=== PATIENT | female | born 1980 | race Two or more races ===

== ENCOUNTER 2022-07-14 08:30 | Emergency (ER) | payer OTHER, SELFPAY ==
--- NOTE | ~2022-07-14 | XR_ITS ---
EXAMINATION: XR CHEST CLINICAL INFORMATION: Cough. COMPARISON: None TECHNIQUE: 2 views of the chest were obtained. FINDINGS: No significant abnormality is noted involving the heart, lungs, mediastinum, bony thorax or soft tissues. XR/XR chest 2V IMPRESSION: No acute cardiopulmonary process.
[2022-07-14 08:33] VITALS: BP 149/96; PULSE 81; RESP 18; TEMP 36.6; O2SAT 98; BMI 33.6
--- NOTE | 2022-07-14 10:17 | ED_ITS ---
HPI - Headache General Chief Complaint: Headache Stated Complaint: migraine, nauseous, prev had pnemounio Time Seen by Provider: 07/14/22 09:52 Source: patient and family Mode of arrival: ambulatory Limitations: no limitations History of Present Illness HPI Narrative: 42-year-old female with a history of migraines and hypertension presents with symptoms of sore throat, body aches, dry cough, post-tussive vomiting, bilateral ear pain, bilateral eye redness, BOYCE since Thursday. Patient tells me on Thursday she went to [facility] and tested negative for COVID and strep. On she had continued symptoms of when to [place] where she had negative COVID and strep testing as well as a chest x-ray. She was told it was viral. On Thursday she had worsening pain in her right ear and noticed some bloody drainage and so she went back to [facility]. She was diagnosed with conjunctivitis and right otitis media and started on Augmentin and polymyxin drops. Patient reports continued symptoms yesterday. Patient unable to tolerate p.o. fluids or her medication which prompted her visit today. Patient denies fever, neck pain or neck stiffness, skin rash, shortness of breath, abdominal pain, diarrhea. Grisel ventura has received 3 COVID vaccinations. She has not had COVID before. One month ago had pneumonia and took two weeks of antibiotics (initially doxycycline but no improvement, felt better with azithromycin). Related Data Previous Rx's Medication Instructions Recorded codeine 10 mg-guaifenesin 100 mg/5 10 ml PO Q4-6H PRN cough #120 mL 07/14/22 mL oral liquid (Virtussin AC) prednisone 20 mg tablet 40 mg PO DAILY #10 tabs 07/14/22 Allergies Allergy/AdvReac Type Severity Reaction Status Date / Time No Known Allergies Allergy Verified 07/14/22 10:14 Review of Systems Review of Systems: Yes all other systems are reviewed and are negative Constitutional: Constitutional: Reports no additional constitutional complaints, Reports body ache(s), Denies chills, Denies fever(s), Reports headache(s) and Denies weakness Eyes: Eyes: Reports no additional eye complaints, Denies change in vision, Reports eye discharge and Reports other (eye redness) ENT: Reports system reviewed and no additional complaints, except as documented, Denies dizziness, Reports ear discharge, Reports otalgia, Reports headache(s), Denies nasal congestion, Denies nasal discharge, Denies neck pain and Reports sore throat Cardiovascular: Cardiovascular: Reports no additional cardiovascular complaints, Denies chest pain, Denies leg edema and Denies dyspnea Respiratory: Respiratory: Reports no additional respiratory complaints, Reports cough and Denies dyspnea Comments: +post tussive vomiting Gastrointestinal: Gastrointestinal: Reports no additional gastrointestinal complaints, Denies abdominal pain, Denies diarrhea, Reports nausea and Reports vomiting Genitourinary: Genitourinary: Reports no additional female genitourinary co mplaints and Denies urinary incontinence Musculoskeletal: Musculoskeletal: Reports no additional musculoskeletal complaints, Denies back pain, Denies arthralgias, Denies joint swelling, Denies neck pain, Denies numbness and Denies tingling Integumentary/Breasts: Skin/Breast: Reports system reviewed and no additional complaints, except as docu and Denies rash Neurologic: Reports system reviewed and no additional complaints, except as documented, Denies Abnormal speech present, Denies dizziness, Reports headache(s), Denies numbness, Denies tingling and Denies weakness [facility] Past Medical History Attestation statement: The following information was validated with the patient. Source: old records reviewed and nursing notes reviewed Social History Social History Alcohol intake: never Patient Tobacco Use Status: Never used Tobacco Use of substances other than those prescribed or required for medical reasons: No Advance Directives: No Advance Directives Information Provided: Yes Physical Exam Vital Signs: Vital Signs: Last Vital Signs Temp 98.6 F 07/14/22 11:09 Pulse 64 07/14/22 11:09 Resp 12 07/14/22 11:09 BP 143/84 H 07/14/22 11:09 Pulse Ox 97 07/14/22 11:09 O2 Del Method 07/14/22 11:09 BMI result Body Mass Index 33.6 Const: General: cooperative, healthy appearing, comfortable and no acute distress Orientation/consciousness: patient oriented x3 Limitations: no limitations HEENT: Head: Yes normal to inspection Ears: hearing grossly normal bilaterally, TM normal on the left, mastoids normal, no periauricular adenopathy and TM abnormal perforated without discharge General nose exam: Normal external nose present Face and sinus: Yes normal facial exam Mouth: Normal oral and palatal mucosa present Throat: Yes posterior oropharynx normal, Yes tonsils normal and Yes uvula midline Eyes: General: appearance normal, both eyes and all related structures Visual Souza: normal visual souza by confrontation Alignment and Position: alignment normal Periorbital: periorbital findings normal Eyelids: Yes eyelids normal Conjunctivae: conjunctival abnormal (R conjunctival ed zackery/injection/hemorrhage) diffuse Corneas: corneas normal Pupils: Equal, round and reactive pupils present EOM: EOMs intact bilaterally Direct Ophthalmoscopy: normal light reflex and no photophobia Neck: Neck: Yes normal visual inspection, Yes full ROM, Yes no lymphadenopathy and Yes no meningeal signs Chest: Chest palpation & inspection: normal inspection of the chest Resp: Other: +frequent cough-dry Effort & Inspection: normal respiratory effort Auscultation: clear to auscultation bilaterally Cardio: Rate: regular rate Rhythm: regular rhythm Peripheral pulses: Peripheral pulses 2+ throughout GI: Inspection: Yes normal to inspection Palpation (GI): Soft to palpation and nontender Auscultation: normal bowel sounds Back/Spine/Pelvis: Thoracic/Lumbar Spine: thoracic and lumbar spine normal to inspection Skin: General skin exam: no rashes or lesions noted Neuro: General: patient oriented x3, moves all extremities, no meningeal signs, no focal motor deficits and normal sensation to monofilament Cranial nerves: Yes Equal, round and reactive pupils present Cognition (Neuro): normal cognition Speech: No Abnormal speech present Gait exam (Neuro): Normal gait present Motor exam (neuro): 5/5 motor strength present throughout Sensory Exam: Normal double simultaneous stimulation for sensation Extrem: General: Yes normal to inspection Course Course Course Narrative: 1155-Patient complaining of some chest discomfort with coughing. Cough worsens the chest discomfort. No shortness of breath, leg swelling or leg pain. Vitals are stable. EKG will be obtained as well as troponin Reevaluation(s) Reevaluation #1: 1350- the patient had an EKG, labs, chest x-ray which showed no acute finding. Respiratory viral panel was done which was negative. Therefore due to complaints of persistent dry cough with post-tussive vomiting, subconjunctival hemorrhage consider pertussis. Patient was tested and the lab received a sample. Will discharge her home with recommendations to continue antibiotics. Will give robitussin w/codeine, prednisone course. Reviewed worrisome signs and symptoms of when to return to the emergency department. Comfortable discharge home. MDM - Headache MDM Narrative Medical decision making narrative: 42 yo female with history of HTN, migraines presents with 1 week of BOYCE, dry cough with associated post-tussive vomiting, bilateral ear pain, sore throat, body aches, right eye redness/discharge despite being on augmentin (for AOM/conjunctivitis syndrome), polymixin gtt, tessalon prn with reported pneumonia 1 month ago which improved with azithromycin. On arrival VSS. LS CTA. Frequent dry cough noted with vomiting, R subconjunctival hemorrhage, injection, edema with right TM perforation. No lymphadenopathy or meningeal signs. Normal neuro exam. Abdomen soft and nontender. Consider viral syndrome, pertussis, pneumonia. Exam not consistent with p haryngitis. Perc score 0 so less likely PE Medical Records Attestation: I reviewed the patient's medical records. Lab Data Attestation: I reviewed the patient's lab results. Result diagrams: 07/14/22 10:46 07/14/22 11:11 Labs: Lab Results 07/14/22 07/14/22 07/14/22 Range/Units 10:46 11:08 11:11 WBC 9.8 (4.8-10.8) X10*3/uL RBC 4.62 (4.20-5.50) X10*6/uL Hgb 13.0 (12.0-16.0) g/dl Hct 38.3 (37.0-47.0) % MCV 82.9 (80.0-98.0) fL MCH 28.1 (27.0-33.0) pg MCHC 33.9 (31.0-35.0) g/dl RDW 12.4 (11.0-16.0) % Plt Count 379 (160-400) X10*3/uL MPV 11.3 (9.4-12.3) fL Immature Gran % (Auto) 0.7 H (0.0-0.4) % Neut % (Auto) 66.4 (45-73) % Lymph % (Auto) 23.1 (20-40) % [place] % (Auto) 5.1 (2-11) % Eos % (Auto) 4.3 H (0-4) % Baso % (Auto) 0.4 (0-2) % Lymph # (Auto) 2.3 (1.2-4.9) X10*3/uL [place] # (Auto) 0.5 (0.1-1.2) X10*3/uL Eos # (Auto) 0.4 (0.0-0.4) X10*3/uL Baso # (Auto) 0.0 (0.0-0.2) X10*3/uL Abs Immat Gran (auto) 0.07 H (0.00-0.03) X10*3/uL Absolute Neuts (auto) 6.5 (2.0-8.3) x10*3/uL Absolute Nucleated RBC 0.000 (0.0-0.012) X10*3/uL Nucleated RBC % (auto) 0.0 (0.0-0.2) /100WBC Sodium 142 (135-145) mmol/L Potassium 3.8 (3.3-5.1) mmol/L Chloride 107 (96-108) mmol/L Carbon Dioxide 26 (22-29) mmol/L Anion Gap 13 (12-20) BUN 10 (9-16) mg/dL Creatinine 0.78 (0.5-1.4) mg/dL Estim Creat Clear Calc 95.7 Estimated GFR > 60 Random Glucose 85 (60-115) mg/dL Calcium 8.6 (8.4-10.2) mg/dL Total Bilirubin 0.2 (0.0-1.0) mg/dL Direct Bilirubin < 0.2 (0.0-0.5) mg/dL AST 15 (5-31) U/L ALT 13 (0-31) U/L Alkaline Phosphatase 81 (39-117) U/L Troponin I High Sens (<3.5-17.0) ng/L Total Protein 6.8 (6.5-8.0) g/dL Albumin 3.8 (3.5-5.0) g/dL Respiratory Panel [place] See Note Adenovirus (Rapid PCR) Not Detected (Not Detect.) B.pert (TEM-PCR) Not Detected (Not Detect.) B.parapertussis DNA PCR Not Detected (Not Detect.) C. pneumoniae DNA (PCR) Not Detected (Not Detect.) Coronavirus OC43 (PCR) Not Detected (Not Detect.) Coronavirus HKU1 (PCR) Not Detected (Not Detect.) Coronavirus 229E (PCR) Not Detected (Not Detect.) Coronavirus NL63 (PCR) Not Detected (Not Detect.) Human Metapneumovir PCR Not Detected (Not Detect.) Influenza A (RT-PCR) Not Detected (Not Detect.) Influenza B (RT-PCR) Not Detected (Not Detect.) M. pneumoniae (PCR) Not Detected (Not Detect.) Parainfluenza 1 (PCR) Not Detected (Not Detect.) Parainfluenza 2 (PCR) Not Detected (Not Detect.) Parainfluenza 3 (PCR) Not Detected (Not Detect.) Parainfluenza 4 (PCR) Not Detected (Not Detect.) RSV (PCR) Not Detected (Not Detect.) Entero/Rhino (PCR) Not Detected (Not Detect.) SARS-CoV-2 RNA (RT-PCR) Not Detected (Not Detect.) 07/14/22 Range/Units 12:25 WBC (4.8-10.8) X10*3/uL RBC (4.20-5.50) X10*6/uL Hgb (12.0-16.0) g/dl Hct (37.0-47.0) % MCV (80.0-98.0) fL MCH (27.0-33.0) pg MCHC (31.0-35.0) g/dl RDW (11.0-16.0) % Plt Count (160-400) X10*3/uL MPV (9.4-12.3) fL Immature Gran % (Auto) (0.0-0.4) % Neut % (Auto) (45-73) % Lymph % (Auto) (20-40) % [place] % (Auto) (2-11) % Eos % (Auto) (0-4) % Baso % (Auto) (0-2) % Lymph # (Auto) (1.2-4.9) X10*3/uL [place] # (Auto) (0.1-1.2) X10*3/uL Eos # (Auto) (0.0-0.4) X10*3/uL Baso # (Auto) (0.0-0.2) X10*3/uL Abs Immat Gran (auto) (0.00-0.03) X10*3/uL Absolute Neuts (auto) (2.0-8.3) x10*3/uL Absolute Nucleated RBC (0.0-0.012) X10*3/uL Nucleated RBC % (auto) (0.0-0.2) /100WBC Sodium (135-145) mmol/L Potassium (3.3-5.1) mmol/L Chloride (96-108) mmol/L Carbon Dioxide (22-29) mmol/L Anion Gap (12-20) BUN (9-16) mg/dL Creatinine (0.5-1.4) mg/dL Estim Creat Clear Calc Estimated GFR Random Glucose (60-115) mg/dL Calcium (8.4-10.2) mg/dL Total Bilirubin (0.0-1.0) mg/dL Direct Bilirubin (0.0-0.5) mg/dL AST (5-31) U/L ALT (0-31) U/L Alkaline Phosphatase (39-117) U/L Troponin I High Sens < 3.5 (<3.5-17.0) ng/L Total Protein (6.5-8.0) g/dL Albumin (3.5-5.0) g/dL Respiratory Panel [place] Adenovirus (Rapid PCR) (Not Detect.) B.pert (TEM-PCR) (Not Detect.) B.parapertussis DNA PCR (Not Detect.) C. pneumoniae DNA (PCR) (Not Detect.) Coronavirus OC43 (PCR) (Not Detect.) Coronavirus HKU1 (PCR) (Not Detect.) Coronavirus 229E (PCR) (Not Detect.) Coronavirus NL63 (PCR) (Not Detect.) Human Metapneumovir PCR (Not Detect.) Influenza A (RT-PCR) (Not Detect.) Influenza B (RT-PCR) (Not Detect.) M. pneumoniae (PCR) (Not Detect.) Parainfluenza 1 (PCR) (Not Detect.) Parainfluenza 2 (PCR) (Not Detect.) Parainfluenza 3 (PCR) (Not Detect.) Parainfluenza 4 (PCR) (Not Detect.) RSV (PCR) (Not Detect.) Entero/Rhino (PCR) (Not Detect.) SARS-CoV-2 RNA (RT-PCR) (Not Detect.) Imaging Data Chest x-ray: Attestation: I personally reviewed and interpreted this imaging study as follows: Radiologist's impression: cc: Rosario Camp SELF PAY REPRESENTATIVE~ EXAMINATION: XR CHEST CLINICAL INFORMATION: Cough. COMPARISON: None TECHNIQUE: 2 views of the chest were obtained. FINDINGS: No significant abnormality is noted involving the heart, lungs, mediastinum, bony thorax or soft tissues. XR/XR chest 2V IMPRESSION: No acute cardiopulmonary process. ECG Data Attestation: I personally reviewed and interpreted this ECG as follows: ECG interpretation date: 07/14/22 ECG interpretation time: 12:14 Interpretation: sinus bradycardia with a rate of 58, normal NE, normal QRS, normal QT Discharge Plan Discharge Clinical Impression: URI (upper respiratory infection), Perforation of tympanic membrane Patient Disposition: Home, Self-Care Instructions: Ruptured Eardrum (ED), Upper Respiratory Infection (ED) Additional Instructions: Continue antibiotic oral and antibiotic eye drops. We sent testing for pertussis. We will call you if it is positive. it takes a few days Prescriptions: New prednisone 20 mg tablet 40 mg PO DAILY Qty: 10 0RF codeine-guaifenesin [Virtussin AC] 10-100 mg/5 mL liquid 10 ml PO Q4-6H PRN (Reason: cough) Qty: 120 0RF Rx Instructions: partial fill per patient Referrals: Scott Lopez [Physician] - 10 days Physician,Unknown J [Primary Care Provider] - Stand Alone Forms: Work/School Release Interventions: ED Discharge Assessment Last Done: 07/14/22 14:45 Discharge Date/Time: 07/14/22 14:45
[2022-07-14 10:50] LABS: MANUAL DIFF FLAG NO
[2022-07-14 10:54] LABS: Basophils Percent Auto 0.4 % (0-2); Eosinophils Absolute Auto 0.4 X10*3/uL (0.0-0.4); Eosinophils Percent Auto 4.3 % (0-4); Hematocrit 38.3 % (37.0-47.0); Imm Gran Abs Auto 0.07 X10*3/uL (0.00-0.03); Imm Gran Pct Auto 0.7 % (0.0-0.4); Lymphocytes Absolute Auto 2.3 X10*3/uL (1.2-4.9); Lymphocytes Percent Auto 23.1 % (20-40); Mean Corpuscular HGB Conc 33.9 g/dl (31.0-35.0); Mean Corpuscular Hemoglobin 28.1 pg (27.0-33.0); Mean Corpuscular Volume 82.9 fL (80.0-98.0); Mean Platelet Volume 11.3 fL (9.4-12.3); Monocytes Absolute Auto 0.5 X10*3/uL (0.1-1.2); Monocytes Percent Auto 5.1 % (2-11); Neutrophils Absolute Auto 6.5 x10*3/uL (2.0-8.3); Neutrophils Percent Auto 66.4 % (45-73); Platelet Count 379 X10*3/uL (160-400); Red Blood Count 4.62 X10*6/uL (4.20-5.50); Red Cell Distribution Width 12.4 % (11.0-16.0); White Blood Count 9.8 X10*3/uL (4.8-10.8)
[2022-07-14] MEDS: 0.9 % Sodium Chloride 1,000 ML 999 ML IV (10:54)
[2022-07-14] MEDS: guaiFEN/Codeine SF 200/20/10ML 10 ML LIQUID PO (10:56)
[2022-07-14] MEDS: Ketorolac Tromethamine 30 MG/ML VIAL IVPUSH (10:56)
[2022-07-14] MEDS: ondansetron HCL 4 MG/2 ML VIAL IVPUSH (10:56)
[2022-07-14 11:09] VITALS: BP 143/84; PULSE 64; RESP 12; TEMP 37; O2SAT 97
[2022-07-14 11:38] LABS: Alanine Aminotransferase 13 U/L (0-31); Albumin Level 3.8 g/dL (3.5-5.0); Alkaline Phosphatase 81 U/L (39-117); Anion Gap 13 (12-20); Aspartate Amino Transferase 15 U/L (5-31); Bilirubin Direct < 0.2 mg/dL (0.0-0.5); Bilirubin Total 0.2 mg/dL (0.0-1.0); Blood Urea Nitrogen 10 mg/dL (9-16); Calcium 8.6 mg/dL (8.4-10.2); Carbon Dioxide 26 mmol/L (22-29); Chloride 107 mmol/L (96-108); Creatinine Clr Calc Pharmacy 95.7; Estimated Glomerular Filt Rate > 60; Glucose Random 85 mg/dL (60-115); Potassium 3.8 mmol/L (3.3-5.1); Sodium 142 mmol/L (135-145); Total Protein 6.8 g/dL (6.5-8.0)
--- NOTE | 2022-07-14 11:56 | ECG_ITS ---
Test Reason : sharp chest pain Blood Pressure : / mmHG Vent. Rate : 058 BPM Atrial Rate : 058 BPM P-R Int : 174 ms QRS Dur : 086 ms QT Int : 454 ms P-R-T Axes : 037 016 001 degrees QTc Int : 445 ms Sinus bradycardia Otherwise normal ECG No previous ECGs available Referred By: Rosario Camp Electronically Signed By:CY BALLARD
[2022-07-14 12:50] LABS: Troponin-I High Sensitivity < 3.5 ng/L (<3.5-17.0)
[2022-07-14 12:52] LABS: Adenovirus PCR Not Detected (Not Detect.); Bordetella parapertussis PCR Not Detected (Not Detect.); Bordetella pertussis PCR Not Detected (Not Detect.); Chlamydia pneumoniae PCR Not Detected (Not Detect.); Coronavirus 229E PCR Not Detected (Not Detect.); Coronavirus HKU1 PCR Not Detected (Not Detect.); Coronavirus NL63 PCR Not Detected (Not Detect.); Coronavirus OC43 PCR Not Detected (Not Detect.); Human metapneumovirus PCR Not Detected (Not Detect.); Influenza A PCR Not Detected (Not Detect.); Influenza B PCR Not Detected (Not Detect.); Mycoplasma pneumoniae PCR Not Detected (Not Detect.); Parainfluenza 1 PCR Not Detected (Not Detect.); Parainfluenza 2 PCR Not Detected (Not Detect.); Parainfluenza 3 PCR Not Detected (Not Detect.); Parainfluenza 4 PCR Not Detected (Not Detect.); RSV PCR Not Detected (Not Detect.); Rhino/Enterovirus PCR Not Detected (Not Detect.); SARS-CoV-2 PCR Not Detected (Not Detect.)
[2022-07-29 14:17] LABS: Pertussis Testing Negative
== END 2022-07-14 14:45 | disposition home or self-care (01) ==
PROVIDERS: Nurse Practitioner Family; Emergency Provider Emergency Medicine
DX: J06.9 Acute upper respiratory infection, unspecified (principal); H72.91 Unspecified perforation of tympanic membrane, right ear; H11.31 Conjunctival hemorrhage, right eye; Z20.822 Contact with and (suspected) exposure to COVID-19; J02.9 Acute pharyngitis, unspecified; I10 Essential (primary) hypertension
CPT/HCPCS: 36415; 71046; 80048; 80076; 84484; 85025; 87633; 93005; 96361; 96374; 96375; 99284; 99285; J1885; J2405

== ENCOUNTER 2022-07-18 13:48 | Emergency (ER) | payer OTHER, SELFPAY ==
--- NOTE | ~2022-07-18 | XR_ITS ---
EXAMINATION: XR CHEST CLINICAL INFORMATION: Shortness of breath COMPARISON: 07/14/2022 TECHNIQUE: Frontal view of the chest was obtained. FINDINGS: No acute finding. There is no failure or infiltrate. No effusion. Lung simon are grossly clear. Prominent cardiac silhouette but this is an AP film. The hilar structures do not appear pathologically enlarged. XR/XR chest 1V IMPRESSION: No acute finding.
[2022-07-18 14:37] VITALS: BP 142/96; PULSE 69; RESP 18; TEMP 36.7; O2SAT 97; BMI 33.6
[2022-07-18 15:13] LABS: Hematocrit 42.1 % (37.0-47.0); Hemoglobin 14.2 g/dl (12.0-16.0); Mean Corpuscular HGB Conc 33.7 g/dl (31.0-35.0); Mean Corpuscular Hemoglobin 27.9 pg (27.0-33.0); Mean Corpuscular Volume 82.7 fL (80.0-98.0); Mean Platelet Volume 11.1 fL (9.4-12.3); Platelet Count 438 X10*3/uL (160-400); Red Blood Count 5.09 X10*6/uL (4.20-5.50); Red Cell Distribution Width 12.5 % (11.0-16.0); White Blood Count 16.8 X10*3/uL (4.8-10.8)
[2022-07-18 15:28] LABS: Anion Gap 17 (12-20); Blood Urea Nitrogen 13 mg/dL (9-16); Calcium 9.1 mg/dL (8.4-10.2); Carbon Dioxide 25 mmol/L (22-29); Chloride 104 mmol/L (96-108); Creatinine Clr Calc Pharmacy 85.9; Estimated Glomerular Filt Rate > 60; Glucose Random 134 mg/dL (60-115); Sodium 142 mmol/L (135-145)
[2022-07-18 15:29] LABS: COVID-19 Test Negative (Negative)
[2022-07-18] MEDS: 0.9 % Sodium Chloride 1,000 ML 999 ML IVCONT ×2 (16:33→19:26)
[2022-07-18] MEDS: Ketorolac Tromethamine 30 MG/ML VIAL IVPUSH (16:33)
[2022-07-18] MEDS: ondansetron HCL 4 MG/2 ML VIAL IVPUSH (16:33)
[2022-07-18] MEDS: guaiFEN/Codeine SF 200/20/10ML 10 ML LIQUID PO (16:33)
--- NOTE | 2022-07-18 16:35 | ED_ITS ---
HPI - General Adult General Chief complaint: General Medical Stated complaint: multiple complaints/chest pains Time Seen by Provider: 07/18/22 15:28 Source: patient, family and old records reviewed Mode of arrival: ambulatory Limitations: no limitations History of Present Illness HPI narrative: 42-year-old female with a history of hypertension and migraines who presents to the ER as for evaluation of 12 days of feeling unwell. She reports she has had diffuse body aches, migraine headaches, sore throat, dry cough, nausea and vomiting. She was seen at [facility] last week where she had a negative COVID and strep test. She was diagnosed with conjunctivitis and ear infection started on Augmentin, prednisone and polymyxin drops. She was seen here on 07/14 for ongoing symptoms. She had a complete viral panel that was negative. She was found to have right eardrum perforation. Patient reports ongoing symptoms is week. Every time she takes her Augmentin she vomits. She is not eating or drinking much because of ongoing nausea. She denies any abdominal pain. She reports the worse part of her illness is her diffuse headache and sinus fullness. No known sick contacts, is feeling well. She had multiple COVID tests that have been negative. Patient works at [employer], she tried to go to work today but ended up leaving after few hours because she felt so 1 well in her headache was throbbing. She went to Dr. Lopez's office for ear nose and throat when she lost her voice. He did not see any vocal cord abnormalities on flex scope and thought it was more pneumonia per the patient report. MD complaint: Headache and post-tussive emesis Onset (ago): day(s) (12) Location: head, face and mouth Radiation: back and neck Severity: moderate Severity scale (1-10): 7 Quality: aching, dull and constant Pain Consistency: constant Relieving factors: medication Exacerbating factors: none Associated symptoms: cough, headaches, loss of appetite, malaise, nausea/vomiting and weakness Treatments prior to arrival: other (Previously prescribed antibiotic, cough syrup) Related Data Previous Rx's Medication Instructions Recorded codeine 10 mg-guaifenesin 100 mg/5 10 ml PO Q4-6H PRN cough #120 mL 07/14/22 mL oral liquid (Virtussin AC) prednisone 20 mg tablet 40 mg PO DAILY #10 tabs 07/14/22 cefuroxime axetil 500 mg tablet 500 mg PO BID 7 days #14 tabs 07/18/22 fluticasone propionate 50 1 spray intranasal BID #16 grams 07/18/22 mcg/actuation nasal spray,suspension (Aller-Abel) ibuprofen 600 mg tablet 600 mg PO Q8H PRN pain #10 tabs 07/18/22 ondansetron 4 mg disintegrating 4 mg PO Q8H PRN nausea and 07/18/22 tablet vomiting #10 tabs Allergies Allergy/AdvReac Type Severity Reaction Status Date / Time No Known Allergies Allergy Verified 07/14/22 10:14 Review of Systems Review of Systems: Constitutional: No Fever, No Chills ENT/Mouth: + sore throat, No Rhinorrhea, No Swallowing Difficulty, +Otalgia Eyes: No Eye Pain, No Swelling, + Redness Cardiovascular: No Chest Pain, No SOB, No Orthopnea, No Edema Respiratory: No Cough, No Sputum, No Wheezing, No dyspnea Gastrointestinal: + Nausea, + Vomiting, No Diarrhea, No abdominal Pain, No Hematochezia, No Melena Genitourinary: No Dysuria, No Urinary Frequency, No Hematuria Musculoskeletal: No joint pain, +Myalgias Skin: No Skin Lesions, No rash Neuro: +Weakness, No Numbness, No Dizziness, + Headache Psych: No Anxiety/Panic, No Depression Heme/Lymph: No Bruising, No Lymphadenopathy Endocrine: No Polyuria, No Polydipsia PMFSH Social History Social History Alcohol intake: never Patient Tobacco Use Status: Never used Tobacco Advance Directives: No Advance Directives Information Provided: Yes Physical Exam ED Vital Signs: Vital Signs - 24 hr 07/18/22 14:37 07/18/22 16:36 Temperature 98.1 F Pulse Rate 69 65 Respiratory Rate 18 19 Blood Pressure 142/96 H 158/79 H Pulse Oximetry 97 98 Oxygen Delivery Method Room Air Room Air BMI result Body Mass Index 33.6 Appearance: Alert. Oriented X3. No acute distress. Eyes: Subcontunctival hemorrhage present in the medial aspect of the right eye. No discharge. Pupils equal, round and reactive to light. ENT: Pharynx with moderate posterior erythema, no tonsillar swelling or exudate. uvula midline. hoarse voice. TMS are intact bilaterally with effusions present, no erythema. Neck: Normal inspection. Neck supple. No LAD CVS: Normal heart rate and rhythm. Pulses normal. Respiratory: No respiratory distress. Breath sounds coarse in the ANEL only, no wheezes or rhonchi. Abdomen: Soft and nontender. +BS x4 Skin: Skin warm and dry. Normal skin color. Normal skin turgor. No rashes. Extremities: No lower extremity edema. Neuro: Oriented X 3. No motor deficit. No sensory deficit. Course Course Course Narrative: 42-year-old female with history of hypertension presents to the ER for evaluation of 12 days of feeling unwell. She was recently diagnosed with pharyngitis, ear infection, TM perforation. She has been on Augmentin and prednisone however she is throwing up her Augmentin after she takes it, it is making her nauseous. She reports no improvement in her cough with cough syrup with codeine. She denies any abdominal pain, difficulty breathing, chest pain. On arrival to the ER her vital signs are stable, she is afebrile and not tachycardic. She appears nontoxic. Chest x-ray, lab workup is pending. Biggest complaint is her migraine headache, will treat with IV Toradol and IV fluids for now. Reevaluation(s) Reevaluation #1: Lab workup showing a WBC 16.8. Her chest x-ray is clear, no evidence of pne umonia. This is most likely reactive from her recurrent vomiting as well as being on prednisone. Her electrolytes are within normal limits. Will re-evaluate after IV fluids, Zofran, Toradol. Will also give her her 1st dose of her new antibiotic, Ceftin. Will see how her stomach tolerates. Anti cipate discharge home Medical Decision Making Lab Data Result diagrams: 07/18/22 14:56 07/18/22 14:56 Labs: Lab Results 07/18/22 07/18/22 07/18/22 Range/Units 14:56 14:56 14:56 WBC 16.8 H (4.8-10.8) X10*3/uL RBC 5.09 (4.20-5.50) X10*6/uL Hgb 14.2 (12.0-16.0) g/dl Hct 42.1 (37.0-47.0) % MCV 82.7 (80.0-98.0) fL MCH 27.9 (27.0-33.0) pg MCHC 33.7 (31.0-35.0) g/dl RDW 12.5 (11.0-16.0) % Plt Count 438 H (160-400) X10*3/uL MPV 11.1 (9.4-12.3) fL Absolute Nucleated RBC 0.000 (0.0-0.012) X10*3/uL Nucleated RBC % (auto) 0.0 (0.0-0.2) /100WBC Sodium 142 (135-145) mmol/L Potassium 4.0 (3.3-5.1) mmol/L Chloride 104 (96-108) mmol/L Carbon Dioxide 25 (22-29) mmol/L Anion Gap 17 (12-20) BUN 13 (9-16) mg/dL Creatinine 0.87 (0.5-1.4) mg/dL Estim Creat Clear Calc 85.9 Estimated GFR > 60 Random Glucose 134 H (60-115) mg/dL Calcium 9.1 (8.4-10.2) mg/dL COVID-19 (CELESTINA) Negative (Negative) COVID-19 Clin Com See Note Critical Care Time Critical Care Time Critical Care Time: No Discharge Plan Discharge Clinical Impression: Sinusitis, Laryngitis, Migraine Patient Disposition: Home, Self-Care Instructions: Sinusitis (ED), Migraine Headache (ED) Additional Instructions: Your lab workup today revealed a elevated white blood cell count, this is most likely due to vomiting and the fact that you are on prednisone. Your x-ray did not show any evidence of pneumonia. You are negative for COVID-19. Stop taking the previously prescribed Augmentin. Start taking the new antibiotic as directed, complete the entire course. Take the prescribed medication as needed for nausea and vomiting. Rest and drink plenty of fluids. Stick to a bland diet were not feeling well. If you develop new or worsening symptoms call 911 or come back to the ER for further evaluation. Prescriptions: New cefuroxime axetil 500 mg tablet 500 mg PO BID 7 Days Qty: 14 0RF ibuprofen 600 mg tablet 600 mg PO Q8H PRN (Reason: pain) Qty: 10 0RF ondansetron 4 mg tablet,disintegrating 4 mg PO Q8H PRN (Reason: nausea and vomiting) Qty: 10 0RF fluticasone propionate [Aller-Abel] 50 mcg/actuation spray,suspension 1 spray intranasal BID Qty: 16 0RF Rx Instructions: administer into each nostril No Action prednisone 20 mg tablet 40 mg PO DAILY Qty: 10 0RF codeine-guaifenesin [Virtussin AC] 10-100 mg/5 mL liquid 10 ml PO Q4-6H PRN (Reason: cough) Qty: 120 0RF Rx Instructions: partial fill per patient Stand Alone Forms: Work/School Release
[2022-07-18 16:36] VITALS: BP 158/79; PULSE 65; RESP 19; O2SAT 98
--- NOTE | 2022-07-18 19:00 | PC.NURSE ---
RN assumed care of patient at this time.
[2022-07-18 19:27] VITALS: BP 159/95; PULSE 61; RESP 18; O2SAT 99
[2022-07-18 20:54] VITALS: BP 168/81; PULSE 58; TEMP 36.6; O2SAT 97
== END 2022-07-18 21:01 | disposition home or self-care (01) ==
PROVIDERS: Emergency Provider Emergency Medicine
DX: G43.909 Migraine, unspecified, not intractable, without status migrainosus (principal); R07.89 Other chest pain; J32.9 Chronic sinusitis, unspecified; J04.0 Acute laryngitis; Z79.899 Other long term (current) drug therapy; Z20.822 Contact with and (suspected) exposure to COVID-19
CPT/HCPCS: 71045; 80048; 85027; 87635; 96361; 96374; 96375; 99285; J1885; J2405

== ENCOUNTER 2022-07-23 10:04 | Emergency (ER) | payer OTHER, SELFPAY ==
--- NOTE | ~2022-07-23 | XR_ITS ---
EXAMINATION: XR CHEST CLINICAL INFORMATION: Chest pain and cough COMPARISON: 07/18/2022 TECHNIQUE: 2 views of the chest were obtained. FINDINGS: Lungs are well-inflated and clear. Trachea is midline in position. No interstitial disease, consolidation or mass. No pleural effusion or pneumothorax. Cardiac silhouette and pulmonary vessels are normal in size. The mediastinum and michael have normal contour. The visualized bones, and upper abdomen, are unremarkable. XR/XR chest 2V IMPRESSION: Normal chest radiographs.
--- NOTE | ~2022-07-23 | CT_ITS ---
EXAMINATION: CT CHEST WITHOUT CONTRAST CLINICAL INFORMATION: Coughing and chest pain COMPARISON: None TECHNIQUE: Multidetector volumetric CT imaging of the chest was done. Axial MIP volume rendering provided. Sagittal and coronal reformatted images were obtained. This CT examination was performed using dose optimization techniques as appropriate, variously including the following: *Automated exposure control *Adjustment of mA and/or kV according to patient size (this includes techniques or standardized protocols for targeted exams where dose is matched to indication/reason for exam; i.e. extremities or head) *Use of iterative reconstruction technique DLP: 264 mGy-cm FINDINGS: LUNGS: Minimal dependent left basilar atelectasis. No airspace consolidation. No pulmonary nodule or mass. Central through segmental airways are clear. MEDIASTINUM: No cardiomegaly or pericardial effusion. Normal caliber thoracic aorta. No aneurysm. Nondilated central pulmonary trunk. No mediastinal or hilar lymphadenopathy. PLEURA: There is no pleural effusion. No pleural mass or thickening. AXILLA: No lymphadenopathy. UPPER ABDOMEN: Imaged upper abdominal viscera are grossly unremarkable. Possible small hiatal hernia. OSSEOUS STRUCTURES: No acute fracture or suspicious osseous lesion. CT/CT chest wo con IMPRESSION: No acute pulmonary process.
[2022-07-23 10:09] VITALS: BP 156/102; PULSE 71; RESP 19; TEMP 36.6; O2SAT 98; BMI 33.6
--- NOTE | 2022-07-23 10:13 | ECG_ITS ---
Test Reason : chest pain Blood Pressure : / mmHG Vent. Rate : 070 BPM Atrial Rate : 070 BPM P-R Int : 162 ms QRS Dur : 080 ms QT Int : 384 ms P-R-T Axes : 027 024 -01 degrees QTc Int : 414 ms Normal sinus rhythm Normal ECG When compared with ECG of 14-JUL-2022 12:14, No significant change was found Referred By: Generic ED Physician Electronically Signed By:CY BALLARD
[2022-07-23 10:42] LABS: MANUAL DIFF FLAG NO
[2022-07-23 10:50] LABS: Appearance Urine Clear; Color Urine Yellow; Glucose Urine UA Negative (Negative); Leukocyte Esterase Urine Negative (Negative); Nitrite Urine Negative (Negative); Specific Gravity - Urine 1.015 (1.005-1.025); Urine Blood Negative (Negative); Urine Ketones Negative (Negative); Urine Protein Trace mg/dL (Neg-Trace)
[2022-07-23 10:56] LABS: Basophils Absolute Auto 0.1 X10*3/uL (0.0-0.2); Basophils Percent Auto 0.5 % (0-2); Eosinophils Absolute Auto 0.3 X10*3/uL (0.0-0.4); Eosinophils Percent Auto 2.1 % (0-4); Hemoglobin 13.6 g/dl (12.0-16.0); Imm Gran Abs Auto 0.08 X10*3/uL (0.00-0.03); Imm Gran Pct Auto 0.7 % (0.0-0.4); Lymphocytes Absolute Auto 2.1 X10*3/uL (1.2-4.9); Mean Corpuscular HGB Conc 33.2 g/dl (31.0-35.0); Mean Corpuscular Hemoglobin 27.8 pg (27.0-33.0); Mean Corpuscular Volume 83.8 fL (80.0-98.0); Mean Platelet Volume 11.7 fL (9.4-12.3); Monocytes Absolute Auto 0.6 X10*3/uL (0.1-1.2); Monocytes Percent Auto 4.5 % (2-11); Neutrophils Absolute Auto 9.2 x10*3/uL (2.0-8.3); Neutrophils Percent Auto 75.2 % (45-73); Platelet Count 353 X10*3/uL (160-400); Red Blood Count 4.89 X10*6/uL (4.20-5.50); Red Cell Distribution Width 12.7 % (11.0-16.0); White Blood Count 12.2 X10*3/uL (4.8-10.8)
[2022-07-23 11:14] LABS: Troponin-I High Sensitivity < 3.5 ng/L (<3.5-17.0)
[2022-07-23 11:17] LABS: Anion Gap 13 (12-20); Blood Urea Nitrogen 7 mg/dL (9-16); Calcium 10.8 mg/dL (8.4-10.2); Carbon Dioxide 27 mmol/L (22-29); Chloride 104 mmol/L (96-108); Creatinine Clr Calc Pharmacy 100.9; Estimated Glomerular Filt Rate > 60; Glucose Random 91 mg/dL (60-115); Potassium 4.3 mmol/L (3.3-5.1); Sodium 140 mmol/L (135-145)
--- NOTE | 2022-07-23 14:52 | ED_ITS ---
HPI - Chest Pain General Chief Complaint: Chest Pain Stated Complaint: aches pains sob vomiting Time Seen by Provider: 07/23/22 14:25 Source: patient Mode of arrival: ambulatory Limitations: no limitations History of Present Illness HPI narrative: 42-year-old female in for evaluation of coughing chest pain. Patient had multiple ED visits for evaluation of upper respiratory symptoms, complaining of persistent coughing with clear sputum for the past 2-3 weeks, patient perforated right TM from coughing, declined any recent travel, patient was seen by ENT doctor and was started on prednisone, cefuroxime, bronchodilator with no improvement. Patient declined any recent travel, no lower extremity swelling or edema. Related Data Previous Rx's Medication Instructions Recorded codeine 10 mg-guaifenesin 100 mg/5 10 ml PO Q4-6H PRN cough #120 mL 07/14/22 mL oral liquid (Virtussin AC) prednisone 20 mg tablet 40 mg PO DAILY #10 tabs 07/14/22 cefuroxime axetil 500 mg tablet 500 mg PO BID 7 days #14 tabs 07/18/22 fluticasone propionate 50 1 spray intranasal BID #16 grams 07/18/22 mcg/actuation nasal spray,suspension (Aller-Abel) ibuprofen 600 mg tablet 600 mg PO Q8H PRN pain #10 tabs 07/18/22 ondansetron 4 mg disintegrating 4 mg PO Q8H PRN nausea and 07/18/22 tablet vomiting #10 tabs prednisone 20 mg tablet 20 mg PO BID #10 tabs 07/23/22 Allergies Allergy/AdvReac Type Severity Reaction Status Date / Time No Known Allergies Allergy Verified 07/14/22 10:14 Review of Systems Review of Systems: All other systems are reviewed and are negative Constitutional: Reports as per HPI and Reports no additional constitutional complaints Eyes: Reports as per HPI and Reports no additional eye complaints Reports system reviewed and no additional complaints, except as documented Cardiovascular: Reports as per HPI and Reports no additional cardiovascular complaints Respiratory: Reports as per HPI and Reports no additional respiratory complaints Gastrointestinal: Reports as per HPI and Reports no additional gastrointestinal complaints Genitourinary: Reports no additional female genitourinary complaints Musculoskeletal: Reports no additional musculoskeletal complaints Skin/Breast: Reports system reviewed and no additional complaints, except as docu Psychiatric: Reports no additional psychiatric complaints Endocrine: Reports no additional endocrine complaints Hematologic/Lymphatic: Reports no additional hematologic/lymphatic complaints Allergic/Immunologic: Reports no additional allergic/immunologic complaints Reports system reviewed and no additional complaints, except as documented and Reports Abnormal speech present [facility] Social History Social History Alcohol intake: never Patient Tobacco Use Status: Never used Tobacco Advance Directives: No Advance Directives Information Provided: No Physical Exam Vital Signs: Vital Signs: Last Vital Signs Temp 98 F 07/23/22 10:09 Pulse 71 07/23/22 10:09 Resp 19 07/23/22 10:09 BP 156/102 H 07/23/22 10:09 Pulse Ox 98 07/23/22 10:09 O2 Del Method 07/23/22 10:09 BMI result Body Mass Index 33.6 Vital signs have been reviewed as appeared to be correct. Blood pressure normal. Heart rate normal. Respiration rate normal. Temperature normal. Oxygen saturation normal. Appearance: Alert. Oriented X3. No acute distress. Head: Normal external exam. Normocephalic. Atraumatic. No Mora signs noted. No raccoon eyes noted Eyes: PERRLA. EOMI. Conjunctiva and sclera normal. Eyelids normal. ENT: TM's Normal. Pharynx normal. Uvula midline. Moist mucous membranes. No trismus noted. No drooling noted. No muffled voice noted. Neck: Normal inspection. Neck supple. FROM. No adenopathy. Thyroid Normal. No meningeal signs. No neck mass noted. CVS: Normal heart rate and rhythm. Heart sound normal. No murmurs noted. Pulses normal throughout. Respiratory: No respiratory distress. Painless inspiration. Breath sounds normal. No wheezes/rales/rhonchi noted. Chest nontender. No accessory muscle usage noted or decreased air movement noted. Abdomen: Soft and nontender. Bowel sounds normal in all 4 quadrants. No distention noted. No organomegaly noted. No visible injury noted. Back: No CVA tenderness. Full range of motion noted. Skin: Skin warm and dry. Normal skin color. Normal skin turgor. No rashes/lesions/lacerations noted. Extremities: No lower extremity edema. Extremities exhibit normal range of motion. Extremities nontender. Neuro: Oriented X 3. Cranial nerve exam: II-XII are grossly intact No motor deficit. No sensory deficit. Reflexes normal. Course Course Course Narrative: 42-year-old female came in for evaluation of 3 weeks of upper respiratory symptoms, patient had been evaluated by ENT possible laryngitis, patient tried a course of prednisone and antibiotic, chest x-ray/CT of the chest showing no acute infection, would continue with steroid for another 5 days course, patient was instructed to drink warm fluids will give information of Dr. Rizo to check with him if not improving for possible bronchoscopy. Leukocytosis likely recent use of steroid. MDM - Chest Pain Medical Records Data Attestation: I reviewed the patient's medical records. Lab Data Attestation: I reviewed the patient's lab results. Result diagrams: 07/23/22 10:28 07/23/22 10: Labs: Lab Results 07/23/22 07/23/22 07/23/22 Range/Units 10:28 10:28 10:28 WBC 12.2 H (4.8-10.8) X10*3/uL RBC 4.89 (4.20-5.50) X10*6/uL Hgb 13.6 (12.0-16.0) g/dl Hct 41.0 (37.0-47.0) % MCV 83.8 (80.0-98.0) fL MCH 27.8 (27.0-33.0) pg MCHC 33.2 (31.0-35.0) g/dl RDW 12.7 (11.0-16.0) % Plt Count 353 (160-400) X10*3/uL MPV 11.7 (9.4-12.3) fL Immature Gran % (Auto) 0.7 H (0.0-0.4) % Neut % (Auto) 75.2 H (45-73) % Lymph % (Auto) 17.0 L (20-40) % [place] % (Auto) 4.5 (2-11) % Eos % (Auto) 2.1 (0-4) % Baso % (Auto) 0.5 (0-2) % Lymph # (Auto) 2.1 (1.2-4.9) X10*3/uL [place] # (Auto) 0.6 (0.1-1.2) X10*3/uL Eos # (Auto) 0.3 (0.0-0.4) X10*3/uL Baso # (Auto) 0.1 (0.0-0.2) X10*3/uL Abs Immat Gran (auto) 0.08 H (0.00-0.03) X10*3/uL Absolute Neuts (auto) 9.2 H (2.0-8.3) x10*3/uL Absolute Nucleated RBC 0.000 (0.0-0.012) X10*3/uL Nucleated RBC % (auto) 0.0 (0.0-0.2) /100WBC D-Dimer High Sensitivty NG/ML Sodium 140 (135-145) mmol/L Potassium 4.3 (3.3-5.1) mmol/L Chloride 104 (96-108) mmol/L Carbon Dioxide 27 (22-29) mmol/L Anion Gap 13 (12-20) BUN 7 L (9-16) mg/dL Creatinine 0.74 (0.5-1.4) mg/dL Estim Creat Clear Calc 100.9 Estimated GFR > 60 Random Glucose 91 (60-115) mg/dL Calcium 10.8 H D (8.4-10.2) mg/dL Troponin I High Sens < 3.5 (<3.5-17.0) ng/L Urine Color Urine Appearance Urine pH (5.0-8.0) Ur Specific [place] (1.005-1.025) Urine Protein (Neg-Trace) mg/dL Urine Glucose (UA) (Negative) mg/dL Urine Ketones (Negative) mg/dL Urine Blood (Negative) Urine Nitrite (Negative) Ur Leukocyte Esterase (Negative) Urine Test (NEGATIVE) Influenza Type A (PCR) (Negative) Influenza Type B (PCR) (Negative) RSV RNA Qual (PCR) (Negative) SARS-CoV-2 RNA (RT-PCR) (Negative) 07/23/22 07/23/22 07/23/22 Range/Units 10:28 10:28 15:23 WBC (4.8-10.8) X10*3/uL RBC (4.20-5.50) X10*6/uL Hgb (12.0-16.0) g/dl Hct (37.0-47.0) % MCV (80.0-98.0) fL MCH (27.0-33.0) pg MCHC (31.0-35.0) g/dl RDW (11.0-16.0) % Plt Count (160-400) X10*3/uL MPV (9.4-12.3) fL Immature Gran % (Auto) (0.0-0.4) % Neut % (Auto) (45-73) % Lymph % (Auto) (20-40) % [place] % (Auto) (2-11) % Eos % (Auto) (0-4) % Baso % (Auto) (0-2) % Lymph # (Auto) (1.2-4.9) X10*3/uL [place] # (Auto) (0.1-1.2) X10*3/uL Eos # (Auto) (0.0-0.4) X10*3/uL Baso # (Auto) (0.0-0.2) X10*3/uL Abs Immat Gran (auto) (0.00-0.03) X10*3/uL Absolute Neuts (auto) (2.0-8.3) x10*3/uL Absolute Nucleated RBC (0.0-0.012) X10*3/uL Nucleated RBC % (auto) (0.0-0.2) /100WBC D-Dimer High Sensitivty NG/ML Sodium (135-145) mmol/L Potassium (3.3-5.1) mmol/L Chloride (96-108) mmol/L Carbon Dioxide (22-29) mmol/L Anion Gap (12-20) BUN (9-16) mg/dL Creatinine (0.5-1.4) mg/dL Estim Creat Clear Calc Estimated GFR Random Glucose (60-115) mg/dL Calcium (8.4-10.2) mg/dL Troponin I High Sens (<3.5-17.0) ng/L Urine Color Yellow Urine Appearance Clear Urine pH 7.0 (5.0-8.0) Ur Specific [place] 1.015 (1.005-1.025) Urine Protein Trace (Neg-Trace) mg/dL Urine Glucose (UA) Negative (Negative) mg/dL Urine Ketones Negative (Negative) mg/dL Urine Blood Negative (Negative) Urine Nitrite Negative (Negative) Ur Leukocyte Esterase Negative (Negative) Urine Test NEGATIVE (NEGATIVE) Influenza Type A (PCR) NEGATIVE (Negative) Influenza Type B (PCR) NEGATIVE (Negative) RSV RNA Qual (PCR) NEGATIVE (Negative) SARS-CoV-2 RNA (RT-PCR) NEGATIVE (Negative) 07/23/22 Range/Units 16:30 WBC (4.8-10.8) X10*3/uL RBC (4.20-5.50) X10*6/uL Hgb (12.0-16.0) g/dl Hct (37.0-47.0) % MCV (80.0-98.0) fL MCH (27.0-33.0) pg MCHC (31.0-35.0) g/dl RDW (11.0-16.0) % Plt Count (160-400) X10*3/uL MPV (9.4-12.3) fL Immature Gran % (Auto) (0.0-0.4) % Neut % (Auto) (45-73) % Lymph % (Auto) (20-40) % [place] % (Auto) (2-11) % Eos % (Auto) (0-4) % Baso % (Auto) (0-2) % Lymph # (Auto) (1.2-4.9) X10*3/uL [place] # (Auto) (0.1-1.2) X10*3/uL Eos # (Auto) (0.0-0.4) X10*3/uL Baso # (Auto) (0.0-0.2) X10*3/uL Abs Immat Gran (auto) (0.00-0.03) X10*3/uL Absolute Neuts (auto) (2.0-8.3) x10*3/uL Absolute Nucleated RBC (0.0-0.012) X10*3/uL Nucleated RBC % (auto) (0.0-0.2) /100WBC D-Dimer High Sensitivty < 150 NG/ML Sodium (135-145) mmol/L Potassium (3.3-5.1) mmol/L Chloride (96-108) mmol/L Carbon Dioxide (22-29) mmol/L Anion Gap (12-20) BUN (9-16) mg/dL Creatinine (0.5-1.4) mg/dL Estim Creat Clear Calc Estimated GFR Random Glucose (60-115) mg/dL Calcium (8.4-10.2) mg/dL Troponin I High Sens (<3.5-17.0) ng/L Urine Color Urine Appearance Urine pH (5.0-8.0) Ur Specific [place] (1.005-1.025) Urine Protein (Neg-Trace) mg/dL Urine Glucose (UA) (Negative) mg/dL Urine Ketones (Negative) mg/dL Urine Blood (Negative) Urine Nitrite (Negative) Ur Leukocyte Esterase (Negative) Urine Test (NEGATIVE) Influenza Type A (PCR) (Negative) Influenza Type B (PCR) (Negative) RSV RNA Qual (PCR) (Negative) SARS-CoV-2 RNA (RT-PCR) (Negative) Imaging Data Chest x-ray: Attestation: I personally reviewed and interpreted this imaging study as follows: Radiologist's impression: Normal chest radiograph. CT chest: Attestation: I personally reviewed and interpreted this imaging study as follows: Radiologist's impression: No acute pulmonary process. Discharge Plan Discharge Clinical Impression: Acute upper respiratory infection Patient Disposition: Home, Self-Care Instructions: Upper Respiratory Infection (ED) Prescriptions: New prednisone 20 mg tablet 20 mg PO BID Qty: 10 0RF No Action prednisone 20 mg tablet 40 mg PO DAILY Qty: 10 0RF codeine-guaifenesin [Virtussin AC] 10-100 mg/5 mL liquid 10 ml PO Q4-6H PRN (Reason: cough) Qty: 120 0RF Rx Instructions: partial fill per patient cefuroxime axetil 500 mg tablet 500 mg PO BID 7 Days Qty: 14 0RF ibuprofen 600 mg tablet 600 mg PO Q8H PRN (Reason: pain) Qty: 10 0RF ondansetron 4 mg tablet,disintegrating 4 mg PO Q8H PRN (Reason: nausea and vomiting) Qty: 10 0RF fluticasone propionate [Aller-Abel] 50 mcg/actuation spray,suspension 1 spray intranasal BID Qty: 16 0RF Rx Instructions: administer into each nostril Referrals: Jon Rizo MD [Physician] - Stand Alone Forms: Work/School Release
[2022-07-23 14:57] LABS: Urine Pregnancy NEGATIVE (NEGATIVE)
[2022-07-23 14:58] LABS: UPreg QC Valid YES
[2022-07-23 16:29] LABS: Influenza A PCR NEGATIVE (Negative); Influenza B PCR NEGATIVE (Negative); Resp Syncy Virus RNA Qual PCR NEGATIVE (Negative); SARS COV2 PCR INHOUSE NEGATIVE (Negative)
[2022-07-23 16:58] LABS: D Dimer High Sensitivity < 150 NG/ML
[2022-07-23 19:09] VITALS: BP 143/79; PULSE 72; RESP 16; TEMP 36.6; O2SAT 96
[2022-07-23] MEDS: predniSONE 20 MG TABLET 40 MG PO (19:11)
== END 2022-07-23 19:15 | disposition home or self-care (01) ==
PROVIDERS: Emergency Provider Emergency Medicine
DX: J06.9 Acute upper respiratory infection, unspecified (principal); R07.89 Other chest pain; R05.9 Cough, unspecified; M79.10 Myalgia, unspecified site; Z20.822 Contact with and (suspected) exposure to COVID-19; Z79.899 Other long term (current) drug therapy
CPT/HCPCS: 0241U; 36415; 71046; 71250; 80048; 81003; 81025; 84484; 85025; 85379; 93005; 99283; 99284

== ENCOUNTER 2022-08-01 11:01 | Outpatient (REF) | payer OTHER, SELFPAY ==
--- NOTE | ~2022-08-01 | CT_ITS ---
EXAMINATION: CT SINUS WITHOUT CONTRAST CLINICAL INFORMATION: Unspecified asthma. Sinus headache. COMPARISON: None TECHNIQUE: Axial 2 mm thin and reformatted sagittal and coronal 2 mm thin images of sinuses were obtained. This CT examination was performed using dose optimization techniques as appropriate, variously including the following: *Automated exposure control *Adjustment of mA and/or kV according to patient size (this includes techniques or standardized protocols for targeted exams where dose is matched to indication/reason for exam; i.e. extremities or head) *Use of iterative reconstruction technique DLP: 77 mGy-cm FINDINGS: There is normal aeration of paranasal sinuses and mastoid air cells with minimal mucoperiosteal thickening bilateral sphenoid sinuses. The rest of the paranasal sinuses are clear. The bony sinus julian, lamina papyracea and cribriform plate are intact. Bilateral ostiomeatal complex and frontoethmoidal recess drainage pathways are widely patent. The nasal septum is mildly patent with a small right nasal bony spur. The turbinates are symmetrical. The nasal cavity and nasopharyngeal airway is patent. Bilateral TM joints, visualized mandible, maxilla, facial bones and the nasal bones are intact. Bilateral optic globes, optic nerve and orbital soft tissues and preseptal soft tissues are normal. CT/CT sinus wo IV con IMPRESSION: Minimal mucoperiosteal thickening bilateral sphenoid sinuses. The rest of the sinuses and mastoid air cells are well-aerated.
== END 2022-08-01 11:02 | disposition home or self-care (01) ==
LOC: HO.CT 11:01
PROVIDERS: Visit Provider Internal Medicine
DX: J45.909 Unspecified asthma, uncomplicated (principal); J04.0 Acute laryngitis
CPT/HCPCS: 70486

== ENCOUNTER 2022-08-15 10:46 | Outpatient (REF) | payer OTHER, SELFPAY ==
--- NOTE | 2022-08-15 15:52 | PFT_ITS ---
Forced vital capacity 95%, FEV1 99%, FEV1/FVC ratio is 85. [id number] 113% and MVV 92%. Post bronchodilator therapy, there is no significant change. Total lung capacity 92%. Residual volume 74%. Diffusion capacity 78%. CONCLUSION: Normal pulmonary function test. No evidence of obstructive or restrictive pulmonary disorder. MD THIAGO Mohamud/SKYL / [id number]
== END 2022-08-15 10:47 | disposition home or self-care (01) ==
LOC: HO.RESP 10:46
PROVIDERS: Visit Provider Internal Medicine
DX: J45.909 Unspecified asthma, uncomplicated (principal)
CPT/HCPCS: 94060; 94727; 94729

== ENCOUNTER 2022-11-25 07:20 | Outpatient (REF) | payer OTHER, SELFPAY ==
[2022-11-25 07:24] LABS: MANUAL DIFF FLAG NO
[2022-11-25 07:54] LABS: Basophils Percent Auto 0.4 % (0-2); Eosinophils Absolute Auto 0.1 X10*3/uL (0.0-0.4); Eosinophils Percent Auto 1.2 % (0-4); Hematocrit 41.6 % (37.0-47.0); Hemoglobin 13.7 g/dl (12.0-16.0); Imm Gran Abs Auto 0.05 X10*3/uL (0.00-0.03); Imm Gran Pct Auto 0.5 % (0.0-0.4); Lymphocytes Absolute Auto 2.2 X10*3/uL (1.2-4.9); Lymphocytes Percent Auto 21.1 % (20-40); Mean Corpuscular HGB Conc 32.9 g/dl (31.0-35.0); Mean Corpuscular Hemoglobin 27.8 pg (27.0-33.0); Mean Corpuscular Volume 84.4 fL (80.0-98.0); Mean Platelet Volume 11.8 fL (9.4-12.3); Monocytes Absolute Auto 0.5 X10*3/uL (0.1-1.2); Monocytes Percent Auto 4.8 % (2-11); Neutrophils Absolute Auto 7.5 x10*3/uL (2.0-8.3); Platelet Count 356 X10*3/uL (160-400); Red Blood Count 4.93 X10*6/uL (4.20-5.50); Red Cell Distribution Width 12.7 % (11.0-16.0); White Blood Count 10.5 X10*3/uL (4.8-10.8)
[2022-11-25 08:06] LABS: Estimated Average Glucose 105 mg/dL; Hemoglobin A1c % 5.3 %
[2022-11-25 08:40] LABS: Alanine Aminotransferase 24 U/L (0-31); Alkaline Phosphatase 83 U/L (39-117); Anion Gap 11 (12-20); Aspartate Amino Transferase 17 U/L (5-31); Bilirubin Total 0.3 mg/dL (0.0-1.0); Blood Urea Nitrogen 10 mg/dL (9-16); Carbon Dioxide 25 mmol/L (22-29); Chloride 107 mmol/L (96-108); Cholesterol 198 mg/dL; Estimated Glomerular Filt Rate > 60; Glucose Fasting 111 mg/dL (60-99); HDL Cholesterol 41 mg/dL; LDL Cholesterol Calculated 135 mg/dl; Potassium 4.2 mmol/L (3.3-5.1); Sodium 139 mmol/L (135-145); TSH reflex Free T4 2.61 uIU/mL (0.32-4.0); Total Protein 6.6 g/dL (6.5-8.0); Triglycerides 110 mg/dL; Vitamin D 25-OH Total 49.3 ng/mL (>30)
[2022-11-25 13:41] LABS: Appearance Urine Clear; Color Urine Yellow; Glucose Urine UA Negative (Negative); Leukocyte Esterase Urine Negative (Negative); Nitrite Urine Negative (Negative); PH 5.5 (5.0-9.0); Specific Gravity - Urine 1.025 (1.005-1.025); Urine Blood Negative (Negative); Urine Ketones Trace mg/dL (Negative); Urine Protein Trace mg/dL (Neg-Trace)
== END 2022-11-25 07:21 | disposition home or self-care (01) ==
LOC: HO.LAB 07:20
PROVIDERS: PCP Internal Medicine; Visit Provider Internal Medicine
DX: Z00.00 Encounter for general adult medical examination without abnormal findings (principal); E55.9 Vitamin D deficiency, unspecified; E78.00 Pure hypercholesterolemia, unspecified; R35.0 Frequency of micturition; R73.01 Impaired fasting glucose; R30.0 Dysuria
CPT/HCPCS: 36415; 80053; 80061; 81003; 82306; 83036; 84443; 85025

== ENCOUNTER 2022-11-27 12:34 | Outpatient (REF) | payer OTHER, SELFPAY ==
[2022-11-27 12:59] LABS: Binax Internal Control QC Valid; Binax Now Covid-19 Ag Negative (Negative)
== END 2022-11-27 12:35 | disposition home or self-care (01) ==
LOC: HO.HMGCLDS 12:34
PROVIDERS: PCP Internal Medicine
DX: J06.9 Acute upper respiratory infection, unspecified (principal); Z20.822 Contact with and (suspected) exposure to COVID-19
CPT/HCPCS: 87811; C9803

== ENCOUNTER 2023-03-04 11:06 | Outpatient (REF) | payer OTHER, SELFPAY ==
[2023-03-04 12:01] LABS: Influenza A PCR NEGATIVE (Negative); Influenza B PCR NEGATIVE (Negative); Resp Syncy Virus RNA Qual PCR NEGATIVE (Negative); SARS COV2 PCR INHOUSE NEGATIVE (Negative)
== END 2023-03-04 11:07 | disposition home or self-care (01) ==
LOC: HO.LNP 11:06
PROVIDERS: Visit Provider Nurse Practitioner Family
DX: Z20.822 Contact with and (suspected) exposure to COVID-19 (principal); R09.89 Other specified symptoms and signs involving the circulatory and respiratory systems
CPT/HCPCS: 0241U

== ENCOUNTER 2023-03-06 03:41 | Emergency (ER) | payer OTHER, SELFPAY ==
[2023-03-06 03:47] VITALS: BP 174/97; PULSE 70; RESP 18; TEMP 36.7; O2SAT 97; BMI 33.6
[2023-03-06 04:03] LABS: MANUAL DIFF FLAG NO
[2023-03-06 04:04] LABS: Basophils Absolute Auto 0.1 X10*3/uL (0.0-0.2); Basophils Percent Auto 0.5 % (0-2); Eosinophils Absolute Auto 0.1 X10*3/uL (0.0-0.4); Eosinophils Percent Auto 1.2 % (0-4); Hematocrit 41.5 % (37.0-47.0); Hemoglobin 14.1 g/dl (12.0-16.0); Imm Gran Abs Auto 0.02 X10*3/uL (0.00-0.03); Imm Gran Pct Auto 0.2 % (0.0-0.4); Lymphocytes Absolute Auto 2.9 X10*3/uL (1.2-4.9); Lymphocytes Percent Auto 28.8 % (20-40); Mean Corpuscular Hemoglobin 28.1 pg (27.0-33.0); Mean Corpuscular Volume 82.7 fL (80.0-98.0); Mean Platelet Volume 11.5 fL (9.4-12.3); Monocytes Absolute Auto 0.6 X10*3/uL (0.1-1.2); Monocytes Percent Auto 5.7 % (2-11); Neutrophils Absolute Auto 6.4 x10*3/uL (2.0-8.3); Neutrophils Percent Auto 63.6 % (45-73); Platelet Count 338 X10*3/uL (160-400); Red Blood Count 5.02 X10*6/uL (4.20-5.50); Red Cell Distribution Width 12.6 % (11.0-16.0); White Blood Count 10.1 X10*3/uL (4.8-10.8)
[2023-03-06 04:20] LABS: COVID-19 Test Negative (Negative); IDNOW Serial# 08D9AD1C; IDNOW Serial# BCCEAD1C; Influenza A Negative (Negative); Influenza B2 Negative (Negative)
[2023-03-06 04:24] LABS: Alanine Aminotransferase 15 U/L (0-31); Albumin Level 4.1 g/dL (3.5-5.0); Alkaline Phosphatase 80 U/L (39-117); Anion Gap 16 (12-20); Aspartate Amino Transferase 15 U/L (5-31); Bilirubin Direct < 0.2 mg/dL (0.0-0.5); Bilirubin Total 0.5 mg/dL (0.0-1.0); Blood Urea Nitrogen 11 mg/dL (9-16); Carbon Dioxide 21 mmol/L (22-29); Chloride 108 mmol/L (96-108); Creatinine Clr Calc Pharmacy 92.1; Estimated Glomerular Filt Rate > 60; Glucose Random 103 mg/dL (60-115); Lipase 23 U/L (8-78); Potassium 3.5 mmol/L (3.3-5.1); Sodium 141 mmol/L (135-145); Total Protein 6.8 g/dL (6.5-8.0)
[2023-03-06 05:53] LABS: Appearance Urine Cloudy; Color Urine Yellow; Glucose Urine UA Negative (Negative); Leukocyte Esterase Urine Small (1+) (Negative); Nitrite Urine Negative (Negative); PH 6.5 (5.0-9.0); Specific Gravity - Urine <= 1.005 (1.005-1.025); UMIC TRIGGER UACC YES; Urine Blood Moderate (2+) (Negative); Urine Ketones Negative (Negative); Urine Protein Negative (Neg-Trace)
[2023-03-06 05:55] LABS: UPreg QC Valid YES; Urine Pregnancy NEGATIVE (NEGATIVE)
[2023-03-06 06:04] LABS: Bacteria Urine Trace (None Seen); Hyaline Casts Urine 0-2 /LPF (0-2); RBC Urine 0-2 /HPF (0-2); UACC Culture Trigger YES
[2023-03-06 06:18] VITALS: BP 133/90; PULSE 65; RESP 17; TEMP 36.7; O2SAT 96
--- NOTE | 2023-03-06 06:46 | ED_ITS ---
HPI - Nausea/Vomiting/Diarrhea General Chief complaint: Nausea/Vomiting/Diarrhea Stated complaint: Headache Time Seen by Provider: 03/06/23 06:33 Source: patient and family (, Eladio) Mode of arrival: ambulatory Limitations: no limitations History of Present Illness HPI Narrative: 42-year-old female who presents emergency department for evaluation of viral- like illness x5 days. Patient states that she has been having a pressure-like headache diffusely in her head, with increased pain behind her left eye. She states she is having photophobia and phonophobia. She had weakness, fatigue and body aches. She has had nausea and has been vomiting 2 to 3 times a day. She had 1 day of diarrhea. She had fever and chills. She denied rhinorrhea, sore throat. She has had a cough which is productive of clear sputum. She states she has been taking Tylenol and ibuprofen with some improvement of her symptoms. She was feeling worse this morning so she came to the emergency department for evaluation. Patient states that last week she was at a conference in [place]. She states that her boss is sick with similar symptoms. Related Data Home Medications Medication Instructions Recorded Confirmed albuterol sulfate 90 mcg/actuation 2 puff inhalation Q6H PRN 07/28/22 11/27/22 aerosol inhaler propranolol 80 mg tablet 80 mg PO BID 07/28/22 11/27/22 Previous Rx's Medication Instructions Recorded fluticasone propionate 50 1 spray intranasal BID #16 grams 07/18/22 mcg/actuation nasal spray,suspension (Aller-Abel) montelukast 10 mg tablet 10 mg PO DAILY #90 tabs 01/21/23 benzonatate 200 mg capsule 200 mg PO BID PRN cough #20 caps 03/04/23 metoclopramide HCl 10 mg tablet 10 mg PO Q6H PRN nausea and 03/06/23 (Reglan) vomiting #14 tabs Allergies Allergy/AdvReac Type Severity Reaction Status Date / Time flu vaccine AdvReac Severe Hives Uncoded 03/04/23 08:40 Review of Systems Review of Systems: Yes all other systems are reviewed and are negative [facility] Past Medical History [facility] Narrative: Social history: She denies tobacco, alcohol and drug use. She is here with her , Eladio Medical History Allergic rhinosinusitis Asthma Asthma Cough Cyst of breast, left, solitary Laryngitis Migraine Obesity (BMI 30-39.9) Viral upper respiratory tract infection with cough Surgical History H/O section History of breast lump/mass excision Hx of colonoscopy Family History Family History Mother Colon cancer, Onset Age: 42 Diabetes mellitus Father Parkinson disease Heart disease Social History Social History Housing: House Alcohol intake: never Patient Tobacco Use Status: Never used Tobacco e-Cigarette/Vaping Use: Never Used Advance Directives: No Advance Directives Information Provided: Yes service: No Current occupational status: employed 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 [employer] Cognitive needs: No Hearing needs: No Vision needs: Yes Physical Exam Vital Signs: Vital Signs: Last Vital Signs Temp 98.0 F 03/06/23 06:18 Pulse 65 03/06/23 06:18 Resp 17 03/06/23 06:18 BP 133/90 H 03/06/23 06:18 Pulse Ox 96 03/06/23 06:18 O2 Del Method Room Air 03/06/23 06:18 BMI result Body Mass Index 33.6 Const: General: cooperative and no acute distress Orientation/co nsciousness: oriented to person and oriented to place Limitations: no limitations HEENT: Head: Yes normal to inspection, Yes normocephalic and Yes atraumatic Ears: external ears normal General nose exam: Normal external nose present Face and sinus: Yes normal facial exam Mouth: Normal oral and palatal mucosa present Throat: Yes posterior oropharynx normal Eyes: General: appearance normal, both eyes and all related structures Pupils: Equal, round and reactive pupils present Neck: Neck: Yes normal visual inspection, Yes no lymphadenopathy, Yes trachea midline and Yes supple Chest: Chest palpation & inspection: normal inspection of the chest and normal palpation of entire chest wall Resp: Effort & Inspection: normal respiratory effort and able to speak in complete sentences Auscultation: clear to auscultation bilaterally Cardio: Rate: regular rate Rhythm: regular rhythm Heart sounds: S1 normal heart sound present, S2 normal heart sound present and no murmurs GI: Inspection: Yes normal to inspection Palpation (GI): Soft to palpation, nontender and no guarding Auscultation: normal bowel sounds : General: Yes no CVA tenderness Back/Spine/Pelvis: Back: no CVA tenderness Skin: General skin exam: no rashes or lesions noted Neuro: General: oriented to person and oriented to place Cranial nerves: Yes CN's II-XII intact bilaterally and Yes Equal, round and reactive pupils present Cognition (Neuro): normal cognition Motor exam (neuro): 5/5 motor strength present throughout Extrem: General: Yes normal to inspection Psych: Appearance: grossly normal Speech and movement: Normal speech and movement present Affect: normal affect Attitude: cooperative Thought process: Normal thought process present Thought content: Normal thought con tent present Medications Administered Discontinued Medications Generic Name Dose Route Start Last Admin Trade Name Freq PRN Reason Stop Dose Admin Diphenhydramine HCl 50 mg 03/06/23 06:46 03/06/23 07:01 Diphenhydramine Hcl 50 Mg/Ml Vial IVPUSH 03/06/23 06:47 50 mg ONCE STA Administration Sodium Chloride 1,000 mls @ 999 mls/hr 03/06/23 06:46 03/06/23 07:02 Ns IV 03/06/23 07:46 999 mls/hr .Q1H1M STA Administration Ketorolac Tromethamine 15 mg 03/06/23 06:46 03/06/23 07:01 Ketorolac Tromethamine 15 Mg/Ml Vial IVPUSH 03/06/23 06:47 15 mg ONCE STA Administration Metoclopramide HCl 10 mg 03/06/23 06:46 03/06/23 07:01 Metoclopramide Hcl 10 Mg/2 Ml Vial IVPUSH 03/06/23 06:47 10 mg ONCE STA Administration Medical Decision Making Medical Decision Making MDM Narrative: 42-year-old female who presents viral-like illness times 5 days with his symptoms including headache, body aches, cough productive of some clear phlegm, chills, decreased appetite, nausea, vomiting and diarrhea. Vital signs did reveal an elevated blood pressure of 174/97 otherwise were unremarkable. Patie nt's examination was unremarkable. I did order a laboratory evaluation includes CBC, CMP, lipase, COVID-19, flu, urinalysis. Patient was ordered to get normal saline IV x1 L, Toradol 15 mg IV for her pain, Benadryl 50 mg IV and Reglan 10 mg IV for her headache. 0651: My independent interpretation patient's laboratory evaluation is as follows: CBC was normal. CMP was normal. COVID-19 and influenza were negative. Lipase was normal. Urine test was negative. Urinalysis was positive for blood and leukocyte esterase. Microscopic revealed 10 WBCs, trace bacteria, 10 squamous cells-the patient has no urinary symptoms. Patient's presentation is consistent with acute viral illness. 0843: Patient's headache improved from 08/09 to 04/08 patient was given morphine 4 mg IV. Patient will be discharged home with the migraine regimen of Reglan 10 mg, Benadryl 50 mg and Excedrin migraine 2 tablets every 6 hours. She was given printed and verbal instructions and discharged home. Differential Diagnosis Differential diagnosis includes was not limited to viral syndrome, electrolyte abnormalities, dehydration, COVID-19, influenza Lab Data [facility] Lab Attestation statement: I reviewed the patient's lab results. Please see [facility] 03/06/23 03:59 03/06/23 03:59 Labs: Lab Results 03/06/23 03/06/23 03/06/23 Range/Units 03:59 03:59 03:59 WBC 10.1 (4.8-10.8) X10*3/uL RBC 5.02 (4.20-5.50) X10*6/uL Hgb 14.1 (12.0-16.0) g/dl Hct 41.5 (37.0-47.0) % MCV 82.7 (80.0-98.0) fL MCH 28.1 (27.0-33.0) pg MCHC 34.0 (31.0-35.0) g/dl RDW 12.6 (11.0-16.0) % Plt Count 338 (160-400) X10*3/uL MPV 11.5 (9.4-12.3) fL Immature Gran % (Auto) 0.2 (0.0-0.4) % Neut % (Auto) 63.6 (45-73) % Lymph % (Auto) 28.8 (20-40) % Wilkin % (Auto) 5.7 (2-11) % Eos % (Auto) 1.2 (0-4) % Baso % (Auto) 0.5 (0-2) % Lymph # (Auto) 2.9 (1.2-4.9) X10*3/uL Wilkin # (Auto) 0.6 (0.1-1.2) X10*3/uL Eos # (Auto) 0.1 (0.0-0.4) X10*3/uL Baso # (Auto) 0.1 (0.0-0.2) X10*3/uL Abs Immat Gran (auto) 0.02 (0.00-0.03) X10*3/uL Absolute Neuts (auto) 6.4 (2.0-8.3) x10*3/uL Absolute Nucleated RBC 0.000 (0.0-0.012) X10*3/uL Nucleated RBC % (auto) 0.0 (0.0-0.2) /100WBC Sodium 141 (135-145) mmol/L Potassium 3.5 (3.3-5.1) mmol/L Chloride 108 (96-108) mmol/L Carbon Dioxide 21 L (22-29) mmol/L Anion Gap 16 (12-20) BUN 11 (9-16) mg/dL Creatinine 0.81 (0.5-1.4) mg/dL Estim Creat Clear Calc 92.1 Estimated GFR > 60 Random Glucose 103 (60-115) mg/dL Calcium 9.0 (8.4-10.2) mg/dL Total Bilirubin 0.5 (0.0-1.0) mg/dL Direct Bilirubin < 0.2 (0.0-0.5) mg/dL AST 15 (5-31) U/L ALT 15 (0-31) U/L Alkaline Phosphatase 80 (39-117) U/L Total Protein 6.8 (6.5-8.0) g/dL Albumin 4.1 (3.5-5.0) g/dL Lipase 23 (8-78) U/L Urine Color Urine Appearance Urine pH (5.0-9.0) Ur Specific Melissa (1.005-1.025) Urine Protein (Neg-Trace) mg/dL Urine Glucose (UA) (Negative) mg/dL Urine Ketones (Negative) mg/dL Urine Blood (Negative) Urine Nitrite (Negative) Ur Leukocyte Esterase (Negative) Urine RBC (0-2) /HPF Urine WBC (0-5) /HPF Ur Squamous Epith Cells (0-2) /HPF Urine Bacteria (None Seen) Hyaline Casts (0-2) /LPF Urine Test (NEGATIVE) COVID-19 ([facility]) (Negative) COVID-19 Clin Com Influenza Type A ([facility]) Negative (Negative) Influenza Type B ([facility]) Negative (Negative) Influenza A & B Note See Note 03/06/23 03/06/23 03/06/23 Range/Units 03:59 05:47 05:47 WBC (4.8-10.8) X10*3/uL RBC (4.20-5.50) X10*6/uL Hgb (12.0-16.0) g/dl Hct (37.0-47.0) % MCV (80.0-98.0) fL MCH (27.0-33.0) pg MCHC (31.0-35.0) g/dl RDW (11.0-16.0) % Plt Count (160-400) X10*3/uL MPV (9.4-12.3) fL Immature Gran % (Auto) (0.0-0.4) % Neut % (Auto) (45-73) % Lymph % (Auto) (20-40) % Wilkin % (Auto) (2-11) % Eos % (Auto) (0-4) % Baso % (Auto) (0-2) % Lymph # (Auto) (1.2-4.9) X10*3/uL Wilkin # (Auto) (0.1-1.2) X10*3/uL Eos # (Auto) (0.0-0.4) X10*3/uL Baso # (Auto) (0.0-0.2) X10*3/uL Abs Immat Gran (auto) (0.00-0.03) X10*3/uL Absolute Neuts (auto) (2.0-8.3) x10*3/uL Absolute Nucleated RBC (0.0-0.012) X10*3/uL Nucleated RBC % (auto) (0.0-0.2) /100WBC Sodium (135-145) mmol/L Potassium (3.3-5.1) mmol/L Chloride (96-108) mmol/L Carbon Dioxide (22-29) mmol/L Anion Gap (12-20) BUN (9-16) mg/dL Creatinine (0.5-1.4) mg/dL Estim Creat Clear Calc Estimated GFR Random Glucose (60-115) mg/dL Calcium (8.4-10.2) mg/dL Total Bilirubin (0.0-1.0) mg/dL Direct Bilirubin (0.0-0.5) mg/dL AST (5-31) U/L ALT (0-31) U/L Alkaline Phosphatase (39-117) U/L Total Protein (6.5-8.0) g/dL Albumin (3.5-5.0) g/dL Lipase (8-78) U/L Urine Color Yellow Urine Appearance Cloudy Urine pH 6.5 (5.0-9.0) Ur Specific Melissa <= 1.005 (1.005-1.025) Urine Protein Negative (Neg-Trace) mg/dL Urine Glucose (UA) Negative (Negative) mg/dL Urine Ketones Negative (Negative) mg/dL Urine Blood Moderate (2+) H (Negative) Urine Nitrite Negative (Negative) Ur Leukocyte Esterase Small (1+) H (Negative) Urine RBC 0-2 (0-2) /HPF Urine WBC 6-10 H (0-5) /HPF Ur Squamous Epith Cells 6-10 (0-2) /HPF Urine Bacteria Trace (None Seen) Hyaline Casts 0-2 (0-2) /LPF Urine Test NEGATIVE (NEGATIVE) COVID-19 ([facility]) Negative (Negative) COVID-19 Clin Com See Note Influenza Type A ([facility]) (Negative) Influenza Type B ([facility]) (Negative) Influenza A & B Note Discharge Plan Discharge Clinical Impression: Acute viral syndrome, Headache, Acute dehydration Patient Disposition: Home, Self-Care Instructions: Viral Syndrome (ED) Additional Instructions: Your COVID-19 and influenza tests were negative. Your blood work was normal. Your symptoms are consistent with a viral infection/syndrome which is causing a bad migraine-like headache. I want you to take the following 3 medications together every 6 hours as needed for headache, nausea or vomiting. Reglan (metoclopramide) in 10 mg, 1 pill Benadryl 25 mg, 2 pills Excedrin migraine, 2 pills. After you take these medications, lie down in a dark quiet room and try to fall asleep. These medications will make you sleepy, do not drive or work after taking these medications. Follow-up with your doctor in 2 days. Please return to the emergency department if your symptoms get worse or if you develop any symptoms that are concerning to you. Prescriptions: New metoclopramide HCl [Reglan] 10 mg tablet 10 mg PO Q6H PRN (Reason: nausea and vomiting) Qty: 14 0RF No Action montelukast 10 mg tablet 10 mg PO DAILY Qty: 90 0RF fluticasone propionate [Aller-Abel] 50 mcg/actuation spray,suspension 1 spray intranasal BID Qty: 16 0RF Rx Instructions: administer into each nostril benzonatate 200 mg capsule 200 mg PO BID PRN (Reason: cough) Qty: 20 0RF propranolol 80 mg tablet 80 mg PO BID albuterol sulfate 90 mcg/actuation HFA aerosol inhaler 2 puff inhalation Q6H PRN
[2023-03-06] MEDS: Ketorolac Tromethamine 15 MG/ML VIAL IVPUSH (07:01)
[2023-03-06] MEDS: Metoclopramide HCl 10 MG/2 ML VIAL IVPUSH (07:01)
[2023-03-06] MEDS: diphenhydrAMINE HCL 50 MG/ML VIAL IVPUSH (07:01)
[2023-03-06] MEDS: 0.9 % Sodium Chloride 1,000 ML 999 ML IV (07:02)
[2023-03-06 08:45] VITALS: BP 118/76; PULSE 60; RESP 14; TEMP 37.1; O2SAT 97
[2023-03-06] MEDS: Morphine Sulfate 4 MG/ML CARTRIDGE IVPUSH (08:59)
== END 2023-03-06 09:11 | disposition home or self-care (01) ==
PROVIDERS: Emergency Provider Emergency Medicine Emergency Medical Services
DX: R51.9 Headache, unspecified (principal); B34.9 Viral infection, unspecified; E86.0 Dehydration; Z20.828 Contact with and (suspected) exposure to other viral communicable diseases; Z20.822 Contact with and (suspected) exposure to COVID-19; Z79.899 Other long term (current) drug therapy
CPT/HCPCS: 36415; 80048; 80076; 81001; 81025; 83690; 85025; 87086; 87502; 87635; 96374; 96375; 99284; J1200; J1885; J2270; J2765

== ENCOUNTER 2023-03-09 07:45 | Emergency (ER) | payer OTHER, SELFPAY ==
--- NOTE | 2023-03-09 | ECG_ITS ---
Test Reason : chest tightness Blood Pressure : / mmHG Vent. Rate : 065 BPM Atrial Rate : 065 BPM P-R Int : 170 ms QRS Dur : 090 ms QT Int : 422 ms P-R-T Axes : 018 008 -02 degrees QTc Int : 438 ms Normal sinus rhythm Minimal voltage criteria for LVH, may be normal variant ( R in aVL ) Nonspecific T wave abnormality Abnormal ECG When compared with ECG of 23-JUL-2022 10:31, Nonspecific T wave abnormality now evident in Anterior leads Referred By: Generic ED Physician Electronically Signed By:KYLE GARCIA MD
--- NOTE | ~2023-03-09 | XR_ITS ---
EXAMINATION: XR CHEST CLINICAL INFORMATION: Cough COMPARISON: Previous chest x-ray June 2022 TECHNIQUE: 2 views of the chest were obtained. FINDINGS: No significant abnormality is noted involving the heart, lungs, mediastinum, bony thorax or soft tissues. XR/XR chest 2V IMPRESSION: Unremarkable examination.
[2023-03-09 07:55] VITALS: BP 161/98; PULSE 70; RESP 16; TEMP 36.9; O2SAT 98; BMI 33.6
[2023-03-09 08:11] VITALS: BP 161/98; PULSE 67; RESP 16; O2SAT 98
--- NOTE | 2023-03-09 08:27 | ED.GENADULT ---
HPI - General Adult General Chief complaint: Abdominal Pain Stated complaint: l side pain Time Seen by Provider: 03/09/23 08:11 Source: patient and RN notes reviewed Mode of arrival: ambulatory Limitations: no limitations History of Present Illness HPI narrative: This is a [id number], with a past medical history of asthma and hypertension, who presents to the emergency department, accompanied by her , with multiple complaints. She reports that she would like to be evaluated today for headache x 1.5 weeks, chest pain, and left sided back pain. Patient reports that she has had an ongoing headache which she describes as pressure behind her eyes for the last week. She denies pain in her head worsening with positional changes. She admits to having intermittent nasal congestion and runny nose. She also reports that since last night she developed some pain in her left side. She denies any recent trauma or injury to her left back. She describes this pain as a ?bubble in her back. She also reports that she has had some urinary frequency for the last couple of days. She has had no fevers, chills, vomiting, diarrhea, abdominal pain, shortness of breath, cough, nasal congestion, ear pain. She has a history of seasonal allergies, which requires her to get allergy shots on a weekly to monthly basis, reports that she has not had her allergy shot in 2 weeks. Patient was seen at a walk-in clinic on March 04 and was diagnosed with a viral URI with cough, and she was also seen here on March 06 for the same symptoms, was diagnosed with viral syndrome with negative viral swabs, normal blood work, it was discharged with Reglan, Benadryl, and Excedrin. Patient reports that she has been taking his medications with some relief. She reports that she no longer has nausea and her headache has been improving, but reports that as soon as the medication wears off she developed a headache again. Patient reports 1 week ago but now she had a viral-like illness that included headaches, body aches, cough, chills, decreased appetite, nausea, vomiting diarrhea. complaint: Multiple complaints Onset (ago): week(s) Radiation: non-radiation Severity: moderate Quality: aching Pain Consistency: constant Relieving factors: none Exacerbating factors: none Associated symptoms: denies other symptoms Treatments prior to arrival: none Related Data Home Medications Medication Instructions Recorded Confirmed albuterol sulfate 90 mcg/actuation 2 puff inhalation Q6H PRN 07/28/22 11/27/22 aerosol inhaler propranolol 80 mg tablet 80 mg PO BID 07/28/22 11/27/22 Previous Rx's Medication Instructions Recorded fluticasone propionate 50 1 spray intranasal BID #16 grams 07/18/22 mcg/actuation nasal spray,suspension (Aller-Abel) montelukast 10 mg tablet 10 mg PO DAILY #90 tabs 01/21/23 benzonatate 200 mg capsule 200 mg PO BID PRN cough #20 caps 03/04/23 metoclopramide HCl 10 mg tablet 10 mg PO Q6H PRN nausea and 03/06/23 (Reglan) vomiting #14 tabs amoxicillin 875 mg-potassium 1 tab PO BID #14 tabs 03/09/23 clavulanate 125 mg tablet Allergies Allergy/AdvReac Type Severity Reaction Status Date / Time flu vaccine AdvReac Severe Hives Uncoded 03/04/23 08:40 Review of Systems Review of Systems: Yes all other systems are reviewed and are negative [facility] Past Medical History Medical History Allergic rhinosinusitis Asthma Asthma Cough Cyst of breast, left, solitary Laryngitis Migraine Obesity (BMI 30-39.9) Viral upper respiratory tract infection with cough Surgical History H/O section History of breast lump/mass excision Hx of colonoscopy Family History Family History Mother Colon cancer, Onset Age: 42 Diabetes mellitus Father Parkinson disease Heart disease Social History Social History Housing: House Alcohol intake: never Patient Tobacco Use Status: Never used Tobacco Smoked in Last 30 Days: No e-Cigarette/Vaping Use: Never Used Use of substances other than those prescribed or required for medical reasons: No Advance Directives: No Advance Directives Information Provided: Yes Patient : No service: No Current occupational status: employed 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 Cognitive needs: No Hearing needs: No Vision needs: Yes Physical Exam ED Vital Signs: Vital Signs - 24 hr 03/09/23 07:55 03/09/23 08:11 03/09/23 10:04 Temperature 98.4 F Pulse Rate 70 67 59 Respiratory Rate 16 16 12 Blood Pressure 161/98 H 161/98 H 119/80 Pulse Oximetry 98 98 100 Oxygen Delivery Method Room Air Room Air Room Air 03/09/23 11:52 Temperature 97.8 F Pulse Rate 63 Respiratory Rate 19 Blood Pressure 135/84 Pulse Oximetry 100 Oxygen Delivery Method Room Air BMI result Body Mass Index 33.6 Appearance: Alert. Oriented X3. No acute distress. Eyes: Pupils equal, round and reactive to light. EOMI ENT: Pharynx normal. Moist mucous membranes, oropharynx eyes nonerythematous, nonedematous, no tonsillar hypertrophy or exudates. No frontal, maxillary, or ethmoid sinus tenderness. Left auditory canal with cerumen, bilateral TMs with effusion, but is non edematous, with good light reflex. Neck: Normal inspection. Neck supple. No cervical spine tenderness. No cervical paraspinal tenderness. CVS: Normal heart rate and rhythm. Pulses normal. S1-S2 regular Respiratory: No respiratory distress. Breath sounds normal. Lungs clear to auscultation bilaterally, no wheezes, rales or rhonchi. Abdomen: Abdomen is soft, completely nontender, no rebound or guarding, normoactive bowel sounds MSK: No midline spine tenderness, There is an approximately 3cm circular ecchymotic area over the upper posterior left paraspinous muscles. Skin: Skin warm and dry. Normal skin color. Normal skin turgor. No rashes. Extremities: No lower extremity edema. No calf tenderness. Neuro: Oriented X 3. No motor deficit. No sensory deficit. CN II-XII intact. Course Reevaluation(s) Reevaluation #1: Patient re-evaluated, negative troponin home patient reports that her bubble in her chest since resolved after Maalox and lidocaine. Patient is still complaining of frontal headache, patient medicated with Toradol 15 mg IV. Time: 11:06 Reevaluation #2: Patient re-evaluated, reporting her headache has improved to a 5/10. Patient's urinalysis without blood or signs of infection, no leukocytosis, patient is completely neurologically intact with no focal deficits. Because of ongoing symptoms for > 1 week, will treat as a acute sinusitis. Discussed at length that patient's symptoms are likely viral however patient may find benefit with antibiotic, Flonase, and follow-up with her extension course counselor. D-dimer negative, patient vital signs within normal limits, no tachycardia or hypoxia, negative troponin x2. Patient has had ongoing headache that has been unchanged for > 1 week. Discussed that she would benefit from starting oral allergy medications as well as she awaits appointment with her extension course counselor. Discussed at length precautions of when to return should her symptoms worsen. Time: 12:29 Medications Administered Discontinued Medications Generic Name Dose Route Start Last Admin Trade Name Larry PRN Reason Stop Dose Admin Al Hydroxide/Mg Hydroxide 30 ml 03/09/23 08:48 03/09/23 09:01 Magnesium Hydrox/Alum Hydrox 30 Ml Oral.Susp PO 03/09/23 08:49 30 ml ONCE ONE Administration Sodium Chloride 1,000 mls @ 999 mls/hr 03/09/23 08:34 03/09/23 10:14 Ns IVCONT 03/09/23 09:34 Infused .Q1H1M ONE Infusion Ketorolac Tromethamine 15 mg 03/09/23 10:16 03/09/23 11:02 Ketorolac Tromethamine 15 Mg/Ml Vial IVPUSH 03/09/23 10:17 15 mg ONCE ONE Administration Lidocaine HCl 15 ml 03/09/23 08:48 03/09/23 09:01 Lidocaine Hcl Viscous 2 % 15 Ml Solution MUCOUS MEM 03/09/23 08:49 15 ml ONCE ONE Administration Medical Decision Making Medical Decision Making MDM Narrative: This is a 42-year-old female, with a past medical history of asthma, presents to the emergency department with multiple complaints. Patient has been seen at an urgent care and was seen here at the emergency department 3 days ago for these symptoms. She reports that the symptoms have been constant, improved with medication but her symptoms have not resolved. She also reports that she now has urinary frequency, left upper back pain, and chest pain. On examination, patient is hypertensive at 161/98, otherwise patient is afebrile and all other VS are WNL. Patient is completely neurologically intact, lung sounds clear to auscultation, abdomen is soft, nontender. Patient has small ecchymosis in the left upper back where patient states where her pain is. No trauma or injury. Recent travel to [place] for a work conference, and bosallison is sick with COVID. Low clinical suspicion for PE, pt is PERC negative; d-dimer ordered. Plan: Labs, UA, chest x-ray, viral swabs ordered. Differential Diagnosis Differential Diagnoses: The differential diagnosis associated with the presentation includes Upper respiratory infection, sinusitis, allergic rhinitis, UTI, pyelonephritis-less likely, ACS - less likely, PE - less likely. Lab Data MDM Lab Attestation statement: I reviewed the patient's lab results. No leukocytosis, electrolytes within normal limits, liver enzymes within normal limits, negative viral swabs, UA with no signs of infection, negative , Troponin < 2.7/ 03/09/23 08:45 03/09/23 08:45 Labs: Lab Results 03/09/23 03/09/23 03/09/23 Range/Units 08:45 08:45 08:45 WBC 8.2 (4.8-10.8) X10*3/uL RBC 4.82 (4.20-5.50) X10*6/uL Hgb 13.5 (12.0-16.0) g/dl Hct 39.7 (37.0-47.0) % MCV 82.4 (80.0-98.0) fL MCH 28.0 (27.0-33.0) pg MCHC 34.0 (31.0-35.0) g/dl RDW 12.5 (11.0-16.0) % Plt Count 311 (160-400) X10*3/uL MPV 11.4 (9.4-12.3) fL Immature Gran % (Auto) 0.2 (0.0-0.4) % Neut % (Auto) 62.9 (45-73) % Lymph % (Auto) 28.8 (20-40) % [place] % (Auto) 5.5 (2-11) % Eos % (Auto) 2.0 (0-4) % Baso % (Auto) 0.6 (0-2) % Lymph # (Auto) 2.4 (1.2-4.9) X10*3/uL [place] # (Auto) 0.5 (0.1-1.2) X10*3/uL Eos # (Auto) 0.2 (0.0-0.4) X10*3/uL Baso # (Auto) 0.1 (0.0-0.2) X10*3/uL Abs Immat Gran (auto) 0.02 (0.00-0.03) X10*3/uL Absolute Neuts (auto) 5.1 (2.0-8.3) x10*3/uL Absolute Nucleated RBC 0.000 (0.0-0.012) X10*3/uL Nucleated RBC % (auto) 0.0 (0.0-0.2) /100WBC D-Dimer High Sensitivty NG/ML Sodium 141 (135-145) mmol/L Potassium 3.5 (3.3-5.1) mmol/L Chloride 109 H (96-108) mmol/L Carbon Dioxide 24 (22-29) mmol/L Anion Gap 12 (12-20) BUN 10 (9-16) mg/dL Creatinine 0.83 (0.5-1.4) mg/dL Estim Creat Clear Calc 89.9 Estimated GFR > 60 Random Glucose 84 (60-115) mg/dL Calcium 8.6 (8.4-10.2) mg/dL Magnesium 2.1 (1.6-2.6) mg/dL Total Bilirubin 0.4 (0.0-1.0) mg/dL Direct Bilirubin < 0.2 (0.0-0.5) mg/dL AST 15 (5-31) U/L ALT 15 (0-31) U/L Alkaline Phosphatase 73 (39-117) U/L Troponin I High Sens (<3.5-17.0) ng/L Total Protein 6.3 L (6.5-8.0) g/dL Albumin 3.8 (3.5-5.0) g/dL Lipase 25 (8-78) U/L Urine Color Urine Appearance Urine pH (5.0-9.0) Ur Specific [place] (1.005-1.025) Urine Protein (Neg-Trace) mg/dL Urine Glucose (UA) (Negative) mg/dL Urine Ketones (Negative) mg/dL Urine Blood (Negative) Urine Nitrite (Negative) Ur Leukocyte Esterase (Negative) Urine Test (NEGATIVE) Influenza Type A (PCR) NEGATIVE (Negative) Influenza Type B (PCR) NEGATIVE (Negative) RSV RNA Qual (PCR) NEGATIVE (Negative) SARS-CoV-2 RNA (RT-PCR) NEGATIVE (Negative) 03/09/23 03/09/23 03/09/23 Range/Units 08:46 09:10 11:02 WBC (4.8-10.8) X10*3/uL RBC (4.20-5.50) X10*6/uL Hgb (12.0-16.0) g/dl Hct (37.0-47.0) % MCV (80.0-98.0) fL MCH (27.0-33.0) pg MCHC (31.0-35.0) g/dl RDW (11.0-16.0) % Plt Count (160-400) X10*3/uL MPV (9.4-12.3) fL Immature Gran % (Auto) (0.0-0.4) % Neut % (Auto) (45-73) % Lymph % (Auto) (20-40) % [place] % (Auto) (2-11) % Eos % (Auto) (0-4) % Baso % (Auto) (0-2) % Lymph # (Auto) (1.2-4.9) X10*3/uL [place] # (Auto) (0.1-1.2) X10*3/uL Eos # (Auto) (0.0-0.4) X10*3/uL Baso # (Auto) (0.0-0.2) X10*3/uL Abs Immat Gran (auto) (0.00-0.03) X10*3/uL Absolute Neuts (auto) (2.0-8.3) x10*3/uL Absolute Nucleated RBC (0.0-0.012) X10*3/uL Nucleated RBC % (auto) (0.0-0.2) /100WBC D-Dimer High Sensitivty < 150 NG/ML Sodium (135-145) mmol/L Potassium (3.3-5.1) mmol/L Chloride (96-108) mmol/L Carbon Dioxide (22-29) mmol/L Anion Gap (12-20) BUN (9-16) mg/dL Creatinine (0.5-1.4) mg/dL Estim Creat Clear Calc Estimated GFR Random Glucose (60-115) mg/dL Calcium (8.4-10.2) mg/dL Magnesium (1.6-2.6) mg/dL Total Bilirubin (0.0-1.0) mg/dL Direct Bilirubin (0.0-0.5) mg/dL AST (5-31) U/L ALT (0-31) U/L Alkaline Phosphatase (39-117) U/L Troponin I High Sens < 2.7 (<3.5-17.0) ng/L Total Protein (6.5-8.0) g/dL Albumin (3.5-5.0) g/dL Lipase (8-78) U/L Urine Color Yellow Urine Appearance Clear Urine pH 7.0 (5.0-9.0) Ur Specific [place] 1.010 (1.005-1.025) Urine Protein Negative (Neg-Trace) mg/dL Urine Glucose (UA) Negative (Negative) mg/dL Urine Ketones 15 (Negative) mg/dL Urine Blood Negative (Negative) Urine Nitrite Negative (Negative) Ur Leukocyte Esterase Negative (Negative) Urine Test (NEGATIVE) Influenza Type A (PCR) (Negative) Influenza Type B (PCR) (Negative) RSV RNA Qual (PCR) (Negative) SARS-CoV-2 RNA (RT-PCR) (Negative) 03/09/23 03/09/23 Range/Units 11:02 11:48 WBC (4.8-10.8) X10*3/uL RBC (4.20-5.50) X10*6/uL Hgb (12.0-16.0) g/dl Hct (37.0-47.0) % MCV (80.0-98.0) fL MCH (27.0-33.0) pg MCHC (31.0-35.0) g/dl RDW (11.0-16.0) % Plt Count (160-400) X10*3/uL MPV (9.4-12.3) fL Immature Gran % (Auto) (0.0-0.4) % Neut % (Auto) (45-73) % Lymph % (Auto) (20-40) % [place] % (Auto) (2-11) % Eos % (Auto) (0-4) % Baso % (Auto) (0-2) % Lymph # (Auto) (1.2-4.9) X10*3/uL [place] # (Auto) (0.1-1.2) X10*3/uL Eos # (Auto) (0.0-0.4) X10*3/uL Baso # (Auto) (0.0-0.2) X10*3/uL Abs Immat Gran (auto) (0.00-0.03) X10*3/uL Absolute Neuts (auto) (2.0-8.3) x10*3/uL Absolute Nucleated RBC (0.0-0.012) X10*3/uL Nucleated RBC % (auto) (0.0-0.2) /100WBC D-Dimer High Sensitivty NG/ML Sodium (135-145) mmol/L Potassium (3.3-5.1) mmol/L Chloride (96-108) mmol/L Carbon Dioxide (22-29) mmol/L Anion Gap (12-20) BUN (9-16) mg/dL Creatinine (0.5-1.4) mg/dL Estim Creat Clear Calc Estimated GFR Random Glucose (60-115) mg/dL Calcium (8.4-10.2) mg/dL Magnesium (1.6-2.6) mg/dL Total Bilirubin (0.0-1.0) mg/dL Direct Bilirubin (0.0-0.5) mg/dL AST (5-31) U/L ALT (0-31) U/L Alkaline Phosphatase (39-117) U/L Troponin I High Sens < 2.7 (<3.5-17.0) ng/L Total Protein (6.5-8.0) g/dL Albumin (3.5-5.0) g/dL Lipase (8-78) U/L Urine Color Urine Appearance Urine pH (5.0-9.0) Ur Specific [place] (1.005-1.025) Urine Protein (Neg-Trace) mg/dL Urine Glucose (UA) (Negative) mg/dL Urine Ketones (Negative) mg/dL Urine Blood (Negative) Urine Nitrite (Negative) Ur Leukocyte Esterase (Negative) Urine Test NEGATIVE (NEGATIVE) Influenza Type A (PCR) (Negative) Influenza Type B (PCR) (Negative) RSV RNA Qual (PCR) (Negative) SARS-CoV-2 RNA (RT-PCR) (Negative) Independent Interpretation I performed an independent interpretation of an: EKG and Plain X-Ray Interpretation: EKG normal sinus rhythm at a ventricular rate of 65 beats per minute, NC interval 170, QTC 438. No ST depression or elevation. I have reviewed patient's chest x-ray, no obvious consolidations noted, and I agree with the radiologist's report. Radiology Impression Discussion of test interpretation with radiology: I have reviewed the radiologist's reading. Radiologist Impression: EXAMINATION: XR CHEST CLINICAL INFORMATION: Cough COMPARISON: Previous chest x-ray June 2022 TECHNIQUE: 2 views of the chest were obtained. FINDINGS: No significant abnormality is noted involving the heart, lungs, mediastinum, bony thorax or soft tissues. XR/XR chest 2V IMPRESSION: Unremarkable examination. Dictated By: Shannon Denney MD Signed By: <Electronically signed by Shannon Denney MD in OV> Independent Historian Clinical information obtained from an independent historian. History obtained from or confirmed by: Spouse Discharge Plan Discharge Clinical Impression: Headache, Sinusitis, Allergic rhinitis Patient Disposition: Home, Self-Care Instructions: Acute Headache (ED), Allergic Rhinitis (ED), Sinusitis (ED) Additional Instructions: Your chest x-ray was normal today. Your blood work was reassuring today.Your urine did not show an infection or blood. You tested negative for COVID, Flu and RSV. Due to the length of your symptoms, we will treat you with antibiotics today. Please finish the entire course. Please use Flonase at home (you declined a prescription for this today). You may benefit from taking over the counter allergy medications at home (such as yeny, zyrtec), until you follow up with your extension course counselor as you likely need to get your allergy shot. Take ibuprofen or tylenol as needed for your symptoms. Follow up with your primary care physician regarding this visit. If any new or worse symptoms occur, please return for re-evaluation. Prescriptions: New amoxicillin-pot clavulanate 875-125 mg tablet 1 tab PO BID Qty: 14 0RF No Action montelukast 10 mg tablet 10 mg PO DAILY Qty: 90 0RF fluticasone propionate [Aller-Abel] 50 mcg/actuation spray,suspension 1 spray intranasal BID Qty: 16 0RF Rx Instructions: administer into each nostril metoclopramide HCl [Reglan] 10 mg tablet 10 mg PO Q6H PRN (Reason: nausea and vomiting) Qty: 14 0RF benzonatate 200 mg capsule 200 mg PO BID PRN (Reason: cough) Qty: 20 0RF propranolol 80 mg tablet 80 mg PO BID albuterol sulfate 90 mcg/actuation HFA aerosol inhaler 2 puff inhalation Q6H PRN Referrals: Lev Patrick MD [Primary Care Provider] - Stand Alone Forms: Work/School Release
[2023-03-09] MEDS: 0.9 % Sodium Chloride 1,000 ML 999 ML IVCONT (08:49)
[2023-03-09 08:50] LABS: MANUAL DIFF FLAG NO
[2023-03-09 08:51] LABS: Basophils Absolute Auto 0.1 X10*3/uL (0.0-0.2); Basophils Percent Auto 0.6 % (0-2); Eosinophils Absolute Auto 0.2 X10*3/uL (0.0-0.4); Hematocrit 39.7 % (37.0-47.0); Hemoglobin 13.5 g/dl (12.0-16.0); Imm Gran Abs Auto 0.02 X10*3/uL (0.00-0.03); Imm Gran Pct Auto 0.2 % (0.0-0.4); Lymphocytes Absolute Auto 2.4 X10*3/uL (1.2-4.9); Lymphocytes Percent Auto 28.8 % (20-40); Mean Corpuscular Volume 82.4 fL (80.0-98.0); Mean Platelet Volume 11.4 fL (9.4-12.3); Monocytes Absolute Auto 0.5 X10*3/uL (0.1-1.2); Monocytes Percent Auto 5.5 % (2-11); Neutrophils Absolute Auto 5.1 x10*3/uL (2.0-8.3); Neutrophils Percent Auto 62.9 % (45-73); Platelet Count 311 X10*3/uL (160-400); Red Blood Count 4.82 X10*6/uL (4.20-5.50); Red Cell Distribution Width 12.5 % (11.0-16.0); White Blood Count 8.2 X10*3/uL (4.8-10.8)
[2023-03-09] MEDS: Lidocaine HCl Viscous 2 % 15 ML SOLUTION MUCOUS MEM (09:01)
[2023-03-09] MEDS: Magnesium Hydrox/Alum Hydrox 30 ML ORAL.SUSP PO (09:01)
[2023-03-09 09:12] LABS: Alanine Aminotransferase 15 U/L (0-31); Albumin Level 3.8 g/dL (3.5-5.0); Alkaline Phosphatase 73 U/L (39-117); Anion Gap 12 (12-20); Aspartate Amino Transferase 15 U/L (5-31); Bilirubin Direct < 0.2 mg/dL (0.0-0.5); Bilirubin Total 0.4 mg/dL (0.0-1.0); Blood Urea Nitrogen 10 mg/dL (9-16); Calcium 8.6 mg/dL (8.4-10.2); Carbon Dioxide 24 mmol/L (22-29); Chloride 109 mmol/L (96-108); Creatinine Clr Calc Pharmacy 89.9; Estimated Glomerular Filt Rate > 60; Glucose Random 84 mg/dL (60-115); Lipase 25 U/L (8-78); Magnesium 2.1 mg/dL (1.6-2.6); Potassium 3.5 mmol/L (3.3-5.1); Sodium 141 mmol/L (135-145); Total Protein 6.3 g/dL (6.5-8.0)
[2023-03-09 09:13] LABS: Troponin-I High Sensitivity < 2.7 ng/L (<3.5-17.0)
[2023-03-09 09:31] LABS: D Dimer High Sensitivity < 150 NG/ML
[2023-03-09 09:34] LABS: Influenza A PCR NEGATIVE (Negative); Influenza B PCR NEGATIVE (Negative); Resp Syncy Virus RNA Qual PCR NEGATIVE (Negative); SARS COV2 PCR INHOUSE NEGATIVE (Negative)
[2023-03-09 10:04] VITALS: BP 119/80; PULSE 59; RESP 12; O2SAT 100
[2023-03-09] MEDS: Ketorolac Tromethamine 15 MG/ML VIAL IVPUSH (11:02)
[2023-03-09 11:13] LABS: Appearance Urine Clear; Color Urine Yellow; Glucose Urine UA Negative (Negative); Leukocyte Esterase Urine Negative (Negative); Nitrite Urine Negative (Negative); Urine Blood Negative (Negative); Urine Ketones 15 mg/dL (Negative); Urine Protein Negative (Neg-Trace)
[2023-03-09 11:15] LABS: UPreg QC Valid YES; Urine Pregnancy NEGATIVE (NEGATIVE)
[2023-03-09 11:52] VITALS: BP 135/84; PULSE 63; RESP 19; TEMP 36.6; O2SAT 100
[2023-03-09 12:17] LABS: Troponin-I High Sensitivity < 2.7 ng/L (<3.5-17.0)
== END 2023-03-09 13:09 | disposition home or self-care (01) ==
PROVIDERS: Physician Assistant Medical; Emergency Provider Emergency Medicine; PCP Internal Medicine
DX: R51.9 Headache, unspecified (principal); J30.9 Allergic rhinitis, unspecified; J32.9 Chronic sinusitis, unspecified; Z20.822 Contact with and (suspected) exposure to COVID-19; Z20.828 Contact with and (suspected) exposure to other viral communicable diseases; Z79.899 Other long term (current) drug therapy
CPT/HCPCS: 0241U; 36415; 71046; 80048; 80076; 81003; 81025; 83690; 83735; 84484; 85025; 85379; 93005; 96361; 96374; 99284; 99285; J1885

== ENCOUNTER 2023-04-03 07:47 | Outpatient (REF) | payer OTHER, SELFPAY ==
--- NOTE | ~2023-04-03 | XR_ITS ---
EXAMINATION: XR SACRUM AND COCCYX CLINICAL INFORMATION: Fracture of coccyx COMPARISON: None available. TECHNIQUE: 2 views of the sacrum and 2 views of the coccyx were obtained. FINDINGS: Age-indeterminate coccygeal fracture with mild posterior displacement of the distal fracture fragment. Intrauterine device projects over the pelvis. XR/XR sacrum coccyx min 2V IMPRESSION: Age-indeterminate coccygeal fracture with mild posterior displacement of the distal fracture fragment.
== END 2023-04-03 07:48 | disposition home or self-care (01) ==
LOC: HO.XRAY 07:47
PROVIDERS: PCP Internal Medicine; Visit Provider Internal Medicine
DX: S32.2XXA Fracture of coccyx, initial encounter for closed fracture (principal)
CPT/HCPCS: 72220

== ENCOUNTER 2023-05-18 08:11 | Outpatient (REF) | payer OTHER, SELFPAY ==
--- NOTE | ~2023-05-18 | FL_ITS ---
EXAMINATION: XR GI SERIES CLINICAL INFORMATION: Gastroesophageal reflux disease without esophagitis COMPARISON: None available. TECHNIQUE: Upper GI was performed using thin and thick barium and effervescent granules FINDINGS: Esophageal motility is normal. There is gastroesophageal reflux. No hernia. The stomach and duodenum are normal. No fold thickening, mass, ulcer or stricture. FLUOROSCOPY TIME: 1.5 minutes DOSE AREA PRODUCT: 5.5 mims per centimeter squared. Total dose 23 mgy. 24 saved fluoroscopic images. FL/FL upper GI series IMPRESSION: Gastroesophageal reflux otherwise unremarkable exam.
== END 2023-05-18 08:12 | disposition home or self-care (01) ==
LOC: HO.XRAY 08:11
PROVIDERS: PCP Internal Medicine; Visit Provider Internal Medicine
DX: K21.9 Gastro-esophageal reflux disease without esophagitis (principal)
CPT/HCPCS: 74240

== ENCOUNTER 2023-05-22 11:20 | Outpatient (REF) | payer OTHER, SELFPAY ==
[2023-05-22 17:45] LABS: CT PCR NOT DETECTED (Not Detect.); NG PCR NOT DETECTED (Not Detect.)
[2023-05-23 13:48] LABS: BV Int Neg Control Negative (Negative); BV Int Pos Control Positive (Positive)
[2023-05-28 02:33] LABS: HPV mRNA E6/E7 rflx Not Detected (Not Detected)
== END 2023-05-22 11:21 | disposition home or self-care (01) ==
LOC: HO.LNP 11:20
PROVIDERS: PCP Internal Medicine; Visit Provider Advanced Practice Midwife
DX: Z01.419 Encounter for gynecological examination (general) (routine) without abnormal findings (principal); Z11.51 Encounter for screening for human papillomavirus (HPV); Z20.2 Contact with and (suspected) exposure to infections with a predominantly sexual mode of transmission
CPT/HCPCS: 0353U; 87480; 87510; 87624; 87660; 88142

== ENCOUNTER 2023-06-29 08:28 | Emergency (ER) | payer OTHER, SELFPAY ==
--- NOTE | ~2023-06-29 | XR_ITS ---
EXAMINATION: XR CHEST CLINICAL INFORMATION: Left sided chest pain COMPARISON: 03/09/2023. TECHNIQUE: 2 views of the chest were obtained. FINDINGS: No significant abnormality is noted involving the heart, lungs, mediastinum, bony thorax or soft tissues. XR/XR chest 2V IMPRESSION: Unremarkable examination. No changes since previous evaluation
--- NOTE | 2023-06-29 08:32 | ECG_ITS ---
Test Reason : cp Blood Pressure : / mmHG Vent. Rate : 077 BPM Atrial Rate : 077 BPM P-R Int : 164 ms QRS Dur : 088 ms QT Int : 380 ms P-R-T Axes : 027 013 -02 degrees QTc Int : 430 ms Normal sinus rhythm Normal ECG When compared with ECG of 09-MAR-2023 08:04, No significant changes seen Referred By: Generic ED Physician Electronically Signed By:AILYN CARLOS
[2023-06-29 08:41] VITALS: BP 148/93; PULSE 76; RESP 14; TEMP 37.1; O2SAT 97; BMI 35.6
[2023-06-29 09:05] LABS: MANUAL DIFF FLAG NO
[2023-06-29 09:08] LABS: Basophils Percent Auto 0.4 % (0-2); Eosinophils Absolute Auto 0.2 X10*3/uL (0.0-0.4); Hematocrit 39.9 % (37.0-47.0); Hemoglobin 13.4 g/dl (12.0-16.0); Imm Gran Abs Auto 0.07 X10*3/uL (0.00-0.03); Imm Gran Pct Auto 0.7 % (0.0-0.4); Lymphocytes Absolute Auto 1.8 X10*3/uL (1.2-4.9); Lymphocytes Percent Auto 18.1 % (20-40); Mean Corpuscular HGB Conc 33.6 g/dl (31.0-35.0); Mean Corpuscular Volume 83.5 fL (80.0-98.0); Mean Platelet Volume 11.7 fL (9.4-12.3); Monocytes Absolute Auto 0.4 X10*3/uL (0.1-1.2); Monocytes Percent Auto 4.2 % (2-11); Neutrophils Absolute Auto 7.3 x10*3/uL (2.0-8.3); Neutrophils Percent Auto 74.6 % (45-73); Platelet Count 301 X10*3/uL (160-400); Red Blood Count 4.78 X10*6/uL (4.20-5.50); Red Cell Distribution Width 12.9 % (11.0-16.0); White Blood Count 9.8 X10*3/uL (4.8-10.8)
[2023-06-29 09:22] LABS: Anion Gap 14 (12-20); Blood Urea Nitrogen 12 mg/dL (9-16); Calcium 9.3 mg/dL (8.4-10.2); Carbon Dioxide 19 mmol/L (22-29); Chloride 109 mmol/L (96-108); Creatinine Clr Calc Pharmacy 101.5; Estimated Glomerular Filt Rate > 60; Glucose Random 116 mg/dL (60-115); Potassium 3.8 mmol/L (3.3-5.1); Sodium 138 mmol/L (135-145)
[2023-06-29 09:31] LABS: Troponin-I High Sensitivity < 2.7 ng/L (<3.5-17.0)
--- NOTE | 2023-06-29 09:33 | ED.CHESTPAIN ---
HPI - Chest Pain General Chief Complaint: Chest Pain Stated Complaint: chest pain Time Seen by Provider: 06/29/23 08:33 Source: patient Mode of arrival: ambulatory Limitations: no limitations History of Present Illness HPI narrative: 43-year-old female with history of hypertension presents with left-sided chest pain. Chest pain started 1 month ago. The pain is intermittent. Moderate nature. Pain happens on a daily basis. It is not associated with exertion. There is sometimes association with breathing. She denies any history of PE or DVT. She denies any family history of sudden cardiac . Pain is described as aching and sharp in nature. There is no lower extremity edema. No recent long distance travel or surgeries or period of immobilization. No respiratory symptoms such as cough, runny nose, sore throat, dyspnea. Related Data Home Medications Medication Instructions Recorded Confirmed albuterol sulfate 90 mcg/actuation 2 puff inhalation Q6H PRN 07/28/22 05/22/23 aerosol inhaler propranolol 80 mg tablet 80 mg PO BID 07/28/22 05/22/23 Previous Rx's Medication Instructions Recorded fluticasone propionate 50 1 spray intranasal BID #16 grams 07/18/22 mcg/actuation nasal spray,suspension (Aller-Abel) benzonatate 200 mg capsule 200 mg PO BID PRN cough #20 caps 03/04/23 metoclopramide HCl 10 mg tablet 10 mg PO Q6H PRN nausea and 03/06/23 (Reglan) vomiting #14 tabs omeprazole 20 mg capsule,delayed 20 mg PO DAILY 90 days #90 caps 03/17/23 release fluconazole 150 mg tablet 150 mg PO ONCE 1 dose #1 tab 06/09/23 (Diflucan) montelukast 10 mg tablet 10 mg PO DAILY #90 tabs 06/15/23 gabapentin 300 mg capsule 300 mg PO BID #30 caps 06/29/23 meloxicam 15 mg tablet 15 mg PO DAILY #14 tabs 06/29/23 Allergies Allergy/AdvReac Type Severity Reaction Status Date / Time flu vaccine AdvReac Severe Hives Uncoded 05/22/23 11:41 Review of Systems Review of Systems: CONSTITUTIONAL: Denies weight loss, fever and chills. HEENT: Denies changes in vision and hearing. RESPIRATORY: Denies SOB and cough. CV: Denies palpitations + CP. GI: Denies abdominal pain, nausea, vomiting and diarrhea. : Denies dysuria and urinary frequency. MSK: Denies myalgia and joint pain. SKIN: Denies rash and pruritus. NEUROLOGICAL: Denies headache and syncope. PSYCHIATRIC: Denies recent changes in mood. Denies anxiety and depression. All other ROS are negative unless in HPI [facility] Past Medical History Medical History Allergic rhinosinusitis Asthma Asthma Cough Cyst of breast, left, solitary GERD (gastroesophageal reflux disease) Laryngitis Migraine Obesity (BMI 30-39.9) Pure hypercholesterolemia Viral upper respiratory tract infection with cough Surgical History H/O section History of breast lump/mass excision Hx of colonoscopy Family History Family History Mother Colon cancer, Onset Age: 42 Diabetes mellitus Father Parkinson disease Heart disease Other FH: mental illness Substance abuse Social History Social History Housing: House Alcohol intake: never Patient Tobacco Use Status: Never used Tobacco Smoked in Last 30 Days: No e-Cigarette/Vaping Use: Never Used Use of substances other than those prescribed or required for medical reasons: No Advance Directives: No Advance Directives Information Provided: No service: No Current occupational status: employed 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 Cognitive needs: No Hearing needs: No Vision needs: Yes Physical Exam Vital Signs: Vital Signs: Last Vital Signs Temp 98.8 F 06/29/23 08:41 Pulse 76 06/29/23 08:41 Resp 14 06/29/23 08:41 BP 148/93 H 06/29/23 08:41 Pulse Ox 97 06/29/23 08:41 O2 Del Method Room Air 06/29/23 08:41 BMI result Body Mass Index 35.6 GEN: Well developed, no acute distress, alert, oriented HEENT: Normocephalic, atraumatic, normal external ears, nose appears normal, no oropharyngeal edema or exudates Eyes: Normal to appearance Neck: Supple, no lymphadenopathy Respiratory: Talks in complete sentences, no respiratory distress, clear to auscultation bilaterally Cardiovascular: Regular rate and rhythm, no murmurs rubs or gallops Abdomen: Soft, nontender, nondistended, no guarding, no rebound Back: No CVA tenderness Extremities: No clubbing cyanosis or edema Neurologic: No focal neurologic deficits, cranial nerves 2-12 intact, strength is 5/5 bilaterally Skin: No rash Chest wall: Reproducible anterior axillary line tenderness to palpation Course Course Course Narrative: It is 10:00 a.m.. The workup is complete. EKG and chest x-ray shows no acute cardiopulmonary disease, ischemia, cardiac dysrhythmia. Troponin is negative and after 1 month chest pain indicates that this is unlikely to be cardiac pain. Certainly this is not acute coronary syndrome. She has reproducible chest wall tenderness. Suspect that this is muscular versus neuropathic. Will treat with anti-inflammatory pain medications with gabapentin for 2 weeks and have her follow-up with her primary care provider. For any concerning symptoms, patient will return to the emergency department for re-evaluation Medical Decision Making Medical Decision Making MDM Narrative: Patient presents with an atypical chest pain. Left-sided. It is not associated with exertion. Examination had reproducibility to the chest wall pain. Evidence of rash to suggest shingles. Patient has no risk factors for PE or DVT in her PERC score is 0. Doubt pulmonary embolus. There is no lower extremity edema to suggest DVT. Pain is nonexertional and doubt angina examination does have reproducibility to it is most likely musculoskeletal or neuropathic pain. In any event to rule out more significant etiologies, will obtain routine laboratory analysis, chest x-ray and an EKG. Differential Diagnosis Differential Diagnoses: The differential diagnosis associated with the presentation includes (See above) Admission/Observation Consideration of admission/observation: Escalation of care including admission/observation considered Lab Data [facility] Lab Attestation statement: I reviewed the patient's lab results. 06/29/23 09:00 06/29/23 09:00 Labs: Lab Results 06/29/23 06/29/23 06/29/23 Range/Units 09:00 09:00 09:00 WBC 9.8 (4.8-10.8) X10*3/uL RBC 4.78 (4.20-5.50) X10*6/uL Hgb 13.4 (12.0-16.0) g/dl Hct 39.9 (37.0-47.0) % MCV 83.5 (80.0-98.0) fL MCH 28.0 (27.0-33.0) pg MCHC 33.6 (31.0-35.0) g/dl RDW 12.9 (11.0-16.0) % Plt Count 301 (160-400) X10*3/uL MPV 11.7 (9.4-12.3) fL Immature Gran % (Auto) 0.7 H (0.0-0.4) % Neut % (Auto) 74.6 H (45-73) % Lymph % (Auto) 18.1 L (20-40) % [place] % (Auto) 4.2 (2-11) % Eos % (Auto) 2.0 (0-4) % Baso % (Auto) 0.4 (0-2) % Lymph # (Auto) 1.8 (1.2-4.9) X10*3/uL [place] # (Auto) 0.4 (0.1-1.2) X10*3/uL Eos # (Auto) 0.2 (0.0-0.4) X10*3/uL Baso # (Auto) 0.0 (0.0-0.2) X10*3/uL Abs Immat Gran (auto) 0.07 H (0.00-0.03) X10*3/uL Absolute Neuts (auto) 7.3 (2.0-8.3) x10*3/uL Absolute Nucleated RBC 0.000 (0.0-0.012) X10*3/uL Nucleated RBC % (auto) 0.0 (0.0-0.2) /100WBC Sodium 138 (135-145) mmol/L Potassium 3.8 (3.3-5.1) mmol/L Chloride 109 H (96-108) mmol/L Carbon Dioxide 19 L (22-29) mmol/L Anion Gap 14 (12-20) BUN 12 (9-16) mg/dL Creatinine 0.75 (0.5-1.4) mg/dL Estim Creat Clear Calc 101.5 Estimated GFR > 60 Random Glucose 116 H (60-115) mg/dL Calcium 9.3 D (8.4-10.2) mg/dL Troponin I High Sens < 2.7 (<3.5-17.0) ng/L Cardiac enzymes are negative which is diagnostic after 1 month of chest pain. Independent Interpretation I performed an independent interpretation of an: EKG (Normal sinus rhythm heart rate 77, normal intervals, no acute ST elevations depressions, normal EKG.) and Plain X-Ray (Chest: No acute cardiopulmonary disease) Prescription Management I considered prescription management with: Pain Medication Chronic Conditions Patient?s care impacted by: Hypertension Discharge Plan Discharge Clinical Impression: Atypical chest pain Patient Disposition: Home, Self-Care Instructions: Chest Pain (ED), Chest Wall Pain (ED) Prescriptions: New meloxicam 15 mg tablet 15 mg PO DAILY Qty: 14 0RF gabapentin 300 mg capsule 300 mg PO BID Qty: 30 0RF No Action fluconazole [Diflucan] 150 mg tablet 150 mg PO ONCE Qty: 1 0RF Rx Instructions: administer on day 1 of therapy montelukast 10 mg tablet 10 mg PO DAILY Qty: 90 0RF fluticasone propionate [Aller-Abel] 50 mcg/actuation spray,suspension 1 spray intranasal BID Qty: 16 0RF Rx Instructions: administer into each nostril metoclopramide HCl [Reglan] 10 mg tablet 10 mg PO Q6H PRN (Reason: nausea and vomiting) Qty: 14 0RF omeprazole 20 mg capsule,delayed release(DR/EC) 20 mg PO DAILY 90 Days Qty: 90 1RF benzonatate 200 mg capsule 200 mg PO BID PRN (Reason: cough) Qty: 20 0RF propranolol 80 mg tablet 80 mg PO BID albuterol sulfate 90 mcg/actuation HFA aerosol inhaler 2 puff inhalation Q6H PRN Referrals: Lev Patrick MD [Primary Care Provider] - 1 week Stand Alone Forms: Work/School Release Interventions: ED Discharge Assessment Last Done: 06/29/23 11:04
== END 2023-06-29 11:27 | disposition home or self-care (01) ==
PROVIDERS: Emergency Provider Emergency Medicine; PCP Internal Medicine
DX: R07.89 Other chest pain (principal); E78.00 Pure hypercholesterolemia, unspecified
CPT/HCPCS: 36415; 71046; 80048; 84484; 85025; 93005; 99283; 99284

== ENCOUNTER → 2023-06-29 08:32 | Outpatient (BNV) | payer OTHER, SELFPAY | PROVIDERS: Emergency Provider Emergency Medicine; PCP Internal Medicine; Visit Provider Internal Medicine | DX: R07.9 Chest pain, unspecified (principal) | CPT/HCPCS: 93010 ==

== ENCOUNTER 2023-07-06 07:43 | Outpatient (REF) | payer OTHER, SELFPAY ==
[2023-07-06 08:12] LABS: MANUAL DIFF FLAG NO
[2023-07-06 08:53] LABS: Basophils Percent Auto 0.4 % (0-2); Eosinophils Absolute Auto 0.4 X10*3/uL (0.0-0.4); Eosinophils Percent Auto 4.6 % (0-4); Hematocrit 39.6 % (37.0-47.0); Imm Gran Abs Auto 0.04 X10*3/uL (0.00-0.03); Imm Gran Pct Auto 0.5 % (0.0-0.4); Lymphocytes Absolute Auto 1.9 X10*3/uL (1.2-4.9); Lymphocytes Percent Auto 22.8 % (20-40); Mean Corpuscular HGB Conc 32.8 g/dl (31.0-35.0); Mean Corpuscular Hemoglobin 27.8 pg (27.0-33.0); Mean Corpuscular Volume 84.6 fL (80.0-98.0); Mean Platelet Volume 11.9 fL (9.4-12.3); Monocytes Absolute Auto 0.4 X10*3/uL (0.1-1.2); Monocytes Percent Auto 5.3 % (2-11); Neutrophils Absolute Auto 5.5 x10*3/uL (2.0-8.3); Neutrophils Percent Auto 66.4 % (45-73); Platelet Count 310 X10*3/uL (160-400); Red Blood Count 4.68 X10*6/uL (4.20-5.50); Red Cell Distribution Width 13.2 % (11.0-16.0); White Blood Count 8.2 X10*3/uL (4.8-10.8)
[2023-07-06 09:02] LABS: Appearance Urine Clear; Color Urine Yellow; Glucose Urine UA Negative (Negative); Leukocyte Esterase Urine Trace (Negative); Nitrite Urine Negative (Negative); PH 6.5 (5.0-9.0); UMIC TRIGGER UACC YES; Urine Blood Moderate (2+) (Negative); Urine Ketones Negative (Negative); Urine Protein Trace mg/dL (Neg-Trace)
[2023-07-06 09:06] LABS: Bacteria Urine Trace (None Seen); Hyaline Casts Urine 0-2 /LPF (0-2); WBC Urine 0-5 /HPF (0-5)
[2023-07-06 09:46] LABS: Alanine Aminotransferase 23 U/L (0-31); Albumin Level 3.8 g/dL (3.5-5.0); Alkaline Phosphatase 78 U/L (39-117); Anion Gap 15 (12-20); Aspartate Amino Transferase 20 U/L (5-31); Bilirubin Total 0.4 mg/dL (0.0-1.0); Blood Urea Nitrogen 11 mg/dL (9-16); Calcium 8.9 mg/dL (8.4-10.2); Carbon Dioxide 22 mmol/L (22-29); Chloride 108 mmol/L (96-108); Cholesterol 197 mg/dL; Estimated Glomerular Filt Rate > 60; Glucose Fasting 95 mg/dL (60-99); HDL Cholesterol 39 mg/dL; LDL Cholesterol Calculated 137 mg/dl; Potassium 3.7 mmol/L (3.3-5.1); Sodium 141 mmol/L (135-145); Triglycerides 109 mg/dL
[2023-07-06 09:50] LABS: TSH reflex Free T4 1.67 uIU/mL (0.32-4.0)
== END 2023-07-06 07:44 | disposition home or self-care (01) ==
LOC: HO.LAB 07:43
PROVIDERS: PCP Internal Medicine; Visit Provider Internal Medicine
DX: K21.9 Gastro-esophageal reflux disease without esophagitis (principal); E78.00 Pure hypercholesterolemia, unspecified
CPT/HCPCS: 36415; 80053; 80061; 81001; 81003; 84443; 85025

== ENCOUNTER 2023-07-14 09:27 | Outpatient (AMB) | payer OTHER, SELFPAY ==
--- NOTE | 2023-07-14 09:30 | MHC.OFFVIS ---
Intake Vital Signs 07/14/23 09:43 Height 5 ft 3 in Weight 200 lb BMI 35.4 BP 122/70 Blood Pressure Location Lt brachial Position Sitting Intake Visit Reasons: Mirena Replacement [employer] Executive Required: No Accompanied by: Self / Same As Patient Allergies flu vaccine Adverse Reaction (Severe, Uncoded 07/14/23 09:47) Hives Medication List - Last Reconciled 07/14/23 by Sasha Purcell CNM albuterol sulfate 90 mcg/actuation 2 puffs inhalation Q6H PRN benzonatate 200 mg PO BID PRN fluticasone propionate 50 mcg/actuation (Aller-Abel) 1 spray intranasal BID gabapentin 300 mg PO BID levonorgestrel (Mirena) intrauterine meloxicam 15 mg PO DAILY metoclopramide HCl (Reglan) 10 mg PO Q6H PRN montelukast 10 mg PO DAILY omeprazole 20 mg PO DAILY 90 days propranolol 80 mg PO BID Is last menstrual period known: No (mirena) HPI Mirena Replacement HPI Details Patient is here to have her Mirena replaced. Has not yet been able to void so is going to walk around drinking water so that we can have a test done 1st. She says it has been a long time since she has had sex and certainly before the last visit. She was finally able to void after drinking water and walking around the office urine hCG is negative she does not have any other questions other than how long can she use this 1 for. [facility] Medical History Allergic rhinosinusitis Asthma Asthma Cough Cyst of breast, left, solitary GERD (gastroesophageal reflux disease) Laryngitis Migraine Obesity (BMI 30-39.9) Pure hypercholesterolemia Viral upper respiratory tract infection with cough Surgical History H/O section History of breast lump/mass excision Hx of colonoscopy Family History Mother Colon cancer, Onset Age: 42 Diabetes mellitus Father Parkinson disease Heart disease Other FH: mental illness Substance abuse Social History Housing: House Alcohol intake: never Patient Tobacco Use Status: Never used Tobacco e-Cigarette/Vaping Use: Never Used service: No Current occupational status: employed 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[employer] Cognitive needs: No Hearing needs: No Vision needs: Yes Female Reproductive History Menstrual Age of Menarche: 7 control method: progestin IUCD (mirena) Total pregnancies: 2 Number of Living Children: 1 Ab spontaneous: 1 Physical Exam Vital Signs: Last Vital Signs BP 122/70 07/14/23 09:43 BMI result Body Mass Index 35.4 External Female Exam: normal external appearance Speculum Exam - Vagina: normal appearance of the vagina and normal vaginal discharge Speculum Exam - Cervix: normal appearance of the cervix Bimanual exam- vagina & uterus: normal bimanual exam, uterine size normal, consistency normal, uterine mobility normal, uterine shape normal and non-tender Bimanual Exam- Adnexa, other: normal adnexae, no masses and No adnexal tenderness Office Procedures IUD Insert/Removal Details Details: ---Patient is here for her IUD removal and insertion. Bimanual exam was done. Her uterus is firm, nontender, and appropriate sized, and is midposition to anteverted . The cervix was swabbed with Betadine. The IUD strings were grasped with long [place] forceps as they had re-treated into the os , and as patient coughed the IUD was removed easily with 1 tug. ---The cervix was recleaned with Betadine. Tenaculum was placed on the cervix slowly to minimize cramping. The uterus was sounded slowly and gently she show a measurement of 9 cm. The IUD was removed from its package, after checking identifying information and lot dates and expiration dates and and gently inserted into the os, as per the IUD insertion procedure. The strings were then trimmed to 3-4 centimetres. The tenaculum was removed and gentle pressure applied with a swab, until any bleeding subsided from the tenaculum sites. The speculum was gently removed. The patient sat up. I Reviewed what to expect, and what indications would necessitate a call. Pt to call for fever, untoward pain or cramping. I reviewed any appropriate backup method. Pt to return for recheck as scheduled. 69284-XSC Insertion [id number]-DXS Removal Procedure code (CPT) selection complete Office Kelton Mensah Performing Provider: Sasha Purcell CNM Administered by: Regina Link CMA on 07/14/23 11:13 Dose Route Admin Location Lot Number Expiration Date NDC Third Mate 1 device intrauterine [id number] 09/29/25 93566-124-69 [employer] Results AMB Test Urine AMB Test Urine Negative Last Edit by Regina Link CMA on 07/14/23 10:20 Results Reviewed Results Reviewed: Laboratory Last Values Tst Clinic Negative 07/14/23 10:19 Name:Sheree Gan Age/Sex: 43/F Attending: Sasha Purcell CNM : 1980 Submitted by: Sasha Purcell CNM Copies to: Lev Patrick MD MR #: [id number] ? Status: DEP REF Collected: 05/22/23 Location: [facility] Received: 05/25/23 Interpretation Satisfactory for evaluation. Negative for intraepithelial lesion or malignancy. HPV mRNA E6/E7:? NOT DETECTED This assay detects E6/E7 viral messenger RNA (mRNA) from 14 high-risk HPV types (16, 18, 31, 33, 35, 39, 45, 51, 52, 56, 58, 59, 66, 68) HPV testing performed by Lorena Gaxiola, [place], [place].? See reference laboratory portion of the EMR for entire report. Clinical Information LMP: No menses, mirena Previous PAP test: Unknown date/findings Material Received ThinPrep-Cervical Copies To ?? Lev Patrick MD ?? [address] ?? [place] [address] ?? [phone] ?? Sasha Purcell CNM ?? [address] ?? [place] [address] ?? [phone] Electronically Signed By: Mallory Roc Delvalle ? 06/13/23 1522 The Pap Test is a screening procedure with the inherent possibility of both false negative and false positive results.? Results should be interpreted in the context of historic and current clinical findings.? Reliability of the Pap? urine hcg=neg Assessment & Plan Assessment & Plan (1) Presence of 52 mg levonorgestrel-releasing intrauterine device (IUD): Comment: Thinks it was inserted well before 2018, strings are visible, will plan replacement in near future. IUD removed and new 1 inserted 07/14/2023, to 9 cm sounded uterus. Code(s): Z97.5 - Presence of (intrauterine) contraceptive device (2) Encounter for IUD insertion: Code(s): Z30.430 - Encounter for insertion of intrauterine contraceptive device Plan Smooth removal and insertion of new Mirena IUD into 9 cm anteverted uterus with parous cervix. Moderate amount of bleeding after insertion and removal. Reviewed to call if his signs of expulsion fever severe pain or any other difficulty otherwise we will see her in 6 weeks reviewed that the Mirena recommendations are now for longer use however if she ever had signs and symptoms of returning fertility which she does not quite remember she should not depend on it for contraception. She is 43 years old so 5 years will be around the typical menopause time. We will see her in 6 weeks if not sooner. Orders: Orders AMB IUD Insertion/Removal - Practice Supplied Today Z30.430 - Encounter for insertion of intrauterine contraceptive device AMB HCG Urine Test Today Z32.02 - Encounter for test, result negative Coding Level of Care Code Est Pt Level 3 (73994) Diagnoses Presence of 52 mg levonorgestrel-releasing intrauterine device (IUD) Z97.5 Encounter for IUD insertion Z30.430 CPT Codes Details - CPT: 85656-GPU Insertion ([id number]) Details - CPT: 72702-ZXV Removal ([id number])
[2023-07-14 09:43] VITALS: BP 122/70; BMI 35.4
== END 2023-07-14 11:11 | disposition home or self-care (01) ==
LOC: HO.HWS 09:27
PROVIDERS: PCP Internal Medicine; Visit Provider Advanced Practice Midwife
DX: Z30.430 Encounter for insertion of intrauterine contraceptive device (principal); Z32.02 Encounter for pregnancy test, result negative
CPT/HCPCS: 58300; 58301

== ENCOUNTER → 2023-07-14 09:27 | Outpatient (BNVA) | payer OTHER, SELFPAY | PROVIDERS: PCP Internal Medicine; Visit Provider Advanced Practice Midwife | DX: Z30.430 Encounter for insertion of intrauterine contraceptive device (principal); Z32.02 Encounter for pregnancy test, result negative | CPT/HCPCS: 58300; 58301; 81025; J7298 ==

== ENCOUNTER 2023-07-17 09:30 | Outpatient (AMB) | payer OTHER, SELFPAY ==
[2023-07-17 09:31] VITALS: BP 112/80; PULSE 82; O2SAT 96; BMI 35.2
--- NOTE | 2023-07-17 09:31 | A.OFFPC_ITS ---
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 Accompanied by: Self / Same As Patient Allergies flu vaccine Adverse Reaction (Severe, Uncoded 07/17/23 09:48) Hives Medication List - Last Reconciled 07/17/23 by Lev Patrick MD albuterol sulfate 90 mcg/actuation 2 puffs inhalation Q6H PRN ypoczyynjq-dkykyyeyyiwrv-mxfo 50-325-40 mg 1 tab PO Q6H PRN fluticasone propionate 50 mcg/actuation (Aller-Abel) 1 spray intranasal BID gabapentin 300 mg PO BID levonorgestrel (Mirena) intrauterine meloxicam 15 mg PO DAILY metoclopramide HCl (Reglan) 10 mg PO Q6H PRN montelukast 10 mg PO DAILY omeprazole 20 mg PO DAILY 90 days propranolol 80 mg PO .QD sumatriptan succinate take 1 tab at onset of headache; if no relief may repeat 1 tab after at least 2 hrs; max = 4 tabs/24 hr PO Tobacco use date assessed: 07/17/23 Dental Screening Dental Screen Date: 07/17/23 Did you have a dental visit in the last 12 months?: Yes Did you have a dental problem in the last 6 months where you did not have access to dental care?: No Was dental information given to patient?: Patient has dentist HPI 4mt f/u HPI Details Patient comes in today for her follow up visit States that she feels okay Still has occasional headaches but states that they are currently better controlled again and she gets them only once or twice a month now [place] [facility] [place] few months ago but states that they did not change any of her meds and just prescribed her some Fioricet and Sumatriptan to take as needed She denies any dizziness Denies any SOB but she continues to experience recurrent sharp pains over her lower chest wall area, especially on the left side States that she went to the ER for this same pain a couple of weeks ago and had some labs and EKG done and was advised that her tests all came out normal and that her pain is most likely musculoskeletal Was prescribed some Meloxicam and Gabapentin to help with her pain - states that the meds do not really help much No nausea/vomiting, no abdominal pains States that her heartburns have been much better controlled with Omeprazole and she is still taking it daily at this time No change in bowel habits noted Had her follow up labs done last week - to discuss her results [facility] Medical History (Updated 07/17/23 @ 12:04 by Lev Patrick MD) Allergic rhinosinusitis Asthma Asthma Benign essential hypertension Cough Cyst of breast, left, solitary GERD (gastroesophageal reflux disease) Laryngitis Migraine Obesity (BMI 30-39.9) Pure hypercholesterolemia Viral upper respiratory tract infection with cough Surgical History H/O section History of breast lump/mass excision Hx of colonoscopy Family History Mother Colon cancer, Onset Age: 42 Diabetes mellitus Father Parkinson disease Heart disease Other FH: mental illness Substance abuse Social History Housing: House Alcohol intake: never Patient Tobacco Use Status: Never used Tobacco e-Cigarette/Vaping Use: Never Used service: No Current occupational status: employed 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 Cognitive needs: No Hearing needs: No Vision needs: Yes Female Reproductive History Menstrual Age of Menarche: 7 Questionnaire PHQ-9 Over the last 2 weeks, how often have you been bothered by any of the following problems? 1. Little interest or pleasure in doing things: not at all 2. Feeling down, depressed, or hopeless: not at all 3. Trouble falling or staying asleep, or sleeping too much: not at all 4. Feeling tired or having little energy: not at all 5. Poor appetite or overeating: not at all 6. Feeling bad about yourself - or that you are a failure or have let yourself or your family down: not at all 7. Trouble concentrating on things, such as reading the newspaper or watching television: not at all 8. Moving or speaking so slowly that other people could have noticed. Or the opposite - being so fidgety or restless that you have been moving around a lot more than usual: not at all 9. Thoughts that you would be better off or of hurting yourself in some way: not at all Total score: 0 Depression Screening Interpretation: Negative 09610 - PHQ-9 Billing: Yes Source: Developed by Drs. Elfego Morelos, Emani Kelley, Apollo Buchanan and colleagues, with an educational gilson from [employer]. Thrive Questionnaire Date Thrive assessed: 07/17/23 I am a: Patient What is your living situation today?: I have a steady place to live Within the past 12 months, did the food you bought not last and you didn't have the money to get more?: Never true Within the past 12 months, did you worry whether your food would run out before you got money to buy more?: Never true Do you have trouble paying for medicines?: No Do you have trouble getting transportation to medical appointments?: No Do you have trouble paying your heating and electricity bill?: No Do you have trouble taking care of your child, family member or friend?: No Do you have trouble with day-to-day activities such as bathing, preparing meals, shopping, managing finances, etc.?: No Are you currently unemployed and looking for a job?: No Are you interested in more education?: No Please select the resources that you would like help with: None Currently or been in a relationship where the following occur: no concerns reported AUDIT C Alcohol Use Questionnaire (AUDIT-C) 1. How often do you have a drink containing alcohol?: Never 3. How often do you have six or more drinks on one occasion?: Never Total Score: 0 Score Reviewed/Action Taken: Yes AYESHA-7 AMB Questionnaire AYESHA-7 Date AYESHA - 7 assessed: 07/17/23 Feeling nervous, anxious, or on edge: 3 = Nearly every day Not being able to stop or control worryin = Nearly every day Worrying too much about different things: 3 = Nearly every day Trouble relaxin = Nearly every day Being so restless that it is hard to sit still: 3 = Nearly every day Becoming easily annoyed or irritable: 1 = Several days Feeling afraid as if something awful might happen: 0 = Not at all Total AYESHA-7 score (0-4 normal; 5-9 mild; 10-14 moderate; 15-21 severe): 16 Source: Developed by Drs. Elfego Morelos, Emani Kelley, Apollo Buchanan and colleagues, with an educational gilson from [employer]. AYESHA-7 Assessment Billing AYESHA-7 Assessment Tool: AYESHA-7 Assessment 18057 Review of Systems Const Denies chills, Denies fatigue, Denies fever(s) and Reports headache(s) (occasional) ENT Denies dysphagia, Denies dizziness, Denies otalgia, Reports headache(s) (occasional), Denies neck pain, Denies odynophagia and Denies sore throat Card Reports chest pain (recurrent, sharp pains over the chest wall, especially over the left lower ), Denies rapid heart rate, Denies irregular heart rhythm, Denies palpitations and Denies dyspnea Resp Denies chest congestion, Denies cough, Denies dyspnea and Denies wheezing GI Denies abdominal pain, Denies constipation, Denies dysphagia, Denies heartburn (much better controlled with Rx), Denies nausea, Denies odynophagia and Denies vomiting Denies urinary frequency, Denies dysuria and Denies urinary urgency Musc Reports back pain (primarily over the tailbone - chronic ), Denies arthralgias and Denies neck pain Neuro Denies dizziness, Reports headache(s) (occasional) and Denies paresthesias Psych Denies anxiety and Denies depression Endo Denies fatigue and Denies palpitations Valentino/Lymph Denies easy bruising Aller/Immun Denies wheezing Physical exam (Primary Care) Vital Signs: Last Vital Signs Pulse 82 07/17/23 09:31 BP 112/80 07/17/23 09:31 Pulse Ox 96 07/17/23 09:31 Oxygen Delivery Method Room Air 07/17/23 09:31 BMI result Body Mass Index 35.2 Tobacco/Smoking Status: Tobacco use Status Tobacco use date assessed 07/17/23 07/17/23 09:37 Patient Tobacco Use Status Never used Tobacco 07/17/23 09:37 e-Cigarette/Vaping Use Never Used 07/17/23 09:37 PHQ-9: PHQ-9 Score PHQ-9: Total score 0 07/17/23 09:54 Depression Screening Interpretation: Negative Thrive Assessment: Date of Thrive Assessment Date Thrive assessed 07/17/23 07/17/23 09:37 Currently or been in a relationship where the following occur: no concerns reported Const General: no acute distress and alert HENMT Ears: TM normal on the left, EAC's normal and TM abnormal perforated (small) without discharge on the right Throat: Yes posterior oropharynx normal and Yes tonsils normal (no TP congestion) Neck Neck: Yes no lymphadenopathy and Yes supple Thyroid: Thyroid normal Chest Chest palpation & inspection: localized rib tenderness with anteroposterior co mpression (mostly over the left lower ribs anteriorly) Resp Auscultation: clear to auscultation bilaterally, no rales and no wheezes Cardio Rate: regular rate Rhythm: regular rhythm Heart sounds: no murmurs GI Palpation (GI): Soft to palpation and nontender Auscultation: normal bowel sounds General: Yes no CVA tenderness Back/Spine/Pelvis Back: no CVA tenderness Thoracic/Lumbar Spine: thoracic and lumbar spine normal to inspection Coccyx: Coccyx tenderness present (mild) on direct palpation Skin Rashes: no rashes Extrem General: Yes no clubbing, cyanosis or edema Results Reviewed Results Reviewed: Laboratory Tests 07/06/23 07/06/23 07/06/23 07:45 08:08 08:08 WBC 8.2 Hgb 13.0 Hct 39.6 Plt Count 310 Sodium 141 Potassium 3.7 Creatinine 0.78 Estimated GFR > 60 Fasting Glucose 95 Calcium 8.9 AST 20 ALT 23 Triglycerides 109 Cholesterol 197 LDL Cholesterol, Calc 137 HDL Cholesterol 39 TSH 1.67 Ur Specific [place] 1.020 Urine Protein Trace Urine Glucose (UA) Negative Urine Blood Moderate (2+) H Assessment and Plan Assessment & Plan (1) Pure hypercholesterolemia: Code(s): E78.00 - Pure hypercholesterolemia, unspecified Plan: Results of her labs done last week reviewed and discussed with patient - advised that her LDL cholesterol is still slightly higher than recommended and have not changed at all from before Reinforced low cholesterol diet Have advised patient to try some OTC CholestOFF as she would like to continue to avoid taking any Rx for her cholesterol at this time Will recheck her fasting lipids and labs in 6 months for follow up (2) Benign essential hypertension: Code(s): I10 - Essential (primary) hypertension Plan: Reinforced low sodium diet - goal is systolic BP of 130 mm or less Continue Propranolol 80 mg QD Patient is advised to continue monitoring her BP regularly (3) Coccygeal fracture: Code(s): S32.2XXA - Fracture of coccyx, initial encounter for closed fracture Qualifiers: Encounter type: sequela Fracture type: closed Qualified Code(s): S32.2XXS - Fracture of coccyx, sequela Plan: Chronic - injury occurred back in 2105 Repeat coccygeal x-rays done a few months ago confirmed the slightly posteriorly displaced distal fracture fragment Reminded to make sure she has a good donut pillow to use all the time when sitting down to keep pressure off her tailbone and minimize her pain; no other intervention is indicated at this time (4) GERD (gastroesophageal reflux disease): Code(s): K21.9 - Gastro-esophageal reflux disease without esophagitis Qualifiers: Esophagitis presence: esophagitis presence not specified Qualified Code(s): K21.9 - Gastro-esophageal reflux disease without esophagitis Plan: Reinforced dietary restrictions Upper GI series done a couple of months ago confirmed (+) GERD with no other abnormalities Continue Omeprazole 20 mg QD (5) Asthma: Code(s): J45.909 - Unspecified asthma, uncomplicated Qualifiers: Asthma complication type: uncomplicated Asthma persistence: intermittent Asthma severity: mild Qualified Code(s): J45.20 - Mild intermittent asthma, uncomplicated Plan: Stable Continue Albuterol HFA 1 to 2 inhalations every 6 hours PRN and Montelukast 10 mg QD Follow up with pulmonary (Dr. Gonzalez) as scheduled (6) Anterior chest wall pain: Code(s): R07.89 - Other chest pain Plan: Suspect costochondritis vs. musculoskeletal strain Cardiac work ups done in the ER a couple of weeks ago, including troponin level and EKG, came out normal Advised patient to try applying some warm compress/mild heat over her anterior left lower chest wall area PRN and to continue on her Meloxicam 15 mg QD with food PRN May stop Gabapentin as it does not help short-term and is really not indicated for her current condition (7) Allergic rhinosinusitis: Comment: This patient has history of chronic allergic rhinitis/sinusitus. Has been on immunotherapy for 3-4 years, which is now on hold. CT scan of the sinuses , did not show any acute sinus infection, mucus and periosteal thickening in the sphenoid sinuses probably secondary to chronic inflammation. Tx: Use Flonase 1 spray each nostril b.i.d. regularly. Use steam inhalations 2 to 3 times a day. Continue to take Montelukast 10 mg daily. Advised to continue follow-up with Dr. Lopez, and restart immunotherapy as per his description. Code(s): J30.9 - Allergic rhinitis, unspecified Qualifiers: Allergic rhinitis seasonality: non-seasonal Allergic rhinitis trigger: unspecified Qualified Code(s): J30.89 - Other allergic rhinitis Plan: Continue regular allergy injections with Dr. Lopez as scheduled Continue Fluticasone nasal spray 50 mcg QD PRN and Montelukast 10 mg QD (8) Impaired fasting glucose: Code(s): R73.01 - Impaired fasting glucose Plan: Her FBS was previously elevated at 111 mg/dl but HgbA1c came back normal at 5.3% then FBS done last week again came out normal at 95 mg/dl Reinforced low calorie diet/exercise as tolerated (9) Migraine: Code(s): G43.909 - Migraine, unspecified, not intractable, without status migrainosus Qualifiers: Intractability: not intractable Migraine type: unspecified Status migrainosus presence: without status migrainosus Qualified Code(s): G43.909 - Migraine, unspecified, not intractable, without status migrainosus Plan: Reinforced avoidance of any potential migraine triggers States that her headaches have been much better controlled lately Was reportedly seen by neurology a few months ago and advised to continue on current Rx; was started additionally on Fioricet PRN and Sumatriptan 50 mg PRN Is also on Propranolol 80 mg QD for her blood pressure, which can help as prophylactic Tx Follow up with neurology as scheduled (10) Obesity (BMI 30-39.9): Code(s): E66.9 - Obesity, unspecified Plan: Reinforced diet/exercise as tolerated/lose weight Plan Follow up in 4 months Orders: Orders Lipid Panel 6 Months E78.00 - Pure hypercholesterolemia, unspecified Comprehensive [place]. Panel Fast 6 Months E78.00 - Pure hypercholesterolemia, unspecified Medications: Changed From meloxicam 15 mg PO DAILY 14 tabs 0RF To meloxicam Take with food 15 mg PO DAILY 30 days PRN 30 tabs 3RF pain Coding Level of Care Code Est Pt Level 4 (35160) Diagnoses Pure hypercholesterolemia E78.00 Benign essential hypertension I10 Coccygeal fracture S32.2XXS Encounter type: sequela Fracture type: closed GERD (gastroesophageal reflux disease) K21.9 Esophagitis presence: esophagitis presence not specified Asthma J45.20 Asthma complication type: uncomplicated Asthma persistence: intermittent Asthma severity: mild Anterior chest wall pain R07.89 Allergic rhinosinusitis J30.89 Allergic rhinitis seasonality: non-seasonal Allergic rhinitis trigger: unspecified Impaired fasting glucose R73.01 Migraine G43.909 Intractability: not intractable Migraine type: unspecified Status migrainosus presence: without status migrainosus Obesity (BMI 30-39.9) E66.9 Additional Codes AYESHA-7 Assessment Billing - AYESHA-7 Assessment Tool: AYESHA-7 Assessment 91095 ([id number])
== END 2023-07-17 10:17 | disposition home or self-care (01) ==
PROVIDERS: Visit Provider Internal Medicine
DX: I10 Essential (primary) hypertension (principal); K21.9 Gastro-esophageal reflux disease without esophagitis; J45.20 Mild intermittent asthma, uncomplicated; G43.909 Migraine, unspecified, not intractable, without status migrainosus; E78.00 Pure hypercholesterolemia, unspecified; S32.2XXS Fracture of coccyx, sequela; R07.89 Other chest pain; J30.89 Other allergic rhinitis; R73.01 Impaired fasting glucose; E66.9 Obesity, unspecified
CPT/HCPCS: 99214

== ENCOUNTER 2023-09-05 19:29 | Emergency (ER) | payer OTHER, SELFPAY ==
--- NOTE | ~2023-09-05 | CT_ITS ---
EXAMINATION: CT head/brain wo IV con CLINICAL INFORMATION: Reason for Exam left sided headache COMPARISON: None. TECHNIQUE: Contiguous axial imaging was performed from the skull base to vertex without intravenous contrast. Sagittal and coronal reformatted images were obtained. This CT examination was performed using dose optimization techniques as appropriate, variously including the following: * Automated exposure control * Adjustment of mA and/or kV according to patient size (this includes techniques or standardized protocols for targeted exams where dose is matched to indication/reason for exam; i.e. extremities or head) Use of iterative reconstruction technique DLP: 601.4 mGy-cm FINDINGS: No acute osseous or soft tissue abnormality. The mastoid air cells and visualized portions of the paranasal sinuses are well aerated. There is no evidence of acute intracranial hemorrhage or territorial infarction. No abnormal mass effect or midline shift is seen. Macdonald to white matter differentiation is well preserved. No extra-axial fluid collections are identified. No hydrocephalus. No significant volume loss. There is no abnormal attenuation within the brain parenchyma. CT/CT head/brain wo IV con IMPRESSION: No acute intracranial abnormality including hemorrhage, mass effect, hydrocephalus, or acute territorial edematous infarction.
[2023-09-05 19:35] VITALS: BP 144/89; PULSE 64; RESP 18; TEMP 36.1; O2SAT 100; BMI 35.1
--- NOTE | 2023-09-05 19:35 | ED.GENADULT ---
HPI - General Adult General Chief complaint: Headache Stated complaint: Headache, allergic reaction (?) Time Seen by Provider: 09/05/23 20:30 Source: patient, RN notes reviewed and old records reviewed Mode of arrival: ambulatory Limitations: no limitations History of Present Illness HPI narrative: 43-year-old female presents for evaluation of left-sided headache. Patient reports that her symptoms started early this morning She was given the dog a bath when the symptoms started. Denies any trauma to the head or neck. The pain is left-sided She has some sensitivity to light Patient reports that she has a history of headaches/migraines. She took her Excedrin without any improvement in her symptoms Patient reports that she has some numbness and tingling around her mouth and face which is what brought her to the hospital today Denies any fevers, chills or respiratory symptoms. Related Data Home Medications Medication Instructions Recorded Confirmed albuterol sulfate 90 mcg/actuation 2 puff inhalation Q6H PRN 07/28/22 07/17/23 aerosol inhaler levonorgestrel 21 mcg/24 hours (8 intrauterine 07/14/23 07/17/23 yrs) 52 mg intrauterine device (Mirena) krbjzwvjwh-ybmbhzckshyzk-yotgfern 1 tab PO Q6H PRN 07/17/23 07/17/23 50 mg-325 mg-40 mg tablet propranolol 80 mg tablet 80 mg PO .QD 07/17/23 07/17/23 sumatriptan succinate 50 mg tablet See Rx Instructions PO .COMPLEX 07/17/23 07/17/23 Previous Rx's Medication Instructions Recorded fluticasone propionate 50 1 spray intranasal BID #16 grams 07/18/22 mcg/actuation nasal spray,suspension (Aller-Abel) gabapentin 300 mg capsule 300 mg PO BID #30 caps 06/29/23 meloxicam 15 mg tablet 15 mg PO DAILY PRN pain 30 days 07/17/23 #30 tabs metoclopramide HCl 10 mg tablet 10 mg PO Q6H PRN nausea and 08/09/23 (Reglan) vomiting #14 tabs nirmatrelvir 300 mg (150 mg 3 ea PO PER PKG DIR 5 days #30 ea 08/09/23 x2)-ritonavir 100 mg tablet,dose pack (Paxlovid) montelukast 10 mg tablet 10 mg PO DAILY #90 tabs 08/17/23 omeprazole 20 mg capsule,delayed 20 mg PO DAILY 90 days #90 caps 09/03/23 release Allergies Allergy/AdvReac Type Severity Reaction Status Date / Time flu vaccine AdvReac Severe Hives Uncoded 09/05/23 19:34 Review of Systems Constitutional: Constitutional: Denies chills, Denies fever(s) and Reports headache(s) Eyes: Eyes: Denies blurry vision and Reports photophobia ENT: Denies vertigo, Denies dizziness and Reports headache(s) Cardiovascular: Cardiovascular: Denies chest pain and Denies dyspnea Respiratory: Respiratory: Denies cough and Denies dyspnea Gastrointestinal: Gastrointestinal: Denies abdominal pain, Denies nausea and Denies vomiting Musculoskeletal: Musculoskeletal: Denies back pain and Reports tingling Neurologic: Denies vertigo, Denies dizziness, Reports headache(s), Denies focal weakness, Reports tingling and Reports paresthesias [facility] Past Medical History Medical History (Updated 09/05/23 @ 22:38 by Memo Sheldon) Benign essential hypertension Pure hypercholesterolemia GERD (gastroesophageal reflux disease) Viral upper respiratory tract infection with cough Obesity (BMI 30-39.9) Migraine Asthma Cyst of breast, left, solitary Cough Asthma Laryngitis Allergic rhinosinusitis Surgical History Hx of colonoscopy History of breast lump/mass excision H/O section Family History Family History Mother Colon cancer, Onset Age: 42 Diabetes mellitus Father Parkinson disease Heart disease Other FH: mental illness Substance abuse Social History Social History Housing: House Alcohol intake: never Patient Tobacco Use Status: Never used Tobacco e-Cigarette/Vaping Use: Never Used Advance Directives: No Advance Directives Information Provided: No service: No Current occupational status: employed 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 [employer] Cognitive needs: No Hearing needs: No Vision needs: Yes Physical Exam ED Vital Signs: Vital Signs - 24 hr 09/05/23 19:35 Temperature 96.9 F Pulse Rate 64 Respiratory Rate 18 Blood Pressure 144/89 H Pulse Oximetry 100 Oxygen Delivery Method Room Air BMI result Body Mass Index 35.1 Const General: healthy appearing, comfortable, no acute distress, alert and awake Nutritional Appearance: well nourished Orientation/consciousness: patient oriented x3 HENMT Other: No oral, perioral or retropharyngeal edema Head: Yes normocephalic and Yes atraumatic Throat: Yes posterior oropharynx normal Eyes Eyelids: Yes eyelids normal Conjunctivae: conjunctivae normal Sclerae: sclerae normal Corneas: corneas normal Pupils: Equal, round and reactive pupils present EOM: EOMs intact bilaterally Direct Ophthalmoscopy: photophobia Neck Neck: Yes full ROM Resp Effort & Inspection: normal respiratory effort, able to speak in complete sentences and not labored Cardio Rate: regular rate Rhythm: regular rhythm Skin General skin exam: elasticity normal Neuro General: patient oriented x3 Cranial nerves: Yes CN's II-XII intact bilaterally, Yes Equal, round and reactive pupils present and Yes Bilaterally intact EOM present Cognition (Neuro): normal cognition Extrem Other: Moving all extremities well without any obvious deformities Course Course Course Narrative: This is an RME: Additional HPI, ROS, PE not included below will be deferred to primary provider. This is a [id number]-female, with a past medical history of asthma and hypertension, presenting to the ER with complaints of headaches, lightheadedness, lip numbness/tingling since today. Patient states that she did not have her morning coffee in believes that this is the cause of her headache. She states that she was bathing her dog when suddenly she became dizzy. She reports that she has had an ongoing cough since her COVID diagnosis that was approximately 2 weeks ago. She was treated with Paxlovid. No chest pain or shortness breath, no abdominal pain, nausea, vomiting or diarrhea. Plan: Labs Medications Administered Discontinued Medications Generic Name Dose Route Start Last Admin Trade Name Freq PRN Reason Stop Dose Admin Diphenhydramine HCl 25 mg 09/05/23 21:02 09/05/23 21:14 Diphenhydramine Hcl 50 Mg/Ml Vial IVPUSH 09/05/23 21:03 25 mg ONCE ONE Administration Sodium Chloride 1,000 mls @ 999 mls/hr 09/05/23 21:15 09/05/23 21:14 Ns IV 09/05/23 22:15 999 mls/hr .Q1H1M ARMANDO Administration Ketorolac Tromethamine 30 mg 09/05/23 21:02 09/05/23 21:14 Ketorolac Tromethamine 30 Mg/Ml Vial IVPUSH 09/05/23 21:03 30 mg ONCE ONE Administration Metoclopramide HCl 10 mg 09/05/23 21:02 09/05/23 21:14 Metoclopramide Hcl 10 Mg/2 Ml Vial IVPUSH 09/05/23 21:03 10 mg ONCE ONE Administration Medical Decision Making Medical Decision Making [facility] Narrative: 43-year-old female presents for evaluation of a headache with light sensitivity and tingling. Symptoms are most consistent with ocular migraine. She has no imaging at this facility. CT scan the brain. She has an NIH stroke score of 0, I do not suspect a CVA at this time. Will treat her headache with fluids, Toradol, Reglan, Benadryl and re-evaluate. Her labs are significant for leukocytosis to 14 K. She had some no significant left shift. This is likely reactive to her discomfort. The patient has no significant electrolyte abnormalities. She has no evidence of allergic reaction or anaphylaxis Differential Diagnosis Differential Diagnoses: The differential diagnosis associated with the presentation includes Acute headache Migraine headache Ocular migraine Tension headache Lab Data [facility] Lab Attestation statement: I reviewed the patient's lab results. 09/05/23 19:49 09/05/23 19:49 Labs: Lab Results 09/05/23 Range/Units 19:49 WBC 14.0 H (4.8-10.8) X10*3/uL RBC 4.83 (4.20-5.50) X10*6/uL Hgb 13.5 (12.0-16.0) g/dl Hct 40.2 (37.0-47.0) % MCV 83.2 (80.0-98.0) fL MCH 28.0 (27.0-33.0) pg MCHC 33.6 (31.0-35.0) g/dl RDW 13.2 (11.0-16.0) % Plt Count 343 (160-400) X10*3/uL MPV 11.3 (9.4-12.3) fL Immature Gran % (Auto) 0.7 H (0.0-0.4) % Neut % (Auto) 65.3 (45-73) % Lymph % (Auto) 25.6 (20-40) % [place] % (Auto) 6.6 (2-11) % Eos % (Auto) 1.4 (0-4) % Baso % (Auto) 0.4 (0-2) % Lymph # (Auto) 3.6 (1.2-4.9) X10*3/uL [place] # (Auto) 0.9 (0.1-1.2) X10*3/uL Eos # (Auto) 0.2 (0.0-0.4) X10*3/uL Baso # (Auto) 0.1 (0.0-0.2) X10*3/uL Abs Immat Gran (auto) 0.10 H (0.00-0.03) X10*3/uL Absolute Neuts (auto) 9.1 H (2.0-8.3) x10*3/uL Absolute Nucleated RBC 0.000 (0.0-0.012) X10*3/uL Nucleated RBC % (auto) 0.0 (0.0-0.2) /100WBC Sodium 139 (135-145) mmol/L Potassium 4.0 (3.3-5.1) mmol/L Chloride 107 (96-108) mmol/L Carbon Dioxide 21 L (22-29) mmol/L Anion Gap 15 (12-20) BUN 13 (9-16) mg/dL Creatinine 0.87 (0.5-1.4) mg/dL Estim Creat Clear Calc 86.9 Estimated GFR > 60 Random Glucose 83 (60-115) mg/dL Calcium 9.4 (8.4-10.2) mg/dL Magnesium 2.1 (1.6-2.6) mg/dL Total Bilirubin 0.2 (0.0-1.0) mg/dL Direct Bilirubin < 0.2 (0.0-0.5) mg/dL AST 15 (5-31) U/L ALT 15 (0-31) U/L Alkaline Phosphatase 87 (39-117) U/L Total Protein 7.2 (6.5-8.0) g/dL Albumin 4.1 (3.5-5.0) g/dL Independent Interpretation I performed an independent interpretation of an: CT Scan (No acute intracranial abnormality) Discharge Plan Discharge Clinical Impression: Acute headache Patient Disposition: Home, Self-Care Instructions: Acute Headache (ED) Additional Instructions: Your workup in the emergency department today was reassuring. This includes your labs and CT scan Use ibuprofen/Tylenol as needed for any further headaches Follow-up with your primary doctor Return for new or worsening symptoms Prescriptions: No Action Paxlovid 300 mg (150 mg x 2)-100 mg tablets,dose pack 3 ea PO PER PKG DIR 5 Days Qty: 30 0RF metoclopramide HCl [Reglan] 10 mg tablet 10 mg PO Q6H PRN (Reason: nausea and vomiting) Qty: 14 0RF montelukast 10 mg tablet 10 mg PO DAILY Qty: 90 0RF omeprazole 20 mg capsule,delayed release(DR/EC) 20 mg PO DAILY 90 Days Qty: 90 3RF fluticasone propionate [Aller-Abel] 50 mcg/actuation spray,suspension 1 spray intranasal BID Qty: 16 0RF Rx Instructions: administer into each nostril gabapentin 300 mg capsule 300 mg PO BID Qty: 30 0RF sumatriptan succinate 50 mg tablet See Rx Instructions PO .COMPLEX Rx Instructions: take 1 tab at onset of headache; if no relief may repeat 1 tab after at least 2 hrs; max = 4 tabs/24 hr PO pisheiqvjj-yjwwfymvzmfxh-lrth 50-325-40 mg tablet 1 tab PO Q6H PRN meloxicam 15 mg tablet 15 mg PO DAILY PRN (Reason: pain) 30 Days Qty: 30 3RF Rx Instructions: Take with food albuterol sulfate 90 mcg/actuation HFA aerosol inhaler 2 puff inhalation Q6H PRN propranolol 80 mg tablet 80 mg PO .QD Mirena 21 mcg/24 hours (8 yrs) 52 mg intrauterine device intrauterine
--- NOTE | 2023-09-05 21:21 | PC.NURSE ---
pt medicated per MAR, 1L NS infusing per order
== END 2023-09-05 22:51 | disposition home or self-care (01) ==
PROVIDERS: Emergency Provider Emergency Medicine; PCP Internal Medicine
DX: R51.9 Headache, unspecified (principal); I10 Essential (primary) hypertension; E78.00 Pure hypercholesterolemia, unspecified; K21.9 Gastro-esophageal reflux disease without esophagitis; E66.9 Obesity, unspecified; Z68.35 Body mass index [BMI] 35.0-35.9, adult; Z79.899 Other long term (current) drug therapy
CPT/HCPCS: 36415; 70450; 80048; 80076; 83735; 85025; 96361; 96374; 96375; 99283; 99284; J1200; J1885; J2765

== ENCOUNTER 2023-11-25 08:46 | Emergency (ER) | payer OTHER, SELFPAY ==
[2023-11-25 08:50] VITALS: BP 143/89; PULSE 72; RESP 18; TEMP 36.9; O2SAT 96; BMI 35.8
[2023-11-25 09:34] LABS: IDNOW Serial# 08D9AD1C; Strep A Nucleic Acid Negative (Negative)
--- NOTE | 2023-11-25 10:08 | ED_ITS ---
HPI - URI/Sore Throat General Chief Complaint: Upper Respiratory Symptoms Stated Complaint: Body aches, cough, difficulty breathing Time Seen by Provider: 11/25/23 09:28 Source: patient Mode of arrival: ambulatory Limitations: no limitations History of Present Illness HPI Narrative: ?This is a 43-year-old female presenting with fatigue, malaise, myalgias, congestion, sore throat, headache, dry cough times a few days worsening.? Also reports nausea and vomiting this morning without abdominal pain. No known sick contacts.? Negative COVID test at home yesterday.? Reports still eating and drinking.? No chest pain, shortness of breath, abdominal pain, vision changes, dizziness or weakness. Related Data Home Medications Medication Instructions Recorded Confirmed albuterol sulfate 90 mcg/actuation 2 puff inhalation Q6H PRN 07/28/22 07/17/23 aerosol inhaler levonorgestrel 21 mcg/24 hours (8 intrauterine 07/14/23 07/17/23 yrs) 52 mg intrauterine device (Mirena) ytkvczlghs-xqspikpcvdtpi-fuigofij 1 tab PO Q6H PRN 07/17/23 07/17/23 50 mg-325 mg-40 mg tablet sumatriptan succinate 50 mg tablet See Rx Instructions PO .COMPLEX 07/17/23 07/17/23 Previous Rx's Medication Instructions Recorded fluticasone propionate 50 1 spray intranasal BID #16 grams 07/18/22 mcg/actuation nasal spray,suspension (Aller-Abel) gabapentin 300 mg capsule 300 mg PO BID #30 caps 06/29/23 meloxicam 15 mg tablet 15 mg PO DAILY PRN pain 30 days 07/17/23 #30 tabs metoclopramide HCl 10 mg tablet 10 mg PO Q6H PRN nausea and 08/09/23 (Reglan) vomiting #14 tabs nirmatrelvir 300 mg (150 mg 3 ea PO PER PKG DIR 5 days #30 ea 08/09/23 x2)-ritonavir 100 mg tablet,dose pack (Paxlovid) montelukast 10 mg tablet 10 mg PO DAILY #90 tabs 08/17/23 omeprazole 20 mg capsule,delayed 20 mg PO DAILY 90 days #90 caps 09/03/23 release propranolol 80 mg tablet 80 mg PO DAILY 90 days #90 tabs 09/07/23 albuterol sulfate 90 mcg/actuation 2 inh inhalation Q4-6H PRN 11/25/23 breath activated powder inhaler shortness of breath or wheezing #1 ea Allergies Allergy/AdvReac Type Severity Reaction Status Date / Time flu vaccine AdvReac Severe Hives Uncoded 09/05/23 19:34 Review of Systems Review of Systems: Constitutional : No Weight loss, No Fever, No Chills, + Fatigue, + Malaise ENT/Mouth : + sore throat, No Rhinorrhea, + congestion Eyes: No Eye Pain, No Swelling, No Redness Cardiovascular : No Chest Pain, No SOB, No Dyspnea on Exertion, No Orthopnea, No Edema, No Palpitations Respiratory : No Cough, No Sputum, No Wheezing Gastrointestinal : + Nausea, + Vomiting, No Diarrhea, No Constipation, No abdominal Pain, No Hematochezia, No Melena Genitourinary : No Dysuria, No Urinary Frequency, No Hematuria, Musculoskeletal : No joint pain, + Myalgias, No Joint Swelling Skin : No Skin Lesions, No rash Neuro : No Weakness, No Numbness, No Dizziness, + Headache Psych : No Anxiety/Panic, No Depression All other systems reviewed and are negative Yes all other systems are reviewed and are negative [facility] Past Medical History Medical History (Updated 11/25/23 @ 10:28 by BELA Pineda) Benign essential hypertension Pure hypercholesterolemia GERD (gastroesophageal reflux disease) Viral upper respiratory tract infection with cough Obesity (BMI 30-39.9) Migraine Asthma Cyst of breast, left, solitary Cough Asthma Laryngitis Allergic rhinosinusitis Surgical History Hx of colonoscopy History of breast lump/mass excision H/O section Family History Family History Mother Colon cancer, Onset Age: 42 Diabetes mellitus Father Parkinson disease Heart disease Other FH: mental illness Substance abuse Social History Social History Housing: House Alcohol intake: never Patient Tobacco Use Status: Never used Tobacco e-Cigarette/Vaping Use: Never Used Advance Directives: No Advance Directives Information Provided: Yes service: No Current occupational status: employed 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 Time: 10:11 Reevaluation #2: Flu, COVID, RSV negative. This is likely viral illness. Educated patient on diagnosis and treatment plan, answered all question, patient verbalizes understanding. At this time patient will be discharged home, advised to return with new or worsening symptoms. Educated on worrisome signs and symptoms and when to return. At this time I feel comfortable discharge home. Time: 10:30 Medical Decision Making Medical Decision Making MDM Narrative: 43-year-old female presenting with viral symptoms ongoing for the past few days. ??Physical examination benign ?This is likely flu versus COVID versus RSV versus other viral illness? Versus bronchitis.? Unlikely pneumonia, PE, ACS, retropharyngeal abscess, peritonsillar abscess, epiglottitis, threat to airway, intracranial hemorrhage, stroke, posterior stroke. Nausea and vomiting likely viral, no abdominal tenderness unlikely acute abdomen, appendicitis, diverticulitis, cholecystitis or pancreatitis Plan- viral test? Differential Diagnosis Differential Diagnoses: The differential diagnosis associated with the presentation includes ?This is likely flu versus COVID versus RSV versus other viral illness? Versus bronchitis.? Unlikely pneumonia, PE, ACS, retropharyngeal abscess, peritonsillar abscess, epiglottitis, threat to airway, intracranial hemorrhage, stroke, posterior stroke. Nausea and vomiting likely viral, no abdominal tenderness unlikely acute abdomen, appendicitis, diverticulitis, cholecystitis or pancreatitis Admission/Observation Consideration of admission/observation: Escalation of care including admission/observation considered unlikely Lab Data [facility] Lab Attestation statement: I reviewed the patient's lab results. Labs: Lab Results 11/25/23 Range/Units 09:20 Influenza Type A (PCR) NEGATIVE (Negative) Influenza Type B (PCR) NEGATIVE (Negative) RSV RNA Qual (PCR) NEGATIVE (Negative) SARS-CoV-2 RNA (RT-PCR) NEGATIVE (Negative) S. pyogenes GrpA SADIQ Negative (Negative) Tests considered The following testing was considered but not selected: Lung sounds clear auscultation, no chest pain, shortness of breath no indication for imaging, EKG or labs. Discharge Plan Discharge Clinical Impression: Viral infection Patient Disposition: Home, Self-Care Instructions: Viral Syndrome (ED) Additional Instructions: Take your medications as prescribed. If you were prescribed antibiotics today, it is important that you take your medication to their entirety, do not skip any doses, do not finish them early. Follow-up with your primary care provider this week. Return to the emergency department with new or worsening symptoms. Such as fevers, chills, chest pain, shortness of breath, nausea, vomiting, dizziness, headache, vision changes, lethargy In case of emergency call 911 Prescriptions: New albuterol sulfate 90 mcg/actuation aerosol powdr breath activated 2 inh inhalation Q4-6H PRN (Reason: shortness of breath or wheezing) Qty: 1 0RF No Action Paxlovid 300 mg (150 mg x 2)-100 mg tablets,dose pack 3 ea PO PER PKG DIR 5 Days Qty: 30 0RF metoclopramide HCl [Reglan] 10 mg tablet 10 mg PO Q6H PRN (Reason: nausea and vomiting) Qty: 14 0RF montelukast 10 mg tablet 10 mg PO DAILY Qty: 90 0RF omeprazole 20 mg capsule,delayed release(DR/EC) 20 mg PO DAILY 90 Days Qty: 90 3RF propranolol 80 mg tablet 80 mg PO DAILY 90 Days Qty: 90 1RF fluticasone propionate [Aller-Abel] 50 mcg/actuation spray,suspension 1 spray intranasal BID Qty: 16 0RF Rx Instructions: administer into each nostril gabapentin 300 mg capsule 300 mg PO BID Qty: 30 0RF sumatriptan succinate 50 mg tablet See Rx Instructions PO .COMPLEX Rx Instructions: take 1 tab at onset of headache; if no relief may repeat 1 tab after at least 2 hrs; max = 4 tabs/24 hr PO otsesrfcxz-jjscuttxbvlqx-jsjl 50-325-40 mg tablet 1 tab PO Q6H PRN meloxicam 15 mg tablet 15 mg PO DAILY PRN (Reason: pain) 30 Days Qty: 30 3RF Rx Instructions: Take with food albuterol sulfate 90 mcg/actuation HFA aerosol inhaler 2 puff inhalation Q6H PRN Mirena 21 mcg/24 hours (8 yrs) 52 mg intrauterine device intrauterine Referrals: Lev Patrick MD [Primary Care Provider] - 2 days Stand Alone Forms: Work/School Release
[2023-11-25 10:15] LABS: Influenza A PCR NEGATIVE (Negative); Influenza B PCR NEGATIVE (Negative); Resp Syncy Virus RNA Qual PCR NEGATIVE (Negative); SARS COV2 PCR INHOUSE NEGATIVE (Negative)
== END 2023-11-25 10:52 | disposition home or self-care (01) ==
PROVIDERS: Emergency Provider Emergency Medicine Emergency Medical Services; PCP Internal Medicine
DX: B34.9 Viral infection, unspecified (principal); I10 Essential (primary) hypertension; J45.909 Unspecified asthma, uncomplicated; Z20.822 Contact with and (suspected) exposure to COVID-19; Z20.828 Contact with and (suspected) exposure to other viral communicable diseases
CPT/HCPCS: 0241U; 87651; 99283; 99284

== ENCOUNTER 2023-12-22 07:45 | Outpatient (REF) | payer OTHER, SELFPAY ==
[2023-12-22 10:39] LABS: Appearance Urine Clear; Color Urine Yellow; Glucose Urine UA Negative (Negative); Leukocyte Esterase Urine Negative (Negative); Nitrite Urine Negative (Negative); PH 6.5 (5.0-9.0); Specific Gravity - Urine <= 1.005 (1.005-1.025); UMIC TRIGGER UACC YES; Urine Blood Trace (Negative); Urine Ketones Negative (Negative); Urine Protein Negative (Neg-Trace)
[2023-12-22 11:20] LABS: Bacteria Urine None Seen (None Seen); Hyaline Casts Urine 0-2 /LPF (0-2); RBC Urine 0-2 /HPF (0-2); Squamous Epithelial Cell Urine 0-2 /HPF (0-2); WBC Urine 0-5 /HPF (0-5)
== END 2023-12-22 07:46 | disposition home or self-care (01) ==
LOC: HO.LAB 07:45
PROVIDERS: PCP Internal Medicine; Visit Provider Internal Medicine
DX: R39.9 Unspecified symptoms and signs involving the genitourinary system (principal)
CPT/HCPCS: 81001; 81003

== ENCOUNTER 2023-12-22 16:58 | Outpatient (AMB) | payer OTHER, SELFPAY ==
[2023-12-22 17:00] VITALS: BP 130/82; PULSE 71; O2SAT 94; BMI 36.2
--- NOTE | 2023-12-22 17:00 | A.OFFPC_ITS ---
Vital Signs 12/22/23 17:00 Height 5 ft 3 in Weight 204 lb 4 oz BMI 36.2 BP 130/82 Blood Pressure Location Lt brachial Position Sitting Pulse 71 Pulse Source Pulse Oximeter Pulse Oximetry (%) 94 Oxygen Delivery Method Room Air Intake Visit Reasons: ?UTI Tandem [employer] Required: No Accompanied by: Self / Same As Patient Allergies flu vaccine Adverse Reaction (Severe, Uncoded 12/22/23 17:25) Hives Medication List - Last Reconciled 12/22/23 by Lev Patrick MD albuterol sulfate 90 mcg/actuation 2 puffs inhalation Q6H PRN botgcncjnn-kpwjgbhojdkkd-obfz 50-325-40 mg 1 tab PO Q6H PRN fluticasone propionate 50 mcg/actuation (Aller-Abel) 1 spray intranasal BID gabapentin 300 mg PO BID levonorgestrel (Mirena) intrauterine meloxicam 15 mg PO DAILY PRN 30 days metoclopramide HCl (Reglan) 10 mg PO Q6H PRN montelukast 10 mg PO DAILY omeprazole 20 mg PO DAILY 90 days propranolol ER 80 mg PO DAILY 90 days sumatriptan succinate take 1 tab at onset of headache; if no relief may repeat 1 tab after at least 2 hrs; max = 4 tabs/24 hr PO Tobacco use date assessed: 12/22/23 Dental Screening Dental Screen Date: 12/22/23 Did you have a dental visit in the last 12 months?: Yes Did you have a dental problem in the last 6 months where you did not have access to dental care?: No Was dental information given to patient?: Patient has dentist HPI ?UTI HPI Details Patient comes in today complaining of increased urinary frequency and dysuria for the past 2 to 3 days She denies any fever, headaches or dizziness Denies any nausea or vomiting or abdominal pain PFSH Medical History Benign essential hypertension Pure hypercholesterolemia GERD (gastroesophageal reflux disease) Viral upper respiratory tract infection with cough Obesity (BMI 30-39.9) Migraine Asthma Cyst of breast, left, solitary Cough Asthma Laryngitis Allergic rhinosinusitis Surgical History Hx of colonoscopy History of breast lump/mass excision H/O section Family History Mother Colon cancer, Onset Age: 42 Diabetes mellitus Father Parkinson disease Heart disease Other FH: mental illness Substance abuse Social History Housing: House Alcohol intake: never Patient Tobacco Use Status: Never used Tobacco e-Cigarette/Vaping Use: Never Used service: No Current occupational status: employed 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 1. Little interest or pleasure in doing things: not at all 2. Feeling down, depressed, or hopeless: not at all 3. Trouble falling or staying asleep, or sleeping too much: not at all 4. Feeling tired or having little energy: not at all 5. Poor appetite or overeating: not at all 6. Feeling bad about yourself - or that you are a failure or have let yourself or your family down: not at all 7. Trouble concentrating on things, such as reading the newspaper or watching television: not at all 8. Moving or speaking so slowly that other people could have noticed. Or the opposite - being so fidgety or restless that you have been moving around a lot more than usual: not at all 9. Thoughts that you would be better off or of hurting yourself in some way: not at all Total score: 0 Depression Screening Interpretation: Negative Depression Screening Done: Yes 30896 - PHQ-9 Billing: Yes Source: Developed by Drs. Elfego Morelos, Emani Kelley, Apollo Buchanan and colleagues, with an educational gilson from [employer]. Thrive Questionnaire Date Thrive assessed: 12/22/23 I am a: Patient What is your living situation today?: I have a steady place to live Within the past 12 months, did the food you bought not last and you didn't have the money to get more?: Never true Within the past 12 months, did you worry whether your food would run out before you got money to buy more?: Never true Do you have trouble paying for medicines?: No Do you have trouble getting transportation to medical appointments?: No Do you have trouble paying your heating and electricity bill?: No Do you have trouble taking care of your child, family member or friend?: No Do you have trouble with day-to-day activities such as bathing, preparing meals, shopping, managing finances, etc.?: No Are you currently unemployed and looking for a job?: No Are you interested in more education?: No Please select the resources that you would like help with: None Currently or been in a relationship where the following occur: no concerns reported THRIVE Score: 0 AUDIT C Alcohol Use Questionnaire (AUDIT-C) 1. How often do you have a drink containing alcohol?: Never 3. How often do you have six or more drinks on one occasion?: Never Total Score: 0 Score Reviewed/Action Taken: Yes AYESHA-7 AMB Questionnaire AYESHA-7 Date AYESHA - 7 assessed: 12/22/23 Feeling nervous, anxious, or on edge: 3 = Nearly every day Not being able to stop or control worryin = Nearly every day Worrying too much about different things: 3 = Nearly every day Trouble relaxin = Nearly every day Being so restless that it is hard to sit still: 3 = Nearly every day Becoming easily annoyed or irritable: 1 = Several days Feeling afraid as if something awful might happen: 0 = Not at all Total AYESHA-7 score (0-4 normal; 5-9 mild; 10-14 moderate; 15-21 severe): 16 Source: Developed by Drs. Elfego Morelos, Emani Kelley, Apollo Buchanan and colleagues, with an educational gilson from [employer]. AYESHA-7 Assessment Billing AYESHA-7 Assessment Tool: AYESHA-7 Assessment 80027 Review of Systems Const Denies chills, Denies fatigue, Denies fever(s) and Denies headache(s) ENT Denies dysphagia, Denies dizziness, Denies headache(s), Denies neck pain and Denies sore throat Card Denies chest pain, Denies palpitations and Denies dyspnea Resp Denies cough and Denies dyspnea GI Denies abdominal pain, Denies constipation, Denies dysphagia, Denies heartburn, Denies diarrhea, Denies nausea and Denies vomiting Denies difficulty voiding, Reports nocturia, Reports dysuria (mild), Reports urinary urgency and Denies vaginal discharge Musc Denies back pain and Denies neck pain Skin/Breast Denies rash Neuro Denies dizziness and Denies headache(s) Endo Denies fatigue and Denies palpitations Physical exam (Primary Care) Vital Signs: Last Vital Signs Pulse 71 12/22/23 17:00 BP 130/82 12/22/23 17:00 Pulse Ox 94 12/22/23 17:00 Oxygen Delivery Method Room Air 12/22/23 17:00 BMI result Body Mass Index 36.2 Tobacco/Smoking Status: Tobacco use Status Tobacco use date assessed 12/22/23 12/22/23 17:04 Patient Tobacco Use Status Never used Tobacco 12/22/23 17:00 e-Cigarette/Vaping Use Never Used 12/22/23 17:00 PHQ-9: PHQ-9 Score PHQ-9: Total score 0 12/22/23 17:28 Depression Screening Interpretation: Negative Thrive Assessment: Date of Thrive Assessment Date Thrive assessed 12/22/23 12/22/23 17:04 Currently or been in a relationship where the following occur: no concerns reported Const General: no acute distress and alert Neck Neck: Yes no lymphadenopathy and Yes supple Resp Auscultation: clear to auscultation bilaterally, no rales and no wheezes Cardio Rate: regular rate Rhythm: regular rhythm Heart sounds: no murmurs GI Palpation (GI): Soft to palpation and nontender Auscultation: normal bowel sounds Extrem General: Yes no clubbing, cyanosis or edema Results Reviewed Results Reviewed: Laboratory Tests 12/22/23 08:30 Ur Specific [place] <= 1.005 Urine Protein Negative Urine Glucose (UA) Negative Urine Blood Trace H Urine Nitrite Negative Ur Leukocyte Esterase Negative Assessment and Plan Assessment & Plan (1) Acute cystitis: Code(s): N30.00 - Acute cystitis without hematuria Qualifiers: Hematuria presence: without hematuria Qualified Code(s): N30.00 - Acute cystitis without hematuria Plan: Patient is encouraged to increase her oral fluids Urinalysis done earlier today came out mostly unrevealing but as she has been experiencing symptoms consistent with a urinary tract infection/irritation for the past few days, will go ahead and treat her empirically with Macrobid 100 mg BID x 7 days Plan Follow up as scheduled next month Medications: New nitrofurantoin monohyd/m-cryst 100 mg (Macrobid) must administer with a meal/food 100 mg PO Q12H 7 days 14 caps 0RF Coding Level of Care Code Est Pt Level 3 (10936) Diagnoses Acute cystitis without hematuria N30.00 Hematuria presence: without hematuria Additional Codes AYESHA-7 Assessment Billing - AYESHA-7 Assessment Tool: AYESHA-7 Assessment 48191 ([id number])
== END 2023-12-22 17:29 | disposition home or self-care (01) ==
PROVIDERS: PCP Internal Medicine; Visit Provider Internal Medicine
DX: N30.00 Acute cystitis without hematuria (principal)
CPT/HCPCS: 99213

== ENCOUNTER 2024-01-14 07:21 | Outpatient (REF) | payer OTHER, SELFPAY ==
[2024-01-14 08:21] LABS: Alanine Aminotransferase 19 U/L (0-31); Alkaline Phosphatase 80 U/L (39-117); Anion Gap 12 (12-20); Aspartate Amino Transferase 15 U/L (5-31); Bilirubin Total 0.4 mg/dL (0.0-1.0); Blood Urea Nitrogen 11 mg/dL (9-16); Calcium 8.9 mg/dL (8.4-10.2); Carbon Dioxide 22 mmol/L (22-29); Chloride 109 mmol/L (96-108); Cholesterol 186 mg/dL (<200); Estimated Glomerular Filt Rate > 60; Glucose Fasting 108 mg/dL (60-99); HDL Cholesterol 39 mg/dL (>40); LDL Cholesterol Calculated 128 mg/dL (<100); Potassium 3.9 mmol/L (3.3-5.1); Sodium 139 mmol/L (135-145); Triglycerides 95 mg/dL (<150)
[2024-01-14 08:34] LABS: Appearance Urine Cloudy; Color Urine Yellow; Glucose Urine UA Negative (Negative); Leukocyte Esterase Urine Moderate (2+) (Negative); Nitrite Urine Negative (Negative); PH 6.5 (5.0-9.0); UMIC TRIGGER UACC YES; Urine Blood Large (3+) (Negative); Urine Ketones Negative (Negative); Urine Protein 30 (1+) mg/dL (Neg-Trace)
[2024-01-14 08:59] LABS: Bacteria Urine 4+ (None Seen); Hyaline Casts Urine 0-2 /LPF (0-2); UACC Culture Trigger YES; WBC Urine 21-50 /HPF (0-5)
== END 2024-01-14 07:22 | disposition home or self-care (01) ==
LOC: HO.LAB 07:21
PROVIDERS: PCP Internal Medicine; Visit Provider Internal Medicine
DX: E78.00 Pure hypercholesterolemia, unspecified (principal); R39.9 Unspecified symptoms and signs involving the genitourinary system
CPT/HCPCS: 36415; 80053; 80061; 81001; 87086

== ENCOUNTER 2024-01-19 09:21 | Outpatient (AMB) | payer OTHER, SELFPAY ==
[2024-01-19 09:25] VITALS: BP 130/82; PULSE 71; O2SAT 97; BMI 36.3
--- NOTE | 2024-01-19 09:25 | MHC.PC.OV ---
Vital Signs 01/19/24 09:25 Height 5 ft 3 in Weight 205 lb BMI 36.3 BP 130/82 Blood Pressure Location Lt brachial Position Sitting Pulse 71 Pulse Source Pulse Oximeter Pulse Oximetry (%) 97 Oxygen Delivery Method Room Air Intake Visit Reasons: hyperlipidemia, HTN, migraine, GERD Health Tech Required: No Accompanied by: Self / Same As Patient Allergies flu vaccine Adverse Reaction (Severe, Uncoded 03/21/24 11:13) Hives Medication List - Last Reconciled 01/19/24 by Lev Patrick MD albuterol sulfate 90 mcg/actuation 2 puffs inhalation Q6H PRN rtgdyjsoad-ovccnbplqfgyf-guod 50-325-40 mg 1 tab PO Q6H PRN fluticasone propionate 50 mcg/actuation (Aller-Abel) 1 spray intranasal BID gabapentin 300 mg PO BID levonorgestrel (Mirena) intrauterine meloxicam 15 mg PO DAILY PRN 30 days metoclopramide HCl (Reglan) 10 mg PO Q6H PRN montelukast 10 mg PO DAILY omeprazole 20 mg PO DAILY 90 days propranolol ER 80 mg PO DAILY 90 days sumatriptan succinate take 1 tab at onset of headache; if no relief may repeat 1 tab after at least 2 hrs; max = 4 tabs/24 hr PO Tobacco use date assessed: 01/19/24 Dental Screening Dental Screen Date: 01/19/24 Did you have a dental visit in the last 12 months?: Yes Did you have a dental problem in the last 6 months where you did not have access to dental care?: No Was dental information given to patient?: Patient has dentist HPI hyperlipidemia, HTN, migraine, GERD HPI Details Patient comes in today for her follow up visit States that she feels okay She denies any headaches or dizziness Denies any chest pains, no SOB - states that her asthma has been stable lately No nausea/vomiting, no abdominal pain No change in bowel habits noted Needs her Albuterol inhaler Rx refilled Had her follow up labs done a few days ago - to discuss her results [facility] Medical History Benign essential hypertension Pure hypercholesterolemia GERD (gastroesophageal reflux disease) Viral upper respiratory tract infection with cough Obesity (BMI 30-39.9) Migraine Asthma Cyst of breast, left, solitary Cough Asthma Laryngitis Allergic rhinosinusitis Surgical History Hx of colonoscopy History of breast lump/mass excision H/O section Family History Mother Colon cancer, Onset Age: 42 Diabetes mellitus Father Parkinson disease Heart disease Other FH: mental illness Substance abuse Social History Housing: House Alcohol intake: never Patient Tobacco Use Status: Never used Tobacco e-Cigarette/Vaping Use: Never Used Second Hand Smoke Exposure: No service: No Current occupational status: employed 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 1. Little interest or pleasure in doing things: not at all 2. Feeling down, depressed, or hopeless: not at all 3. Trouble falling or staying asleep, or sleeping too much: not at all 4. Feeling tired or having little energy: not at all 5. Poor appetite or overeating: not at all 6. Feeling bad about yourself - or that you are a failure or have let yourself or your family down: not at all 7. Trouble concentrating on things, such as reading the newspaper or watching television: not at all 8. Moving or speaking so slowly that other people could have noticed. Or the opposite - being so fidgety or restless that you have been moving around a lot more than usual: not at all 9. Thoughts that you would be better off or of hurting yourself in some way: not at all Total score: 0 Depression Screening Interpretation: Negative Depression Screening Done: Yes 13844 - PHQ-9 Billing: Yes Source: Developed by Drs. Elfego Morelos, Emani Kelley, Apollo Buchanan and colleagues, with an educational gilson from [employer]. Thrive Questionnaire Date Thrive assessed: 01/19/24 I am a: Patient What is your living situation today?: I have a steady place to live Within the past 12 months, did the food you bought not last and you didn't have the money to get more?: Never true Within the past 12 months, did you worry whether your food would run out before you got money to buy more?: Never true Do you have trouble paying for medicines?: No Do you have trouble getting transportation to medical appointments?: No Do you have trouble paying your heating and electricity bill?: No Do you have trouble taking care of your child, family member or friend?: No Do you have trouble with day-to-day activities such as bathing, preparing meals, shopping, managing finances, etc.?: No Are you currently unemployed and looking for a job?: No Are you interested in more education?: No Please select the resources that you would like help with: None Currently or been in a relationship where the following occur: no concerns reported THRIVE Score: 0 AUDIT C Alcohol Use Questionnaire (AUDIT-C) 1. How often do you have a drink containing alcohol?: Never 3. How often do you have six or more drinks on one occasion?: Never Total Score: 0 Score Reviewed/Action Taken: Yes AYESHA-7 AMB Questionnaire AYESHA-7 Date AYESHA - 7 assessed: 01/19/24 Feeling nervous, anxious, or on edge: 3 = Nearly every day Not being able to stop or control worryin = Nearly every day Worrying too much about different things: 3 = Nearly every day Trouble relaxin = Nearly every day Being so restless that it is hard to sit still: 3 = Nearly every day Becoming easily annoyed or irritable: 1 = Several days Feeling afraid as if something awful might happen: 0 = Not at all Total AYESHA-7 score (0-4 normal; 5-9 mild; 10-14 moderate; 15-21 severe): 16 Source: Developed by Drs. Elfego Morelos, Emani Kelley, Apollo Buchanan and colleagues, with an educational gilson from [employer]. AYESHA-7 Assessment Billing AYESHA-7 Assessment Tool: AYESHA-7 Assessment 25885 Review of Systems Const Denies chills, Denies fatigue, Denies fever(s) and Denies headache(s) ENT Denies dysphagia, Denies dizziness, Denies otalgia, Denies headache(s), Denies neck pain, Denies odynophagia and Denies sore throat Card Denies chest pain, Denies palpitations and Denies dyspnea Resp Denies cough and Denies dyspnea GI Denies abdominal pain, Denies constipation, Denies dysphagia, Denies heartburn, Denies diarrhea, Denies nausea, Denies odynophagia and Denies vomiting Denies difficulty voiding, Denies nocturia, Denies dysuria and Denies urinary urgency Musc Denies neck pain Skin/Breast Denies rash Neuro Denies dizziness and Denies headache(s) Endo Denies fatigue and Denies palpitations Physical exam (Primary Care) Vital Signs: Last Vital Signs Pulse 71 01/19/24 09:25 BP 130/82 01/19/24 09:25 Pulse Ox 97 01/19/24 09:25 Oxygen Delivery Method Room Air 01/19/24 09:25 BMI result Body Mass Index 36.3 Tobacco/Smoking Status: Tobacco use Status Tobacco use date assessed 01/19/24 01/19/24 09:26 Patient Tobacco Use Status Never used Tobacco 01/19/24 09:26 e-Cigarette/Vaping Use Never Used 01/19/24 09:26 PHQ-9: PHQ-9 Score PHQ-9: Total score 0 01/19/24 10:21 Depression Screening Interpretation: Negative Thrive Assessment: Date of Thrive Assessment Date Thrive assessed 01/19/24 01/19/24 09:26 Currently or been in a relationship where the following occur: no concerns reported Const General: no acute distress and alert HENMT Ears: TM's normal bilaterally and EAC's normal Throat: Yes posterior oropharynx normal and Yes tonsils normal (no TP congestion) Neck Neck: Yes no lymphadenopathy and Yes supple Thyroid: Thyroid normal Resp Auscultation: clear to auscultation bilaterally, no rales and no wheezes Cardio Rate: regular rate Rhythm: regular rhythm Heart sounds: no murmurs GI Palpation (GI): Soft to palpation and nontender Auscultation: normal bowel sounds General: Yes no CVA tenderness Back/Spine/Pelvis Back: no CVA tenderness Skin Rashes: no rashes Extrem General: Yes no clubbing, cyanosis or edema Results Reviewed Results Reviewed: Laboratory Tests 01/14/24 07:35 Sodium 139 Potassium 3.9 Creatinine 0.77 Estimated GFR > 60 Fasting Glucose 108 H Calcium 8.9 AST 15 ALT 19 Triglycerides 95 Cholesterol 186 LDL Cholesterol, Calc 128 H HDL Cholesterol 39 L Assessment and Plan Assessment & Plan (1) Pure hypercholesterolemia: Code(s): E78.00 - Pure hypercholesterolemia, unspecified Plan: Results of her labs done a few days ago reviewed and discussed with patient - advised that her LDL cholesterol has improved slightly from previous and is now normal (128 mg/dl) and under the cutoff value of 130 mg/dl Reinforced low cholesterol diet She has been taking some OTC CholestOFF as she prefers to continue to avoid taking any prescription Rx for her cholesterol at this time and this seems to be helping so we can continue as is for now Will recheck her fasting lipids and labs in 4 months for follow up (2) Benign essential hypertension: Code(s): I10 - Essential (primary) hypertension Plan: Reinforced low sodium diet - goal is systolic BP of 130 mm or less Continue Propranolol 80 mg QD Patient is reminded to continue monitoring her BP regularly (3) Coccygeal fracture: Code(s): S32.2XXA - Fracture of coccyx, initial encounter for closed fracture Qualifiers: Encounter type: sequela Fracture type: closed Qualified Code(s): S32.2XXS - Fracture of coccyx, sequela Plan: Chronic - injury occurred back in 2105 Repeat coccygeal x-rays done a few months ago confirmed the slightly posteriorly displaced distal fracture fragment Reminded to make sure she has a good donut pillow to use all the time when sitting down to keep pressure off her tailbone and minimize her pain; no other intervention is indicated at this time (4) GERD (gastroesophageal reflux disease): Code(s): K21.9 - Gastro-esophageal reflux disease without esophagitis Qualifiers: Esophagitis presence: esophagitis presence not specified Qualified Code(s): K21.9 - Gastro-esophageal reflux disease without esophagitis Plan: Reinforced dietary restrictions Upper GI series done a few months ago confirmed (+) GERD with no other abnormalities Continue Omeprazole 20 mg QD (5) Asthma: Code(s): J45.909 - Unspecified asthma, uncomplicated Qualifiers: Asthma complication type: uncomplicated Asthma persistence: intermittent Asthma severity: mild Qualified Code(s): J45.20 - Mild intermittent asthma, uncomplicated Plan: Stable Continue Albuterol HFA 1 to 2 inhalations every 6 hours PRN (Rx refilled) and Montelukast 10 mg QD Follow up with pulmonary (Dr. Gonzalez) as scheduled (6) Allergic rhinosinusitis: Comment: This patient has history of chronic allergic rhinitis/sinusitus. Has been on immunotherapy for 3-4 years, which is now on hold. CT scan of the sinuses , did not show any acute sinus infection, mucus and periosteal thickening in the sphenoid sinuses probably secondary to chronic inflammation. Tx: Use Flonase 1 spray each nostril b.i.d. regularly. Use steam inhalations 2 to 3 times a day. Continue to take Montelukast 10 mg daily. Advised to continue follow-up with Dr. Lopez, and restart immunotherapy as per his description. Code(s): J30.9 - Allergic rhinitis, unspecified Qualifiers: Allergic rhinitis seasonality: non-seasonal Allergic rhinitis trigger: unspecified Qualified Code(s): J30.89 - Other allergic rhinitis Plan: Continue regular allergy injections with Dr. Lopez as scheduled Continue Fluticasone nasal spray 50 mcg QD PRN and Montelukast 10 mg QD (7) Impaired fasting glucose: Code(s): R73.01 - Impaired fasting glucose Plan: Her FBS was previously elevated at 111 mg/dl but HgbA1c came back normal at 5.3% then Her FBS done a few days ago is again slightly elevated at 108 mg/dl Reinforced low calorie diet/exercise as tolerated (8) Migraine: Code(s): G43.909 - Migraine, unspecified, not intractable, without status migrainosus Qualifiers: Intractability: not intractable Migraine type: unspecified Status migrainosus presence: without status migrainosus Qualified Code(s): G43.909 - Migraine, unspecified, not intractable, without status migrainosus Plan: Reinforced avoidance of any potential migraine triggers States that her headaches have been much better controlled lately Was reportedly seen by neurology a few months ago and advised to continue on current Rx; was started additionally on Fioricet PRN and Sumatriptan 50 mg PRN Is also on Propranolol 80 mg QD for her blood pressure, which can help as prophylactic Tx Follow up with neurology as scheduled (9) Obesity (BMI 30-39.9): Code(s): E66.9 - Obesity, unspecified Plan: Reinforced diet/exercise as tolerated/lose weight Plan Follow up in 4 months Orders: Orders Hemoglobin A1c 4 Months R73.01 - Impaired fasting glucose Comprehensive [place]. Panel Fast 4 Months E78.00 - Pure hypercholesterolemia, unspecified Lipid Panel 4 Months E78.00 - Pure hypercholesterolemia, unspecified Medications: Changed From albuterol sulfate 90 mcg/actuation 2 puffs inhalation Q6H PRN To Ventolin HFA 90 mcg/actuation (albuterol sulfate) 2 puffs inhalation Q6H PRN 18 grams 5RF shortness of breath or wheezing 30 days NS Coding Level of Care Code Est Pt Level 4 (72497) Diagnoses Pure hypercholesterolemia E78.00 Benign essential hypertension I10 Closed fracture of coccyx, sequela S32.2XXS Encounter type: sequela Fracture type: closed Gastroesophageal reflux disease, unspecified whether esophagitis present K21.9 Esophagitis presence: esophagitis presence not specified Mild intermittent asthma without complication J45.20 Asthma complication type: uncomplicated Asthma persistence: intermittent Asthma severity: mild Non-seasonal allergic rhinitis, unspecified trigger J30.89 Allergic rhinitis seasonality: non-seasonal Allergic rhinitis trigger: unspecified Impaired fasting glucose R73.01 Migraine without status migrainosus, not intractable, unspecified migraine type G43.909 Intractability: not intractable Migraine type: unspecified Status migrainosus presence: without status migrainosus Obesity (BMI 30-39.9) E66.9 Additional Codes AYESHA-7 Assessment Billing - AYESHA-7 Assessment Tool: AYESHA-7 Assessment 53685 ([id number])
== END 2024-01-19 10:29 | disposition home or self-care (01) ==
PROVIDERS: PCP Internal Medicine; Visit Provider Internal Medicine
DX: E78.00 Pure hypercholesterolemia, unspecified (principal); I10 Essential (primary) hypertension; S32.2XXS Fracture of coccyx, sequela; K21.9 Gastro-esophageal reflux disease without esophagitis; J45.20 Mild intermittent asthma, uncomplicated; J30.89 Other allergic rhinitis; R73.01 Impaired fasting glucose; G43.909 Migraine, unspecified, not intractable, without status migrainosus; E66.9 Obesity, unspecified
CPT/HCPCS: 99214

== ENCOUNTER 2024-02-03 17:30 | Emergency (ER) | payer OTHER, SELFPAY ==
--- NOTE | 2024-02-03 17:37 | ED_ITS ---
HPI - Abdominal Pain General Chief Complaint: Nausea/Vomiting/Diarrhea Stated Complaint: abd pain and diarrhea since thursday Time Seen by Provider: 02/03/24 19:42 Source: patient Mode of arrival: ambulatory Limitations: no limitations History of Present Illness HPI narrative: 43-year-old female with a past medical history of asthma, GERD, and hypertension presents to emergency department with complaints of right side/flank pain and diarrhea since Thursday. Denies difficulty with urination, melena, BRBPR, nausea or vomiting. Took peptobismol yesterday with mild reduction in symptoms today. Related Data Home Medications Medication Instructions Recorded Confirmed levonorgestrel 21 mcg/24 hours (8 intrauterine 07/14/23 01/19/24 yrs) 52 mg intrauterine device (Mirena) zzhuvfkjqp-rdtrvwxstvtem-jsmceyok 1 tab PO Q6H PRN 07/17/23 01/19/24 50 mg-325 mg-40 mg tablet sumatriptan succinate 50 mg tablet See Rx Instructions PO .COMPLEX 07/17/23 01/19/24 Previous Rx's Medication Instructions Recorded fluticasone propionate 50 1 spray intranasal BID #16 grams 07/18/22 mcg/actuation nasal spray,suspension (Aller-Abel) gabapentin 300 mg capsule 300 mg PO BID #30 caps 06/29/23 meloxicam 15 mg tablet 15 mg PO DAILY PRN pain 30 days 07/17/23 #30 tabs metoclopramide HCl 10 mg tablet 10 mg PO Q6H PRN nausea and 08/09/23 (Reglan) vomiting #14 tabs montelukast 10 mg tablet 10 mg PO DAILY #90 tabs 08/17/23 omeprazole 20 mg capsule,delayed 20 mg PO DAILY 90 days #90 caps 09/03/23 release propranolol 80 mg capsule,24 80 mg PO DAILY 90 days #90 caps 11/26/23 hr,extended release Ventolin HFA 90 mcg/actuation 2 puff inhalation Q6H PRN 01/19/24 aerosol inhaler (albuterol sulfate) shortness of breath or wheezing 30 days #18 grams Allergies Allergy/AdvReac Type Severity Reaction Status Date / Time flu vaccine AdvReac Severe Hives Uncoded 02/03/24 17:42 Review of Systems Review of Systems Yes all other systems are reviewed and are negative PMFSH Past Medical History Medical History Benign essential hypertension Pure hypercholesterolemia GERD (gastroesophageal reflux disease) Viral upper respiratory tract infection with cough Obesity (BMI 30-39.9) Migraine Asthma Cyst of breast, left, solitary Cough Asthma Laryngitis Allergic rhinosinusitis Surgical History Hx of colonoscopy History of breast lump/mass excision H/O section Family History Family History Mother Colon cancer, Onset Age: 42 Diabetes mellitus Father Parkinson disease Heart disease Other FH: mental illness Substance abuse Social History Social History Housing: House Alcohol intake: never Patient Tobacco Use Status: Never used Tobacco e-Cigarette/Vaping Use: Never Used Advance Directives: No Advance Directives Information Provided: No service: No Current occupational status: employed 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 GENERAL APPEARANCE: A&0 x 4, generally well appearing, no acute distress HENMT: Normal to inspection, atraumatic, face symmetrical. Normal external ears, nose, and oropharynx clear. EYE: PERRLA, EOM intact, structures appear normal NECK: Supple without lymphadenopathy. No stiffness or restricted ROM. CHEST: Normal to inspection HEART: Normal rate and regular rhythm, normal S1/S2, no M/R/G LUNGS: LS CTA, moving air well. Able to speak in complete sentences. No crackles, wheezes, or rhonchi auscultated ABDOMEN: Soft, nontender, nondistended. Normal bowel sounds noted BACK: No CVAT, no obvious deformity EXTREMITIES: Moving all extremities without difficulty. No cyanosis, clubbing, or edema. Normal capillary refill. NEUROLOGICAL: Alert and oriented, moving all 4 extremities with equal strength. CN not formally tested but appearing grossly intact. Observed to ambulate with normal gait. Cognition normal SKIN: Warm and dry without any lesions, rash, or visible sores PSYCH: Cooperative, normal affect, normal thought process Medical Decision Making Medical Decision Making [facility] Narrative: Old records reviewed for previous imaging, lab studies, ECGs, and notes. Patient was assessed the emergency department with no acute distress or toxicity noted. Uses trilogy negative COVID, flu, and RSV. Blood work showing slight leukocytosis with WBCs 11.8 with no signs of acute anemia or thrombocytopenia. Chemistries showing no evidence of kidney dysfunction or electrolyte imbalance. Patient's symptoms are consistent with acute abdominal pain with a low suspicion at this time SBO, perforation, appendicitis, cholecystitis, diverticulitis. Patient is safe for discharge at this time with plan for hcvc-kev-wnbkbju Tylenol and/or NSAID such as ibuprofen or naproxen for fever/discomfort with dosing as per packaging. HPI, PE, diagnostics, and plan discussed with patient and family with no unanswered questions at this time. Strict return precautions given to return to the emergency department with new, worsening, or concerning emergent symptoms. Recommended to follow-up with there primary care provider in 24-48 hours for further treatment and management. Differential Diagnosis Differential Diagnoses: The differential diagnosis associated with the presentation includes But not limited to UTI, cystitis, pyelonephritis, nephrolithiasis, SBO, perforation, appendicitis, cholecystitis, diverticulitis Lab Data [facility] Lab Attestation statement: I reviewed the patient's lab results. 02/03/24 18:25 02/03/24 18:25 Labs: Lab Results 02/03/24 Range/Units 18:25 WBC 11.8 H (4.8-10.8) X10*3/uL RBC 5.24 (4.20-5.50) X10*6/uL Hgb 14.4 (12.0-16.0) g/dl Hct 43.2 (37.0-47.0) % MCV 82.4 (80.0-98.0) fL MCH 27.5 (27.0-33.0) pg MCHC 33.3 (31.0-35.0) g/dl RDW 13.1 (11.0-16.0) % Plt Count 362 (160-400) X10*3/uL MPV 11.1 (9.4-12.3) fL Immature Gran % (Auto) 0.4 (0.0-0.4) % Neut % (Auto) 66.0 (45-73) % Lymph % (Auto) 23.6 (20-40) % Jennings % (Auto) 6.3 (2-11) % Eos % (Auto) 3.4 (0-4) % Baso % (Auto) 0.3 (0-2) % Lymph # (Auto) 2.8 (1.2-4.9) X10*3/uL Jennings # (Auto) 0.7 (0.1-1.2) X10*3/uL Eos # (Auto) 0.4 (0.0-0.4) X10*3/uL Baso # (Auto) 0.0 (0.0-0.2) X10*3/uL Abs Immat Gran (auto) 0.05 H (0.00-0.03) X10*3/uL Absolute Neuts (auto) 7.8 (2.0-8.3) x10*3/uL Absolute Nucleated RBC 0.000 (0.0-0.012) X10*3/uL Nucleated RBC % (auto) 0.0 (0.0-0.2) /100WBC Sodium 137 (135-145) mmol/L Potassium 4.4 (3.3-5.1) mmol/L Chloride 107 (96-108) mmol/L Carbon Dioxide 25 (22-29) mmol/L Anion Gap 9 L (12-20) BUN 10 (9-16) mg/dL Creatinine 0.85 (0.5-1.4) mg/dL Estim Creat Clear Calc 87.0 Estimated GFR > 60 Random Glucose 95 (60-115) mg/dL Calcium 9.5 D (8.4-10.2) mg/dL Magnesium 2.2 (1.6-2.6) mg/dL Total Bilirubin 0.3 (0.0-1.0) mg/dL AST 17 (5-31) U/L ALT 24 (0-31) U/L Alkaline Phosphatase 86 (39-117) U/L Total Protein 7.4 (6.5-8.0) g/dL Albumin 4.3 (3.5-5.0) g/dL Influenza Type A (PCR) NEGATIVE (Negative) Influenza Type B (PCR) NEGATIVE (Negative) RSV RNA Qual (PCR) NEGATIVE (Negative) SARS-CoV-2 RNA (RT-PCR) NEGATIVE (Negative) Discharge Plan Discharge Clinical Impression: Abdominal pain Patient Disposition: Home, Self-Care Instructions: Abdominal Pain (ED) Additional Instructions: Your seen in the emergency department for concerns of abdominal pain. Your workup was unremarkable showing no evidence of electrolyte imbalance or organ dysfunction. Your nasal swab was negative for COVID, flu, and RSV. Your symptoms are consistent with acute abdominal pain with low suspicion at this time for kidney stone, UTI, COVID, flu, RSV. You are safe for discharge at this time with plan for management of fever or discomfort with gbeh-aff-jsvtpdr Tylenol and/or NSAID such as ibuprofen or naproxen with dosing as per packaging. Please return to the emergency department with new, worsening, or concerning emergent symptoms. Recommended to follow-up with your primary care provider in 24-48 hours for further treatment and management. Thank you for choosing [facility]. Prescriptions: No Action metoclopramide HCl [Reglan] 10 mg tablet 10 mg PO Q6H PRN (Reason: nausea and vomiting) Qty: 14 0RF montelukast 10 mg tablet 10 mg PO DAILY Qty: 90 0RF omeprazole 20 mg capsule,delayed release(DR/EC) 20 mg PO DAILY 90 Days Qty: 90 3RF propranolol 80 mg capsule,extended release 24hr 80 mg PO DAILY 90 Days Qty: 90 1RF fluticasone propionate [Aller-Abel] 50 mcg/actuation spray,suspension 1 spray intranasal BID Qty: 16 0RF Rx Instructions: administer into each nostril gabapentin 300 mg capsule 300 mg PO BID Qty: 30 0RF sumatriptan succinate 50 mg tablet See Rx Instructions PO .COMPLEX Rx Instructions: take 1 tab at onset of headache; if no relief may repeat 1 tab after at least 2 hrs; max = 4 tabs/24 hr PO tjfbnlrhke-ymkltqixnyfsd-qiga 50-325-40 mg tablet 1 tab PO Q6H PRN meloxicam 15 mg tablet 15 mg PO DAILY PRN (Reason: pain) 30 Days Qty: 30 3RF Rx Instructions: Take with food albuterol sulfate [Ventolin HFA] 90 mcg/actuation HFA aerosol inhaler 2 puff inhalation Q6H PRN (Reason: shortness of breath or wheezing) 30 Days Qty: 18 5RF Mirena 21 mcg/24 hours (8 yrs) 52 mg intrauterine device intrauterine Referrals: Lev Patrick MD [Primary Care Provider] - Stand Alone Forms: Work/School Release Print Language: Samoan
[2024-02-03 17:41] VITALS: BP 136/81; PULSE 83; RESP 20; TEMP 37; O2SAT 98; BMI 33.7
[2024-02-03 18:34] LABS: MANUAL DIFF FLAG NO
[2024-02-03 18:36] LABS: Basophils Percent Auto 0.3 % (0-2); Eosinophils Absolute Auto 0.4 X10*3/uL (0.0-0.4); Eosinophils Percent Auto 3.4 % (0-4); Hematocrit 43.2 % (37.0-47.0); Hemoglobin 14.4 g/dl (12.0-16.0); Imm Gran Abs Auto 0.05 X10*3/uL (0.00-0.03); Imm Gran Pct Auto 0.4 % (0.0-0.4); Lymphocytes Absolute Auto 2.8 X10*3/uL (1.2-4.9); Lymphocytes Percent Auto 23.6 % (20-40); Mean Corpuscular HGB Conc 33.3 g/dl (31.0-35.0); Mean Corpuscular Hemoglobin 27.5 pg (27.0-33.0); Mean Corpuscular Volume 82.4 fL (80.0-98.0); Mean Platelet Volume 11.1 fL (9.4-12.3); Monocytes Absolute Auto 0.7 X10*3/uL (0.1-1.2); Monocytes Percent Auto 6.3 % (2-11); Neutrophils Absolute Auto 7.8 x10*3/uL (2.0-8.3); Platelet Count 362 X10*3/uL (160-400); Red Blood Count 5.24 X10*6/uL (4.20-5.50); Red Cell Distribution Width 13.1 % (11.0-16.0); White Blood Count 11.8 X10*3/uL (4.8-10.8)
[2024-02-03 18:47] LABS: Alanine Aminotransferase 24 U/L (0-31); Albumin Level 4.3 g/dL (3.5-5.0); Alkaline Phosphatase 86 U/L (39-117); Anion Gap 9 (12-20); Aspartate Amino Transferase 17 U/L (5-31); Bilirubin Total 0.3 mg/dL (0.0-1.0); Blood Urea Nitrogen 10 mg/dL (9-16); Calcium 9.5 mg/dL (8.4-10.2); Carbon Dioxide 25 mmol/L (22-29); Chloride 107 mmol/L (96-108); Estimated Glomerular Filt Rate > 60; Glucose Random 95 mg/dL (60-115); Magnesium 2.2 mg/dL (1.6-2.6); Potassium 4.4 mmol/L (3.3-5.1); Sodium 137 mmol/L (135-145); Total Protein 7.4 g/dL (6.5-8.0)
[2024-02-03 19:17] LABS: Influenza A PCR NEGATIVE (Negative); Influenza B PCR NEGATIVE (Negative); Resp Syncy Virus RNA Qual PCR NEGATIVE (Negative); SARS COV2 PCR INHOUSE NEGATIVE (Negative)
== END 2024-02-03 22:02 | disposition home or self-care (01) ==
PROVIDERS: Nurse Practitioner Family; Emergency Provider Emergency Medicine; PCP Internal Medicine
DX: R10.9 Unspecified abdominal pain (principal); I10 Essential (primary) hypertension; Z11.52 Encounter for screening for COVID-19; Z20.828 Contact with and (suspected) exposure to other viral communicable diseases
CPT/HCPCS: 0241U; 36415; 80053; 83735; 85025; 99282; 99283

== ENCOUNTER 2024-02-04 14:04 | Outpatient (REF) | payer OTHER, SELFPAY ==
--- NOTE | ~2024-02-04 | XR_ITS ---
EXAMINATION: XR ABDOMEN WITH DECUBITUS VIEWS CLINICAL INDICATION: Unspecified abdominal pain. COMPARISON: None available. TECHNIQUE: Single AP upright and 3 supine views of the abdomen. FINDINGS: IUD in the pelvis. Mild rightward curvature of the lumbar spine with degenerative changes. Wmagholo-re-bvstc amount of stool in the colon. Nonobstructive bowel gas pattern. No definitive renal calculi are appreciated, although evaluation is limited due to overlying bowel. XR/XR abdomen w decubitus IMPRESSION: Qzstpbce-pc-iqwov amount of stool in the colon. Nonobstructive bowel gas pattern.
== END 2024-02-04 14:05 | disposition home or self-care (01) ==
LOC: HO.XRAY 14:04
PROVIDERS: PCP Internal Medicine; Visit Provider Internal Medicine
DX: R10.9 Unspecified abdominal pain (principal); R14.0 Abdominal distension (gaseous)
CPT/HCPCS: 74021

== ENCOUNTER 2024-02-05 08:18 | Outpatient (AMB) | payer OTHER, SELFPAY ==
--- NOTE | 2024-02-05 08:33 | MHC.PC.OV ---
Vital Signs 02/05/24 08:34 Height 5 ft 3 in Weight 203 lb BMI 36.0 BP 124/72 Blood Pressure Location Lt brachial Position Sitting Pulse 76 Pulse Source Pulse Oximeter Pulse Oximetry (%) 97 Oxygen Delivery Method Room Air Intake Visit Reasons: Diarrhea and bloating since 02/01/24 Intake Note: Patient is here today for diarrhea and bloating since 02/01/24. Auto Mechanic Required: No Estimator And Drafter Supervisor: Not Required per policy Accompanied by: Self / Same As Patient Allergies flu vaccine Adverse Reaction (Severe, Uncoded 02/05/24 09:08) Hives Medication List - Last Reconciled 02/05/24 by Lev Patrick MD [id number]-lxvsehkpaljvl-yaau 50-325-40 mg 1 tab PO Q6H PRN fluticasone propionate 50 mcg/actuation (Aller-Abel) 1 spray intranasal BID gabapentin 300 mg PO BID levonorgestrel (Mirena) intrauterine meloxicam 15 mg PO DAILY PRN 30 days metoclopramide HCl (Reglan) 10 mg PO Q6H PRN montelukast 10 mg PO DAILY omeprazole 20 mg PO DAILY 90 days propranolol ER 80 mg PO DAILY 90 days sumatriptan succinate take 1 tab at onset of headache; if no relief may repeat 1 tab after at least 2 hrs; max = 4 tabs/24 hr PO Ventolin HFA 90 mcg/actuation (albuterol sulfate) 2 puffs inhalation Q6H PRN 30 days NS Tobacco use date assessed: 02/05/24 Dental Screening Dental Screen Date: 02/05/24 Did you have a dental visit in the last 12 months?: Yes Did you have a dental problem in the last 6 months where you did not have access to dental care?: No Was dental information given to patient?: Patient has dentist HPI Diarrhea and bloating since 02/01/24 HPI Details Patient comes in today complaining of diffuse abdominal bloating and on and off right-sided abdominal pain for the past 4 to 5 days Also reports (+) frequent diarrhea/loose stools this past week but denies seeing any blood in her stool Recalls feeling nauseous earlier this week and she threw up a couple of times just before the abdominal bloating, pain and diarrhea started She went to the ER a couple of days ago and states that they just did some blood test on her and sent her home with instructions to continue with OTC meds PRN for symptomatic relief She denies any recent travel and states that she just ate at her local druze a day or two before her symptoms started but no one else at home or from her druze reportedly had similar symptoms She denies any fever or chills; denies any headaches or dizziness Denies any chest pains, no SOB PFSH Medical History Benign essential hypertension Pure hypercholesterolemia GERD (gastroesophageal reflux disease) Viral upper respiratory tract infection with cough Obesity (BMI 30-39.9) Migraine Asthma Cyst of breast, left, solitary Cough Asthma Laryngitis Allergic rhinosinusitis Surgical History Hx of colonoscopy History of breast lump/mass excision H/O section Family History Mother Colon cancer, Onset Age: 42 Diabetes mellitus Father Parkinson disease Heart disease Other FH: mental illness Substance abuse Social History Housing: House Alcohol intake: never Patient Tobacco Use Status: Never used Tobacco e-Cigarette/Vaping Use: Never Used Second Hand Smoke Exposure: No service: No Current occupational status: employed 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 Elfego Morelos, Emani Kelley, Apollo Buchanan and colleagues, with an educational gilson from [employer]. Review of Systems Const Denies chills, Reports fatigue, Denies fever(s) and Denies headache(s) ENT Denies dysphagia, Denies dizziness, Denies otalgia, Denies headache(s), Denies neck pain, Denies odynophagia and Denies sore throat Card Denies chest pain, Denies palpitations and Denies dyspnea Resp Denies cough and Denies dyspnea GI Reports abdominal pain (on and off on the right side), Reports bloating (diffuse), Denies constipation, Denies dysphagia, Denies heartburn, Reports diarrhea, Reports loose stools (states that her stools looks greenish at times), Reports nausea (on and off), Denies odynophagia and Denies vomiting Denies difficulty voiding, Denies nocturia, Denies dysuria and Denies urinary urgency Musc Denies back pain and Denies neck pain Neuro Denies dizziness and Denies headache(s) Endo Reports fatigue and Denies palpitations Physical exam (Primary Care) Vital Signs: Last Vital Signs Pulse 76 02/05/24 08:34 BP 124/72 02/05/24 08:34 Pulse Ox 97 02/05/24 08:34 Oxygen Delivery Method Room Air 02/05/24 08:34 BMI result Body Mass Index 36.0 Tobacco/Smoking Status: Tobacco use Status Tobacco use date assessed 02/05/24 02/05/24 08:41 Patient Tobacco Use Status Never used Tobacco 02/05/24 08:33 e-Cigarette/Vaping Use Never Used 02/05/24 08:33 Thrive Assessment: Date of Thrive Assessment Date Thrive assessed 01/19/24 02/05/24 08:33 Const General: no acute distress and alert Neck Neck: Yes no lymphadenopathy and Yes supple Resp Auscultation: clear to auscultation bilaterally, no rales and no wheezes Cardio Rate: regular rate Rhythm: regular rhythm Heart sounds: no murmurs GI Palpation (GI): Soft to palpation, Tenderness to palpation present (GI) (minimal on deep palpation over the right lower side of the abdomen), no guarding and No Rebound tenderness present Auscultation: Hyperactive bowel sounds present Extrem General: Yes no clubbing, cyanosis or edema Results Reviewed Results Reviewed: Laboratory Tests 02/03/24 18:25 WBC 11.8 H Hgb 14.4 Hct 43.2 Plt Count 362 Sodium 137 Potassium 4.4 Creatinine 0.85 Estimated GFR > 60 Random Glucose 95 Calcium 9.5 D Total Bilirubin 0.3 AST 17 ALT 24 Assessment and Plan Assessment & Plan (1) Gastroenteritis: Code(s): K52.9 - Noninfective gastroenteritis and colitis, unspecified Plan: Results of her labs done at the ER a couple of days ago reviewed and discussed with patient - (+) elevated WBC count but all of her other labs came out okay She did get her abdominal x-rays done but the report is still pending - will continue to follow up on this Advised that she either has a viral gastroenteritis, had food poisoning of colitis/diverticulitis, and as patient states that her stomach feels no better now than when her symptoms started about 4 to 5 days ago, will go ahead and start her empirically on Levofloxacin 500 mg QD x 7 days She is encouraged to continue to increase her oral fluids and to stay on a BRAT diet for now to avoid aggravating her symptoms She can gradually advance her diet as tolerated when her symptoms improve hopefully over the weekend Advised that she can also continue taking Peptobismol or other OTC GI meds as needed for symptomatic relief Plan To return as scheduled next month for her annual physical examination Medications: New levofloxacin 500 mg PO DAILY 7 days 7 tabs 0RF Coding Level of Care Code Est Pt Level 3 (45234) Diagnoses Gastroenteritis K52.9
[2024-02-05 08:34] VITALS: BP 124/72; PULSE 76; O2SAT 97; BMI 36.0
== END 2024-02-05 09:14 | disposition home or self-care (01) ==
PROVIDERS: PCP Internal Medicine; Visit Provider Internal Medicine
DX: K52.9 Noninfective gastroenteritis and colitis, unspecified (principal)
CPT/HCPCS: 99213

== ENCOUNTER 2024-03-18 07:38 | Outpatient (REF) | payer OTHER, SELFPAY ==
[2024-03-18 08:03] LABS: Appearance Urine Clear; Color Urine Yellow; Glucose Urine UA Negative (Negative); Leukocyte Esterase Urine Negative (Negative); Nitrite Urine Negative (Negative); PH 6.5 (5.0-9.0); Urine Blood Negative (Negative); Urine Ketones Negative (Negative); Urine Protein Negative (Neg-Trace)
[2024-03-18 08:07] LABS: Estimated Average Glucose 111 mg/dL; Hemoglobin A1c % 5.5 % (<6.0)
[2024-03-18 08:33] LABS: Alanine Aminotransferase 27 U/L (0-31); Alkaline Phosphatase 93 U/L (39-117); Anion Gap 11 (12-20); Aspartate Amino Transferase 19 U/L (5-31); Bilirubin Total 0.3 mg/dL (0.0-1.0); Blood Urea Nitrogen 10 mg/dL (9-16); Calcium 9.1 mg/dL (8.4-10.2); Carbon Dioxide 25 mmol/L (22-29); Chloride 107 mmol/L (96-108); Cholesterol 186 mg/dL (<200); Estimated Glomerular Filt Rate > 60; Glucose Fasting 113 mg/dL (60-99); HDL Cholesterol 42 mg/dL (>40); LDL Cholesterol Calculated 120 mg/dL (<100); Potassium 4.2 mmol/L (3.3-5.1); Sodium 139 mmol/L (135-145); Total Protein 7.2 g/dL (6.5-8.0); Triglycerides 124 mg/dL (<150)
== END 2024-03-18 07:39 | disposition home or self-care (01) ==
LOC: HO.LAB 07:38
PROVIDERS: PCP Internal Medicine; Visit Provider Internal Medicine
DX: R73.01 Impaired fasting glucose (principal); E78.00 Pure hypercholesterolemia, unspecified; R39.9 Unspecified symptoms and signs involving the genitourinary system
CPT/HCPCS: 36415; 80053; 80061; 81003; 83036

== ENCOUNTER 2024-03-21 10:00 | Outpatient (AMB) | payer OTHER, SELFPAY ==
--- NOTE | 2024-03-21 10:06 | A.OFFPC_ITS ---
Vital Signs 03/21/24 10:08 Height 5 ft 3 in Weight 205 lb 6 oz BMI 36.4 BP 120/76 Blood Pressure Location Lt brachial Position Sitting Pulse 75 Pulse Source Pulse Oximeter Pulse Oximetry (%) 95 Oxygen Delivery Method Room Air Intake Visit Reasons: Annual Exam Intake Note: Patient is here today for a physical. Molder Sweep Required: No Crisis Specialist: Not Required per policy Accompanied by: Self / Same As Patient Allergies flu vaccine Adverse Reaction (Severe, Uncoded 03/21/24 11:13) Hives Medication List - Last Reconciled 03/21/24 by Lev Patrick MD crebgzkaxs-myxdbcnmeptfo-vyms 50-325-40 mg 1 tab PO Q6H PRN fluticasone propionate 50 mcg/actuation (Aller-Abel) 1 spray intranasal BID gabapentin 300 mg PO BID levonorgestrel (Mirena) intrauterine meloxicam 15 mg PO DAILY PRN 30 days metoclopramide HCl (Reglan) 10 mg PO Q6H PRN montelukast 10 mg PO DAILY omeprazole 20 mg PO DAILY 90 days polyethylene glycol 3350 (Miralax) 17 grams PO DAILY propranolol ER 80 mg PO DAILY 90 days sumatriptan succinate take 1 tab at onset of headache; if no relief may repeat 1 tab after at least 2 hrs; max = 4 tabs/24 hr PO Ventolin HFA 90 mcg/actuation (albuterol sulfate) 2 puffs inhalation Q6H PRN 30 days NS Tobacco use date assessed: 03/21/24 Dental Screening Dental Screen Date: 02/05/24 HPI Annual Exam HPI Details Patient comes in today for her annual physical examination States that she currently feels okay except for some recurrent pain over her right lower back, which she states has been bothering her for a few weeks now She denies any recent injury or trauma to her lower back and is thinking about going to see her chiropractor to see if he can help her get this cleared up She denies any headaches or dizziness Denies any chest pains, no SOB No nausea/vomiting, no abdominal pain lately but reports that she still feels bloated often and would like to know if her abdominal x-rays done last month showed anything out of the ordinary No change in bowel habits and states that she moves her bowels regularly She denies any acute urinary symptoms She had her labs done a few days ago - to discuss her results States that she has been getting a colonoscopy every 3 years since she was 33 y/o as her mother was diagnosed with colon cancer at age 45 y/o; she last had her colonoscopy done in August (not sure if 2021 or 2022) at [facility] - we will try to request for a copy of this sent over for verification and documentation She had her annual mammogram last done at [facility] in February 2023; would like to h ave her next one done here for convenience Her gynecology exam and pap smear were last done in [facility] 2023 [facility] Medical History Benign essential hypertension Pure hypercholesterolemia GERD (gastroesophageal reflux disease) Viral upper respiratory tract infection with cough Obesity (BMI 30-39.9) Migraine Asthma Cyst of breast, left, solitary Cough Asthma Laryngitis Allergic rhinosinusitis Surgical History Hx of colonoscopy History of breast lump/mass excision H/O section Family History Mother Colon cancer, Onset Age: 42 Diabetes mellitus Father Parkinson disease Heart disease Other FH: mental illness Substance abuse Social History Housing: House Alcohol intake: never Patient Tobacco Use Status: Never used Tobacco e-Cigarette/Vaping Use: Never Used Second Hand Smoke Exposure: No service: No Current occupational status: employed 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 1. Little interest or pleasure in doing things: not at all 2. Feeling down, depressed, or hopeless: not at all 3. Trouble falling or staying asleep, or sleeping too much: not at all 4. Feeling tired or having little energy: not at all 5. Poor appetite or overeating: not at all 6. Feeling bad about yourself - or that you are a failure or have let yourself or your family down: not at all 7. Trouble concentrating on things, such as reading the newspaper or watching television: not at all 8. Moving or speaking so slowly that other people could have noticed. Or the opposite - being so fidgety or restless that you have been moving around a lot more than usual: not at all 9. Thoughts that you would be better off or of hurting yourself in some way: not at all Total score: 0 Depression Screening Interpretation: Negative Depression Screening Done: Yes 37807 - PHQ-9 Billing: Yes Source: Developed by Drs. Elfego Morelos, Emani Kelley, Apollo Buchanan and colleagues, with an educational gilson from [employer]. Thrive Questionnaire Date Thrive assessed: 03/21/24 I am a: Patient What is your living situation today?: I have a steady place to live Within the past 12 months, did the food you bought not last and you didn't have the money to get more?: Never true Within the past 12 months, did you worry whether your food would run out before you got money to buy more?: Never true Do you have trouble paying for medicines?: No Do you have trouble getting transportation to medical appointments?: No Do you have trouble paying your heating and electricity bill?: No Do you have trouble taking care of your child, family member or friend?: No Do you have trouble with day-to-day activities such as bathing, preparing meals, shopping, managing finances, etc.?: No Are you currently unemployed and looking for a job?: No Are you interested in more education?: No Please select the resources that you would like help with: None Currently or been in a relationship where the following occur: no concerns reported THRIVE Score: 0 AUDIT C Alcohol Use Questionnaire (AUDIT-C) 1. How often do you have a drink containing alcohol?: Never 3. How often do you have six or more drinks on one occasion?: Never Total Score: 0 Score Reviewed/Action Taken: Yes AYESHA-7 AMB Questionnaire AYESHA-7 Date AYESHA - 7 assessed: 01/19/24 Source: Developed by Drs. Elfego Morelos, Emani Kelley, Apollo Buchanan and colleagues, with an educational gilson from [employer]. Review of Systems Const Denies chills, Denies fatigue, Denies fever(s), Denies headache(s) and Denies malaise Eyes Denies blurry vision, Denies change in vision, Denies irritation and Denies itchy eyes ENT Denies dysphagia, Denies dizziness, Denies otalgia, Denies headache(s), Denies nasal congestion, Denies neck pain, Denies odynophagia, Denies sinus pain and Denies sore throat Card Denies chest pain, Denies rapid heart rate, Denies irregular heart rhythm, Denies palpitations and Denies dyspnea Resp Denies chest congestion, Denies cough, Denies dyspnea and Denies wheezing GI Denies abdominal pain, Reports bloating (at times), Denies constipation, Denies dysphagia, Denies heartburn, Denies diarrhea, Denies nausea, Denies odynophagia and Denies vomiting Denies hematuria, Denies urinary frequency, Denies dysuria, Denies urinary incontinence and Denies urinary urgency Musc Reports back pain (over the right lower back lately), Denies arthralgias, Denies joint swelling, Denies muscle weakness and Denies neck pain Skin/Breast Denies breast pain, Denies breast mass, Denies change in pigmentation, Denies lesions, Denies rash and Denies unusual bruising Neuro Denies dizziness, Denies headache(s) and Denies paresthesias Psych Denies anxiety and Denies depression Endo Denies fatigue and Denies palpitations Valentino/Lymph Denies easy bruising Aller/Immun Denies itchy eyes and Denies wheezing Physical exam (Primary Care) Vital Signs: Last Vital Signs Pulse 75 03/21/24 10:08 BP 120/76 03/21/24 10:08 Pulse Ox 95 03/21/24 10:08 Oxygen Delivery Method Room Air 03/21/24 10:08 BMI result Body Mass Index 36.4 Tobacco/Smoking Status: Tobacco use Status Tobacco use date assessed 03/21/24 03/21/24 10:16 Patient Tobacco Use Status Never used Tobacco 03/21/24 10:06 e-Cigarette/Vaping Use Never Used 03/21/24 10:06 Depression Screening Interpretation: Negative Thrive Assessment: Date of Thrive Assessment Date Thrive assessed 01/19/24 03/21/24 10:06 Currently or been in a relationship where the following occur: no concerns reported Const General: no acute distress, alert and awake Orientation/consciousness: patient oriented x3 [facility] Head: Yes normocephalic and Yes atraumatic Ears: external ears normal, TM's normal bilaterally and EAC's normal General nose exam: No nasal discharge present Face and sinus: Yes normal facial exam and Yes sinuses nontender Teeth and gingiva: dentition normal Throat: Yes posterior oropharynx normal and Yes tonsils normal (no TP congestion) Eyes Eyelids: Yes eyelids normal Conjunctivae: conjunctivae normal Pupils: Equal, round and reactive pupils present EOM: EOMs intact bilaterally Neck Neck: Yes no lymphadenopathy and Yes supple Thyroid: Thyroid normal Resp Auscultation: clear to auscultation bilaterally, no rales and no wheezes Cardio Rate: regular rate Rhythm: regular rhythm Heart sounds: no murmurs GI Palpation (GI): Soft to palpation, nontender and No hepatosplenomegaly present Auscultation: normal bowel sounds General: Yes no CVA tenderness Back/Spine/Pelvis Back: no CVA tenderness Thoracic/Lumbar Spine: thoracic and lumbar spine normal to inspection and No lumbar spinal tenderness Coccyx: Coccyx tenderness present on direct palpation ((+) Hx of coccygeal Fx) Skin Lesions: no lesions Rashes: no rashes Neuro General: patient oriented x3, moves all extremities, no focal motor deficits and CN's II-XI intact bilaterally Cranial nerves: Yes Equal, round and reactive pupils present Cognition (Neuro): normal cognition Gait exam (Neuro): Normal gait present Extrem General: Yes no clubbing, cyanosis or edema Results Reviewed Results Reviewed: Laboratory Tests 02/03/24 03/18/24 03/18/24 18:25 07:45 07:52 WBC 11.8 H Hgb 14.4 Hct 43.2 Plt Count 362 Sodium 139 Potassium 4.2 Creatinine 0.79 Estimated GFR > 60 Fasting Glucose 113 H Hemoglobin A1c % 5.5 Calcium 9.1 AST 19 ALT 27 Triglycerides 124 Cholesterol 186 LDL Cholesterol, Calc 120 H HDL Cholesterol 42 Urine pH 6.5 Ur Specific [place] 1.010 Urine Protein Negative Urine Glucose (UA) Negative Urine Blood Negative Urine Nitrite Negative Ur Leukocyte Esterase Negative Assessment and Plan Assessment & Plan (1) Annual physical exam: Code(s): Z00.00 - Encounter for general adult medical examination without abnormal findings Plan: Results of her labs done a few days ago reviewed and discussed with patient She is due for her annual mammography but is otherwise up-to-date with her other cancer screenings - she has been getting a colonoscopy every 3 years since she was 33 y/o as her mother was diagnosed with colon cancer at age 45 y/o She reportedly last had her colonoscopy done in August (not sure if 2021 or 2022) at [facility] - we will try to request for a copy of this sent over for verification and documentation Her gynecology exam and pap smear were last done in April 2023 at [facility] - she is instructed to call up the [facility] to schedule her next gynecology exam and pap smear as she will be due in April 2024 She had her annual mammogram last done at [facility] in February 2023; would like to have her next one done here for convenience (2) Pure hypercholesterolemia: Code(s): E78.00 - Pure hypercholesterolemia, unspecified Plan: She is advised that her LDL cholesterol have improved slightly from previous on her recent labs and it is now within the normal range at 120 mg/dl Reinforced low cholesterol diet She has been taking some OTC CholestOFF as she would like to avoid taking any statins for her cholesterol for now - as this appears to be helping, will have her continue on OTC CholestOFF daily Will recheck her fasting lipids and labs in 6 months for follow up (3) Benign essential hypertension: Code(s): I10 - Essential (primary) hypertension Plan: Reinforced low sodium diet - goal is systolic BP of 130 mm or less Continue Propranolol 80 mg QD Patient is reminded to continue monitoring her BP regularly (4) Coccygeal fracture: Code(s): S32.2XXA - Fracture of coccyx, initial encounter for closed fracture Qualifiers: Encounter type: sequela Fracture type: closed Qualified Code(s): S32.2XXS - Fracture of coccyx, sequela Plan: Chronic - injury occurred back in 2105 Repeat coccygeal x-rays done a few months ago confirmed the slightly posteriorly displaced distal fracture fragment She is reminded to make sure she has a good donut pillow to use all the time when sitting down to keep pressure off her tailbone and minimize her pain; no other intervention is indicated at this time (5) GERD (gastroesophageal reflux disease): Code(s): K21.9 - Gastro-esophageal reflux disease without esophagitis Qualifiers: Esophagitis presence: esophagitis presence not specified Qualified Code(s): K21.9 - Gastro-esophageal reflux disease without esophagitis Plan: Reinforced dietary restrictions Upper GI series done last year confirmed (+) GERD with no other abnormalities Continue Omeprazole 20 mg QD (6) Asthma: Code(s): J45.909 - Unspecified asthma, uncomplicated Qualifiers: Asthma severity: mild Asthma persistence: intermittent Asthma complication type: uncomplicated Qualified Code(s): J45.20 - Mild intermittent asthma, uncomplicated Plan: Stable Continue Albuterol HFA 1 to 2 inhalations every 6 hours PRN and Montelukast 10 mg QD Follow up with pulmonary (Dr. Gonzalez) as scheduled (7) Allergic rhinosinusitis: Comment: This patient has history of chronic allergic rhinitis/sinusitus. Has been on immunotherapy for 3-4 years, which is now on hold. CT scan of the sinuses , did not show any acute sinus infection, mucus and periosteal thickening in the sphenoid sinuses probably secondary to chronic inflammation. Tx: Use Flonase 1 spray each nostril b.i.d. regularly. Use steam inhalations 2 to 3 times a day. Continue to take Montelukast 10 mg daily. Advised to continue follow-up with Dr. Lopez, and restart immunotherapy as per his description. Code(s): J30.9 - Allergic rhinitis, unspecified Qualifiers: Allergic rhinitis trigger: unspecified Allergic rhinitis seasonality: non-seasonal Qualified Code(s): J30.89 - Other allergic rhinitis Plan: Continue regular allergy injections with Dr. Lopez as scheduled Continue Fluticasone nasal spray 50 mcg QD PRN and Montelukast 10 mg QD (8) Impaired fasting glucose: Code(s): R73.01 - Impaired fasting glucose Plan: Her FBS was still slightly elevated at 113 mg/dl but HgbA1c remained normal at 5.3% on her recent labs Reinforced low calorie diet/exercise as tolerated (9) Migraine: Code(s): G43.909 - Migraine, unspecified, not intractable, without status migrainosus Qualifiers: Migraine type: unspecified Status migrainosus presence: without status migrainosus Intractability: not intractable Qualified Code(s): G43.909 - Migraine, unspecified, not intractable, without status migrainosus Plan: Reinforced avoidance of any potential migraine triggers States that her headaches have been well-controlled for a while now She was reportedly seen by neurology a few months ago and was advised to continue on her current Rx Continue Fioricet PRN and Sumatriptan 50 mg PRN She is also on Propranolol 80 mg QD for her blood pressure, but this can also help as prophylactic Tx for her migraine Follow up with neurology as scheduled (10) Right low back pain: Code(s): M54.50 - Low back pain, unspecified Qualifiers: Chronicity: acute Sciatica presence: without sciatica Qualified Code(s): M54.50 - Low back pain, unspecified Plan: Her right lower back pain is not elicited on exam - advised that this may actually be related to her constipation Will send her for lumbar spine x-rays ELSA for further evaluation (11) Constipation: Code(s): K59.00 - Constipation, unspecified Qualifiers: Constipation type: unspecified constipation type Qualified Code(s): K59.00 - Constipation, unspecified Plan: She is advised that her abdominal x-rays done last month revealed (+) [id number] amount of stool in the colon and a nonobstructive bowel gas pattern Is advised that even though she is moving her bowel regularly, she may not be having an efficient bowel movement as evidenced by her recent x-rays findings Have encouraged her to continue to increase her oral fluids and dietary fiber intake daily Will start her on Miralax 17 gm QD - have reminded her that Miralax will only work effectively if it is taken daily and not PRN (12) Obesity (BMI 30-39.9): Code(s): E66.9 - Obesity, unspecified Plan: Reinforced diet/exercise as tolerated/lose weight (13) Breast cancer screening by mammogram: Code(s): Z12.31 - Encounter for screening mammogram for malignant neoplasm of breast Plan: Per request, will refer her here to [facility] [place] her next annual mammogram Plan Follow up in 6 months Orders: Orders XR lumbar spine 2-3V Today M54.50 - Low back pain, unspecified MM tomosynthesis screening BI Today Z12.31 - Encounter for screening mammogram for malignant neoplasm of breast Complete Blood Count Auto Diff 6 Months D64.9 - Anemia, unspecified Comprehensive Alligator. Panel Fast 6 Months E78.00 - Pure hypercholesterolemia, unspecified TSH reflex Free T4 6 Months E78.00 - Pure hypercholesterolemia, unspecified Lipid Panel 6 Months E78.00 - Pure hypercholesterolemia, unspecified UA CC w/rflx Micro + Cult 6 Months R30.0 - Dysuria Vitamin D 25-OH Total 6 Months E55.9 - Vitamin D deficiency, unspecified Medications: New polyethylene glycol 3350 (Miralax) 17 grams PO DAILY 510 grams 11RF constipation Coding Level of Care Code Est Pt Prev Care 40-64y(72106) Diagnoses Annual physical exam Z00.00 Pure hypercholesterolemia E78.00 Benign essential hypertension I10 Closed fracture of coccyx, sequela S32.2XXS Encounter type: sequela Fracture type: closed Gastroesophageal reflux disease, unspecified whether esophagitis present K21.9 Esophagitis presence: esophagitis presence not specified Mild intermittent asthma without complication J45.20 Asthma severity: mild Asthma persistence: intermittent Asthma complication type: uncomplicated Non-seasonal allergic rhinitis, unspecified trigger J30.89 Allergic rhinitis trigger: unspecified Allergic rhinitis seasonality: non-seasonal Impaired fasting glucose R73.01 Migraine without status migrainosus, not intractable, unspecified migraine type G43.909 Migraine type: unspecified Status migrainosus presence: without status migrainosus Intractability: not intractable Acute right-sided low back pain without sciatica M54.50 Chronicity: acute Sciatica presence: without sciatica Constipation, unspecified constipation type K59.00 Constipation type: unspecified constipation type Obesity (BMI 30-39.9) E66.9 Breast cancer screening by mammogram Z12.31
[2024-03-21 10:08] VITALS: BP 120/76; PULSE 75; O2SAT 95; BMI 36.4
== END 2024-03-21 11:19 | disposition home or self-care (01) ==
PROVIDERS: PCP Internal Medicine; Visit Provider Internal Medicine
DX: Z00.00 Encounter for general adult medical examination without abnormal findings (principal); E78.00 Pure hypercholesterolemia, unspecified; I10 Essential (primary) hypertension; S32.2XXS Fracture of coccyx, sequela; K21.9 Gastro-esophageal reflux disease without esophagitis; J45.20 Mild intermittent asthma, uncomplicated; J30.89 Other allergic rhinitis; R73.01 Impaired fasting glucose; G43.909 Migraine, unspecified, not intractable, without status migrainosus; M54.50 Low back pain, unspecified; K59.00 Constipation, unspecified
CPT/HCPCS: 99396

== ENCOUNTER 2024-03-21 17:01 | Outpatient (REF) | payer OTHER, SELFPAY ==
--- NOTE | ~2024-03-21 | XR_ITS ---
EXAMINATION: XR LUMBOSACRAL SPINE CLINICAL INFORMATION: Low back pain. COMPARISON: X-ray lumbar spine 02/04/2024, sacrum and coccyx 04/03/2023. TECHNIQUE: 3 views of the lumbosacral spine. FINDINGS: IUD in the pelvis. Mild rightward curvature of the lumbar spine. Previously identified age-indeterminate coccygeal fracture with mild posterior displacement of distal fracture fragment seen on exam of 04/03/2023 is redemonstrated. Mild multilevel lumbar spondylosis with loss of disc space height at L3-L4 and L4-L5. Facet arthritis in the lower lumbar spine. XR/XR lumbar spine 2-3V IMPRESSION: 1. Previously identified age-indeterminate coccygeal fracture with mild posterior displacement of distal fracture fragment seen on exam of 04/03/2023 is redemonstrated. 2. Mild multilevel lumbar spondylosis with loss of disc space height at L3-L4 and L4-L5.
== END 2024-03-21 17:02 | disposition home or self-care (01) ==
LOC: HO.XRAY 17:01
PROVIDERS: PCP Internal Medicine; Visit Provider Internal Medicine
DX: M54.50 Low back pain, unspecified (principal)
CPT/HCPCS: 72100

== ENCOUNTER 2024-05-04 07:08 | Outpatient (REF) | payer OTHER, SELFPAY ==
--- NOTE | ~2024-05-04 | MM_ITS ---
EXAMINATION: MM SCREENING DIGITAL BREAST TOMOSYNTHESIS, BILATERAL CLINICAL INFORMATION: Screening. Asymptomatic. COMPARISON: Mammography: This study is compared with prior exams dating back to 2020. TECHNIQUE: Digital breast tomosynthesis is performed in both the craniocaudal and mediolateral oblique views along with computer-aided detection (CAD). Synthesized 2D images are generated from the tomosynthesis. FINDINGS: The breasts are heterogeneously dense, which may obscure small masses (ACR BI-RADS breast composition Category c). There is a focal asymmetry in the retroareolar region of the right breast. Additional mammographic and targeted sonographic evaluation of this finding are advised. In the left breast, no are no significant masses, abnormal calcifications, or other abnormalities. MM/MM tomosynthesis screening BI IMPRESSION: Retroareolar right breast focal asymmetry warrants additional mammographic and targeted sonographic imaging. No mammographic signs of malignancy left breast. ASSESSMENT: BI-RADS BI-RADS 0 - Incomplete: Needs additional Imaging. RECOMMENDATION: 1. Additional views of the right 2. Targeted ultrasound if warranted after review of the additional views. 3. Radiology department staff will contact the patient for additional imaging. Additional Imaging required This examination should not preclude the clinical evaluation of a suspicious palpable abnormality. This patient's information was entered into a reminder system with a target due date for their next mammogram.
== END 2024-05-04 07:09 | disposition home or self-care (01) ==
LOC: HO.MAMMO 07:08
PROVIDERS: PCP Internal Medicine; Visit Provider Internal Medicine
DX: Z12.31 Encounter for screening mammogram for malignant neoplasm of breast (principal)
CPT/HCPCS: 77063; 77067

== ENCOUNTER → 2024-05-04 07:45 | Outpatient (BNV) | payer OTHER, SELFPAY | PROVIDERS: PCP Internal Medicine; Visit Provider Radiology Diagnostic Radiology | DX: Z12.31 Encounter for screening mammogram for malignant neoplasm of breast (principal) | CPT/HCPCS: 77063; 77067 ==

== ENCOUNTER → 2024-07-11 13:30 | Outpatient (BNV) | payer OTHER, SELFPAY | PROVIDERS: PCP Internal Medicine; Visit Provider Radiology Diagnostic Radiology | DX: N63.15 Unspecified lump in the right breast, overlapping quadrants (principal) | CPT/HCPCS: 76642; 77065 ==

== ENCOUNTER 2024-07-11 13:31 | Outpatient (REF) | payer OTHER, SELFPAY ==
--- NOTE | ~2024-07-11 | US_ITS ---
EXAMINATION: MM DIAGNOSTIC DIGITAL BREAST TOMOSYNTHESIS, RIGHT US BREAST LIMITED, RIGHT MAMMOGRAPHY: CLINICAL INFORMATION: Diagnostic exam for focal asymmetry right breast 6:00 axis seen on screening exam. COMPARISON: Mammography: 05/04/2024, 02/28/2023, 01/30/2022, 12/17/2020. No prior ultrasound. TECHNIQUE: Digital breast tomosynthesis is performed in the following views: Full-field 3-D right mediolateral view, and 3-D spot compression right CC and MLO views. Computer-aided diagnosis was used for this study. This was followed by targeted right breast ultrasound. FINDINGS: The breasts are heterogeneously dense, which may obscure small masses (ACR BI-RADS breast composition Category c). Within the 6:00 axis of the right breast, anterior to mid one third, there is a persistent irregular masslike density with indistinct borders and suggestion of lobulations. This is high density, and on the CC spot compression view demonstrates some degree of architectural distortion. This will be evaluated by ultrasound. No additional suspicious findings right breast. No axillary adenopathy noted. No skin abnormality. ULTRASOUND: CLINICAL INFORMATION: As above. COMPARISON: None TECHNIQUE: Targeted sonographic evaluation was performed using a high frequency linear transducer. Attention was given to the 4:00 to 8:00 axis right breast, to include the 6:00 area of concern. In addition, the right axilla was also scanned. Selected archived documentation. FINDINGS: RIGHT BREAST: Within the 6:00 axis of the right breast, 1 cm from the nipple, there is a markedly hypoechoic shadowing irregular mass measuring 2.2 x 1.9 x 2.4 cm approximately. There is some internal color Doppler flow. There are echogenic fatty changes surrounding the abnormality with some degree of parenchymal distortion. There may be extension of the mass through a duct towards the nipple. This finding correlates with the mammographic abnormality. There are a few scattered simple cysts as well. There is no abnormal lymphadenopathy in the right axilla. US/US breast RT limited mamm only IMPRESSION: -Suspicious mass right breast 6:00 axis as detailed, for which ultrasound-guided biopsy is recommended. -Findings and recommendations were discussed with the patient in detail. OVERALL ASSESSMENT: Mammography: BI-RADS 4 - Suspicious finding Ultrasound: BI-RADS 4 - Suspicious finding RECOMMENDATION: Biopsy recommended
== END 2024-07-11 13:32 | disposition home or self-care (01) ==
LOC: HO.MAMMO 13:31
PROVIDERS: PCP Internal Medicine; Visit Provider Internal Medicine
DX: N64.89 Other specified disorders of breast (principal)
CPT/HCPCS: 76642; 77061; 77065

== ENCOUNTER 2024-07-13 08:10 | Outpatient (AMB) | payer OTHER, SELFPAY ==
[2024-07-13 08:12] VITALS: BP 128/82; PULSE 94; BMI 36.1
--- NOTE | 2024-07-13 08:12 | A.OFFVIS_ITS ---
Vital Signs 07/13/24 08:12 Height 5 ft 3 in Weight 204 lb BMI 36.1 BP 128/82 Blood Pressure Location Rt brachial Position Sitting Pulse 94 Intake Visit Reasons: US BX consult (R) breast 6:00 mass Intake Note: This patient presents US BX consult right breast 6 o'clock mass. Pt c/o; reports occasional sharp pains underneath both breast. Bx: 07/13/2024 @ 10am Liability Claims Representative Required: No Accompanied by: Self / Same As Patient Allergies flu vaccine Adverse Reaction (Severe, Uncoded 07/13/24 08:22) Hives Medication List - Last Reconciled 07/13/24 by Julien Martínez MD dvoysioouc-dvdvvsrrvwtvu-uarw 50-325-40 mg 1 tab PO Q6H PRN fluticasone propionate 50 mcg/actuation (Aller-Abel) 1 spray intranasal BID gabapentin 300 mg PO BID levonorgestrel (Mirena) intrauterine meloxicam 15 mg PO DAILY PRN 30 days metoclopramide HCl (Reglan) 10 mg PO Q6H PRN montelukast 10 mg PO DAILY omeprazole 20 mg PO DAILY 90 days polyethylene glycol 3350 (Miralax) 17 grams PO DAILY propranolol ER 80 mg PO DAILY 90 days sumatriptan succinate take 1 tab at onset of headache; if no relief may repeat 1 tab after at least 2 hrs; max = 4 tabs/24 hr PO Ventolin HFA 90 mcg/actuation (albuterol sulfate) 2 puffs inhalation Q6H PRN 30 days NS HPI HPI US BX consult (R) breast 6:00 mass: Details: 44-year-old female referred for a right breast mass seen on ultrasound and mammogram. She says she went for her screening mammogram last month and was brought back and because of a mass seen on the right breast. Her diagnostic ultrasound and mammogram showed an irregular mass about 2.2 x 1.9 x 2.5 cm at the 6 o'clock position of the right breast about 1 cm from the nipple. An ultrasound biopsy had therefore been recommended She says she did not feel this mass before. Her menarche was at age of 8. Her 1st was at age of 16. Had 2 pregnancies. She says that both maternal and paternal grandmothers had breast cancer. She thinks that they were in their 40s or 50s at that time She has been on Mirena as well for many years now. [facility] Medical History Breast mass, right Benign essential hypertension Pure hypercholesterolemia GERD (gastroesophageal reflux disease) Viral upper respiratory tract infection with cough Obesity (BMI 30-39.9) Migraine Asthma Cyst of breast, left, solitary Cough Asthma Laryngitis Allergic rhinosinusitis Surgical History Hx of colonoscopy History of breast lump/mass excision H/O section Family History Mother Colon cancer, Onset Age: 42 Diabetes mellitus Father Parkinson disease Heart disease Maternal Grandmother Breast cancer Paternal Grandmother Breast cancer Other FH: mental illness Substance abuse Social History Housing: House Alcohol intake: never Patient Tobacco Use Status: Never used Tobacco e-Cigarette/Vaping Use: Never Used Second Hand Smoke Exposure: No service: No Current occupational status: employed 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[employer] Cognitive needs: No Hearing needs: No Vision needs: Yes Female Reproductive History Menstrual Age of Menarche: 7 Total pregnancies: 1 Review of Systems Const Denies chills and Denies fever(s) Card Denies chest pain, Denies dyspnea and Denies dyspnea on exertion Resp Denies cough, Denies dyspnea and Denies dyspnea on exertion GI Denies hematochezia and Denies change in bowel habits Denies hematuria Musc Denies back pain and Denies limited range of motion Neuro Denies focal weakness and Denies convulsions Psych Denies depression and Denies mood swings Physical Exam Vital Signs: Last Vital Signs Pulse 94 07/13/24 08:12 BP 128/82 07/13/24 08:12 BMI result Body Mass Index 36.1 Const General: comfortable and no acute distress Orientation/consciousness: patient oriented x3 Neck Neck: Yes no lymphadenopathy Chest Other: Right breast with question of a palpable mass adjacent to the nipple-areolar area inferiorly about 1.5 cm Resp Auscultation: clear to auscultation bilaterally Cardio Rhythm: regular rhythm GI Palpation (GI): Soft to palpation, nontender and no guarding Neuro General: patient oriented x3 Assessment & Plan Assessment & Plan (1) Breast mass, right: Code(s): N63.10 - Unspecified lump in the right breast, unspecified quadrant Category: Medical Plan: She has this mass seen on ultrasound and mammogram as described above. She was recommended to undergo ultrasound biopsy. I explained to her the technique of this procedure I will see her again next week to discuss the path report. Orders: Orders US breast ndl core biopsy RT 07/12/24 N63.10 - Unspecified lump in the right breast, unspecified quadrant Coding Level of Care Code New Pt Level 3 (83336) Diagnoses Breast mass, right N63.10
== END 2024-07-13 08:52 | disposition home or self-care (01) ==
PROVIDERS: PCP Internal Medicine; Visit Provider Surgery
DX: N63.10 Unspecified lump in the right breast, unspecified quadrant (principal)
CPT/HCPCS: 99203

== ENCOUNTER 2024-07-13 09:06 | Outpatient (REF) | payer OTHER, SELFPAY ==
--- NOTE | ~2024-07-13 | US_ITS ---
PROCEDURE: US GUIDED BREAST BIOPSY, RIGHT CLINICAL INFORMATION: Large irregular mass right breast 6:00 axis, recommended for biopsy via ultrasound. COMPARISON: 07/11/2024 right mammography and ultrasound. 05/04/2024 screening mammography. PROCEDURAL DETAILS: The details of the procedure, as well as the risks, benefits, and alternatives to the procedure were explained to the patient in detail and all of her questions were answered, after which written informed consent was obtained. Site and side were confirmed. Prior to the procedure, sonography revealed a large irregular mass 6:00 axis right breast measuring approximately 2.2 x 1.9 x 2.4 cm, 1 cm from the nipple. A time-out was performed, the lesion intended for biopsy was targeted, and the skin of the overlying right breast was then marked, prepped and draped in the usual sterile fashion. Using sonographic guidance, sterile technique, and 1% lidocaine without epinephrine for local anesthesia, multiple core biopsies were obtained through the targeted area with a 14G spring loaded [employer] core biopsy device. There was real-time confirmation of appropriate needle passage. Sampling was documented. At the completion of tissue sampling, a single open coil metallic clip was deposited at the biopsy site. There was no evidence of immediate complication. SPECIMEN: 3 well formed core samples were obtained DIGITAL POST-PROCEDURE MAMMOGRAPHY: Breast density: The tissue is heterogeneously dense which may obscure small masses. BI-RADS version 5, category C. There are no new mammographic findings demonstrated. The postprocedure 2-view direct digital mammogram reveals satisfactory and accurate positioning of the biopsy clip. No hematoma present. The patient tolerated the procedure well and, after assuring adequate hemostasis, was discharged in good condition after reviewing postbiopsy breast care instructions. Final pathology results are pending. US/US breast ndl core biopsy RT IMPRESSION: 1. No immediate complication from ultrasound-guided percutaneous biopsy right breast 6:00 irregular mass 1 cm from the nipple. 2. Ultrasound was used to localize and guide marker clip placement. 3. The 2-view direct digital postprocedure mammogram reveals accurate positioning of the biopsy clip. 4. Final pathology results are pending. A separate report with final recommendations will be issued once these results are made available.
[2024-07-13] MEDS: Sodium Bicarbonate 8.4% 50 MEQ/50 ML VIAL SUBCUT (10:18)
[2024-07-13] MEDS: Lidocaine HCl 1 % 20 ML VIAL 9 ML SUBCUT (10:19)
== END 2024-07-13 09:07 | disposition home or self-care (01) ==
LOC: HO.MAMMO 09:06
PROVIDERS: PCP Internal Medicine; Visit Provider Surgery
DX: N63.15 Unspecified lump in the right breast, overlapping quadrants (principal)
CPT/HCPCS: 19083; 77061; 77065; 88305; 88341; 88342; 88360; A4648; C1894

== ENCOUNTER → 2024-07-13 10:00 | Outpatient (BNV) | payer OTHER, SELFPAY | PROVIDERS: PCP Internal Medicine; Visit Provider Radiology Diagnostic Radiology | DX: N63.15 Unspecified lump in the right breast, overlapping quadrants (principal) | CPT/HCPCS: 19083; 77065 ==

== ENCOUNTER 2024-07-20 12:50 | Outpatient (AMB) | payer OTHER, SELFPAY ==
[2024-07-20 12:52] VITALS: BMI 36.1
--- NOTE | 2024-07-20 12:52 | A.OFFVIS_ITS ---
Vital Signs 07/20/24 12:52 Height 5 ft 3 in Weight 204 lb 0.005 oz BMI 36.1 Intake Visit Reasons: Follow up US BX consult (R) breast 6:00 mass Intake Note: This patient presents for breast biopsy results. Pt c/o; reports no complaints. Medical Research Scientist Required: No Accompanied by: Other Relationship Allergies flu vaccine Adverse Reaction (Severe, Uncoded 07/21/24 09:07) Hives HPI HPI Follow up US BX consult (R) breast 6:00 mass: Details: 44-year-old female initially referred for a right breast mass seen on ultrasound and mammogram. She says she went for her screening mammogram last month and was brought back because of a mass seen on the right breast. Her diagnostic ultrasound and mammogram showed an irregular mass about 2.2 x 1.9 x 2.5 cm at the 6 o'clock position of the right breast about 1 cm from the nipple. An ultrasound biopsy was therefore done last week. She tolerated this well and denies any hematoma. She says she did not feel any mass before. Her menarche was at age of 8. Her 1st was at age of 16. Had 2 pregnancies. She says that both maternal and paternal grandmothers had breast cancer. She thinks that they were in their 40s or 50s at that time She has been on Mirena as well for many years now. [facility] Medical History Invasive ductal carcinoma of breast Breast mass, right Benign essential hypertension Pure hypercholesterolemia GERD (gastroesophageal reflux disease) Viral upper respiratory tract infection with cough Obesity (BMI 30-39.9) Migraine Asthma Cyst of breast, left, solitary Cough Asthma Laryngitis Allergic rhinosinusitis Surgical History Hx of colonoscopy History of breast lump/mass excision H/O section Family History (Updated 07/21/24 @ 09:06 by Giuliana Tsai) Mother Colon cancer, Onset Age: 42 Diabetes mellitus Father Heart disease Parkinson disease Maternal Grandmother Breast cancer Paternal Grandmother Breast cancer Maternal Grandfather Prostate CA Family/Other Thyroid cancer Other FH: mental illness Substance abuse Social History (Updated 07/21/24 @ 09:07 by Giuliana Tsai) Household Members: Spouse Housing: House Alcohol intake: never Patient Tobacco Use Status: Never used Tobacco e-Cigarette/Vaping Use: Never Used Second Hand Smoke Exposure: No Use of substances other than those prescribed or required for medical reasons: No Have you been hit, kicked, punched, or otherwise hurt by someone within the past year? 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 needs: No Hearing needs: No Vision needs: Yes Female Reproductive History Menstrual Age of Menarche: 7 Review of Systems Const Denies chills and Denies fever(s) Card Denies chest pain, Denies dyspnea and Denies dyspnea on exertion Resp Denies cough, Denies dyspnea and Denies dyspnea on exertion GI Denies hematochezia and Denies change in bowel habits Denies hematuria Musc Denies back pain and Denies limited range of motion Neuro Denies focal weakness and Denies convulsions Psych Denies depression and Denies mood swings Physical Exam Vital Signs: BMI result Body Mass Index 36.1 Const General: comfortable and no acute distress Orientation/consciousness: patient oriented x3 Neck Neck: Yes no lymphadenopathy Chest Other: No palpable breast masses, no hematoma on the biopsy site on the right breast Resp Auscultation: clear to auscultation bilaterally Cardio Rhythm: regular rhythm GI Palpation (GI): Soft to palpation, nontender and no guarding Neuro General: patient oriented x3 Assessment & Plan Assessment & Plan (1) Invasive ductal carcinoma of breast: Code(s): C50.919 - Malignant neoplasm of unspecified site of unspecified female breast Category: Medical Plan: Unfortunately, her biopsy shows an invasive ductal cancer of the right breast, ERPR positive, HER2 negative. This is about 1.5 cm on her last imaging study I therefore had a long discussion with her about her options. I explained to her the option of breast conservation treatment which includes lumpectomy, sentinel node biopsy and radiation to the whole breast thereafter. I explained the option of full mastectomy with sentinel biopsy. She understands that she is unlikely to require radiation if she goes for mastectomy. She understands that she will need to have localization before lumpectomy. I explained to her the risks, benefits, advantages and disadvantages of either option. She understands the option of breast reconstruction down the line. She says that she will think about all these options. She is unable to decide at this time but will call the office as soon as she decides I have arranged for her to be seen by Oncology before the surgery. She understands that she can call the office any time if she needs help with navigation and guidance. Orders: Referrals Hematology & Oncology Referral C50.919 - Malignant neoplasm of unspecified site of unspecified female breast Coding Level of Care Code Est Pt Level 4 (42614) Diagnoses Invasive ductal carcinoma of breast C50.919
== END 2024-07-20 14:01 | disposition home or self-care (01) ==
PROVIDERS: PCP Internal Medicine; Visit Provider Surgery
DX: C50.811 Malignant neoplasm of overlapping sites of right female breast (principal)
CPT/HCPCS: 99214

== ENCOUNTER → 2024-07-20 12:50 | Outpatient (BNVA) | payer OTHER, SELFPAY | PROVIDERS: PCP Internal Medicine; Visit Provider Surgery | DX: N63.10 Unspecified lump in the right breast, unspecified quadrant (principal); C50.919 Malignant neoplasm of unspecified site of unspecified female breast ==

== ENCOUNTER → 2024-07-21 08:48 | Outpatient (BNV) | payer OTHER, SELFPAY | PROVIDERS: PCP Internal Medicine; Referring Provider Surgery; Visit Provider Internal Medicine Medical Oncology | DX: C50.911 Malignant neoplasm of unspecified site of right female breast (principal) | CPT/HCPCS: 99204; 99213; 99214 ==

== ENCOUNTER → 2024-08-02 09:36 | Outpatient (BNVA) | payer OTHER, SELFPAY | PROVIDERS: PCP Internal Medicine; Visit Provider Surgery ==

== ENCOUNTER 2024-08-09 07:55 | Outpatient (REF) | payer OTHER, SELFPAY ==
--- NOTE | ~2024-08-09 | MM_ITS ---
EXAMINATION: MM MAMMOGRAM GUIDED RFID LOCALIZATION BREAST, RIGHT CLINICAL INFORMATION: Right breast 6:00 mass, pathology shows an IDC grade 3. Localization for surgery. COMPARISON: Ultrasound-guided biopsy with postbiopsy mammography 07/13/2024. Diagnostic right breast ultrasound and mammography 07/11/2024. TECHNIQUE NEEDLE LOC: Proper informed consent is obtained from the patient after discussion of the procedure, potential risks and complications, and alternatives including declining the procedure today. Patient was given an opportunity for questions. The patient appeared to understand. The patient consented to the procedure and signed the consent form. GUIDANCE: Digital mammography. APPROACH: Cranio-caudal. TARGET: Mass with internal open coil clip. ANESTHESIA: carbonated lidocaine 1%: 4 mL. LOCALIZATION SYSTEM: [employer] LOCallizer Wire-Free Guidance System with 12g needle applicator. RADIOFREQUENCY TAG: ID # [id number] DERMATOTOMY: Single 1 mm skin-cathy dermatotomy performed. RF Tag ID confirmed with LOCalizer Guidance System prior to placement. The skin is prepped and local anesthesia administered. The needle is positioned and RFID tag deployed. Final images demonstrate the LOCalizer RF tag to reside immediately superolateral to the biopsy clip and mass. The patient tolerated the procedure well and had no immediate complications. Dressing placed and home instructions reviewed. MM/MM RF Tag device RT IMPRESSION: -Status post right breast RFID localization. -Please refer to final CC and ML images which are labeled for OR reference. Electronically signed by: Robert Kirk MD 08/09/2024 01:00 PM EDT Workstation: [id number]
== END 2024-08-09 07:56 | disposition home or self-care (01) ==
LOC: HO.MAMMO 07:55
PROVIDERS: PCP Internal Medicine; Visit Provider Surgery
DX: C50.911 Malignant neoplasm of unspecified site of right female breast (principal); C50.912 Malignant neoplasm of unspecified site of left female breast; N63.10 Unspecified lump in the right breast, unspecified quadrant
CPT/HCPCS: 19281; C1819

== ENCOUNTER → 2024-08-09 08:00 | Outpatient (BNV) | payer OTHER, SELFPAY | PROVIDERS: PCP Internal Medicine; Visit Provider Radiology Diagnostic Radiology | DX: C50.511 Malignant neoplasm of lower-outer quadrant of right female breast (principal) | CPT/HCPCS: 19281 ==

== ENCOUNTER 2024-08-16 08:12 | Day surgery (SDC) | payer OTHER, SELFPAY ==
[2024-08-09 11:55] VITALS: BMI 36.3
[2024-08-16] VITALS (12 sets, daily range): BP systolic 116–187; BP diastolic 73–88; PULSE 50–75; RESP 10–16; TEMP 36.1–36.4; O2SAT 96–99
--- NOTE | ~2024-08-16 | MM_ITS ---
EXAMINATION: MM SPECIMEN X-RAY BREAST, RIGHT BREAST CLINICAL INDICATION: Surgical excision right breast 6:00 mass, grade 3 IDC, anterior one third. COMPARISON: RFID Localization right breast 08/09/2024. Right breast US core biopsy 07/13/2024. Diagnostic right mammography 07/11/2024. Screening mammography 05/04/2024. TECHNIQUE: Single 2-D radiograph of the excised breast tissue is performed using digital mammography. FINDINGS: Specimen radiograph demonstrates the presence of the open coiled biopsy clip, RF ID tag, and stellate mass contains centrally within the specimen. Results were called to Dr. Martínez in the operating room at the time of imaging. Electronically signed by: Robert Kirk MD 08/16/2024 04:13 PM EDT
--- NOTE | ~2024-08-16 | NM_ITS ---
EXAMINATION: NM LYMPHOSCINTIGRAPHY CLINICAL INFORMATION: Right breast invasive ductal carcinoma. COMPARISON: None. TECHNIQUE: Right breast lymphoscintigraphy injection was performed . Approximately 0.5 mCi of technetium 99m lymphoseek and 0.8 mL of saline was divided into equal aliquots, and injected in 4 quadrants around the right breast areola at 12:00, 3:00, 6:00, and 9:00. Images were obtained in AP, oblique and lateral views 30 minutes later. FINDINGS: There is isotope activity in four-quadrant around right breast areola following injection. There are at least 3 areas of isotope activity along the right mid axilla suggestive of multiple lymph nodes. NM/NM sentinel node w imaging IMPRESSION: -At least 3 small lymph nodes seen in right lower and mid axilla on right breast lymphoscintigraphy. Thank you for the courtesy of your referral. Electronically signed by: Robert Kirk MD 08/16/2024 04:16 PM EDT
[2024-08-16] MEDS: Lidocaine 4 % Cream KIT 1 APPL TOPICAL (08:50)
[2024-08-16 08:57] LABS: UPreg QC Valid YES; Urine Pregnancy NEGATIVE (NEGATIVE)
[2024-08-16] MEDS: Lactated Ringers 1,000 ML 100 ML IVCONT (09:23)
--- NOTE | 2024-08-16 10:20 | P.CONAN_ITS ---
Documented by User: Lara Pete NP 08/10/24 12:14 HPI - Anesthesia Eval Consult details Narrative: 44yo F for Right Breast Lumpectomy w/LOCalizer, [place] Node Biopsy PMFSH Active Problems Active Problems: All Active Problems Breast cancer, right breast (Acute) Breast cancer screening by mammogram (Acute) Constipation (Acute) Right low back pain (Acute) Gastroenteritis (Acute) Abdominal bloating (Acute) Acute cystitis (Acute) Anterior chest wall pain (Acute) Encounter for IUD insertion (Acute) Family hx of colorectal cancer (Acute) Breast cancer screening (Acute) Presence of 52 mg levonorgestrel-releasing intrauterine device (IUD) (Acute) Cervical cancer screening (Acute) Coccygeal fracture (Acute) Elevated blood pressure reading in office without diagnosis of hypertension (Acute) Impaired fasting glucose (Acute) Urinary frequency (Acute) Annual physical exam (Acute) Invasive ductal carcinoma of breast (Acute) Breast mass, right (Acute) Benign essential hypertension (Acute) Pure hypercholesterolemia (Acute) GERD (gastroesophageal reflux disease) (Acute) Viral upper respiratory tract infection with cough (Acute) Obesity (BMI 30-39.9) (Acute) Migraine (Acute) Asthma (Acute) Cough (Acute) Asthma (Acute) Laryngitis (Acute) Allergic rhinosinusitis (Acute) Past Medical History Medical History Back pain COVID-19 HTN (hypertension) Invasive ductal carcinoma of breast Breast mass, right Benign essential hypertension Pure hypercholesterolemia GERD (gastroesophageal reflux disease) Viral upper respiratory tract infection with cough Obesity (BMI 30-39.9) Migraine Asthma Cyst of breast, left, solitary Cough Asthma Laryngitis Allergic rhinosinusitis Family History Family History (Updated 07/21/24 @ 09:06 by Giuliana Tsai) Mother Colon cancer, Onset Age: 42 Diabetes mellitus Father Heart disease Parkinson disease Maternal Grandmother Breast cancer Paternal Grandmother Breast cancer Maternal Grandfather Prostate CA Family/Other Thyroid cancer Other FH: mental illness Substance abuse Surgical History Surgical History Hx of colonoscopy History of breast lump/mass excision H/O section Social History Social History (Updated 07/21/24 @ 09:07 by Giuliana Tsai) Household Members: Spouse Housing: House Are you a primary intensive care medicine specialist to a significant other at home: No Do you presently have visiting nurse or other home services: No Alcohol intake: never Patient Tobacco Use Status: Never used Tobacco e-Cigarette/Vaping Use: Never Used Second Hand Smoke Exposure: No Use of substances other than those prescribed or required for medical reasons: No Have you been hit, kicked, punched, or otherwise hurt by someone within the past year? 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 Hearing needs: No Vision needs: Yes Meds Allergies Allergy/AdvReac Type Severity Reaction Status Date / Time adhesive tape Allergy Redness of Verified 08/09/24 11:31 Skin flu vaccine AdvReac Severe Hives Uncoded 07/21/24 09:07 Home Medications ?Medication ?Instructions ?Recorded ?Confirmed ?Last Taken ?Type levonorgestrel 21 mcg/24 hr (up to 21 mcg intrauterine ONCE 07/14/23 08/09/24 Unknown History 8 years) 52 mg intrauterine device (Mirena) favvjjxtom-qsryjfhhczoqk-pxbbduxx 1 tab PO Q6H PRN Pain 07/17/23 08/09/24 Unknown History 50 mg-325 mg-40 mg tablet fluticasone propionate 50 1 spray intranasal BID PRN Allergy 08/09/24 08/09/24 Unknown History mcg/actuation nasal Symptoms spray,suspension (Aller-Abel) naproxen 500 mg tablet 500 mg PO BID PRN Pain 08/09/24 08/09/24 Unknown History Exam Height,Weight and Vital Signs: Height 5 ft 3 in Weight 92.986 kg Pertinent Lab Results Pertinent Lab Results: Laboratory Tests 07/21/24 10:06 WBC 8.5 Hgb 13.9 Hct 42.3 Plt Count 350 Sodium 140 Potassium 4.1 Chloride 105 Carbon Dioxide 27 BUN 10 Creatinine 0.81 Narrative Narrative: EKG 2022 Vent. Rate : 077 BPM Atrial Rate : 077 BPM P-R Int : 164 ms QRS Dur : 088 ms QT Int : 380 ms P-R-T Axes : 027 013 -02 degrees QTc Int : 430 ms Normal sinus rhythm Normal ECG When compared with ECG of 09-MAR-2023 08:04, No significant changes seen Assessment and Plan Assessment Anesthesia Assessment: Chart Reviewed Documented by User: Carla Benson, 08/16/24 10:53 PMFSH Past Medical History Medical History Back pain COVID-19 HTN (hypertension) Invasive ductal carcinoma of breast Breast mass, right Benign essential hypertension Pure hypercholesterolemia GERD (gastroesophageal reflux disease) Viral upper respiratory tract infection with cough Obesity (BMI 30-39.9) Migraine Asthma Cyst of breast, left, solitary Cough Asthma Laryngitis Allergic rhinosinusitis Family History Family History (Updated 07/21/24 @ 09:06 by Giuliana Tsai) Mother Colon cancer, Onset Age: 42 Diabetes mellitus Father Heart disease Parkinson disease Maternal Grandmother Breast cancer Paternal Grandmother Breast cancer Maternal Grandfather Prostate CA Family/Other Thyroid cancer Other FH: mental illness Substance abuse Family history of problems with anesthesia: No Surgical History Surgical History Hx of colonoscopy History of breast lump/mass excision H/O section History of Problems with Anesthesia: No Social History Social History (Updated 07/21/24 @ 09:07 by Giuliana Tsai) Household Members: Spouse Housing: House Are you a primary intensive care medicine specialist to a significant other at home: No Do you presently have visiting nurse or other home services: No Alcohol intake: never Patient Tobacco Use Status: Never used Tobacco e-Cigarette/Vaping Use: Never Used Second Hand Smoke Exposure: No Use of substances other than those prescribed or required for medical reasons: No Have you been hit, kicked, punched, or otherwise hurt by someone within the past year? 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 Hearing needs: No Vision needs: Yes Meds Allergies Allergy/AdvReac Type Severity Reaction Status Date / Time adhesive tape Allergy Redness of Verified 08/09/24 11:31 Skin flu vaccine AdvReac Severe Hives Uncoded 07/21/24 09:07 Home Medications ?Medication ?Instructions ?Recorded ?Confirmed ?Last Taken ?Type levonorgestrel 21 mcg/24 hr (up to 21 mcg intrauterine ONCE 07/14/23 08/09/24 Unknown History 8 years) 52 mg intrauterine device (Mirena) kwenshndpb-yczjapcqjbdrx-xgulpqik 1 tab PO Q6H PRN Pain 07/17/23 08/09/24 Unknown History 50 mg-325 mg-40 mg tablet fluticasone propionate 50 1 spray intranasal BID PRN Allergy 08/09/24 08/09/24 Unknown History mcg/actuation nasal Symptoms spray,suspension (Aller-Abel) naproxen 500 mg tablet 500 mg PO BID PRN Pain 08/09/24 08/09/24 Unknown History Exam Exam Date and Time: 08/16/24 1020 Height,Weight and Vital Signs: Height 5 ft 3 in Weight 92.986 kg Height 5 ft 3 in Weight 92.986 kg Vital Signs Temperature 97.5 F 08/16/24 09:08 Pulse Rate 75 08/16/24 09:08 Respiratory Rate 14 08/16/24 09:08 Blood Pressure 134/88 08/16/24 09:08 Pulse Oximetry 98 08/16/24 09:08 Oxygen Delivery Method Room Air 08/16/24 09:08 Temperature 97.5 F 08/16/24 09:08 Pulse Rate 75 08/16/24 09:08 Respiratory Rate 14 08/16/24 09:08 Blood Pressure 134/88 08/16/24 09:08 Pulse Oximetry 98 08/16/24 09:08 Oxygen Delivery Method Room Air 08/16/24 09:08 Airway Mallampati Class: II TM Dist: >3cm Neck ROM: Full Loose/Missing/Broken Teeth: No (patient denies any loose or broken teeth) Heart: S1S2 Lungs: CTAB Assessment and Plan Assessment Anesthesia Assessment: Anesthesia Plan Discussed and Chart Reviewed Final Anesthetic Review Family History of Problems with Anesthesia: No History of Problems with Anesthesia: No NPO: Yes ASA Class: II Final Preanesthetic Review: No Changes in Pt Med Stat, Meds/Allgs Chart Reviewed, Consent Obtained/Reviewed and Anes Risks/Benef Reviewed Patient Risk: Low Procedure Risk: Low Anesthetic Plan Anesthetic Plan: GA and Agree w/ Assess. and Plan Disposition: Standard PACU
--- NOTE | 2024-08-16 10:37 | MHC.SHP ---
Pre-Procedural Eval Section A - 24 Hr Update-Section A only Date of Service: 08/16/24 The patient is an INPATIENT: No The patient has been examined within 24 hours of the surgical procedure. The History & Physical has been completed within 30 days and I have reviewed it.: Yes Section B - Complete if H&P > 30 days Chief Complaint: Malignant neoplasm of unspecified site Allergies: Allergies Allergy/AdvReac Type Severity Reaction Status Date / Time adhesive tape Allergy Redness of Verified 08/09/24 11:31 Skin flu vaccine AdvReac Severe Hives Uncoded 07/21/24 09:07 Plan I have reviewed the history and physical and performed a pertinent physical examination on my patient. No changes have occurred unless specified. Time Spent With Patient Time: Total time managing care of this patient today ____ minutes.
--- NOTE | 2024-08-16 13:33 | W.PM.OPN ---
Operative Note Operative Note Date of Service: 08/16/24 Narrative: Preop diagnosis: Invasive ductal carcinoma right breast Postop diagnosis: The same Procedure: Lumpectomy, right breast via Hologic localizer, with sentinel node biopsy with deep axillary nodes Surgeon: Julien Martínez MD assistant administrator: BELA Parada The patient is a 44 year old female with a recent diagnosis of invasive ductal carcinoma. She wanted to proceed with lumpectomy, via Hologic localizer, with sentinel node biopsy. She was aware of the risks, benefits, and alternatives She was brought to the operating room. She had earlier undergone injection with under material to the perianal areolar area. I have reviewed the scintigraphy images. The right breast and axilla were prepped and draped in the usual sterile fashion. A surgical time-out was done. The patient received cefazolin 2 g IV preoperatively I used the Hologic localizer to identify the location of the RF ID clip. I infiltrated the planned line of incision with lidocaine 1%. I made the incision on the supra areolar margin in a transverse curvilinear fashion with a blade 15. This carried down with electrocautery through the full-thickness of the skin subcutaneous fat. We then proceeded to identify the location of the RF ID clip using the Hologic localizer. I carefully did sharp dissection around the approximate area of the clip with curved Corado scissors. We had to periodically use the Hologic localizer to make sure that we had enough margins surrounding the clip. I also made sure that the margins appeared to be grossly clear. I marked the lateral and superior aspect of the specimen with sutures for orientation. The specimen was sent for immediate re-ray. This was reviewed with the radiologist and the biopsy clip as well as the RF ID clip were within the specimen and there appeared to be ready logically good margins. We then cauterized oozing areas achieve hemostasis. We irrigated. I then applied a packing with gauze and proceeded with sentinel node biopsy We had changed gloves at this point . I then used the gamma probe to identify the highest signals in the right axilla under the pectoralis. The planned line of incision was infiltrated with lidocaine 1%. I made the incision using blade 15. This carried down with electrocautery through the full-thickness of the skin and subcutaneous fat. I then gently incised the fascia the axilla entered the axillary fat pad. I periodically used the gamma probe to identify the sentinel nodes. There were the axillary nodes removed. The 1st sentinel node had a count of 138. I gently dissected around this with Metzenbaum scissors. I applied a right angle clamp above this and this was divided above the clamp. The axillary tissue was ligated with Polysorb 3-0 in the right angle clamp was released A 2nd sentinel node was identified with a count of 1194. Again, this was sharply dissected with the Metzenbaum scissors. A clamp was placed above this. I transected this above the clamp. I ligated the breast tissue below the clamp using Polysorb 3-0 tie of the right angle clamp was released Maiden node 1 had a count of 138. Maiden node 2 had a count of 1194. I then proceeded to scan the axilla multiple times. There were no other significant elevated counts on the gamma probe I therefore irrigated. I made sure that there was good hemostasis. The deep subcutaneous layer was reapposed with Polysorb 3-0 simple interrupted sutures. At this point, we got a phone call from the pathologist about the immediate gross exam. She was concerned that the posterior posterior margins may be positive. She stated that the anterior margin may be closed as well. We therefore proceeded to remove additional margins from the posterior side of the excision cavity as well as on the anterior side. We observed for hemostasis. I had to cauterized oozing areas. Once hemostasis was confirmed, I then reapposed deep breast tissue with Polysorb 3-0 interrupted sutures. The subcutaneous layer was reapposed with Polysorb 3-0 sutures as well. Skin closure was achieved on both incisions using Polysorb 4-0 subcuticular running sutures All incisions were infiltrated with Marcaine 0.5% for postop analgesia. Steri-Strips and dressings were applied. The procedure was completed The patient tolerated the procedure well. There were no immediate complications. Initial and final counts of sponges and instruments were correct. Estimated blood loss was about 50 cc The patient was extubated without difficulty and transferred to the recovery room with stable vital signs. The procedure was done with curative intent for the invasive ductal carcinoma. Breast Maiden Node Biopsy Substrate(s) used for sentinel node biopsy in the non-neoadjuvant setting: Radiotracer All significantly radioactive nodes were removed, if radionuclide was used as the substrate for localization: Yes All palpably suspicious nodes were removed, if present: N/A If clips were placed in pathology-involved nodes, those nodes were identified and removed: Yes General Surg. - Synoptic Notes Breast Maiden Node Biopsy Substrate(s) used for sentinel node biopsy in the non-neoadjuvant setting: Radiotracer All significantly radioactive nodes were removed, if radionuclide was used as the substrate for localization: Yes All palpably suspicious nodes were removed, if present: N/A If clips were placed in pathology-involved nodes, those nodes were identified and removed: Yes
[2024-08-16] MEDS: Haloperidol Lactate 5 MG/ML VIAL 1 MG IVPUSH (14:03)
[2024-08-16] MEDS: fentaNYL citrate/PF 100 MCG/2 ML VIAL 50 MCG IVPUSH (14:14)
[2024-08-16] MEDS: Ondansetron ODT 4 MG TAB.RAPDIS TRANSLINGU (15:43)
--- NOTE | 2024-08-16 15:44 | PC.NURSE ---
PATIENT GIVEN ZOFRAN 4 MG ODT PER ORDER FOR COMPLAINT OF NAUSEA/VOMITING. PATIENT SPIT UP APPROX 100 ML.
--- NOTE | 2024-08-16 15:51 | PC.NURSE ---
PATIENT STATES FEELING NO NAUSEA AT THIS TIME. PATIENT BEING DC'D HOME.
== END 2024-08-16 15:52 | disposition home or self-care (01) ==
PROVIDERS: Nurse Practitioner; PCP Internal Medicine; Visit Provider Surgery
PROC: (CPT 19301; principal; 2024-08-16 11:30)
PROC: (CPT 19301; 2024-08-16 11:30)
DX: C50.811 Malignant neoplasm of overlapping sites of right female breast (principal); Z17.0 Estrogen receptor positive status [ER+]; N60.02 Solitary cyst of left breast; I10 Essential (primary) hypertension; E78.00 Pure hypercholesterolemia, unspecified; J45.909 Unspecified asthma, uncomplicated; G43.909 Migraine, unspecified, not intractable, without status migrainosus; K21.9 Gastro-esophageal reflux disease without esophagitis; E66.9 Obesity, unspecified; Z68.36 Body mass index [BMI] 36.0-36.9, adult; Z79.899 Other long term (current) drug therapy; Z88.7 Allergy status to serum and vaccine
CPT/HCPCS: 19301; 38525; 38900; 78195; 81025; 88307; 88329; 88341; 88342; 88360; A9520; J0131; J0690; J1100; J1170; J1630; J2250; J2371; J2405; J2704; J2795; J3010; Q9968

== ENCOUNTER → 2024-08-16 08:12 | Outpatient (BNV) | payer OTHER, SELFPAY | PROVIDERS: PCP Internal Medicine; Visit Provider Surgery | DX: C50.811 Malignant neoplasm of overlapping sites of right female breast (principal) | CPT/HCPCS: 19301; 38500; 38525; 38900 ==

== ENCOUNTER → 2024-08-16 09:22 | Outpatient (BNV) | payer OTHER, SELFPAY | PROVIDERS: PCP Internal Medicine; Visit Provider Radiology Diagnostic Radiology | DX: C50.911 Malignant neoplasm of unspecified site of right female breast (principal) | CPT/HCPCS: 78195 ==

== ENCOUNTER 2024-08-24 10:57 | Outpatient (AMB) | payer OTHER, SELFPAY ==
--- NOTE | 2024-08-24 10:59 | MHC.OFFVIS ---
Vital Signs 08/24/24 11:07 Height 5 ft 3 in Weight 201 lb 4.513 oz BMI 35.7 Intake Visit Reasons: Rt arm cold & numb, color off Intake Note: This patient presents for a wound check, cold sensation right arm, numbness and discoloration. Pt c/o; reports cold sensation, numbness and discoloration right arm. Cementer Required: No Accompanied by: Other Relationship Allergies adhesive tape Allergy (Verified 08/24/24 11:06) Redness of Skin flu vaccine Adverse Reaction (Severe, Uncoded 08/24/24 11:06) Hives HPI HPI Rt arm cold & numb, color off: Details: She is here for a postop visit. She had undergone right breast lumpectomy and sentinel biopsy for invasive ductal carcinoma last August 16, 2024. She describes sensation of her right arm being ?hot and cold?. She thought that this was a little swollen as well over the weekend She denies any problems with her incisions. [facility] Medical History Back pain COVID-19 HTN (hypertension) Invasive ductal carcinoma of breast Breast mass, right Benign essential hypertension Pure hypercholesterolemia GERD (gastroesophageal reflux disease) Viral upper respiratory tract infection with cough Obesity (BMI 30-39.9) Migraine Asthma Cyst of breast, left, solitary Cough Asthma Laryngitis Allergic rhinosinusitis Surgical History Hx of colonoscopy History of breast lump/mass excision H/O section Family History Mother Colon cancer, Onset Age: 42 Diabetes mellitus Father Heart disease Parkinson disease Maternal Grandmother Breast cancer Paternal Grandmother Breast cancer Maternal Grandfather Prostate CA Family/Other Thyroid cancer Other FH: mental illness Substance abuse Social History Household Members: Spouse Housing: House Are you a primary customer care agent to a significant other at home: No Do you presently have visiting nurse or other home services: No Alcohol intake: never Patient Tobacco Use Status: Never used Tobacco e-Cigarette/Vaping Use: Never Used Second Hand Smoke Exposure: No service: No Current occupational status: employed 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[employer] Cognitive needs: No Hearing needs: No Vision needs: Yes Female Reproductive History Menstrual Age of Menarche: 7 Review of Systems Const Denies chills and Denies fever(s) Card Denies chest pain, Denies dyspnea and Denies dyspnea on exertion Resp Denies cough, Denies dyspnea and Denies dyspnea on exertion GI Denies hematochezia and Denies change in bowel habits Denies hematuria Musc Denies back pain and Denies limited range of motion Neuro Denies focal weakness and Denies convulsions Psych Denies depression and Denies mood swings Physical Exam Vital Signs: BMI result Body Mass Index 35.7 Const General: comfortable and no acute distress Chest Other: Lumpectomy and sentinel biopsy sites both healing well, no infection, no hematoma Extrem Other: No obvious edema or cellulitis of the right arm Assessment & Plan Assessment & Plan (1) Breast cancer, right breast: Code(s): C50.911 - Malignant neoplasm of unspecified site of right female breast Category: Medical Plan: She describes what she felt was swelling of the right arm over the weekend. I am going to order for an ultrasound to rule out DVT. Her incisions are otherwise well healing Her final path report shows a T2 N1 invasive ductal carcinoma. She will therefore need chemotherapy. She is to follow up with Dr. Martin for this. She is also being set up for radiation treatment for the breast I updated her family as well. I will see her again in the office next week for another visit. Orders: Orders US venous duplex LE RT Today C50.911 - Malignant neoplasm of unspecified site of right female breast Coding Level of Care Code Global (00084) Diagnoses Breast cancer, right breast C50.911
[2024-08-24 11:07] VITALS: BMI 35.7
== END 2024-08-24 11:21 | disposition home or self-care (01) ==
PROVIDERS: PCP Internal Medicine; Visit Provider Surgery
DX: C50.911 Malignant neoplasm of unspecified site of right female breast (principal)
CPT/HCPCS: 99024

== ENCOUNTER → 2024-08-24 10:57 | Outpatient (BNVA) | payer OTHER, SELFPAY | PROVIDERS: PCP Internal Medicine; Visit Provider Surgery ==

== ENCOUNTER 2024-08-25 12:02 | Emergency (ER) | payer OTHER, SELFPAY ==
--- NOTE | ~2024-08-25 | US_ITS ---
EXAMINATION: US TRIPLEX UPPER EXTREMITY, RIGHT CLINICAL INFORMATION: Left arm pain COMPARISON: None available. TECHNIQUE: Color-flow triplex imaging with spectral analysis and compression Doppler was performed on the right upper extremity. FINDINGS: The right internal jugular, subclavian, and axillary veins are patent and free of thrombus. The imaged segment of the right brachiocephalic vein is patent. Spectral doppler waveforms are normal. The brachial, basilic, cephalic, radial, and ulnar veins are patent and compressible. US/US venous duplex UE RT IMPRESSION: No evidence of deep venous thrombosis involving the right upper extremity. Electronically signed by: Mick Villanueva MD 08/25/2024 01:42 PM EDT
[2024-08-25 12:53] VITALS: BP 135/78; PULSE 67; RESP 16; TEMP 36.9; O2SAT 98; BMI 35.5
--- NOTE | 2024-08-25 12:58 | ED_ITS ---
HPI - General Adult General Chief complaint: General Medical Stated complaint: Post-op numbness R arm Time Seen by Provider: 08/25/24 17:11 Source: patient Limitations: no limitations History of Present Illness ED Provider: Helene Jean Baptiste PA-C HPI narrative: 44-year-old female s/p Lumpectomy, right breast with sentinel node biopsy with deep axillary nodes 08/16, presents with right upper extremity paresthesia and swelling. Patient states she is pending an ultrasound to rule out a DVT. She denies weakness of upper extremity, coolness or paleness of the limb, no fevers. Patient denies redness, warmth or drainage from the incision site. Related Data Home Medications ?Medication ?Instructions ?Recorded ?Confirmed levonorgestrel 21 mcg/24 hr (up to 21 mcg intrauterine ONCE 07/14/23 08/22/24 8 years) 52 mg intrauterine device (Mirena) eapptaadew-pxsmmfgixttmm-tozrdozg 1 tab PO Q6H PRN Pain 07/17/23 08/22/24 50 mg-325 mg-40 mg tablet fluticasone propionate 50 1 spray intranasal BID PRN Allergy 08/09/24 08/22/24 mcg/actuation nasal Symptoms spray,suspension (Aller-Abel) naproxen 500 mg tablet 500 mg PO BID PRN Pain 08/09/24 08/22/24 Previous Rx's ?Medication ?Instructions ?Recorded meloxicam 15 mg tablet 15 mg PO DAILY PRN pain 30 days 07/17/23 #30 tabs metoclopramide HCl 10 mg tablet 10 mg PO Q6H PRN nausea and 08/09/23 (Reglan) vomiting #14 tabs Ventolin HFA 90 mcg/actuation 2 puff inhalation Q6H PRN 01/19/24 aerosol inhaler (albuterol sulfate) shortness of breath or wheezing 30 days #18 grams propranolol 80 mg capsule,24 80 mg PO DAILY 90 days #90 caps 05/25/24 hr,extended release omeprazole 20 mg capsule,delayed 20 mg PO DAILY 90 days #90 caps 06/27/24 release Allergies Allergy/AdvReac Type Severity Reaction Status Date / Time adhesive tape Allergy Redness of Verified 08/25/24 12:58 Skin flu vaccine AdvReac Severe Hives Uncoded 08/25/24 12:58 Review of Systems 2 Review of Systems: Yes all other systems are reviewed and are negative Constitutional: Constitutional: Denies fatigue and Denies fever(s) Cardiovascular: Cardiovascular: Denies chest pain and Denies dyspnea Respiratory: Respiratory: Denies dyspnea Musculoskeletal: Musculoskeletal: Reports arthralgias, Reports joint swelling and Reports tingling Neurologic: Reports tingling Endocrine: Endocrine: Denies fatigue [facility] Past Medical History Attestation statement: The following information was validated with the patient. Medical History (Updated 08/26/24 @ 00:01 by Min Estes) Back pain COVID-19 HTN (hypertension) Invasive ductal carcinoma of breast Breast mass, right Benign essential hypertension Pure hypercholesterolemia GERD (gastroesophageal reflux disease) Viral upper respiratory tract infection with cough Obesity (BMI 30-39.9) Migraine Asthma Cyst of breast, left, solitary Cough Asthma Laryngitis Allergic rhinosinusitis Surgical History (Updated 08/26/24 @ 09:36 by Nicole Garcia Roc) History of lumpectomy of right breast (~08/16/24) Hx of colonoscopy History of breast lump/mass excision H/O section Family History Family History Mother Colon cancer, Onset Age: 42 Diabetes mellitus Father Heart disease Parkinson disease Maternal Grandmother Breast cancer Paternal Grandmother Breast cancer Maternal Grandfather Prostate CA Family/Other Thyroid cancer Other FH: mental illness Substance abuse Social History Social History Household Members: Spouse Housing: House Are you a primary child day care teacher to a significant other at home: No Do you presently have visiting nurse or other home services: No Alcohol intake: never Patient Tobacco Use Status: Never used Tobacco Smoked in Last 30 Days: No e-Cigarette/Vaping Use: Never Used Second Hand Smoke Exposure: No Use of substances other than those prescribed or required for medical reasons: No Advance Directives: No Advance Directives Information Provided: No Do you have a plan to hurt others: No Plan Patient : No service: No Current occupational status: employed 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 needs: No Hearing needs: No Vision needs: Yes Physical Exam ED Vital Signs: Vital Signs - 24 hr 08/25/24 12:53 08/25/24 17:26 08/25/24 18:33 Temperature 98.4 F 97.6 F 97.6 F Pulse Rate 67 61 61 Respiratory Rate 16 16 16 Blood Pressure 135/78 122/70 122/70 Pulse Oximetry 98 98 98 Oxygen Delivery Method Room Air Room Air Room Air BMI result Body Mass Index 35.5 Const Other: Alert, well in appearance Orientation/consciousness: patient oriented x3 Resp Effort & Inspection: normal respiratory effort Cardio Other: Normal peripheral perfusion Skin Other: Warm dry no rash Neuro General: patient oriented x3, no focal motor deficits and CN's II-XI intact bilaterally Extrem Other: The right upper extremity is not objectively swollen. The incision site itself is without warmth, erythema, swelling and no purulent drainage. Neurovascularly intact Psych Other: Calm cooperative Course Course Course Narrative: RME: DOne by Eduardo Sheppard. 44-year-old female status post lumpectomy and right lumpectomy presents to ED for sensation of right arm numbness/tingling and sensation of swelling. Patient has scheduled ultrasound for right upper extremity. Right breast negative for swelling, erythema, pus discharge, foul odor, any signs of wound infection. Right axillary negative for swelling, redness, warmth. Right upper extremity negative for obvious swelling and motor, vascular, neuro exam intact. Basic labs ultrasound ordered. NIH score is 0. Not suspecting stroke Medical Decision Making Medical Decision Making MDM Narrative: 44-year-old female s/p Lumpectomy, right breast with sentinel node biopsy with deep axillary nodes 08/16, presents with right upper extremity paresthesia and swelling. Patient states she is pending an ultrasound to rule out a DVT. She denies weakness of upper extremity, coolness or paleness of the limb, no fevers. Patient denies redness, warmth or drainage from the incision site. Problem: Cancer and recent surgery History: Per patient I have considered the following differential diagnoses: DVT, postoperative swelling, postoperative infection, cellulitis, purulent cellulitis Plan: The patient began their assessment from [facility], ultrasound was ordered, there was no DVT. We will send the patient with home care instructions. To note there was no evidence of infection on exam. I have independently reviewed the following tests: Ultrasound right upper extremity:TECHNIQUE: Color-flow triplex imaging with spectral analysis and compression Doppler was performed on the right upper extremity. FINDINGS: The right internal jugular, subclavian, and axillary veins are patent and free of thrombus. The imaged segment of the right brachiocephalic vein is patent. Spectral doppler waveforms are normal. The brachial, basilic, cephalic, radial, and ulnar veins are patent and compressible. US/US venous duplex UE RT IMPRESSION: No evidence of deep venous thrombosis involving the right upper extremity. Electronically signed by: Mick Villanueva MD 08/25/2024 01:42 PM EDT Lab Data 08/25/24 13:06 08/25/24 13:06 Labs: Lab Results 08/25/24 Range/Units 13:06 WBC 8.2 (4.8-10.8) X10*3/uL RBC 4.89 (4.20-5.50) X10*6/uL Hgb 13.4 (12.0-16.0) g/dl Hct 40.8 (37.0-47.0) % MCV 83.4 (80.0-98.0) fL MCH 27.4 (27.0-33.0) pg MCHC 32.8 (31.0-35.0) g/dl RDW 13.2 (11.0-16.0) % Plt Count 343 (160-400) X10*3/uL MPV 11.5 (9.4-12.3) fL Immature Gran % (Auto) 0.4 (0.0-0.4) % Neut % (Auto) 59.1 (45-73) % Lymph % (Auto) 30.9 (20-40) % Plumas % (Auto) 6.3 (2-11) % Eos % (Auto) 2.6 (0-4) % Baso % (Auto) 0.7 (0-2) % Lymph # (Auto) 2.5 (1.2-4.9) X10*3/uL Plumas # (Auto) 0.5 (0.1-1.2) X10*3/uL Eos # (Auto) 0.2 (0.0-0.4) X10*3/uL Baso # (Auto) 0.1 (0.0-0.2) X10*3/uL Abs Immat Gran (auto) 0.03 (0.00-0.03) X10*3/uL Absolute Neuts (auto) 4.9 (2.0-8.3) x10*3/uL Absolute Nucleated RBC 0.000 (0.0-0.012) X10*3/uL Nucleated RBC % (auto) 0.0 (0.0-0.2) /100WBC PT 10.9 (10.9-12.4) SEC INR 0.9 (0.9-1.1) APTT 31.7 (26.0-36.8) SEC Sodium 140 (135-145) mmol/L Potassium 4.2 (3.3-5.1) mmol/L Chloride 107 (96-108) mmol/L Carbon Dioxide 27 (22-29) mmol/L Anion Gap 10 L (12-20) BUN 10 (9-16) mg/dL Creatinine 0.79 (0.5-1.4) mg/dL Estim Creat Clear Calc 95.3 Estimated GFR > 60 Random Glucose 84 (60-115) mg/dL Calcium 9.5 (8.4-10.2) mg/dL Total Bilirubin 0.3 (0.0-1.0) mg/dL AST 14 (5-31) U/L ALT 16 (0-31) U/L Alkaline Phosphatase 101 (39-117) U/L Total Protein 7.5 (6.5-8.0) g/dL Albumin 4.1 (3.5-5.0) g/dL Discharge Plan Discharge Clinical Impression: Arm pain, right Patient Disposition: Home, Self-Care Instructions: Arm Pain (ED) Additional Instructions: The ultrasound was negative for a deep vein thrombosis. It can be expected that you can have postoperative swelling. Try to hold the arm above your heart, do not allow it to hang at the side. Follow up with your surgeon as previously directed. Prescriptions: No Action metoclopramide HCl [Reglan] 10 mg tablet 10 mg PO Q6H PRN (Reason: nausea and vomiting) Qty: 14 0RF propranolol 80 mg capsule,extended release 24 hr 80 mg PO DAILY 90 Days Qty: 90 1RF omeprazole 20 mg capsule,delayed release(DR/EC) 20 mg PO DAILY 90 Days Qty: 90 3RF naproxen 500 mg Tablet 500 mg PO BID PRN (Reason: Pain) fluticasone propionate [Aller-Abel] 50 mcg/actuation spray,suspension 1 spray intranasal BID PRN (Reason: Allergy Symptoms) Rx Instructions: administer into each nostril asfyxvdnlw-mdgrvhkqwfwbc-cmde 50-325-40 mg tablet 1 tab PO Q6H PRN (Reason: Pain) meloxicam 15 mg tablet 15 mg PO DAILY PRN (Reason: pain) 30 Days Qty: 30 3RF Rx Instructions: Take with food albuterol sulfate [Ventolin HFA] 90 mcg/actuation HFA aerosol inhaler 2 puff inhalation Q6H PRN (Reason: shortness of breath or wheezing) 30 Days Qty: 18 5RF Mirena 21 mcg/24 hours (8 yrs) 52 mg intrauterine device 21 mcg intrauterine ONCE Interventions: ED Discharge Assessment Last Done: 08/25/24 18:33 Discharge Date/Time: 08/25/24 18:36 Print Language: Tajik
[2024-08-25 13:11] LABS: MANUAL DIFF FLAG NO
[2024-08-25 13:13] LABS: Basophils Absolute Auto 0.1 X10*3/uL (0.0-0.2); Basophils Percent Auto 0.7 % (0-2); Eosinophils Absolute Auto 0.2 X10*3/uL (0.0-0.4); Eosinophils Percent Auto 2.6 % (0-4); Hematocrit 40.8 % (37.0-47.0); Hemoglobin 13.4 g/dl (12.0-16.0); Imm Gran Abs Auto 0.03 X10*3/uL (0.00-0.03); Imm Gran Pct Auto 0.4 % (0.0-0.4); Lymphocytes Absolute Auto 2.5 X10*3/uL (1.2-4.9); Lymphocytes Percent Auto 30.9 % (20-40); Mean Corpuscular HGB Conc 32.8 g/dl (31.0-35.0); Mean Corpuscular Hemoglobin 27.4 pg (27.0-33.0); Mean Corpuscular Volume 83.4 fL (80.0-98.0); Mean Platelet Volume 11.5 fL (9.4-12.3); Monocytes Absolute Auto 0.5 X10*3/uL (0.1-1.2); Monocytes Percent Auto 6.3 % (2-11); Neutrophils Absolute Auto 4.9 x10*3/uL (2.0-8.3); Neutrophils Percent Auto 59.1 % (45-73); Platelet Count 343 X10*3/uL (160-400); Red Blood Count 4.89 X10*6/uL (4.20-5.50); Red Cell Distribution Width 13.2 % (11.0-16.0); White Blood Count 8.2 X10*3/uL (4.8-10.8)
[2024-08-25 13:17] LABS: INTERNATIONAL NORM RATIO 0.9 (0.9-1.1); Prothrombin Time 10.9 SEC (10.9-12.4)
[2024-08-25 13:20] LABS: Partial Thromboplastin Time 31.7 SEC (26.0-36.8)
[2024-08-25 13:29] LABS: Alanine Aminotransferase 16 U/L (0-31); Albumin Level 4.1 g/dL (3.5-5.0); Alkaline Phosphatase 101 U/L (39-117); Anion Gap 10 (12-20); Aspartate Amino Transferase 14 U/L (5-31); Bilirubin Total 0.3 mg/dL (0.0-1.0); Blood Urea Nitrogen 10 mg/dL (9-16); Calcium 9.5 mg/dL (8.4-10.2); Carbon Dioxide 27 mmol/L (22-29); Chloride 107 mmol/L (96-108); Creatinine Clr Calc Pharmacy 95.3; Estimated Glomerular Filt Rate > 60; Glucose Random 84 mg/dL (60-115); Potassium 4.2 mmol/L (3.3-5.1); Sodium 140 mmol/L (135-145); Total Protein 7.5 g/dL (6.5-8.0)
--- NOTE | 2024-08-25 17:10 | MHC.HEMONC ---
Triage call from pt stating that she has been in the ED since around 1pm because of swelling and numbness in her arm right after her lumpectomy with Dr Martínez. She reports seeing Dr Martínez yesterday 08/24, and he ordered ultrasound for her arm to check for blood clot. She states the US had not been scheduled and she had been advised to go to ED if symptoms worsen. She reports seeing the report of the US in her pt portal but has not seen the MD in the ED at this time and that she continues to wait in the waiting room. Because of the amount of time she has been waiting, she called here to get advice on what to do next. While talking on the phone with this contract writer, she was called in.
--- NOTE | 2024-08-25 17:23 | PC.NURSE ---
patient arrives through external triage with cc of right arm numbness and tingling. patient states she had a recent right sided lumpectomy on 08/16, states the arm was a little swollen last night but today the swelling isn't bad and the tingling and pain is whats bothering her. patient CMS intact on bilateral upper extremities, palpable radial pulses bilaterally, patient states the pain starts in her hand and travels up to her elbow, states the surgeon was supposed to order an ultrasound however she never received a call to schedule and he then told her just to come in and be evaluated. patient denies any neck pain, chest pain or shortness of breath, extremity is cool to the touch. blood work completed in triage, patient denies any other complaints at this time.
[2024-08-25 17:26] VITALS: BP 122/70; PULSE 61; RESP 16; TEMP 36.4; O2SAT 98
[2024-08-25 18:33] VITALS: BP 122/70; PULSE 61; RESP 16; TEMP 36.4; O2SAT 98
== END 2024-08-25 18:36 | disposition home or self-care (01) ==
PROVIDERS: Physician Assistant; Emergency Provider Internal Medicine; PCP Internal Medicine
DX: M79.601 Pain in right arm (principal); R20.0 Anesthesia of skin; R60.0 Localized edema; Z79.899 Other long term (current) drug therapy
CPT/HCPCS: 36415; 80053; 85025; 85610; 85730; 93971; 99284

== ENCOUNTER 2024-08-29 12:58 | Outpatient (AMB) | payer OTHER, SELFPAY ==
--- NOTE | 2024-08-29 12:58 | MHC.OFFVIS ---
Intake Visit Reasons: S/P Rt lumpectomy w/localizer and SN bx Intake Note: This patient presents for post-op assessment status post right breast lumpectomy. Pt c/o; reports numbness, tingling and swelling is still present, reports discharge, reports hot to the touch sensation. Commodities Clerk Required: No Accompanied by: Other Relationship Allergies adhesive tape Allergy (Verified 08/29/24 13:04) Redness of Skin flu vaccine Adverse Reaction (Severe, Uncoded 08/29/24 13:04) Hives Medication List - Last Reconciled 08/29/24 by Julien Martínez MD [id number] 50-325-40 mg 1 tab PO Q6H PRN fluticasone propionate 50 mcg/actuation (Aller-Abel) 1 spray intranasal BID PRN levonorgestrel (Mirena) 21 mcg intrauterine ONCE meloxicam 15 mg PO DAILY PRN 30 days metoclopramide HCl (Reglan) 10 mg PO Q6H PRN naproxen 500 mg PO BID PRN omeprazole 20 mg PO DAILY 90 days propranolol ER 80 mg PO DAILY 90 days Ventolin HFA 90 mcg/actuation (albuterol sulfate) 2 puffs inhalation Q6H PRN 30 days NS HPI HPI S/P Rt lumpectomy w/localizer and SN bx: Details: She says that her numbness and tingling have improved although these are still present She actually went to the ER last week have this checked as she could not have the venous Doppler as an outpatient quickly. The venous Doppler study did not show any DVT in the right axilla She denies any other complaints at this time. [facility] Medical History Back pain COVID-19 HTN (hypertension) Invasive ductal carcinoma of breast Breast mass, right Benign essential hypertension Pure hypercholesterolemia GERD (gastroesophageal reflux disease) Viral upper respiratory tract infection with cough Obesity (BMI 30-39.9) Migraine Asthma Cyst of breast, left, solitary Cough Asthma Laryngitis Allergic rhinosinusitis Surgical History History of lumpectomy of right breast (~08/16/24) Hx of colonoscopy History of breast lump/mass excision H/O section Family History Mother Colon cancer, Onset Age: 42 Diabetes mellitus Father Heart disease Parkinson disease Maternal Grandmother Breast cancer Paternal Grandmother Breast cancer Maternal Grandfather Prostate CA Family/Other Thyroid cancer Other FH: mental illness Substance abuse Social History Household Members: Spouse Housing: House Are you a primary acute care certified nursing assistant to a significant other at home: No Do you presently have visiting nurse or other home services: No Alcohol intake: never Patient Tobacco Use Status: Never used Tobacco e-Cigarette/Vaping Use: Never Used Second Hand Smoke Exposure: No service: No Current occupational status: employed 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[employer] Cognitive needs: No Hearing needs: No Vision needs: Yes Female Reproductive History Menstrual Age of Menarche: 7 Review of Systems Const Denies chills and Denies fever(s) Card Denies chest pain GI Denies hematemesis Physical Exam Const General: comfortable and no acute distress Chest Other: Lumpectomy and sentinel node biopsy sites on the right are both well healed, not infected, no hematoma Resp Effort & Inspection: normal respiratory effort Assessment & Plan Assessment & Plan (1) Breast cancer, right breast: Code(s): C50.911 - Malignant neoplasm of unspecified site of right female breast Category: Medical Plan: She has a T2 N1 invasive ductal carcinoma on the right breast. Her tingling and numbness have improved She is to follow up with Dr. Martin next week to discuss chemotherapy options. I emphasized to her that it was important to have close surveillance with mammograms down the line I will see her again in the office next month to see how she is doing. Her venous duplexes to reveal any DVT in the right axilla. Coding Level of Care Code Global (46081) Diagnoses Breast cancer, right breast C50.911
== END 2024-08-29 13:23 | disposition home or self-care (01) ==
PROVIDERS: PCP Internal Medicine; Visit Provider Surgery
DX: C50.911 Malignant neoplasm of unspecified site of right female breast (principal)
CPT/HCPCS: 99024

== ENCOUNTER → 2024-08-29 12:58 | Outpatient (BNVA) | payer OTHER, SELFPAY | PROVIDERS: PCP Internal Medicine; Visit Provider Surgery ==

== ENCOUNTER → 2024-08-31 13:57 | Outpatient (REF) | payer OTHER, SELFPAY ==
--- NOTE | 2024-08-31 14:01 | CA_ITS ---
Transthoracic Echocardiogram Patient (Last, First, Middle): Sheree Chan, Gender: Female Date of : 1980 Age: 44 Procedure Date: 08/31/2024 Procedure Type: Transthoracic Echocardiogram Location: OP Height: 160.02 cm Weight: 91.17 kg BSA: 1.94 m2 Heart Rate: 63 bpm BP: 126 / 70 mmHg [employer] Laboratory Assistant: PARESH Referring MD: Hu Martin MD Surgical Instruments Inspector: Sami Tapia MD Symptoms: High-risk breast cancer. Pretreatment evaluation. Study Quality: Adequate w contrast ECG Rhythm: Sinus Conclusions: - Essentially normal study Findings Procedure Information Contrast agent, definity, is being given per protocol without apparent complications. Left Ventricle Normal left ventricular size, thickness, and systolic function. The visually estimated ejection fraction is between 65-70%. Diastolic function is normal for age. Right Ventricle Normal right ventricular cavity size and systolic function. Atria The left atrium is normal in size. Interatrial shunt cannot be excluded. The right atrium was not well visualized. Aortic Valve The aortic valve structure and function is likely normal. There is no aortic valve stenosis. There is no aortic valve regurgitation. Mitral Valve Likely normal mitral valve structure and function. There is trace mitral valve regurgitation. There is no mitral valve stenosis. Pulmonic Valve The pulmonic valve was not well visualized. Tricuspid Valve Likely normal tricuspid valve structure and function. There is trace tricuspid valve regurgitation. The right ventricular systolic pressure is normal. The right ventricular systolic pressure is 23 mmHg. Normal right atrial pressure. There is no evidence of pulmonary hypertension. Great Vessels All visible segments of the aorta are normal in size. The pulmonary artery was not well visualized. There is no dilatation of the ascending aorta measuring 3.00 cm. Venous The inferior vena cava is normal in size and collapses greater than 50% with inspiration. Pericardium/Pleural There is no evidence of pericardial effusion. Prior Study Comparison No prior study available for comparison. Measurements 2D Linear Measurements IVSd: 1.05 0.6-0.9/0.6-1.0 cm LVIDd: 4.52 3.9-5.3/4.2-5.9 cm LVIDd Index: 2.33 2.4-3.2/2.2-3.1 cm/m2 LVIDs: 2.73 2.0-3.6 cm LVPWd: 0.91 0.7-1.1 cm LA Diam: 4.10 2.7-3.8/3.0-4.0 cm LAIDs Index: 2.11 1.5-2.3 cm/m2 LV Mass: 187.07 67-162/88-224 g LV Mass Index: 96.43 43-95/49-115 g/m2 LVOT Diam: 1.90 3.0+(-)1.3 cm 2D Systolic Function EF 4C: 71.90 >55% EF 2C: 68.70 >55% EF BiP: 70.40 >55% Mitral Valve MV Pk E: 0.81 MV PK A: 0.68 MV Decel Time: 230.00 E/A: 1.20 E'Lateral: 8.49 E'Medial: 5.87 E/E' Med: 13.80 E/E' Lat: 9.50 PHT: 67.00 MVA PHT: 3.28 Decel [place]: 3.52 Aortic Valve AoV Pk Len: 1.30 AoV Mn Len: 1.02 AoV VTI: 0.31 AoV Pk Grad: 7.00 Aov Mn Grad: 5.00 EUGENIE Cont.VTI: 2.55 LVOT LVOT Pk Len: 1.30 LVOT Mn Len: 0.97 LVOT VTI: 0.28 LVOT Pk Grad: 7.00 LVOT Mn Grad: 4.00 LVOT Diam: 1.90 LVOT Area: 2.84 Diastolic Function MV Pk E: 0.81 MV Pk A: 0.68 E/A: 1.20 E'Medial: 5.87 E/E' Med: 13.80 E' Laterial: 8.49 E/E' Lat: 9.50 Right Ventricle TAPSE (mm): 20.90 TVS' Len: 9.57 Tricuspid Valve TR Pk Len: 2.24 TR Pk Grad: 20.00 RA Press: 3.00 RVSP: 23.00 Great Vessels Aorta Sinus of Valsalva: 2.80 2.0-3.5 cm Ao Asc: 3.00 2.1-3.4 cm Ao Arch: 2.70 Pulmonary Veins Pulm Vein S/D 1.60 Pulmonary Valve PV Pk Len: 0.98 Peak PV Grad: 4.00 MS Pk Len: 1.40 Updated in Other Vendor System with Status of Final Sami Tapia MD electronically signed on 08/31/2024 3:35:56 PM with status of Final
== END ==
LOC: HO.CARD 13:57
PROVIDERS: Visit Provider Internal Medicine Medical Oncology
DX: Z13.6 Encounter for screening for cardiovascular disorders (principal); Z01.818 Encounter for other preprocedural examination
CPT/HCPCS: 93306; Q9957

== ENCOUNTER → 2024-08-31 14:01 | Outpatient (BNV) | payer OTHER, SELFPAY | PROVIDERS: Visit Provider Internal Medicine Cardiovascular Disease | DX: Z01.818 Encounter for other preprocedural examination (principal) | CPT/HCPCS: 93306 ==

== ENCOUNTER 2024-09-02 10:46 | Day surgery (SDC) | payer OTHER, SELFPAY ==
[2024-09-02 11:32] VITALS: BMI 35.5
[2024-09-02 12:10] VITALS: BP 148/85; PULSE 63; RESP 16; TEMP 36.9; O2SAT 96
[2024-09-02 12:20] LABS: UPreg QC Valid YES; Urine Pregnancy NEGATIVE (NEGATIVE)
[2024-09-02 14:20] VITALS: BP 138/82; PULSE 73; RESP 16; TEMP 36.3; O2SAT 98
[2024-09-02 14:35] VITALS: BP 144/87; PULSE 69; RESP 16; O2SAT 98
[2024-09-02 14:50] VITALS: BP 138/82; PULSE 72; RESP 16; TEMP 36.1; O2SAT 98
[2024-09-02] MEDS: ondansetron HCL 4 MG/2 ML VIAL IVPUSH (14:56)
== END 2024-09-02 15:20 | disposition home or self-care (01) ==
PROVIDERS: Physician Assistant Surgical; Student in an Organized Health Care Education/Training Program; PCP Internal Medicine; Visit Provider Internal Medicine Medical Oncology
DX: Z45.2 Encounter for adjustment and management of vascular access device (principal); C50.911 Malignant neoplasm of unspecified site of right female breast; Z17.0 Estrogen receptor positive status [ER+]; Z17.21 Progesterone receptor positive status; Z17.32 Human epidermal growth factor receptor 2 negative status; Z80.0 Family history of malignant neoplasm of digestive organs; I10 Essential (primary) hypertension; E78.00 Pure hypercholesterolemia, unspecified; J45.909 Unspecified asthma, uncomplicated; Z79.899 Other long term (current) drug therapy; Z79.51 Long term (current) use of inhaled steroids; L23.1 Allergic contact dermatitis due to adhesives; Z88.7 Allergy status to serum and vaccine
CPT/HCPCS: 36561; 81025; 99152; 99153; C1769; C1788; J0690; J1642; J1644; J2003; J2250; J2310; J2405; J3010

== ENCOUNTER → 2024-09-02 11:25 | Outpatient (BNV) | payer OTHER, SELFPAY | PROVIDERS: PCP Internal Medicine; Visit Provider Radiology Vascular & Interventional Radiology | DX: Z51.11 Encounter for antineoplastic chemotherapy (principal) | CPT/HCPCS: 36561; 76937 ==

== ENCOUNTER 2024-09-06 09:52 | Outpatient (REF) | payer OTHER, SELFPAY ==
--- NOTE | ~2024-09-06 | CT_ITS ---
EXAMINATION: CT CHEST WITH CONTRAST CLINICAL INFORMATION: History of breast cancer, restaging COMPARISON: July 23, 2022 TECHNIQUE: Multidetector volumetric CT imaging of the chest was obtained after the administration of 85 mL of Omnipaque 350 intravenous contrast without immediate adverse reactions. Axial MIP volume rendering provided. Sagittal and coronal reformatted images were obtained. This CT examination was performed using dose optimization techniques as appropriate, variously including the following: *Automated exposure control *Adjustment of mA and/or kV according to patient size (this includes techniques or standardized protocols for targeted exams where dose is matched to indication/reason for exam; i.e. extremities or head) *Use of iterative reconstruction technique DLP: 138 mGy-cm FINDINGS: JOINT MACHINE OPERATOR: Unremarkable LUNGS: The lungs are clear with no evidence of inflammation or nodules. MEDIASTINUM: The mediastinum is normal. PLEURA: There is no pleural effusion. No pleural mass or thickening. AXILLA: There are postsurgical changes in the right retroareolar breast UPPER ABDOMEN: Unremarkable OSSEOUS STRUCTURES: Unremarkable. CT/CT chest w IV con IMPRESSION: Unremarkable examination. No evidence of metastasis Fleischner guidelines were followed. Electronically signed by: Jagruti Ayala MD 09/14/2024 03:47 PM EDT
--- NOTE | ~2024-09-06 | CT_ITS ---
EXAMINATION: CT ABDOMEN AND PELVIS WITH CONTRAST CLINICAL INFORMATION: Breast cancer stage COMPARISON: None available. TECHNIQUE: Multidetector volumetric images were obtained from the superior aspect of the liver through the pubic symphysis following administration 85 mL of Omnipaque 350 intravenous contrast. Sagittal and coronal reformatted images were obtained on the technologist's workstation. Oral contrast: No This CT examination was performed using dose optimization techniques as appropriate, variously including the following: *Automated exposure control *Adjustment of mA and/or kV according to patient size (this includes techniques or standardized protocols for targeted exams where dose is matched to indication/reason for exam; i.e. extremities or head) *Use of iterative reconstruction technique DLP: 538 mGy-cm FINDINGS: LUNG BASES: The visualized lung bases are unremarkable. LIVER, GALLBLADDER, AND BILIARY TREE: The liver is normal in size, shape, and attenuation. No focal hepatic lesion or biliary ductal dilatation is present. The gallbladder is unremarkable with no evidence of radiopaque gallstones, gallbladder wall thickening, or obvious pericholecystic inflammatory changes. PANCREAS: Unremarkable. SPLEEN: Unremarkable. ADRENAL GLANDS: Unremarkable. KIDNEYS AND URETERS: The kidneys are normal in size, shape, and attenuation. No hydronephrosis, hydroureter, or calculi seen. No perinephric stranding. BLADDER: Unremarkable. GASTROINTESTINAL TRACT: The small and large bowel are unremarkable. The appendix is unremarkable. ABDOMINAL WALL: There is moderate size fat-containing umbilical hernia LYMPH NODES: Normal. VASCULAR: Unremarkable. PELVIC VISCERA: There is an IUD in the uterus. OSSEOUS STRUCTURES: Unremarkable. CT/CT abdomen pelvis w IV con IMPRESSION: 1. No evidence of metastasis. 2. Fat-containing umbilical hernia. Fleischner guidelines were followed. Electronically signed by: Jagruti Ayala MD 09/07/2024 12:59 PM EDT
[2024-09-06] MEDS: iohexoL 350 MG/ML 100 ML INFUS..BTL IV (12:22)
[2024-09-06] MEDS: Barium Sulfate Oral (Vanilla) 450 ML ORAL.SUSP 900 ML PO (12:23)
[2024-09-06] MEDS: Barium Sulfate Oral (Vanilla) 450 ML ORAL.SUSP PO (12:23)
== END 2024-09-06 09:53 | disposition home or self-care (01) ==
LOC: HO.CT 09:52
PROVIDERS: Visit Provider Internal Medicine Medical Oncology
DX: Z12.39 Encounter for other screening for malignant neoplasm of breast (principal); C50.911 Malignant neoplasm of unspecified site of right female breast
CPT/HCPCS: 71260; 74177; Q9967

== ENCOUNTER 2024-09-08 10:02 | Outpatient (AMB) | payer OTHER, SELFPAY ==
--- NOTE | 2024-09-08 10:08 | A.OFFVIS_ITS ---
Intake Visit Reasons: s/p lumptectomy pain& inverted nipple Intake Note: Patient being seen as an urgent appointment. Hx of Lumpectomy, right breast via Hologic localizer, with sentinel node biopsy with deep axillary nodes on 08-16-2024. Patient c/o: rt nipple white discharge. Nipple looks inverted, tenderness on breast. Manager Perioperative Required: No Accompanied by: Spouse Allergies adhesive tape Allergy (Verified 09/08/24 10:09) Redness of Skin flu vaccine Adverse Reaction (Severe, Uncoded 09/08/24 10:09) Hives Is last menstrual period known: Yes HPI HPI s/p lumptectomy pain& inverted nipple: Details: She had called the office this morning to have the lumpectomy site checked. She describes some sharp pains as well as some changes on a nipple. She says that this had been inverted we for and had everted after the surgery and now his back to be inverted She denies any redness. [facility] Medical History Back pain COVID-19 HTN (hypertension) Invasive ductal carcinoma of breast Breast mass, right Benign essential hypertension Pure hypercholesterolemia GERD (gastroesophageal reflux disease) Viral upper respiratory tract infection with cough Obesity (BMI 30-39.9) Migraine Asthma Cyst of breast, left, solitary Cough Asthma Laryngitis Allergic rhinosinusitis Surgical History History of lumpectomy of right breast (~08/16/24) Hx of colonoscopy History of breast lump/mass excision H/O section Family History Mother Colon cancer, Onset Age: 42 Diabetes mellitus Father Heart disease Parkinson disease Maternal Grandmother Breast cancer Paternal Grandmother Breast cancer Maternal Grandfather Prostate CA Family/Other Thyroid cancer Other FH: mental illness Substance abuse Social History Household Members: Spouse Housing: House Are you a primary critical care nurse practitioner to a significant other at home: No Do you presently have visiting nurse or other home services: No Alcohol intake: never Patient Tobacco Use Status: Never used Tobacco e-Cigarette/Vaping Use: Never Used Second Hand Smoke Exposure: No service: No Current occupational status: employed 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 needs: No Hearing needs: No Vision needs: Yes Female Reproductive History Menstrual Age of Menarche: 7 Review of Systems Const Denies chills and Denies fever(s) Card Denies chest pain at rest GI Denies abdominal pain Physical Exam Const General: comfortable and no acute distress Chest Other: Lumpectomy site well healed, no cellulitis, no redness, some mild inversion of the nipple, no palpable mass, no evidence of infection Assessment & Plan Assessment & Plan (1) Breast cancer, right breast: Code(s): C50.911 - Malignant neoplasm of unspecified site of right female breast Category: Medical Plan: Status post lumpectomy. She wanted the area checked because of sharp pains and nipple inversion. Examination does reveal any signs of infection. I told her she may have sharp pains on and off for several weeks. Furthermore, the nipple inversion may be secondary to her scabbing after the surgery. I assured her that there does not seem to be any evidence of any infection at this time. She can take ibuprofen for pain and she can do warm soaks to the area She has a follow up with me again next month. She had a port placed and we will start chemotherapy after her bone scan tomorrow. Coding Level of Care Code Global (24188) Diagnoses Breast cancer, right breast C50.911
== END 2024-09-08 10:39 | disposition home or self-care (01) ==
PROVIDERS: PCP Internal Medicine; Visit Provider Surgery
DX: C50.911 Malignant neoplasm of unspecified site of right female breast (principal)
CPT/HCPCS: 99024

== ENCOUNTER → 2024-09-08 10:02 | Outpatient (BNVA) | payer OTHER, SELFPAY | PROVIDERS: Visit Provider Surgery ==

== ENCOUNTER 2024-09-09 08:19 | Outpatient (REF) | payer OTHER, SELFPAY ==
--- NOTE | ~2024-09-09 | MM_ITS ---
EXAMINATION: BONE DENSITOMETRY CLINICAL INDICATION: Osteopenia. COMPARISON: This is the patient's baseline examination. TECHNIQUE: Using a Veenome DXA System (software version: 13.1) manufactured by [employer], dual-energy x-ray absorptiometry was performed of the lumbar spine and left hip. The images are of good technical quality. Based on ISCD (International Society for Clinical Densitometry) standards of reporting, Z-scores instead of T-scores are reported in this premenopausal woman. Summary results are attached. FINDINGS: LEFT FEMUR, NECK: BMD 0.835 g/cm2, T-score -1.5, Z-score -1.4, Z-score within expected range for age. LEFT FEMUR, TOTAL: BMD 0.913 g/cm2, T-score -0.7, Z-score -1.1, Z-score within expected range for age. AP SPINE L1-L3 (excluding L4): The data of L1-L4 has been changed to exclude the L4 vertebral body, because degenerative sclerosis at this level may cause overestimation of lumbar spine density. BMD 1.075 g/cm2, T-score -0.8, Z-score -1.6, Z-score within expected range for age. IDENTIFIED RISK FACTORS: History of fracture (adult), glucocorticoids. HISTORY OF FRACTURE: Other. MEDICATIONS: Calcium supplements or multivitamin, vitamin D. MM/XR DEXA axial skeleton IMPRESSION: 1. DIAGNOSIS: Based on the lowest Z-score value of -1.6 in the lumbar spine, the patient's bone density is within the expected range for age. 2. 10-YEAR FRACTURE RISK PREDICTION, FRAX: Not performed in this perimenopausal patient. 3. Treatment Recommendations: NOF guidelines recommend consideration for treatment in postmenopausal women and men age 50 and older presenting with the following: -A hip or vertebral (clinical or morphometric) fracture. -T-score less than or equal to -2.5 at the femoral neck or spine after appropriate evaluation to exclude secondary causes. -Low bone mass at the hip or spine and a 10-year fracture probability by FRAX of greater than or equal to 3% for hip fracture or greater than or equal to 20% for major osteoporotic fracture based on the [place] adapted WHO algorithm. 4. Other Recommendations: All treatment decisions require clinical judgment and consideration of individual patient factors, including patient preferences, comorbidities, previous drug use, risk factors not captured in the FRAX model (e.g. frailty, falls, vitamin D deficiency, increased bone turnover, interval significant decline in bone density) and possible under or overestimation of fracture risk by FRAX. FUTURE SCAN RECOMMENDATION: People with diagnosed cases of osteoporosis or at high risk for fracture should have regular bone mineral density tests. For patients eligible for Medicare, routine testing is allowed once every 2 years. The testing frequency can be increased to one year for patients who have rapidly progressing disease, those who are receiving or discontinuing medical therapy to restore bone mass, or have additional risk factors. Electronically signed by: Alex Thompson MD 09/12/2024 12:15 PM EDT
== END 2024-09-09 08:20 | disposition home or self-care (01) ==
LOC: HO.MAMMO 08:19
PROVIDERS: PCP Internal Medicine; Visit Provider Internal Medicine Medical Oncology
DX: Z13.820 Encounter for screening for osteoporosis (principal); M85.80 Other specified disorders of bone density and structure, unspecified site; E27.49 Other adrenocortical insufficiency; N95.8 Other specified menopausal and perimenopausal disorders
CPT/HCPCS: 77080

== ENCOUNTER → 2024-09-09 11:01 | Outpatient (REF) | payer OTHER, SELFPAY ==
--- NOTE | ~2024-09-09 | NM_ITS ---
EXAMINATION: NM BONE SCAN OF THE WHOLE BODY CLINICAL INFORMATION: A 44-year-old female with history of right-sided breast invasive ductal carcinoma, status post lumpectomy on August 16, 2024. COMPARISON: CT of the chest abdomen and pelvis done on 09/06/2024. TECHNIQUE: Multiple gamma scintillation camera images of the whole body were performed 2.5 hours following the intravenous administration of 30 mCi Tc-99m MDP. The radiotracer was injected through a left hand superficial vein. FINDINGS: In the head, unremarkable. In the thoracic cage and upper extremities, mildly increased periarticular tracer activity around both shoulder and sternoclavicular joint and both wrists and elbows likely represent nonspecific arthritic and/or posttraumatic change. In the spine, unremarkable. In the pelvis, unremarkable. In the lower extremities, mildly increased tracer activity around both hips and both knees and both ankle and feet likely represent nonspecific arthritic and/or posttraumatic changes. No other definite bony abnormalities are noted. The urinary bladder and faint visualization of both kidneys are noted. NM/NM bone scan whole body IMPRESSION: No scintigraphic evidence of osseous metastasis. Electronically signed by: Yuly Steve MD 09/14/2024 12:18 PM EDT
== END ==
LOC: HO.NUCMED 11:01
PROVIDERS: Visit Provider Internal Medicine Medical Oncology
DX: C50.911 Malignant neoplasm of unspecified site of right female breast (principal)
CPT/HCPCS: 78306; A9503

== ENCOUNTER → 2024-09-09 14:00 | Outpatient (REF) | payer OTHER, SELFPAY | LOC: HO.NUCMED 14:00 | PROVIDERS: Visit Provider Internal Medicine Medical Oncology | DX: Z13.89 Encounter for screening for other disorder (principal) ==

== ENCOUNTER 2024-09-20 09:31 | Outpatient (AMB) | payer OTHER, SELFPAY ==
[2024-09-20 09:41] VITALS: BP 118/82; PULSE 81; O2SAT 97; BMI 35.0
--- NOTE | 2024-09-20 09:41 | MHC.PC.OV ---
Vital Signs 09/20/24 09:41 Height 5 ft 3 in Weight 197 lb 8 oz BMI 35.0 BP 118/82 Blood Pressure Location Lt brachial Position Sitting Pulse 81 Pulse Source Pulse Oximeter Pulse Oximetry (%) 97 Oxygen Delivery Method Room Air Intake Visit Reasons: hyperlipidemia Product Marketing Coordinator Required: No Accompanied by: Self / Same As Patient Allergies adhesive tape Allergy (Verified 09/20/24 09:51) Redness of Skin flu vaccine Adverse Reaction (Severe, Uncoded 09/20/24 09:51) Hives Medication List - Last Reconciled 09/20/24 by Lev Patrick MD vsikacgnoc-[id number]-[id number] 50-325-40 mg 1 tab PO Q6H PRN dexamethasone 4 mg PO BID fluticasone propionate 50 mcg/actuation (Aller-Abel) 1 spray intranasal BID PRN levonorgestrel (Mirena) 21 mcg intrauterine ONCE Magic Mouthwash Diphen/Lido/Antacid 1:1:1 10 mL PO TID meloxicam 15 mg PO DAILY PRN 30 days metoclopramide HCl (Reglan) 10 mg PO Q6H PRN naproxen 500 mg PO BID PRN omeprazole 20 mg PO DAILY 90 days ondansetron 8 mg PO Q8H propranolol ER 80 mg PO DAILY 90 days Ventolin HFA 90 mcg/actuation (albuterol sulfate) 2 puffs inhalation Q6H PRN 30 days NS Tobacco use date assessed: 09/20/24 Dental Screening Dental Screen Date: 09/20/24 Did you have a dental visit in the last 12 months?: Yes Did you have a dental problem in the last 6 months where you did not have access to dental care?: No Was dental information given to patient?: Patient has dentist HPI hyperlipidemia HPI Details The patient is a 44-year-old female who comes in today for her follow up visit States that she started chemotherapy for breast cancer last week and had her first cycle of Taxol on 09/15/2024 presenting with chemotherapy-induced side effects. The patient is undergoing weekly paclitaxel (Taxol) chemotherapy sessions with a total of 12 planned. She reports experiencing nausea, for which medication has been prescribed. Additionally, the patient reports the development of a blister on her left tongue, which is acknowledged as a potential side effect of chemotherapy. The patient also reports an episode of constipation, with a bowel movement described as pale in color. She has experienced ongoing gastroesophageal reflux, which she manages with omeprazole. Laboratory tests conducted recently indicate stable results concerning hematologic and metabolic functions, including cholesterol, which was previously noted at 120 mg/dL. Efforts are being made to regulate her cholesterol through diet. Anemia risks associated with chemotherapy were communicated, yet current lab results show no anemia. [facility] Medical History Back pain COVID-19 HTN (hypertension) Invasive ductal carcinoma of breast Breast mass, right Benign essential hypertension Pure hypercholesterolemia GERD (gastroesophageal reflux disease) Viral upper respiratory tract infection with cough Obesity (BMI 30-39.9) Migraine Asthma Cyst of breast, left, solitary Cough Asthma Laryngitis Allergic rhinosinusitis Surgical History History of lumpectomy of right breast (~08/16/24) Hx of colonoscopy History of breast lump/mass excision H/O section Family History Mother Colon cancer, Onset Age: 42 Diabetes mellitus Father Heart disease Parkinson disease Maternal Grandmother Breast cancer Paternal Grandmother Breast cancer Maternal Grandfather Prostate CA Family/Other Thyroid cancer Other FH: mental illness Substance abuse Social History Household Members: Spouse Housing: House Are you a primary day care center director to a significant other at home: No Do you presently have visiting nurse or other home services: No Alcohol intake: never Patient Tobacco Use Status: Never used Tobacco e-Cigarette/Vaping Use: Never Used Second Hand Smoke Exposure: No service: No Current occupational status: employed 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 1. Little interest or pleasure in doing things: not at all 2. Feeling down, depressed, or hopeless: not at all 3. Trouble falling or staying asleep, or sleeping too much: not at all 4. Feeling tired or having little energy: not at all 5. Poor appetite or overeating: not at all 6. Feeling bad about yourself - or that you are a failure or have let yourself or your family down: not at all 7. Trouble concentrating on things, such as reading the newspaper or watching television: not at all 8. Moving or speaking so slowly that other people could have noticed. Or the opposite - being so fidgety or restless that you have been moving around a lot more than usual: not at all 9. Thoughts that you would be better off or of hurting yourself in some way: not at all Total score: 0 Depression Screening Interpretation: Negative Depression Screening Done: Yes 10373 - PHQ-9 Billing: Yes Source: Developed by Drs. Elfego Morelos, Emani Kelley, Apollo Buchanan and colleagues, with an educational gilson from [employer]. Thrive Questionnaire Date Thrive assessed: 09/20/24 I am a: Patient What is your living situation today?: I have a steady place to live Within the past 12 months, did the food you bought not last and you didn't have the money to get more?: Never true Within the past 12 months, did you worry whether your food would run out before you got money to buy more?: Never true Do you have trouble paying for medicines?: No Do you have trouble getting transportation to medical appointments?: No Do you have trouble paying your heating and electricity bill?: No Do you have trouble taking care of your child, family member or friend?: No Do you have trouble with day-to-day activities such as bathing, preparing meals, shopping, managing finances, etc.?: No Are you currently unemployed and looking for a job?: No Are you interested in more education?: No Please select the resources that you would like help with: None Currently or been in a relationship where the following occur: No concerns reported THRIVE Score: 0 AUDIT C Alcohol Use Questionnaire (AUDIT-C) 1. How often do you have a drink containing alcohol?: Never 3. How often do you have six or more drinks on one occasion?: Never Total Score: 0 Score Reviewed/Action Taken: Yes AYESHA-7 AMB Questionnaire AYESHA-7 Date AYESHA - 7 assessed: 09/20/24 Feeling nervous, anxious, or on edge: 0 = Not at all Not being able to stop or control worryin = Not at all Worrying too much about different things: 0 = Not at all Trouble relaxin = Not at all Being so restless that it is hard to sit still: 0 = Not at all Becoming easily annoyed or irritable: 0 = Not at all Feeling afraid as if something awful might happen: 0 = Not at all Total AYESHA-7 score (0-4 normal; 5-9 mild; 10-14 moderate; 15-21 severe): 0 Source: Developed by Drs. Elfego Morelos, Emani Kelley, Apollo Buchanan and colleagues, with an educational gilson from [employer]. Physical exam (Primary Care) Vital Signs: Last Vital Signs Pulse 81 09/20/24 09:41 BP 118/82 09/20/24 09:41 Pulse Ox 97 09/20/24 09:41 Oxygen Delivery Method Room Air 09/20/24 09:41 BMI result Body Mass Index 35.0 Tobacco/Smoking Status: Tobacco use Status Tobacco use date assessed 09/20/24 09/20/24 09:46 Patient Tobacco Use Status Never used Tobacco 09/20/24 09:46 e-Cigarette/Vaping Use Never Used 09/20/24 09:46 PHQ-9: PHQ-9 Score PHQ-9: Total score 0 09/20/24 09:52 Depression Screening Interpretation: Negative Thrive Assessment: Date of Thrive Assessment Date Thrive assessed 09/20/24 09/20/24 09:46 Currently or been in a relationship where the following occur: No concerns reported Office Procedures Flu Questionnaire Does the patient have a severe egg allergy?: No Immunizations Fluarix Triv [id number] (PF) 45 mcg (15 mcg x 3)/0.5 mL IM syringe Performing Provider: Lev Patrick MD [facility] [place] [facility] Documented (not given) by: GLENN Morley on 09/20/24 09:51 Reason Not Given: Allergic to Vaccine Component Results Reviewed Results Reviewed: Laboratory Tests 09/15/24 09:55 WBC 9.0 Hgb 13.2 Hct 39.6 Plt Count 293 Sodium 140 Potassium 3.8 Creatinine 0.73 Estimated GFR > 60 Random Glucose 99 Calcium 9.5 AST 15 ALT 18 Coding Assessment & Plan Assessment & Plan Orders: Orders Influenza [id number] Immunization 09/20/24 Z23 - Encounter for immunization
== END 2024-09-20 10:12 | disposition home or self-care (01) ==
PROVIDERS: PCP Internal Medicine; Visit Provider Internal Medicine
DX: Z23 Encounter for immunization (principal)

== ENCOUNTER → 2024-09-20 09:31 | Outpatient (BNVA) | payer OTHER, SELFPAY | PROVIDERS: PCP Internal Medicine; Visit Provider Internal Medicine | DX: C50.911 Malignant neoplasm of unspecified site of right female breast (principal); Z17.0 Estrogen receptor positive status [ER+]; E78.00 Pure hypercholesterolemia, unspecified; I10 Essential (primary) hypertension; S32.2XXS Fracture of coccyx, sequela; K21.9 Gastro-esophageal reflux disease without esophagitis; J45.20 Mild intermittent asthma, uncomplicated; J30.89 Other allergic rhinitis; R73.01 Impaired fasting glucose; G43.909 Migraine, unspecified, not intractable, without status migrainosus; M47.816 Spondylosis without myelopathy or radiculopathy, lumbar region; E66.9 Obesity, unspecified; Z68.35 Body mass index [BMI] 35.0-35.9, adult; Z79.899 Other long term (current) drug therapy | CPT/HCPCS: 90471; 96127 ==

== ENCOUNTER 2024-09-26 13:31 | Outpatient (AMB) | payer OTHER, SELFPAY ==
--- NOTE | 2024-09-26 13:32 | A.OFFVIS_ITS ---
Vital Signs 09/26/24 13:38 Height 5 ft 3 in Weight 202 lb BMI 35.8 BP 139/73 Blood Pressure Location Lt brachial Position Sitting Pulse 69 Intake Visit Reasons: 1 month follow up lumpectomy/localizer/sn bx Intake Note: This patient presents for one month follow-up status post lumpectomy. Pt c/o; reports occasional pain surgical site. Insect Control Aide Required: No Accompanied by: Self / Same As Patient Allergies adhesive tape Allergy (Verified 09/26/24 13:39) Redness of Skin flu vaccine Adverse Reaction (Severe, Uncoded 09/26/24 13:39) Hives HPI HPI 1 month follow up lumpectomy/localizer/sn bx: Details: She is here for follow-up after lumpectomy and sentinel biopsy for the right breast. She was started on AC as chemotherapy and will be on Taxol as well. She feels well overall. [facility] Medical History Back pain COVID-19 HTN (hypertension) Invasive ductal carcinoma of breast Breast mass, right Benign essential hypertension Pure hypercholesterolemia GERD (gastroesophageal reflux disease) Viral upper respiratory tract infection with cough Obesity (BMI 30-39.9) Migraine Asthma Cyst of breast, left, solitary Cough Asthma Laryngitis Allergic rhinosinusitis Surgical History History of lumpectomy of right breast (~08/16/24) Hx of colonoscopy History of breast lump/mass excision H/O section Family History Mother Colon cancer, Onset Age: 42 Diabetes mellitus Father Heart disease Parkinson disease Maternal Grandmother Breast cancer Paternal Grandmother Breast cancer Maternal Grandfather Prostate CA Family/Other Thyroid cancer Other FH: mental illness Substance abuse Social History Household Members: Spouse Housing: House Are you a primary tire care manager to a significant other at home: No Do you presently have visiting nurse or other home services: No Alcohol intake: never Patient Tobacco Use Status: Never used Tobacco e-Cigarette/Vaping Use: Never Used Second Hand Smoke Exposure: No service: No Current occupational status: employed 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[employer] Cognitive needs: No Hearing needs: No Vision needs: Yes Female Reproductive History Menstrual Age of Menarche: 7 Review of Systems Const Denies chills and Denies fever(s) Card Denies chest pain, Denies dyspnea and Denies dyspnea on exertion Resp Denies cough, Denies dyspnea and Denies dyspnea on exertion GI Denies hematochezia and Denies change in bowel habits Denies hematuria Musc Denies back pain and Denies limited range of motion Neuro Denies focal weakness and Denies convulsions Psych Denies depression and Denies mood swings Physical Exam Vital Signs: Last Vital Signs Pulse 69 09/26/24 13:38 BP 139/73 09/26/24 13:38 BMI result Body Mass Index 35.8 Const General: comfortable and no acute distress Chest Other: Lumpectomy site and sentinel node biopsy site are both well healed. No palpable mass Resp Effort & Inspection: normal respiratory effort Assessment & Plan Assessment & Plan (1) Breast cancer, right breast: Code(s): C50.911 - Malignant neoplasm of unspecified site of right female breast Category: Medical Plan: Status post lumpectomy and sentinel biopsy for a T2 N1 invasive ductal carcinoma of the right breast. She has been started on adjuvant treatment with Adriamycin and Cytoxan She continues to do well. Her surgical sites are well healed I emphasized follow up with Dr. Martin for adjuvant treatment. She is to undergo radiation for the right breast after chemotherapy I will therefore see her again in the office in about 6 months.. Coding Level of Care Code Global (70363) Diagnoses Breast cancer, right breast C50.911
[2024-09-26 13:38] VITALS: BP 139/73; PULSE 69; BMI 35.8
== END 2024-09-26 13:54 | disposition home or self-care (01) ==
LOC: HO.HGS 13:32
PROVIDERS: PCP Internal Medicine; Visit Provider Surgery
DX: C50.911 Malignant neoplasm of unspecified site of right female breast (principal)
CPT/HCPCS: 99024

== ENCOUNTER → 2024-09-26 13:31 | Outpatient (BNVA) | payer OTHER, SELFPAY | PROVIDERS: PCP Internal Medicine; Visit Provider Surgery ==

== ENCOUNTER 2024-10-31 07:56 | Outpatient (RCR) | payer OTHER, SELFPAY ==
--- NOTE | 2025-03-17 14:28 | MHC.OT.DC ---
[address] [phone] F: [phone] Occupational Therapy Discharge Note Patient Name: Sheree Chan Provider: Hu Martin Diagnosis: UE lymphedema Date of Surgery: Date of Evaluation: 09/19/24 Date of Discharge: Treatments to Date: 3 Cancellations to Date: No Shows to Date: Discharge Status: Improved Function Discharge Summary: Patient received compression garments and did not contact skilled OT for further tx. Electronically Signed By: STEPHEN Baum/Christine, CLT Reviewed/agree with student documentation: Therapist: Please Sign and return to therapist, thank you for your referral.
== END 2025-03-17 14:28 | disposition home or self-care (01) ==
LOC: HO.OT 07:56
PROVIDERS: PCP Internal Medicine; Visit Provider Internal Medicine Medical Oncology
DX: I89.0 Lymphedema, not elsewhere classified (principal)
CPT/HCPCS: 97165; 97166; 97535

== ENCOUNTER 2024-11-07 10:40 | Outpatient (REF) | payer OTHER, SELFPAY ==
--- NOTE | ~2024-11-07 | XR_ITS ---
EXAMINATION: XR CHEST CLINICAL INFORMATION: Cough, rule out pneumonia. COMPARISON: Most recent CT chest dated 09/06/2024. TECHNIQUE: 2 views of the chest were obtained. FINDINGS: No airspace consolidation. No pleural effusion or pneumothorax. Unremarkable cardiomediastinal silhouette. Left chest wall port with its catheter tip in the SVC. XR/XR chest 2V IMPRESSION: No acute cardiopulmonary findings. Electronically signed by: Ildefonso Bonilla MD 11/07/2024 01:14 PM [facility] [place]
[2024-11-07 11:02] LABS: Hematocrit 38.4 % (37.0-47.0); Hemoglobin 12.9 g/dl (12.0-16.0); Mean Corpuscular HGB Conc 33.6 g/dl (31.0-35.0); Mean Corpuscular Hemoglobin 28.6 pg (27.0-33.0); Mean Corpuscular Volume 85.1 fL (80.0-98.0); NRBC Pct Auto 0.8 /100WBC (0.0-0.2); Platelet Count 298 X10*3/uL (160-400); Red Blood Count 4.51 X10*6/uL (4.20-5.50); Red Cell Distribution Width 16.4 % (11.0-16.0)
[2024-11-07 11:03] LABS: WBC ABN SCTR FOR CBC 1; White Blood Count 18.2 X10*3/uL (4.8-10.8)
[2024-11-07 11:18] LABS: Alanine Aminotransferase 43 U/L (0-31); Albumin Level 4.3 g/dL (3.5-5.0); Alkaline Phosphatase 163 U/L (39-117); Anion Gap 11 (12-20); Aspartate Amino Transferase 23 U/L (5-31); Bilirubin Total 0.2 mg/dL (0.0-1.0); Blood Urea Nitrogen 11 mg/dL (9-16); Calcium 9.8 mg/dL (8.4-10.2); Carbon Dioxide 26 mmol/L (22-29); Chloride 106 mmol/L (96-108); Estimated Glomerular Filt Rate > 60; Glucose Random 137 mg/dL (60-115); Potassium 3.7 mmol/L (3.3-5.1); Sodium 139 mmol/L (135-145); Total Protein 7.5 g/dL (6.5-8.0)
[2024-11-07 11:28] LABS: Atypical Lymph Absolute Manual 1.5 x10*3/uL; Atypical Lymphs Percent Manual 8 % (0-6); Band Neutrophils Percent 15 % (3-5); Lymphocytes Percent Manual 11 % (20-40); Metamyelocytes Absolute 0.2 X10*3/uL; Metamyelocytes Percent 1 %; Monocytes Absolute Manual 0.7 X10*3/uL (0.1-1.2); Monocytes Percent Manual 4 % (2-11); Neutrophils Absolute Manual 13.7 X10*3/uL (2.0-8.3); Neutrophils Percent Manual 60 % (45-73); Promyelocytes Absolute 0.2 X10*3/uL; Promyelocytes Percent 1 %
[2024-11-07 11:29] LABS: Macrocytosis 1+ (5-14) /OIF; Microcytosis 1+ (5-14) /OIF; Platelet Estimate NORMAL (NORMAL); Platelet Morphology Comment NORMAL; RBC Morphology NOTED; Schistocytes 1+ (0-2) /OIF
[2024-11-07 11:36] LABS: HBS Num1 976.44 mIU/mL (0-7.99); HBc Num1 0.09 S/CO (0.00-0.79); HBsAGNum1 0.41 S/CO (0.00-0.99); Hepatitis B Core Antibody Nonreactive (Nonreactive); Hepatitis B Surface Antigen Negative (Negative); ~Hepatitis B Surface Antibody REACTIVE (Nonreactive)
[2024-11-07 11:42] LABS: Influenza A PCR NEGATIVE (Negative); Influenza B PCR NEGATIVE (Negative); Resp Syncy Virus RNA Qual PCR NEGATIVE (Negative); SARS COV2 PCR INHOUSE NEGATIVE (Negative)
== END 2024-11-07 10:41 | disposition home or self-care (01) ==
LOC: HO.XRAY 10:40
PROVIDERS: PCP Internal Medicine; Visit Provider Internal Medicine Medical Oncology
DX: C50.919 Malignant neoplasm of unspecified site of unspecified female breast (principal); R05.9 Cough, unspecified; R06.02 Shortness of breath
CPT/HCPCS: 0241U; 71046; 80053; 85007; 85025; 85027; 86704; 86706; 87340

== ENCOUNTER 2024-11-26 08:14 | Emergency (ER) | payer OTHER, SELFPAY ==
--- NOTE | ~2024-11-26 | CT_ITS ---
CLINICAL HISTORY: cough, SOB, high sternal neck pain, breast CA CT angiography chest with contrast. 3D Postprocessing. Comparison: None Findings: The heart size is normal. RV/LV ratio is normal. Unremarkable thoracic aorta and great vessels. No aneurysm. No pulmonary artery filling defects. The visualized thyroid and mediastinum are unremarkable. Minimal dependent changes within the lungs. No consolidation or pleural effusion. Enlarged hypodense liver. No acute displaced fracture. No suspicious bone lesion. There is a left-sided Port-A-Cath at the cavoatrial junction. IMPRESSION: 1. No pulmonary artery embolism. 2. Hepatomegaly with fatty infiltration of the liver. 3. No aortic aneurysm or dissection. This document has been electronically signed by: Rossana Robbins MD on 11/26/2024 17:29:22
--- NOTE | ~2024-11-26 | XR_ITS ---
CLINICAL HISTORY: cough 2 view chest x-ray Comparison: 11/07/2024 Findings: No consolidation or effusion. Heart size is normal. No acute fracture. IMPRESSION: 1. No acute findings. This document has been electronically signed by: Ned Lerma MD on 11/26/2024 08:47:01
[2024-11-26 08:18] VITALS: BP 188/116; PULSE 101; RESP 22; TEMP 36.8; O2SAT 97; BMI 37.9
[2024-11-26 08:50] LABS: MANUAL DIFF FLAG NO
[2024-11-26 08:51] LABS: Basophils Absolute Auto 0.1 X10*3/uL (0.0-0.2); Basophils Percent Auto 0.6 % (0-2); Eosinophils Absolute Auto 0.1 X10*3/uL (0.0-0.4); Eosinophils Percent Auto 0.4 % (0-4); Hematocrit 34.6 % (37.0-47.0); Imm Gran Abs Auto 0.13 X10*3/uL (0.00-0.03); Lymphocytes Absolute Auto 0.9 X10*3/uL (1.2-4.9); Lymphocytes Percent Auto 7.2 % (20-40); Mean Corpuscular HGB Conc 34.7 g/dl (31.0-35.0); Mean Corpuscular Hemoglobin 29.6 pg (27.0-33.0); Mean Corpuscular Volume 85.2 fL (80.0-98.0); Mean Platelet Volume 11.6 fL (9.4-12.3); Monocytes Absolute Auto 0.6 X10*3/uL (0.1-1.2); Monocytes Percent Auto 4.8 % (2-11); Neutrophils Absolute Auto 10.9 x10*3/uL (2.0-8.3); Platelet Count 373 X10*3/uL (160-400); Red Blood Count 4.06 X10*6/uL (4.20-5.50); Red Cell Distribution Width 17.6 % (11.0-16.0); White Blood Count 12.7 X10*3/uL (4.8-10.8)
[2024-11-26 08:58] LABS: IDNOW Serial# 58CA691E; Strep A Nucleic Acid Negative (Negative)
[2024-11-26 09:16] LABS: Alanine Aminotransferase 88 U/L (0-31); Alkaline Phosphatase 94 U/L (39-117); Anion Gap 13 (12-20); Aspartate Amino Transferase 30 U/L (5-31); Bilirubin Direct 0.1 mg/dL (0.0-0.5); Bilirubin Total 0.5 mg/dL (0.0-1.0); Blood Urea Nitrogen 9 mg/dL (9-16); Calcium 8.7 mg/dL (8.4-10.2); Carbon Dioxide 21 mmol/L (22-29); Chloride 109 mmol/L (96-108); Creatinine Clr Calc Pharmacy 104.3; Estimated Glomerular Filt Rate > 60; Glucose Random 132 mg/dL (60-115); Lipase 25 U/L (8-78); Potassium 3.5 mmol/L (3.3-5.1); Sodium 139 mmol/L (135-145)
[2024-11-26 09:46] LABS: Influenza A PCR NEGATIVE (Negative); Influenza B PCR NEGATIVE (Negative); Resp Syncy Virus RNA Qual PCR NEGATIVE (Negative); SARS COV2 PCR INHOUSE NEGATIVE (Negative)
[2024-11-26 10:00] VITALS: BP 136/87; PULSE 94; RESP 19; TEMP 36.7; O2SAT 99
--- NOTE | 2024-11-26 10:31 | ED.SOB ---
HPI - SOB/Dyspnea General Chief Complaint: Dyspnea Stated Complaint: diff breathing Time Seen by Provider: 11/26/24 10:31 Source: patient Mode of arrival: ambulatory Limitations: no limitations History of Present Illness ED Provider: Shira Moreno NP HPI Narrative: Patient is a 44-year-old female who presents emergency department for evaluation. She admits that over the past 4 weeks she has been experiencing an upper respiratory infection overall symptoms have been improving but still had somewhat lingering cough and shortness of breath. She made her oncologist aware of this 2 days ago most recent appointment. However, she states that last night she began developing pain to the lower midline of her anterior neck just above the sternum that was quite painful, and when she tried to lie down supine she felt a sudden increase in her shortness of breath. She had tried taking a muscle relaxer that she was prescribed but this did not help. This morning at 07:00 she attempted to take tramadol but this did not help either. She denies having an overt sore throat (her posterior oropharynx) denies any dysphagia, odynophagia. She has had occasional discomfort to her right ear. She admits to increased weakness though she did have chemo 2 days ago, this is a new medication for her, so she can not say with certainty that this is typical post treatment. Denies identifiable exacerbating factors. Denies dyspnea on exertion, orthopnea, PND. Denies trauma, fevers, chills, URI symptoms, sore throat, difficulty swallowing, neck pain, chest pain, palpitations, cough, nausea, vomiting, abdominal pain, numbness or tingling of the extremities, recent lower extremity pain or swelling. Denies alcohol use, recreational drugs, or smoking tobacco. Related Data Home Medications ?Medication ?Instructions ?Recorded ?Confirmed levonorgestrel 21 mcg/24 hr (up to 21 mcg intrauterine ONCE 07/14/23 11/17/24 8 years) 52 mg intrauterine device (Mirena) fluticasone propionate 50 1 spray intranasal BID PRN Allergy 08/09/24 11/17/24 mcg/actuation nasal Symptoms spray,suspension (Aller-Abel) naproxen 500 mg tablet 500 mg PO BID PRN Pain 08/09/24 11/17/24 Previous Rx's ?Medication ?Instructions ?Recorded meloxicam 15 mg tablet 15 mg PO DAILY PRN pain 30 days 07/17/23 #30 tabs Ventolin HFA 90 mcg/actuation 2 puff inhalation Q6H PRN 01/19/24 aerosol inhaler (albuterol sulfate) shortness of breath or wheezing 30 days #18 grams propranolol 80 mg capsule,24 80 mg PO DAILY 90 days #90 caps 05/25/24 hr,extended release omeprazole 20 mg capsule,delayed 20 mg PO DAILY 90 days #90 caps 06/27/24 release dexamethasone 4 mg tablet 4 mg PO BID #60 tabs 09/08/24 ondansetron 8 mg disintegrating 8 mg PO Q8H #50 tabs 09/08/24 tablet kthoujcyrl-kkmsvywkdlgpo-gumqfxct 1 cap PO Q6H PRN Headache #30 caps 10/22/24 50 mg-325 mg-40 mg capsule erythromycin 5 mg/gram (0.5 %) eye 0.5 inch ophthalmic (eye) TID #30 10/26/24 ointment grams lidocaine HCl 2 % mucosal solution 1 appl mucous membrane QID #120 mL 11/17/24 (Lidocaine Viscous) tramadol 50 mg tablet 50 mg PO BID PRN Pain (Scale Score 11/21/24 7-10) #30 tabs Allergies Allergy/AdvReac Type Severity Reaction Status Date / Time adhesive tape Allergy Redness of Verified 11/26/24 08:22 Skin cefuroxime AdvReac Hives Verified 11/26/24 08:22 flu vaccine AdvReac Severe Hives Uncoded 09/26/24 13:39 Review of Systems Review of Systems: Yes all other systems are reviewed and are negative PMFSH Past Medical History Attestation statement: The following information was validated with the patient. Source: old records reviewed Medical History Back pain COVID-19 HTN (hypertension) Invasive ductal carcinoma of breast Breast mass, right Benign essential hypertension Pure hypercholesterolemia GERD (gastroesophageal reflux disease) Viral upper respiratory tract infection with cough Obesity (BMI 30-39.9) Migraine Asthma Cyst of breast, left, solitary Cough Asthma Laryngitis Allergic rhinosinusitis Surgical History History of lumpectomy of right breast (~08/16/24) Hx of colonoscopy History of breast lump/mass excision H/O section Family History Family History Mother Colon cancer, Onset Age: 42 Diabetes mellitus Father Heart disease Parkinson disease Maternal Grandmother Breast cancer Paternal Grandmother Breast cancer Maternal Grandfather Prostate CA Family/Other Thyroid cancer Other FH: mental illness Substance abuse Social History Social History Household Members: Spouse Housing: House Are you a primary ambulatory care nurse to a significant other at home: No Do you presently have visiting nurse or other home services: No Alcohol intake: never Patient Tobacco Use Status: Never used Tobacco Smoked in Last 30 Days: No e-Cigarette/Vaping Use: Never Used Second Hand Smoke Exposure: No Use of substances other than those prescribed or required for medical reasons: No Advance Directives: No Advance Directives Information Provided: Yes Do you have a plan to hurt others: No Plan Patient : No service: No Current occupational status: employed 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 Cognitive needs: No Hearing needs: No Vision needs: Yes Physical Exam Vital Signs: Vital Signs: Last Vital Signs Temp 98.0 F 11/26/24 18:42 Pulse 88 11/26/24 18:42 Resp 18 11/26/24 18:42 BP 138/86 11/26/24 18:42 Pulse Ox 97 11/26/24 18:42 O2 Del Method Room Air 11/26/24 18:42 BMI result Body Mass Index 37.9 Appearance: Alert.?Oriented to person, place and time. No acute distress.?Normal affect. Eyes: Pupils equal, round and reactive to light.? ENT: Pharynx mildly erythematous without hypertrophy exudates. Uvula is midline. No trismus. No drooling. Bilateral otitis media effusions without opacity erythema or bulging. Neck: Normal inspection.? Neck supple.??No cervical adenopathy. Full range of motion. CVS: Heart sounds normal. Normal heart rate and rhythm.? Pulses normal.?? Respiratory: No respiratory distress.? Lung sounds clear at the apices diminished at the bilateral bases. Abdomen: Soft and non-tender. Normoactive bowel sounds. Skin: Skin warm and dry.? Normal skin color.? Extremities: No lower extremity edema.? No calf ttp? Neuro: Moves all extremities spontaneously. Sensation intact bilaterally. No focal neuro deficits. Ambulates with normal steady gait. Course Course Course Narrative: I Helene Bradford PA-C have accepted care of the patient and signed out pending imaging and final disposition I have independently reviewed the following tests: CTA chest:IMPRESSION: 1. No pulmonary artery embolism. 2. Hepatomegaly with fatty infiltration of the liver. 3. No aortic aneurysm or dissection. This document has been electronically signed by: Rossana Robbins MD on 11/26/2024 17:29:22 And review of studies have already been obtained, patient has viral panel is negative, she has a slight leukocytosis, she is not anemic, she is not neutropenic, no electrolyte abnormalities. No underlying cause identified for her shortness of breath. She likely has yet another respiratory viruses with circulating within the community. She also continues to complain of throat pain. The lidocaine did not help, I will try Carafate. The thought is that she is having reflux symptoms. She does have a history of GERD. Reevaluation(s) Reevaluation #1: Continues to have ongoing pain, minimal relief from IV morphine declining additional dosage at this time. Pending CT of the chest, there is difficulty with getting imaging to cross over into PACS system for review. Patient offered to trial acetaminophen, will also utilize lidocaine viscous in the event that this is potentially esophageal cause she denies any reflux like symptoms, has known history of GERD, no epigastric tenderness. Reevaluation #2: Patient signed out to Angela CRAMER pending CT angio chest and re-evaluation Time: 16:15 Reevaluation #3: Carafate did not help, I am increasing her tramadol to 100 mg and giving her Maalox Additional Reevaluation(s): Patient still states no improvement, I advised she needs to follow up with her oncologist for further pain management. Medications Administered Discontinued Medications Generic Name Dose Route Start Last Admin Trade Name Freq PRN Reason Stop Dose Admin Acetaminophen 975 mg 11/26/24 15:46 11/26/24 15:54 Acetaminophen 325 Mg Tablet PO 11/26/24 15:47 975 mg ONCE ONE Administration Al Hydroxide/Mg Hydroxide 30 ml 11/26/24 19:54 11/26/24 20:22 Magnesium Hydrox/Alum Hydrox 30 Ml Oral.Susp PO 11/26/24 19:55 30 ml ONCE ONE Administration Sodium Chloride 1,000 mls @ 999 mls/hr 11/26/24 11:30 11/26/24 13:40 Ns IV 11/26/24 12:30 Infused .Q1H1M ARMANDO Infusion Iohexol 85 ml 11/26/24 14:50 11/26/24 14:51 Iohexol 350 Mg/Ml 100 Ml Infus..Btl IV 11/26/24 14:51 85 ml ONCE ONE Administration Lidocaine HCl 15 ml 11/26/24 15:45 11/26/24 15:54 Lidocaine Hcl Viscous 2 % 15 Ml Solution MUCOUS MEM 11/26/24 15:46 15 ml ONCE ONE Administration Morphine Sulfate 2 mg 11/26/24 11:17 11/26/24 11:49 Morphine Sulfate 2 Mg/Ml Cartridge IVPUSH 11/26/24 11:18 2 mg ONCE ONE Administration Protocol Ondansetron HCl 4 mg 11/26/24 11:17 11/26/24 11:48 Ondansetron Hcl 4 Mg/2 Ml Vial IVPUSH 11/26/24 11:18 4 mg ONCE ONE Administration Sucralfate 1 gm 11/26/24 18:55 11/26/24 19:31 Sucralfate Oral Suspension 1 Gm/10 Ml Oral.Susp PO 11/26/24 18:56 1 gm ONCE ONE Administration Tramadol HCl 100 mg 11/26/24 19:54 11/26/24 20:22 Tramadol Hcl 50 Mg Tablet PO 11/26/24 19:55 100 mg ONCE ONE Administration Medical Decision Making Medical Decision Making MDM Narrative: Patient is a 44-year-old female with past medical history of hypertension, invasive ductal carcinoma of the right breast, hypercholesterolemia, GERD, obesity, migraines, asthma presenting for evaluation mid lower anterior neck/sternal pain associated supine shortness of breath onset last night, in addition has had a productive cough with yellow phlegm for the presents for ways but by her account this has been improving. Regarding the Invasive ductal carcinoma of the right breast for which she had lumpectomy, receiving chemotherapy actively, weekly Taxol, to be followed by post lumpectomy radiation. Patient most recently seen in hematology office 11/24/2024 (2 days ago) she endorse at that time that she was experiencing cold symptoms that took a while to clear but was having a lingering cough that Claritin was helping, joint pains post chemo which was being managed with tramadol. Patient's primary concern today was that is pain to the mid middle anterior neck/sternal region started last night, denies to have particularly a sore throat difficulty swallowing or painful swallowing. Denies any notable injury or trauma. 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 History breast cancer concern for possible sternal metastasis. She is mildly tachycardic and tachypneic associated coughing shortness of breath, will rule out embolism a CT angio of the chest. Differential Diagnosis Differential Diagnoses: The differential diagnosis associated with the presentation includes (See narrative above) Admission/Observation Consideration of admission/observation: Escalation of care including admission/observation considered (See narrative above and course narrative for further detail) Lab Data MDM Lab Attestation statement: I reviewed the patient's lab results. CBC with leukocytosis and left shift, no anemia or thrombocytopenia. No significant electrolyte derangement. No SHABANA. LFTs overall within normal range mildly elevated ALT at 88, lipase normal. High sensitive troponin within normal range; 4.9. Influenza/COVID-19/RSV testing negative. Placed her testing negative. 11/26/24 08:34 11/26/24 08:34 Labs: Lab Results 11/26/24 Range/Units 08:34 WBC 12.7 H (4.8-10.8) X10*3/uL RBC 4.06 L (4.20-5.50) X10*6/uL Hgb 12.0 (12.0-16.0) g/dl Hct 34.6 L (37.0-47.0) % MCV 85.2 (80.0-98.0) fL MCH 29.6 (27.0-33.0) pg MCHC 34.7 (31.0-35.0) g/dl RDW 17.6 H (11.0-16.0) % Plt Count 373 (160-400) X10*3/uL MPV 11.6 (9.4-12.3) fL Immature Gran % (Auto) 1.0 H (0.0-0.4) % Neut % (Auto) 86.0 H (45-73) % Lymph % (Auto) 7.2 L (20-40) % [place] % (Auto) 4.8 (2-11) % Eos % (Auto) 0.4 (0-4) % Baso % (Auto) 0.6 (0-2) % Lymph # (Auto) 0.9 L (1.2-4.9) X10*3/uL [place] # (Auto) 0.6 (0.1-1.2) X10*3/uL Eos # (Auto) 0.1 (0.0-0.4) X10*3/uL Baso # (Auto) 0.1 (0.0-0.2) X10*3/uL Abs Immat Gran (auto) 0.13 H (0.00-0.03) X10*3/uL Absolute Neuts (auto) 10.9 H (2.0-8.3) x10*3/uL Absolute Nucleated RBC 0.000 (0.0-0.012) X10*3/uL Nucleated RBC % (auto) 0.0 (0.0-0.2) /100WBC Sodium 139 (135-145) mmol/L Potassium 3.5 (3.3-5.1) mmol/L Chloride 109 H (96-108) mmol/L Carbon Dioxide 21 L (22-29) mmol/L Anion Gap 13 (12-20) BUN 9 (9-16) mg/dL Creatinine 0.72 (0.5-1.4) mg/dL Estim Creat Clear Calc 104.3 Estimated GFR > 60 Random Glucose 132 H (60-115) mg/dL Calcium 8.7 (8.4-10.2) mg/dL Total Bilirubin 0.5 (0.0-1.0) mg/dL Direct Bilirubin 0.1 (0.0-0.5) mg/dL AST 30 (5-31) U/L ALT 88 H (0-31) U/L Alkaline Phosphatase 94 (39-117) U/L Troponin I High Sens 4.9 D (<3.5-17.0) ng/L Total Protein 7.0 (6.5-8.0) g/dL Albumin 4.0 (3.5-5.0) g/dL Lipase 25 (8-78) U/L Influenza Type A (PCR) NEGATIVE (Negative) Influenza Type B (PCR) NEGATIVE (Negative) RSV RNA Qual (PCR) NEGATIVE (Negative) SARS-CoV-2 RNA (RT-PCR) NEGATIVE (Negative) S. pyogenes GrpA SADIQ Negative (Negative) Independent Interpretation I performed an independent interpretation of an: EKG Interpretation: EKG revealing normal sinus rhythm with ventricular rate of 91, QTC 430, no ST elevation, no ST depression, T-wave inversion lead III, aVF (as seen on prior in May of 2023) Radiology Impression Discussion of test interpretation with radiology: I have reviewed the radiologist's reading. Independent Historian Clinical information obtained from an independent historian. History obtained from or confirmed by: Spouse External Record Review External record reviewed: Outpatient record Chronic Conditions Patient?s care impacted by: Other (See narrative above) Discharge Plan Discharge Clinical Impression: Acute dyspnea, Pain in throat and chest Patient Disposition: Home, Self-Care Instructions: Dyspnea (ED) Additional Instructions: All of your labs were normal, the viral panel was negative. The CT of your chest was negative as well. We do not have an explanation for your shortness of breath or your ongoing throat/upper chest discomfort. You need to follow up with your oncologist, for further pain management. Prescriptions: No Action propranolol 80 mg capsule,extended release 24 hr 80 mg PO DAILY 90 Days Qty: 90 1RF omeprazole 20 mg capsule,delayed release(DR/EC) 20 mg PO DAILY 90 Days Qty: 90 3RF ondansetron 8 mg Tablet,Disintegrating 8 mg PO Q8H Qty: 50 3RF dexamethasone 4 mg Tablet 4 mg PO BID Qty: 60 2RF Rx Instructions: Take 4 mg p.o. b.i.d. days 2 and 3 of chemotherapy Q 14 days [id number]-[id number] 50-325-40 mg Capsule 1 cap PO Q6H PRN (Reason: Headache) Qty: 30 2RF erythromycin 5 mg/gram (0.5 %) Ointment 0.5 inch OPHTHALMIC (EYE) TID Qty: 30 0RF lidocaine HCl [Lidocaine Viscous] 2 % Solution 1 appl MUCOUS MEMBRANE QID Qty: 120 0RF tramadol 50 mg Tablet 50 mg PO BID PRN (Reason: Pain (Scale Score 7-10)) Qty: 30 0RF naproxen 500 mg Tablet 500 mg PO BID PRN (Reason: Pain) fluticasone propionate [Aller-Abel] 50 mcg/actuation spray,suspension 1 spray intranasal BID PRN (Reason: Allergy Symptoms) Rx Instructions: administer into each nostril meloxicam 15 mg tablet 15 mg PO DAILY PRN (Reason: pain) 30 Days Qty: 30 3RF Rx Instructions: Take with food albuterol sulfate [Ventolin HFA] 90 mcg/actuation HFA aerosol inhaler 2 puff inhalation Q6H PRN (Reason: shortness of breath or wheezing) 30 Days Qty: 18 5RF Mirena 21 mcg/24 hours (8 yrs) 52 mg intrauterine device 21 mcg intrauterine ONCE Print Language: Albanian
[2024-11-26] MEDS: ondansetron HCL 4 MG/2 ML VIAL IVPUSH (11:48)
[2024-11-26 11:49] VITALS: RESP 20
[2024-11-26] MEDS: 0.9 % Sodium Chloride 1,000 ML 999 ML IV (11:49)
[2024-11-26] MEDS: Morphine Sulfate 2 MG/ML CARTRIDGE IVPUSH (11:49)
--- NOTE | 2024-11-26 11:55 | ECG_ITS ---
Test Reason : CP Blood Pressure : / mmHG Vent. Rate : 091 BPM Atrial Rate : 091 BPM P-R Int : 156 ms QRS Dur : 080 ms QT Int : 350 ms P-R-T Axes : 032 007 003 degrees QTc Int : 430 ms Normal sinus rhythm Minimal voltage criteria for LVH, may be normal variant ( R in aVL ) Borderline ECG No previous ECGs available Referred By: Shira Moreno Electronically Signed By:Santos Ahn
[2024-11-26 12:32] LABS: Troponin-I High Sensitivity 4.9 ng/L (<3.5-17.0)
[2024-11-26 14:00] VITALS: BP 141/92; PULSE 94; RESP 18; TEMP 36.8; O2SAT 96
[2024-11-26] MEDS: iohexoL 350 MG/ML 100 ML INFUS..BTL 85 ML IV (14:51)
[2024-11-26] MEDS: Acetaminophen 325 MG TABLET 975 MG PO (15:54)
[2024-11-26] MEDS: Lidocaine HCl Viscous 2 % 15 ML SOLUTION MUCOUS MEM (15:54)
[2024-11-26 18:42] VITALS: BP 138/86; PULSE 88; RESP 18; TEMP 36.7; O2SAT 97
[2024-11-26] MEDS: Sucralfate Oral Suspension 1 GM/10 ML ORAL.SUSP PO (19:31)
[2024-11-26] MEDS: traMADoL HCL 50 MG TABLET 100 MG PO (20:22)
[2024-11-26] MEDS: Magnesium Hydrox/Alum Hydrox 30 ML ORAL.SUSP PO (20:22)
[2024-11-26 21:45] VITALS: BP 130/90; PULSE 93; RESP 15; TEMP 36.2; O2SAT 96
== END 2024-11-26 21:50 | disposition home or self-care (01) ==
PROVIDERS: Nurse Practitioner Family; Emergency Provider Emergency Medicine; PCP Internal Medicine
DX: R06.02 Shortness of breath (principal); J02.9 Acute pharyngitis, unspecified; R07.9 Chest pain, unspecified; R00.0 Tachycardia, unspecified; I10 Essential (primary) hypertension; E78.00 Pure hypercholesterolemia, unspecified; J45.909 Unspecified asthma, uncomplicated; C50.911 Malignant neoplasm of unspecified site of right female breast; Z92.21 Personal history of antineoplastic chemotherapy; Z03.818 Encounter for observation for suspected exposure to other biological agents ruled out; Z79.899 Other long term (current) drug therapy
CPT/HCPCS: 0241U; 71046; 71275; 80048; 80076; 83690; 84484; 85025; 87651; 93005; 96361; 96374; 96375; 96376; 99284; 99285; J2270; J2405; Q9967

== ENCOUNTER → 2024-11-26 08:25 | Outpatient (BNV) | payer OTHER, SELFPAY | PROVIDERS: PCP Internal Medicine; Visit Provider Specialist | DX: R05.9 Cough, unspecified (principal); R16.0 Hepatomegaly, not elsewhere classified | CPT/HCPCS: 71275 ==

== ENCOUNTER → 2024-11-26 11:55 | Outpatient (BNV) | payer OTHER, SELFPAY | PROVIDERS: Emergency Provider Emergency Medicine; PCP Internal Medicine; Visit Provider Internal Medicine Cardiovascular Disease | DX: R07.9 Chest pain, unspecified (principal); R94.31 Abnormal electrocardiogram [ECG] [EKG] | CPT/HCPCS: 93010 ==

== ENCOUNTER 2025-01-03 08:48 | Emergency (ER) | payer OTHER, SELFPAY ==
[2025-01-03 09:21] VITALS: BP 170/109; PULSE 113; RESP 16; TEMP 36.6; O2SAT 97; BMI 36.3
--- NOTE | 2025-01-03 09:32 | ECG_ITS ---
Test Reason : CP Blood Pressure : */* mmHG Vent. Rate : 101 BPM Atrial Rate : 101 BPM P-R Int : 148 ms QRS Dur : 80 ms QT Int : 328 ms P-R-T Axes : 30 0 -5 degrees QTcB Int : 425 ms Sinus tachycardia Possible Left atrial enlargement Left ventricular hypertrophy ( R in aVL , Romhilt-Aguayo ) Nonspecific T wave abnormality Abnormal ECG When compared with ECG of 26-Nov-2024 11:59, Nonspecific T wave abnormality now evident in Lateral leads Referred By: Generic ED Physician Electronically Signed By: Santos Ahn
[2025-01-03 10:29] LABS: MANUAL DIFF FLAG NO
[2025-01-03 10:34] LABS: Basophils Percent Auto 0.2 % (0-2); Hematocrit 37.1 % (37.0-47.0); Hemoglobin 12.7 g/dl (12.0-16.0); Imm Gran Abs Auto 0.11 X10*3/uL (0.00-0.03); Imm Gran Pct Auto 1.3 % (0.0-0.4); Lymphocytes Absolute Auto 0.7 X10*3/uL (1.2-4.9); Lymphocytes Percent Auto 8.3 % (20-40); Mean Corpuscular HGB Conc 34.2 g/dl (31.0-35.0); Mean Corpuscular Hemoglobin 30.4 pg (27.0-33.0); Mean Corpuscular Volume 88.8 fL (80.0-98.0); Monocytes Absolute Auto 0.2 X10*3/uL (0.1-1.2); Monocytes Percent Auto 1.9 % (2-11); Neutrophils Absolute Auto 7.5 x10*3/uL (2.0-8.3); Neutrophils Percent Auto 88.3 % (45-73); Platelet Count 408 X10*3/uL (160-400); Red Blood Count 4.18 X10*6/uL (4.20-5.50); Red Cell Distribution Width 14.5 % (11.0-16.0); White Blood Count 8.5 X10*3/uL (4.8-10.8)
[2025-01-03 10:41] LABS: IDNOW Serial# 08D9AD1C; Strep A Nucleic Acid Negative (Negative)
[2025-01-03 10:45] LABS: Anion Gap 13 (12-20); Blood Urea Nitrogen 11 mg/dL (9-16); Calcium 9.3 mg/dL (8.4-10.2); Carbon Dioxide 25 mmol/L (22-29); Chloride 104 mmol/L (96-108); Creatinine Clr Calc Pharmacy 115.3; Estimated Glomerular Filt Rate > 60; Glucose Random 130 mg/dL (60-115); Magnesium 2.1 mg/dL (1.6-2.6); Sodium 138 mmol/L (135-145)
--- NOTE | 2025-01-03 11:01 | ED_ITS ---
HPI - General Adult General Chief complaint: GI Bleed Stated complaint: Neck pain, blood in stool Time Seen by Provider: 01/03/25 11:01 History of Present Illness ED Provider: Dr. Calderon HPI narrative: 44 y/o F patient; PMH breast cancer on chemotherapy (12/29), HTN, GERD; presents from home with report of bright red blood in stool x1. The patient states she was initially constipated and then had a large bowel movement with diarrhea and bright red blood. She spoke with her oncologist who recommended she attend the emergency department for evaluation. She otherwise denies: nausea/vomiting, abdominal pain, fever or chills, SOB, cough/congestion. Related Data Home Medications ?Medication ?Instructions ?Recorded ?Confirmed levonorgestrel 21 mcg/24 hr (up to 21 mcg intrauterine ONCE 07/14/23 11/17/24 8 years) 52 mg intrauterine device (Mirena) fluticasone propionate 50 1 spray intranasal BID PRN Allergy 08/09/24 11/17/24 mcg/actuation nasal Symptoms spray,suspension (Aller-Abel) naproxen 500 mg tablet 500 mg PO BID PRN Pain 08/09/24 11/17/24 Previous Rx's ?Medication ?Instructions ?Recorded meloxicam 15 mg tablet 15 mg PO DAILY PRN pain 30 days 07/17/23 #30 tabs Ventolin HFA 90 mcg/actuation 2 puff inhalation Q6H PRN 01/19/24 aerosol inhaler (albuterol sulfate) shortness of breath or wheezing 30 days #18 grams omeprazole 20 mg capsule,delayed 20 mg PO DAILY 90 days #90 caps 06/27/24 release dexamethasone 4 mg tablet 4 mg PO BID #60 tabs 09/08/24 ondansetron 8 mg disintegrating 8 mg PO Q8H #50 tabs 09/08/24 tablet [id number]-toyqmpqazbbqg-[id number] 1 cap PO Q6H PRN Headache #30 caps 10/22/24 50 mg-325 mg-40 mg capsule erythromycin 5 mg/gram (0.5 %) eye 0.5 inch ophthalmic (eye) TID #30 10/26/24 ointment grams lidocaine HCl 2 % mucosal solution 1 appl mucous membrane QID #120 mL 11/17/24 (Lidocaine Viscous) tramadol 50 mg tablet 50 mg PO BID PRN Pain (Scale Score 11/21/24 7-10) #30 tabs propranolol 80 mg capsule,24 80 mg PO DAILY 90 days #90 caps 11/27/24 hr,extended release dextromethorphan-guaifenesin 5 10 ml PO Q4-8H PRN Cough #250 mL 12/02/24 mg-100 mg/5 mL oral liquid (Robitussin Honey Max DM) prednisone 50 mg tablet 50 mg PO DAILY #60 tabs 12/15/24 sennosides 8.6 mg tablet (Senokot) 8.6 mg PO BID #60 tabs 12/15/24 hydromorphone 2 mg tablet 2 mg PO Q6H #30 tabs 12/29/24 (Dilaudid) Allergies Allergy/AdvReac Type Severity Reaction Status Date / Time adhesive tape Allergy Redness of Verified 01/03/25 09:28 Skin cefuroxime AdvReac Hives Verified 01/03/25 09:28 flu vaccine AdvReac Severe Hives Uncoded 09/26/24 13:39 Review of Systems 2 Review of Systems: Yes all other systems are reviewed and are negative PMFSH Past Medical History Attestation statement: The following information was validated with the patient. Source: old records reviewed Medical History Lumbar spondylosis Back pain COVID-19 HTN (hypertension) Invasive ductal carcinoma of breast Breast mass, right Benign essential hypertension Pure hypercholesterolemia GERD (gastroesophageal reflux disease) Viral upper respiratory tract infection with cough Obesity (BMI 30-39.9) Migraine Asthma Cyst of breast, left, solitary Cough Asthma Laryngitis Allergic rhinosinusitis Surgical History History of lumpectomy of right breast (~08/16/24) Hx of colonoscopy History of breast lump/mass excision H/O section Family History Family History Mother Colon cancer, Onset Age: 42 Diabetes mellitus Father Heart disease Parkinson disease Maternal Grandmother Breast cancer Paternal Grandmother Breast cancer Maternal Grandfather Prostate CA Family/Other Thyroid cancer Other FH: mental illness Substance abuse Social History Social History Household Members: Spouse Housing: House Are you a primary spiritual care coordinator to a significant other at home: No Do you presently have visiting nurse or other home services: No Alcohol intake: never Patient Tobacco Use Status: Never used Tobacco Smoked in Last 30 Days: No e-Cigarette/Vaping Use: Never Used Second Hand Smoke Exposure: No Use of substances other than those prescribed or required for medical reasons: No Advance Directives: Yes Advance Directives Information Provided: Yes Advance Directives on File: No Patient : No service: No Current occupational status: employed 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 Const General: cooperative HENMT Head: Yes normal to inspection and Yes atraumatic Eyes General: appearance normal, both eyes and all related structures Pupils: Equal, round and reactive pupils present EOM: EOMs intact bilaterally Neck Neck: Yes normal visual inspection, Yes full ROM, Yes supple and No tender Chest Chest palpation & inspection: normal inspection of the chest and normal palpation of entire chest wall Resp Effort & Inspection: normal respiratory effort, able to speak in complete sentences, no cough and no respiratory distress Auscultation: clear to auscultation bilaterally Cardio Rate: tachycardic Rhythm: regular rhythm Peripheral pulses: Peripheral pulses 2+ throughout GI Inspection: Yes normal to inspection, No Abdominal wall edema and No distended Palpation (GI): Soft to palpation, not firm, nontender, no guarding and not rigid Auscultation: normal bowel sounds Back/Spine/Pelvis Back: No back tenderness Neuro Cranial nerves: Yes Equal, round and reactive pupils present Course Course Course Narrative: Patient is afebrile, mildly hypertensive and tachycardic. Reviewed triage labs. Hgb baseline at 12.7. BUN to Cr ratio unremarkable. Suspect possible hemorrhoidal bleeding after recent constipation following by diarrhea. I spoke with Dr. Martin patient's oncologist who confirmed if laboratory studies are reassuring then patient is appropriate for discharge to home and further out-patient follow up. Plan: Discharge to home with PCP, Oncology, and GI follow up outpatient Condition: Stable Medical Decision Making Lab Data 01/03/25 10:20 01/03/25 10:20 Labs: Lab Results 01/03/25 Range/Units 10:20 WBC 8.5 (4.8-10.8) X10*3/uL RBC 4.18 L (4.20-5.50) X10*6/uL Hgb 12.7 (12.0-16.0) g/dl Hct 37.1 (37.0-47.0) % MCV 88.8 (80.0-98.0) fL MCH 30.4 (27.0-33.0) pg MCHC 34.2 (31.0-35.0) g/dl RDW 14.5 (11.0-16.0) % Plt Count 408 H (160-400) X10*3/uL MPV 11.0 (9.4-12.3) fL Immature Gran % (Auto) 1.3 H (0.0-0.4) % Neut % (Auto) 88.3 H (45-73) % Lymph % (Auto) 8.3 L (20-40) % [place] % (Auto) 1.9 L (2-11) % Eos % (Auto) 0.0 (0-4) % Baso % (Auto) 0.2 (0-2) % Lymph # (Auto) 0.7 L (1.2-4.9) X10*3/uL [place] # (Auto) 0.2 (0.1-1.2) X10*3/uL Eos # (Auto) 0.0 (0.0-0.4) X10*3/uL Baso # (Auto) 0.0 (0.0-0.2) X10*3/uL Abs Immat Gran (auto) 0.11 H (0.00-0.03) X10*3/uL Absolute Neuts (auto) 7.5 (2.0-8.3) x10*3/uL Absolute Nucleated RBC 0.000 (0.0-0.012) X10*3/uL Nucleated RBC % (auto) 0.0 (0.0-0.2) /100WBC Sodium 138 (135-145) mmol/L Potassium 4.0 (3.3-5.1) mmol/L Chloride 104 (96-108) mmol/L Carbon Dioxide 25 (22-29) mmol/L Anion Gap 13 (12-20) BUN 11 (9-16) mg/dL Creatinine 0.66 (0.5-1.4) mg/dL Estim Creat Clear Calc 115.3 Estimated GFR > 60 Random Glucose 130 H (60-115) mg/dL Calcium 9.3 D (8.4-10.2) mg/dL Magnesium 2.1 (1.6-2.6) mg/dL Influenza Type A (PCR) NEGATIVE (Negative) Influenza Type B (PCR) NEGATIVE (Negative) RSV RNA Qual (PCR) NEGATIVE (Negative) SARS-CoV-2 RNA (RT-PCR) NEGATIVE (Negative) S. pyogenes GrpA SADIQ Negative (Negative) Independent Interpretation I performed an independent interpretation of an: EKG Interpretation: ST 101BPM with normal intervals Discharge Plan Discharge Clinical Impression: Diarrhea, Bright red rectal bleeding Patient Disposition: Home, Self-Care Instructions: Rectal Bleeding (ED) Additional Instructions: As we discussed, you were seen today for constipation followed by diarrhea with bright red rectal bleeding. Your labs were reassuring. I spoke with your oncologist who recommended you follow up with their office. I have also provided you with a referral to gastroenterology. Please return to the emergency department for: Worsening abdominal pain Lightheadedness/passing out Chest pain Difficulty breathing Prescriptions: No Action omeprazole 20 mg capsule,delayed release(DR/EC) 20 mg PO DAILY 90 Days Qty: 90 3RF propranolol 80 mg capsule,extended release 24 hr 80 mg PO DAILY 90 Days Qty: 90 1RF ondansetron 8 mg Tablet,Disintegrating 8 mg PO Q8H Qty: 50 3RF dexamethasone 4 mg Tablet 4 mg PO BID Qty: 60 2RF Rx Instructions: Take 4 mg p.o. b.i.d. days 2 and 3 of chemotherapy Q 14 days qbsncqknul-vgonrnprzgwna-wzvr 50-325-40 mg Capsule 1 cap PO Q6H PRN (Reason: Headache) Qty: 30 2RF erythromycin 5 mg/gram (0.5 %) Ointment 0.5 inch OPHTHALMIC (EYE) TID Qty: 30 0RF lidocaine HCl [Lidocaine Viscous] 2 % Solution 1 appl MUCOUS MEMBRANE QID Qty: 120 0RF tramadol 50 mg Tablet 50 mg PO BID PRN (Reason: Pain (Scale Score 7-10)) Qty: 30 0RF dextromethorphan-guaifenesin [Robitussin Honey Max DM] 5-100 mg/5 mL Liquid 10 ml PO Q4-8H PRN (Reason: Cough) Qty: 250 0RF prednisone 50 mg Tablet 50 mg PO DAILY Qty: 60 1RF Rx Instructions: Take 50 mg p.o. daily x5 days sennosides [Senokot] 8.6 mg Tablet 8.6 mg PO BID Qty: 60 4RF hydromorphone [Dilaudid] 2 mg Tablet 2 mg PO Q6H Qty: 30 0RF Rx Instructions: Partial Fill upon patient request. naproxen 500 mg Tablet 500 mg PO BID PRN (Reason: Pain) fluticasone propionate [Aller-Abel] 50 mcg/actuation spray,suspension 1 spray intranasal BID PRN (Reason: Allergy Symptoms) Rx Instructions: administer into each nostril meloxicam 15 mg tablet 15 mg PO DAILY PRN (Reason: pain) 30 Days Qty: 30 3RF Rx Instructions: Take with food albuterol sulfate [Ventolin HFA] 90 mcg/actuation HFA aerosol inhaler 2 puff inhalation Q6H PRN (Reason: shortness of breath or wheezing) 30 Days Qty: 18 5RF Mirena 21 mcg/24 hours (8 yrs) 52 mg intrauterine device 21 mcg intrauterine ONCE Referrals: Tushar Joyner MD [Physician] - 2 days Print Language: Greenlandic
[2025-01-03 11:34] LABS: Influenza A PCR NEGATIVE (Negative); Influenza B PCR NEGATIVE (Negative); Resp Syncy Virus RNA Qual PCR NEGATIVE (Negative); SARS COV2 PCR INHOUSE NEGATIVE (Negative)
[2025-01-03 12:33] VITALS: BP 154/94; PULSE 75; RESP 16; TEMP 36.6; O2SAT 97
== END 2025-01-03 12:44 | disposition home or self-care (01) ==
PROVIDERS: Emergency Provider Emergency Medicine; PCP Internal Medicine
DX: K92.2 Gastrointestinal hemorrhage, unspecified (principal); K59.00 Constipation, unspecified; R07.89 Other chest pain; R00.0 Tachycardia, unspecified; Z03.818 Encounter for observation for suspected exposure to other biological agents ruled out; Z79.899 Other long term (current) drug therapy
CPT/HCPCS: 0241U; 36415; 80048; 83735; 85025; 87651; 93005; 99283; 99284

== ENCOUNTER 2025-01-09 08:54 | Outpatient (AMB) | payer OTHER, SELFPAY ==
[2025-01-09 09:21] VITALS: BP 126/82; PULSE 89; O2SAT 98; BMI 36.5
--- NOTE | 2025-01-09 09:21 | A.OFFPC_ITS ---
Vital Signs 01/09/25 09:21 Height 5 ft 3 in Weight 206 lb BMI 36.5 BP 126/82 Blood Pressure Location Lt brachial Position Sitting Pulse 89 Pulse Source Pulse Oximeter Pulse Oximetry (%) 98 Oxygen Delivery Method Room Air Intake Visit Reasons: [facility] 2/4 blood in stool/neck pain [employer] Required: No Accompanied by: Self / Same As Patient Allergies adhesive tape Allergy (Verified 01/09/25 09:45) Redness of Skin cefuroxime Adverse Reaction (Verified 01/09/25 09:45) Hives flu vaccine Adverse Reaction (Severe, Uncoded 01/09/25 09:45) Hives Medication List - Last Reconciled 01/09/25 by Lev Patrick MD [id number] 50-325-40 mg 1 cap PO Q6H PRN dexamethasone 4 mg PO BID dextromethorphan-guaifenesin 5-100 mg/5 mL (Robitussin Honey Max DM) 10 mL PO Q4-8H PRN erythromycin 0.5 inches ophthalmic (eye) TID fluticasone propionate 50 mcg/actuation (Aller-Abel) 1 spray intranasal BID PRN hydromorphone (Dilaudid) 2 mg PO Q6H levonorgestrel (Mirena) 21 mcg intrauterine ONCE lidocaine HCl 2% (Lidocaine Viscous) 1 appl mucous membrane QID meloxicam 15 mg PO DAILY PRN 30 days naproxen 500 mg PO BID PRN omeprazole 20 mg PO DAILY 90 days ondansetron 8 mg PO Q8H polyethylene glycol 3350 (Miralax) 17 grams PO BID prednisone 50 mg PO DAILY propranolol ER 80 mg PO DAILY 90 days sennosides (Senokot) 8.6 mg PO BID sennosides 17.2 mg PO BID tramadol 50 mg PO BID PRN Ventolin HFA 90 mcg/actuation (albuterol sulfate) 2 puffs inhalation Q6H PRN 30 days NS Tobacco use date assessed: 01/09/25 Dental Screening Dental Screen Date: 01/09/25 Did you have a dental visit in the last 12 months?: Yes Did you have a dental problem in the last 6 months where you did not have access to dental care?: No Was dental information given to patient?: Patient has dentist HPI [facility] 2[facility]4 blood in stool/neck pain HPI Details Patient comes in today for her F follow up visit She went to the ER at [facility] last week for rectal bleeding Recalls that she was feeling very constipated for a while and subsequently had a large bowel movement with diarrhea a couple of days later that also had bright red blood with her stool x 1 episode which prompted her to go to the ER for further evaluation She recalls having a colonoscopy done at [facility] a couple of years ago (sometime in 2021 or 2022) and was reportedly advised that her colonoscopy was normal abarca then She states that she reached out to [facility] late last week to schedule an appointment to see them for further evaluation but was reportedly advised that she needs to get a referral from her PCP first She is currently undergoing treatment for her right breast cancer She started adjuvant chemotherapy on 09/15/2024 and completed her 4th cycle on 10/26/24 She was then started on Taxol weekly on 11/17/2024 and just finished her 6th cycle of treatment Plan for now is to complete 12 cycles, after which she will then go for postlumpectomy radiation followed by antiestrogen therapy as she is ER/ND positive Patient states that she would also like to get a referral to go to [facility] just to get a second opinion and was advised by her insurance when she reached out to them that she will need a preauthorization from her PCP States that she currently feels fatigued but denies any headaches or dizziness Denies any chest pains, no increased SOB No nausea/vomiting, no abdominal pain States that she is still struggling with constipation and is currently on Miralax 17 gm QD and Senokot 8.6 mg 2 tablets BID PFS Medical History Lumbar spondylosis Back pain COVID-19 HTN (hypertension) Invasive ductal carcinoma of breast Breast mass, right Benign essential hypertension Pure hypercholesterolemia GERD (gastroesophageal reflux disease) Viral upper respiratory tract infection with cough Obesity (BMI 30-39.9) Migraine Asthma Cyst of breast, left, solitary Cough Asthma Laryngitis Allergic rhinosinusitis Surgical History History of lumpectomy of right breast (~08/16/24) Hx of colonoscopy History of breast lump/mass excision H/O section Family History Mother Colon cancer, Onset Age: 42 Diabetes mellitus Father Heart disease Parkinson disease Maternal Grandmother Breast cancer Paternal Grandmother Breast cancer Maternal Grandfather Prostate CA Family/Other Thyroid cancer Other FH: mental illness Substance abuse Social History Household Members: Spouse Housing: House Are you a primary direct care staffer to a significant other at home: No Do you presently have visiting nurse or other home services: No Alcohol intake: never Patient Tobacco Use Status: Never used Tobacco e-Cigarette/Vaping Use: Never Used Second Hand Smoke Exposure: No service: No Current occupational status: employed 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 1. Little interest or pleasure in doing things: not at all 2. Feeling down, depressed, or hopeless: not at all 3. Trouble falling or staying asleep, or sleeping too much: not at all 4. Feeling tired or having little energy: not at all 5. Poor appetite or overeating: not at all 6. Feeling bad about yourself - or that you are a failure or have let yourself or your family down: not at all 7. Trouble concentrating on things, such as reading the newspaper or watching television: not at all 8. Moving or speaking so slowly that other people could have noticed. Or the opposite - being so fidgety or restless that you have been moving around a lot more than usual: not at all 9. Thoughts that you would be better off or of hurting yourself in some way: not at all Total score: 0 Depression Screening Interpretation: Negative Depression Screening Done: Yes 46760 - PHQ-9 Billing: Yes Source: Developed by Drs. Elfego Morelos, Emani Kelley, Apollo Buchanan and colleagues, with an educational gilson from [employer]. Thrive Questionnaire Date Thrive assessed: 01/09/25 I am a: Patient What is your living situation today?: I have a steady place to live Within the past 12 months, did the food you bought not last and you didn't have the money to get more?: Never true Within the past 12 months, did you worry whether your food would run out before you got money to buy more?: Never true Do you have trouble paying for medicines?: No Do you have trouble getting transportation to medical appointments?: No Do you have trouble paying your heating and electricity bill?: No Do you have trouble taking care of your child, family member or friend?: No Do you have trouble with day-to-day activities such as bathing, preparing meals, shopping, managing finances, etc.?: No Are you currently unemployed and looking for a job?: No Are you interested in more education?: No Please select the resources that you would like help with: None Currently or been in a relationship where the following occur: No concerns reported THRIVE Score: 0 AUDIT C Alcohol Use Questionnaire (AUDIT-C) 1. How often do you have a drink containing alcohol?: Never 3. How often do you have six or more drinks on one occasion?: Never Total Score: 0 Score Reviewed/Action Taken: Yes AYESHA-7 AMB Questionnaire AYESHA-7 Date AYESHA - 7 assessed: 01/09/25 Feeling nervous, anxious, or on edge: 0 = Not at all Not being able to stop or control worryin = Not at all Worrying too much about different things: 0 = Not at all Trouble relaxin = Not at all Being so restless that it is hard to sit still: 0 = Not at all Becoming easily annoyed or irritable: 0 = Not at all Feeling afraid as if something awful might happen: 0 = Not at all Total AYESHA-7 score (0-4 normal; 5-9 mild; 10-14 moderate; 15-21 severe): 0 Source: Developed by Drs. Elfego Morelos, Emani Kelley, Apollo Buchanan and colleagues, with an educational gilson from [employer]. Review of Systems Const Denies chills, Reports fatigue, Denies fever(s) and Denies headache(s) ENT Denies dysphagia, Denies dizziness, Denies otalgia, Denies headache(s), Denies neck pain, Denies odynophagia and Denies sore throat Card Denies chest pain, Denies irregular heart rhythm, Denies palpitations and Denies dyspnea Resp Denies chest congestion, Denies cough and Denies dyspnea GI Denies abdominal pain, Reports bloating (at times), Reports hematochezia (x 1 episode a week ago on 01/03/2025 - see HPI), Reports constipation (increased), Denies dysphagia, Denies heartburn, Denies diarrhea, Reports nausea (on and off, associated with her chemotherapy), Denies odynophagia and Denies vomiting Denies urinary frequency, Denies dysuria and Denies urinary urgency Musc Reports back pain (over the right lower back lately), Denies arthralgias and Denies neck pain Skin/Breast Denies rash Neuro Denies dizziness, Denies headache(s) and Denies paresthesias Psych Denies anxiety and Denies depression Endo Reports fatigue and Denies palpitations Valentino/Lymph Denies easy bruising Physical exam (Primary Care) Vital Signs: Last Vital Signs Pulse 89 01/09/25 09:21 BP 126/82 01/09/25 09:21 Pulse Ox 98 01/09/25 09:21 Oxygen Delivery Method Room Air 01/09/25 09:21 BMI result Body Mass Index 36.5 Tobacco/Smoking Status: Tobacco use Status Tobacco use date assessed 01/09/25 01/09/25 09:24 Patient Tobacco Use Status Never used Tobacco 01/09/25 09:24 e-Cigarette/Vaping Use Never Used 01/09/25 09:24 PHQ-9: PHQ-9 Score PHQ-9: Total score 0 01/09/25 09:24 Depression Screening Interpretation: Negative Thrive Assessment: Date of Thrive Assessment Date Thrive assessed 01/09/25 01/09/25 09:24 Currently or been in a relationship where the following occur: No concerns reported Const General: no acute distress and alert HENMT Ears: TM's normal bilaterally and EAC's normal Throat: Yes posterior oropharynx normal and Yes tonsils normal (no TP congestion) Neck Neck: Yes no lymphadenopathy and Yes supple Thyroid: Thyroid normal Resp Auscultation: clear to auscultation bilaterally, no rales and no wheezes Cardio Rate: regular rate Rhythm: regular rhythm Heart sounds: no murmurs GI Palpation (GI): Soft to palpation and nontender Auscultation: normal bowel sounds General: Yes no CVA tenderness Back/Spine/Pelvis Back: no CVA tenderness Thoracic/Lumbar Spine: No lumbar spinal tenderness Coccyx: Coccyx tenderness present on direct palpation ((+) Hx of coccygeal Fx) Skin Rashes: no rashes Extrem General: Yes no clubbing, cyanosis or edema Coding Level of Care Code Est Pt Level 4 (06487) Diagnoses Rectal bleeding K62.5 Constipation, unspecified constipation type K59.00 Constipation type: unspecified constipation type Malignant neoplasm of right breast in female, estrogen receptor positive, unspecified site of breast C50.911; Z17.0 Breast location: unspecified site of breast Estrogen receptor status: positive Patient sex: female Pure hypercholesterolemia E78.00 Benign essential hypertension I10 Gastroesophageal reflux disease, unspecified whether esophagitis present K21.9 Esophagitis presence: esophagitis presence not specified Mild intermittent asthma without complication J45.20 Asthma severity: mild Asthma persistence: intermittent Asthma complication type: uncomplicated Impaired fasting glucose R73.01 Migraine without status migrainosus, not intractable, unspecified migraine type G43.909 Migraine type: unspecified Status migrainosus presence: without status migrainosus Intractability: not intractable Lumbar spondylosis M47.816 Obesity (BMI 30-39.9) E66.9 Additional Codes PHQ-9 - 17008 - PHQ-9 Billing: Yes ([id number]) Assessment & Plan Assessment & Plan (1) Rectal bleeding: Code(s): K62.5 - Hemorrhage of anus and rectum Category: Medical Plan: Discussed with patient that this is likely related to her recent bout with constipation as she reportedly had a normal colonoscopy done at [facility] last year Will still need to refer her to GI for further evaluation and management (2) Constipation: Code(s): K59.00 - Constipation, unspecified Category: Medical Qualifiers: Constipation type: unspecified constipation type Qualified Code(s): K59.00 - Constipation, unspecified Plan: Have reinforced to patient that she needs to increase her oral fluids and dietary fiber intake to help better manage her constipation but advised that her constipation is also likely related to her recent opioid Rx Continue Miralax 17 gm QD and Senokot 8.6 mg 2 tablets BID She is also advised that she can drink some prune juice additionally to help with her bowel movements (3) Breast cancer, right breast: Code(s): C50.911 - Malignant neoplasm of unspecified site of right female breast Category: Medical Qualifiers: Breast location: unspecified site of breast Estrogen receptor status: positive Patient sex: female Qualified Code(s): C50.911 - Malignant neoplasm of unspecified site of right female breast; Z17.0 - Estrogen receptor positive status [ER+] Plan: She is currently undergoing treatment for her right breast cancer - she started adjuvant chemotherapy on 09/15/2024 and completed her 4th cycle on 10/26/24 She was then started on Taxol weekly on 11/17/2024 and just finished her 6th cycle of treatment a few days ago Plan for now is for her to complete 12 cycles, after which she will then go for postlumpectomy radiation followed by antiestrogen therapy as she is ER/ND positive Follow up with oncology as scheduled Patient states that she would like to get a referral to go to [facility] just to get a second opinion - referral done (4) Pure hypercholesterolemia: Code(s): E78.00 - Pure hypercholesterolemia, unspecified Category: Medical Plan: Reinforced low cholesterol diet She has been taking some OTC CholestOFF as she would still like to avoid taking any statins for her cholesterol at this time This appears to be helping, as her cholesterol levels when last checked in February 2024 were all within normal range Will have her continue on OTC CholestOFF daily for now Will recheck her fasting lipids and labs in a couple of months for follow up (5) Benign essential hypertension: Code(s): I10 - Essential (primary) hypertension Category: Medical Plan: Reinforced low sodium diet - goal is systolic BP of 130 mm or less Continue Propranolol ER 80 mg QD Patient is reminded to continue monitoring her BP regularly (6) GERD (gastroesophageal reflux disease): Code(s): K21.9 - Gastro-esophageal reflux disease without esophagitis Category: Medical Qualifiers: Esophagitis presence: esophagitis presence not specified Qualified Code(s): K21.9 - Gastro-esophageal reflux disease without esophagitis Plan: Reinforced dietary restrictions Upper GI series done in 2022 confirmed (+) GERD with no other abnormalities Continue Omeprazole 20 mg QD (7) Asthma: Code(s): J45.909 - Unspecified asthma, uncomplicated Category: Medical Qualifiers: Asthma severity: mild Asthma persistence: intermittent Asthma complication type: uncomplicated Qualified Code(s): J45.20 - Mild intermittent asthma, uncomplicated Plan: Stable Continue Albuterol HFA 1 to 2 inhalations every 6 hours PRN and Montelukast 10 mg QD Follow up with pulmonary (Dr. Gonzalez) as scheduled (8) Impaired fasting glucose: Code(s): R73.01 - Impaired fasting glucose Category: Medical Plan: Her blood sugar readings have been normal lately Her HgbA1c was also normal at 5.5% when last checked in February 2024 Reinforced low calorie/low carb diet (9) Migraine: Code(s): G43.909 - Migraine, unspecified, not intractable, without status migrainosus Category: Medical Qualifiers: Migraine type: unspecified Status migrainosus presence: without status migrainosus Intractability: not intractable Qualified Code(s): G43.909 - Migraine, unspecified, not intractable, without status migrainosus Plan: Reinforced avoidance of any potential migraine triggers Patient states that her headaches have been well-controlled for a while now She was reportedly seen by neurology a few months ago and was advised to continue on her current Rx Continue Fioricet PRN and Sumatriptan 50 mg PRN She is also on Propranolol ER 80 mg QD for her blood pressure, but this can also help as prophylactic Tx for her migraine Follow up with neurology as scheduled (10) Lumbar spondylosis: Code(s): M47.816 - Spondylosis without myelopathy or radiculopathy, lumbar region Category: Medical Plan: Lumbar spine x-rays done back in February 2024 revealed (+) mild multilevel lumbar spondylosis with loss of disc space height at L3-L4 and L4-L5 Reinforced activity and weight-lifting restrictions to avoid aggravating her low back pain Can consider referral to physical therapy if her back pain flares up or continues to bother her a lot (11) Obesity (BMI 30-39.9): Code(s): E66.9 - Obesity, unspecified Category: Medical Plan: Reinforced diet/exercise as tolerated/lose weight Plan To return as scheduled in February 2025 for her annual physical examination Orders: Orders Lipid Panel 03/04/25 E78.00 - Pure hypercholesterolemia, unspecified, Z00.00 - Encounter for general adult medical examination without abnormal findings Comprehensive [place]. Panel Fast 03/04/25 E78.00 - Pure hypercholesterolemia, unspecified, Z00.00 - Encounter for general adult medical examination without abnormal findings TSH reflex Free T4 03/04/25 E78.00 - Pure hypercholesterolemia, unspecified, Z00. - Encounter for general adult medical examination without abnormal findings Vitamin D 25-OH Total 03/04/25 E55.9 - Vitamin D deficiency, unspecified, Z00. - Encounter for general adult medical examination without abnormal findings Hemoglobin A1c 03/04/25 R73.01 - Impaired fasting glucose, Z00. - Encounter for general adult medical examination without abnormal findings Complete Blood Count Auto Diff 03/04/25 D64.9 - Anemia, unspecified, Z00. - Encounter for general adult medical examination without abnormal findings UA CC w/rflx Micro + Cult 03/04/25 R30.0 - Dysuria, Z00. - Encounter for general adult medical examination without abnormal findings Vitamin B12 and Folate 03/04/25 E53.8 - Deficiency of other specified B group vitamins, Z00. - Encounter for general adult medical examination without abnormal findings Referrals Hematology & Oncology Referral C50.911 - Malignant neoplasm of unspecified site of right female breast, Z17.0 - Estrogen receptor positive status [ER+] Gastroenterology Referral C50.911 - Malignant neoplasm of unspecified site of right female breast, K62.5 - Hemorrhage of anus and rectum, Z17.0 - Estrogen receptor positive status [ER+]
== END 2025-01-09 10:05 | disposition home or self-care (01) ==
PROVIDERS: PCP Internal Medicine; Visit Provider Internal Medicine
DX: K62.5 Hemorrhage of anus and rectum (principal); C50.911 Malignant neoplasm of unspecified site of right female breast; E66.9 Obesity, unspecified; Z68.37 Body mass index [BMI] 37.0-37.9, adult; K59.00 Constipation, unspecified; Z17.0 Estrogen receptor positive status [ER+]; E78.00 Pure hypercholesterolemia, unspecified; I10 Essential (primary) hypertension; K21.9 Gastro-esophageal reflux disease without esophagitis; J45.20 Mild intermittent asthma, uncomplicated; R73.01 Impaired fasting glucose; G43.909 Migraine, unspecified, not intractable, without status migrainosus; M47.816 Spondylosis without myelopathy or radiculopathy, lumbar region

== ENCOUNTER → 2025-01-09 08:54 | Outpatient (BNVA) | payer OTHER, SELFPAY | PROVIDERS: PCP Internal Medicine; Visit Provider Internal Medicine | DX: K62.5 Hemorrhage of anus and rectum (principal); K59.00 Constipation, unspecified; C50.911 Malignant neoplasm of unspecified site of right female breast; Z17.0 Estrogen receptor positive status [ER+]; E78.00 Pure hypercholesterolemia, unspecified; I10 Essential (primary) hypertension; K21.9 Gastro-esophageal reflux disease without esophagitis; J45.20 Mild intermittent asthma, uncomplicated; R73.01 Impaired fasting glucose; G43.909 Migraine, unspecified, not intractable, without status migrainosus; M47.816 Spondylosis without myelopathy or radiculopathy, lumbar region; E66.9 Obesity, unspecified; Z68.36 Body mass index [BMI] 36.0-36.9, adult; Z79.899 Other long term (current) drug therapy | CPT/HCPCS: 96127 ==

== ENCOUNTER 2025-01-18 08:14 | Outpatient (AMB) | payer OTHER, SELFPAY ==
--- NOTE | 2025-01-18 08:28 | MHC.OFFVIS ---
Vital Signs 01/18/25 08:33 Height 5 ft 3 in Weight 209 lb BMI 37.0 BP 146/94 H Blood Pressure Location Lt brachial Position Sitting Pulse 107 H Oxygen Delivery Method Room Air Intake Visit Reasons: Chemo pt, hemorrhage of anus/rectum Intake Note: New consult for hemorrhage of anus/rectum. Patient cc: nauseas, abdominal pain with bloating, acid reflex with burning sensation, and some swallowing discomfort, hemorrhage of anus due to constipation and diarrhea. Internal hemorrhoids. Pt is getting chemo due to breast cancer. Review Consultant Required: No Accompanied by: Spouse Allergies adhesive tape Allergy (Verified 01/09/25 09:45) Redness of Skin cefuroxime Adverse Reaction (Verified 01/09/25 09:45) Hives flu vaccine Adverse Reaction (Severe, Uncoded 01/09/25 09:45) Hives HPI HPI Chemo pt, hemorrhage of anus/rectum: Details: 44 year old? female with a past medical history of breast cancer, constipation, abdominal bloating, acute cystitis, family history of colorectal cancer, hypertension, hyperlipidemia, GERD, obesity, asthma, migraines is here today for pre colonoscopy screening.? Patient was sent to us by her PCP and oncologist. Patient had colonoscopy in January of 2022. One tubular adenoma found. Patient was told to come back in 10 years. Patient reports to me that she has a family history of CRC. Patient's mom was diagnosed with colon cancer in her 40s and 50s.? Patient reports that she has been having occasional blood in her stool. However she reports that recently she is getting worse. More blood she knows that with blood clots. Reports to be constipated, bloated however, occasionally she will have loose stools which they are rare. Patient is taking medications to control her pain. Diagnosed with breast cancer past summer, currently going for chemotherapy treatments. Sees Dr. Martin. Takes hydromorphone for pain. Recently her oncologist added Celebrex. Patient reports to have a stabbing chest pain after eating, sometimes radiating to her back. Currently she is on Pepcid, however she feels like it is not helping.? Takes Zofran for nausea. Reports occasional dyspepsia with dysphagia without odynophagia. Patient was taking omeprazole and it was not helping. Currently is taking Senokot, however she still feels like she is constipated. Her bowel movements are small and very hard. Denies history of difficulty with sedation or anesthesia in the past.? Negative for history of sleep apnea.? Denies any history of cardiac, renal, pulmonary, or hepatic disease.?? No history of infectious? diseases like hepatitis A, B, C, HIV or tuberculosis.? Patient is not on any anticoagulation [facility] Medical History Lumbar spondylosis Back pain COVID-19 HTN (hypertension) Invasive ductal carcinoma of breast Breast mass, right Benign essential hypertension Pure hypercholesterolemia GERD (gastroesophageal reflux disease) Viral upper respiratory tract infection with cough Obesity (BMI 30-39.9) Migraine Asthma Cyst of breast, left, solitary Cough Asthma Laryngitis Allergic rhinosinusitis Surgical History History of lumpectomy of right breast (~08/16/24) Hx of colonoscopy History of breast lump/mass excision H/O section Family History Mother Colon cancer, Onset Age: 42 Diabetes mellitus Father Heart disease Parkinson disease Maternal Grandmother Breast cancer Paternal Grandmother Breast cancer Maternal Grandfather Prostate CA Family/Other Thyroid cancer Other FH: mental illness Substance abuse Social History Household Members: Spouse Housing: House Are you a primary assurance services manager health care to a significant other at home: No Do you presently have visiting nurse or other home services: No Alcohol intake: never Patient Tobacco Use Status: Never used Tobacco e-Cigarette/Vaping Use: Never Used Second Hand Smoke Exposure: No service: No Current occupational status: employed 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 [employer] Cognitive needs: No Hearing needs: No Vision needs: Yes Female Reproductive History Menstrual Age of Menarche: 7 Review of Systems Const Denies weight gain and Denies weight loss ENT Reports no additional complaints, Reports dysphagia and Denies odynophagia Card Reports no additional complaints Resp Reports no additional complaints GI Reports abdominal pain (Epigastric), Denies belching, Denies melena, Reports bloating, Denies change in bowel habits, Reports constipation, Reports dysphagia, Denies excessive flatus, Reports dyspepsia, Reports heartburn, Denies diarrhea, Reports loose stools, Denies nausea, Denies odynophagia and Denies vomiting Reports no additional complaints Musc Reports no additional complaints Neuro Reports no additional complaints Psych Reports no additional complaints Endo Reports no additional complaints Physical Exam Vital Signs: Last Vital Signs Pulse 107 H 01/18/25 08:33 BP 146/94 H 01/18/25 08:33 Oxygen Delivery Method Room Air 01/18/25 08:33 BMI result Body Mass Index 37.0 Const General: healthy appearing and no acute distress Nutritional Appearance: obese Orientation/consciousness: patient oriented x3 Resp Effort & Inspection: normal respiratory effort, able to speak in complete sentences, no tracheal deviation and symmetric chest movement Auscultation: clear to auscultation bilaterally Cardio Rate: regular rate GI Inspection: Yes normal to inspection, No distended and Yes obesity Palpation (GI): Soft to palpation, not firm, nontender and No hepatosplenomegaly present Auscultation: normal bowel sounds General: Yes no CVA tenderness Back/Spine/Pelvis Back: no CVA tenderness Skin General skin exam: elasticity normal, turgor normal and dry skin Neuro General: patient oriented x3 Psych Appearance: grossly normal Mental Status: mental status grossly normal Assessment & Plan Assessment & Plan (1) Rectal bleeding: Code(s): K62.5 - Hemorrhage of anus and rectum Category: Medical (2) Constipation: Code(s): K59.00 - Constipation, unspecified Category: Medical Qualifiers: Constipation type: unspecified constipation type Qualified Code(s): K59.00 - Constipation, unspecified (3) Screen for colon cancer: Code(s): Z12.11 - Encounter for screening for malignant neoplasm of colon (4) Abdominal bloating: Code(s): R14.0 - Abdominal distension (gaseous) Category: Medical (5) Family hx of colorectal cancer: Comment: Patient's mother diagnosed at age 42 and age 52 with CRC. Last colonoscopy in January of 2022 showed tubular adenoma. Code(s): Z80.0 - Family history of malignant neoplasm of digestive organs Category: Medical (6) GERD (gastroesophageal reflux disease): Code(s): K21.9 - Gastro-esophageal reflux disease without esophagitis Category: Medical Qualifiers: Esophagitis presence: esophagitis presence not specified Qualified Code(s): K21.9 - Gastro-esophageal reflux disease without esophagitis (7) Dysphagia: Code(s): R13.10 - Dysphagia, unspecified Qualifiers: Dysphagia type: pharyngoesophageal phase Qualified Code(s): R13.14 - Dysphagia, pharyngoesophageal phase Plan Patient denies any cardiac or respiratory symptoms.? As mentioned above in HPI patient has multiple GI symptoms most likely related to some of that to her chemo treatment as well as pain management. Patient is taking hydromorphone. Unable to move her bowels for day sometimes when she does go she might have loose stools. Loose stools are cause also by being backed up. Patient will start taking fiber supplements to help her bulk stools. She will stop senna and start Dulcolax. Will order also stool softeners. Patient complains of dyspepsia, dysphagia and sharp epigastric pain related to food. Patient reports no matter what she eats. Patient also reports abdominal bloating. Will start her on Nexium. Patient will avoid dietary triggers and late night snacking. Given list of food to avoid. Low FODMAP diet recommended. Patient may take famotidine at bedtime. Staying upright for minimum 3 hours after meals discussed with patient. Patient reports pain from her upper chest radiating to her back underneath her scapula. Will send a script for lidocaine. Patient will be sent for upper GI series with barium swallow to evaluate reflux, hiatal hernia, esophageal narrowing, dysmotility, Schatzki ring, achalasia. Patient will be sent for upper endoscopy as well. Patient is reporting more frequent blood in her stools. She will be sent for colonoscopy as well Denies any issues with anesthesia in the past.? Denies any history of sleep apnea.? No history infectious diseases in the past or present.? Not on any anticoagulation therapy.? Family history of CRC. Patient reports her mom was diagnosed with colorectal cancer at age 42 and 52.?? Discussed at length the pre-procedure,? prep, diet & medications as well as what to expect prior, during and after the procedure.?? Stressed the importance of good bowel prep.? Recommended the use of Vaseline or Calmoseptine OTC & baby wipes with bowel movements to promote comfort.? ?Patient verbalizes understanding and agrees to plan of care.? She was given the opportunity to ask questions and all questions answered.? We will see her after the procedure. However patient was told to call our office if her symptoms will continue or if she will experience any additional GI concerning symptoms. Will call patient with the results of upper GI series Orders: Orders [place] upper GI w Ba Swallow Today K21.9 - Gastro-esophageal reflux disease without esophagitis Medications: New docusate sodium 200 mg (2 x 100 mg) PO BEDTIME 180 caps 3RF K59.00 - Constipation, unspecified esomeprazole magnesium (Nexium) 20 mg PO DAILY 30 caps 4RF lidocaine 5% leave on most painful area for up to 12 hrs 1 patch topical DAILY 15 ea 0RF bisacodyl (Dulcolax (bisacodyl)) 10 mg (2 x 5 mg) PO BEDTIME 180 tabs 4RF constipation polyethylene glycol 3350 (Miralax) As directed by gastro[facility]ology department at [facility] 238 grams PO ONCE 238 grams 0RF Z12.11 - Encounter for screening for malignant neoplasm of colon Discontinued sennosides (Senokot) Discontinued Reason: Doctor's Order 8.6 mg PO BID 60 tabs 4RF omeprazole Discontinued Reason: Doctor's Order 20 mg PO DAILY 90 days 90 caps 3RF Coding Level of Care Code New Pt Level 4 (47889) Diagnoses Rectal bleeding K62.5 Constipation, unspecified constipation type K59.00 Constipation type: unspecified constipation type Screen for colon cancer Z12.11 Abdominal bloating R14.0 Family hx of colorectal cancer Z80.0 Gastroesophageal reflux disease, unspecified whether esophagitis present K21.9 Esophagitis presence: esophagitis presence not specified Pharyngoesophageal dysphagia R13.14 Dysphagia type: pharyngoesophageal phase Time Spent (min) 50 Comment 45 minutes spent with patient and additional 15 minutes spent reviewing her records
[2025-01-18 08:33] VITALS: BP 146/94; PULSE 107; BMI 37.0
== END 2025-01-18 09:12 | disposition home or self-care (01) ==
PROVIDERS: PCP Internal Medicine; Visit Provider Nurse Practitioner Family
DX: K62.5 Hemorrhage of anus and rectum (principal); K59.00 Constipation, unspecified; R14.0 Abdominal distension (gaseous); K21.9 Gastro-esophageal reflux disease without esophagitis; R13.14 Dysphagia, pharyngoesophageal phase
CPT/HCPCS: 99204

== ENCOUNTER 2025-02-15 14:21 | Outpatient (AMB) | payer OTHER, SELFPAY ==
[2025-02-15 14:27] VITALS: BP 143/93; PULSE 95; O2SAT 96; BMI 38.6
--- NOTE | 2025-02-15 14:27 | A.OFFVIS_ITS ---
Vital Signs 02/15/25 14:27 Height 5 ft 3 in Weight 218 lb BMI 38.6 BP 143/93 H Blood Pressure Location Rt brachial Position Sitting Pulse 95 Pulse Source Pulse Oximeter Pulse Oximetry (%) 96 Oxygen Delivery Method Room Air Intake Visit Reasons: Neck/chest pain urgent ref to dr Medellin Internal Communications Specialist Required: No Allergies adhesive tape Allergy (Verified 02/15/25 14:30) Redness of Skin cefuroxime Adverse Reaction (Verified 02/15/25 14:30) Hives flu vaccine Adverse Reaction (Severe, Uncoded 02/15/25 14:30) Hives Medication List - Last Reconciled 02/15/25 by Ayana Ba, FIRER RETORT bisacodyl (Dulcolax (bisacodyl)) 10 mg (2 x 5 mg) PO BEDTIME pmjrqeixju-qewmqfqpxnjmz-uleg 50-325-40 mg 1 cap PO Q6H PRN dexamethasone 4 mg PO BID dextromethorphan-guaifenesin 5-100 mg/5 mL (Robitussin Honey Max DM) 10 mL PO Q4-8H PRN docusate sodium 200 mg (2 x 100 mg) PO BEDTIME erythromycin 0.5 inches ophthalmic (eye) TID esomeprazole magnesium 20 mg PO DAILY famotidine (Pepcid AC Maximum Strength) 20 mg PO BEDTIME 30 days fluticasone propionate 50 mcg/actuation (Aller-Abel) 1 spray intranasal BID PRN gabapentin 100 mg PO BEDTIME 30 days hydromorphone 2 mg (1/2 x 4 mg) PO Q6H PRN hydromorphone 2 mg (1/2 x 4 mg) PO Q6H PRN letrozole 2.5 mg PO DAILY levonorgestrel (Mirena) 21 mcg intrauterine ONCE lidocaine 5% 1 patch topical DAILY lidocaine HCl 2% (Lidocaine Viscous) 1 appl mucous membrane QID ondansetron 8 mg PO Q8H polyethylene glycol 3350 (Miralax) 17 grams PO BID polyethylene glycol 3350 (Miralax) 238 grams PO ONCE prednisone 50 mg PO DAILY propranolol ER 80 mg PO DAILY 90 days Ventolin HFA 90 mcg/actuation (albuterol sulfate) 2 puffs inhalation Q6H PRN 30 days NS HPI Comments Details: Sheree is very pleasant 44 years old female who was referred to this office by Oncology. Diagnose with right breast cancer, status post lumpectomy and sentinel biopsy for a T2 N1 invasive ductal carcinoma of the right breast. She completed chemotherapy treatment with Adriamycin and Cytoxan , after that she was started on Taxol. She reported that with the beginning of the Taxol medication she started to feel severe intermittent stabbing pain in the projection of the right clavicle she also reported neuropathic pain in bilateral hands and swelling of the both hands. Because of her pain she can not sleep no rmally. Can not take care of herself. 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 She reports that heat applications and cold applications change her perception of pain minimally. She is currently started on hydromorphone 2 mg every 6 hours and it helps her pain moderately. She reports her pain is stabbing lancinating punishing and killing sensation. The pain lasts 2-3 hours she also reports minor painful swallowing however she denies the connection of painful swollen living with the pain in the chest. She was evaluated by acid purifier she had some changes on EKG the full description of the echocardiography is in the chart overall normal ejection fraction and minor structural changes. Her past medical history significant for hypertension and environmental allergies. Her past surgical history significant for and lumpectomy as above. She denies smoking cigarettes drinking alcohol caffeinated beverages she denies recreational drugs. [facility] Medical History Lumbar spondylosis Back pain COVID-19 HTN (hypertension) Invasive ductal carcinoma of breast Breast mass, right Benign essential hypertension Pure hypercholesterolemia GERD (gastroesophageal reflux disease) Viral upper respiratory tract infection with cough Obesity (BMI 30-39.9) Migraine Asthma Cyst of breast, left, solitary Cough Asthma Laryngitis Allergic rhinosinusitis Surgical History History of lumpectomy of right breast (~08/16/24) Hx of colonoscopy History of breast lump/mass excision H/O section Family History Mother Colon cancer, Onset Age: 42 Diabetes mellitus Father Heart disease Parkinson disease Maternal Grandmother Breast cancer Paternal Grandmother Breast cancer Maternal Grandfather Prostate CA Family/Other Thyroid cancer Other FH: mental illness Substance abuse Social History Household Members: Spouse Housing: House Are you a primary childcare director to a significant other at home: No Do you presently have visiting nurse or other home services: No Alcohol intake: never Patient Tobacco Use Status: Never used Tobacco e-Cigarette/Vaping Use: Never Used Second Hand Smoke Exposure: No service: No Current occupational status: employed 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 [employer] Cognitive needs: No Hearing needs: No Vision needs: Yes Female Reproductive History Menstrual Age of Menarche: 7 Review of Systems Const All systems reviewed & are unremarkable except as noted in HPI and below ENT Reports Normal hearing present Card Reports as per HPI Resp Reports no additional complaints GI Reports no additional complaints Reports no additional complaints Musc Reports as per HPI Neuro Reports Normal hearing present, Denies Abnormal speech present, Denies confusion and Denies Sensory deficit (Neuro) Psych Denies confusion Endo Reports no additional complaints Valentino/Lymph Reports as per HPI Aller/Immun Reports as per HPI Physical Exam Vital Signs: Last Vital Signs Pulse 95 02/15/25 14:27 BP 143/93 H 02/15/25 14:27 Pulse Ox 96 02/15/25 14:27 Oxygen Delivery Method Room Air 02/15/25 14:27 BMI result Body Mass Index 38.6 Const General: no acute distress; No confusion Nutritional Appearance: obese morbidly obese Orientation/consciousness: patient oriented x3 and No confusion Eyes General: appearance normal, both eyes and all related structures Pupils: Equal, round and reactive pupils present EOM: EOMs intact bilaterally Neck Neck: Yes full ROM Chest Other: Hands are slightly swollen on physical exam however the swollen bilaterally. There is no tenderness on palpation in the projection of supraclavicular area although they also appears to be swollen bilaterally. Good bilateral radial pulses, Adson test is negative bilaterally. Resp Effort & Inspection: normal respiratory effort, able to speak in complete sentences, normal respiratory pattern, no audible wheezes and no cough Cardio Jugular venous distension: no JVD GI Inspection: Yes normal to inspection Neuro General: patient oriented x3, gait normal and No confusion Cranial nerves: Yes CN's II-XII intact bilaterally, Yes Equal, round and reactive pupils present, Yes Normal hearing present and Yes Ability to bilaterally elevate shoulders present Speech: No Abnormal speech present Gait exam (Neuro): Normal gait present Motor exam (neuro): 5/5 motor strength present throughout Sensory Exam: No Sensory deficit (Neuro) Extrem General: No pedal edema Psych Speech and movement: Normal speech and movement present Affect: normal affect Attitude: cooperative Thought process: Normal thought process present Thought content: Normal thought content present Insight: Good insight present (Psych) Judgement: Good judgement present (Psych) Assessment & Plan Assessment & Plan (1) Brachial plexopathy: Code(s): G54.0 - Brachial plexus disorders Category: Medical (2) Chemotherapy-induced neuropathy: Code(s): G62.0 - Drug-induced polyneuropathy; T45.1X5A - Adverse effect of antineoplastic and immunosuppressive drugs, initial encounter Category: Medical (3) Right brachial plexitis: Code(s): G54.0 - Brachial plexus disorders Category: Medical (4) Breast cancer, right breast: Code(s): C50.911 - Malignant neoplasm of unspecified site of right female breast Category: Medical Qualifiers: Breast location: unspecified site of breast Estrogen receptor status: positive Patient sex: female Qualified Code(s): C50.911 - Malignant neoplasm of unspecified site of right female breast; Z17.0 - Estrogen receptor positive status [ER+] Plan It is possible that patient is suffering from chemotherapy-induced plexopathy on the right. I will send her for evaluation to Dr. Kanu Guajardo for the possibility to ruling out or confirm this diagnosis. I discussed with the patient possibility of treating her pain with spinal cord stimulator. I also discussed possibility of treating her pain with intrathecal pain pump. She needs to go for psychological evaluation. Psychological evaluation [facility] telephone number was given to the patient. As soon as she will past psychological evaluation we will schedule her for the Att[employer] RTD scientific spinal cord stimulation trial with a possibility of switching her during the trial to Nevro SCS. Orders: Orders NE electromyogram (EMG) Today G54.0 - Brachial plexus disorders, G62.0 - Drug- induced polyneuropathy, T45.1X5A - Adverse effect of antineoplastic and immunosuppressive drugs, initial encounter Patient Instructions: I here by testify that I spent 45 minutes in conversation with this patient as well as evaluating records of my colleagues as well as planning her care and organizing this note. Coding Level of Care Code New Pt Level 4 (11394) Diagnoses Brachial plexopathy G54.0 Chemotherapy-induced neuropathy G62.0; T45.1X5A Right brachial plexitis G54.0 Malignant neoplasm of right breast in female, estrogen receptor positive, unspecified site of breast C50.911; Z17.0 Breast location: unspecified site of breast Estrogen receptor status: positive Patient sex: female
--- OUTSIDE RECORDS SUMMARY | 2025-02-15 16:41 | XMS_ITS | Encounter Summary ---
Author Organization [facility] Address [address] [place] [address] Care Team Providers Care Warehouse Packer Name Role Phone Rere Mallory MD Primary Care Provider Darcy Mccormick MD Primary Care Prov ider Encounter Details Date Type Department Care Team Description 06/13/2018 Release of Information Medical Records [address] [place] [id number] Abstract, Provider Social History Tobacco Use Types [...] on filedocumented in this encounter Care Teams Warehouse Packer Relationship Specialty Start Date End Date Rere Mallory MD PCP - General Internal Medicine 05/22/17 05/27/22 Darcy Fry MD [address] [place] [address] PCP - General Internal Medicine 05/28/22 documented as of this encounter
--- OUTSIDE RECORDS SUMMARY | 2025-02-15 16:41 | XMS_ITS | Encounter Summary ---
Author Organization [facility] Address [address] [place] [address] Care Team Providers Care Wireless Consultant Name Role Phone Neha Vivar MD Primary Care Provider Rere Narayanan MD Primary Care Provider Darcy Mccormick MD Primary Care Prov ider Encounter Details Date Type Department Care Team Description 07/04/2016 Pt. Non Urgent Medic al Question AIRCRAFT ASSEMBLER - [address] [address] Gary Gutierrez MD Social History Tobacco Use [...] as of this encounter Progress Notes * Urszula Woods M.A. - 07/07/2016 3:10 PM EDTFrom: Sheree Cotto To: Gary Gutierrez MD Sent: 07/04/2016 5:05 PM EDT Subject: Frustrated Veena GUTIERREZ, I came to your office today because I was called to come in to the office sign another form becausemy insurance denied the Mirana. I was told when I got here that I needed to schedule another consult with you to pick another form of hormone/ control. I am notifying you because I would hate tocome in on to find out that I needed to do something else. Please advise on next steps. Thank you, Shoshana documented in this encounter Plan of Treatment Not on file documented as of this encounter Visit Diagnoses Not on filedocumented in this encounter Care Teams Wireless Consultant Relationship Specialty Start Date End Date Neha Vivar MD PCP - General Internal Medicine 09/28/15 05/21/17 Rere Mallory MD PCP - General Internal Medicine 05/22/17 05/27/22 Luciano Trujillo, Darcy Bentley MD [address] [place] [address] PCP - General Internal Medicine 05/28/22 documented as of this encounter
--- OUTSIDE RECORDS SUMMARY | 2025-02-15 16:41 | XMS_ITS | Encounter Summary ---
Author Organization [facility] Address [address] [place] [address] Care Team Providers Care Rehabilitation Technician Name Role Phone Darcy Fry MD Primary Care Prov ider Encounter Details Date Type Department Care Team Description 07/12/2022 Pt. Non Urgent Medical Question Orthopedics-[address] [address] Jan Zendejas PA-C [address] [place] [place] [address] Social History Tobacco Use Types Packs/Day Years [...] on filedocumented in this encounter Care Teams Rehabilitation Technician Relationship Specialty Start Date End Date Darcy Fry MD [address] [place] [id number] PCP - General Internal Medicine 05/28/22 documented as of this encounter
--- OUTSIDE RECORDS SUMMARY | 2025-02-15 16:41 | XMS_ITS | Encounter Summary ---
Author Organization [facility] Address [address] [place] [address] Care Team Providers Care Radiator Specialist Name Role Phone Rere Mallory MD Primary Care Provider Darcy Mccormick MD Primary Care Prov ider Reason for Visit * Reason Onset Date Comments Form 04/02/2022 Encounter Details Date Type Department Care Team Description 04/02/2022 Telephone Medicine/Pediatrics - [address] [address] Rere Mallory MD Form Social History Tobacco Use Types Packs/Day Years [...] suspected to have Coronavirus/COVID-19? No / Unsure 03/28/2022 8:25 AM EDT documented as of this encounter Miscellaneous Notes * Telephone Encounter - Irina Stauffer M.A. - 04/02/2022 5:02 PM EDT Pt was seen in the office on 03/28/2022 asked to have her Handicap placard updated,STEVE was signed inthe office. Form was completed by original mailed to [facility],copy mailed to patient,copy sent to scan,copy filled into done bin documented in this encounter Plan of Treatment Not on file documented as of this encounter Visit Diagnoses Not on filedocumented in this encounter Care Teams Radiator Specialist Relationship Specialty Start Date End Date Rere Mallory MD PCP - General Internal Medicine 05/22/17 05/27/22 Luciano Trujillo, Darcy Bentley MD [address] [place] [address] PCP - General Internal Medicine 05/28/22 documented as of this encounter
--- OUTSIDE RECORDS SUMMARY | 2025-02-15 16:41 | XMS_ITS | Encounter Summary ---
Author Organization [facility] Address [address] [place] [address] Care Team Providers Care Motion Picture Equipment Supervisor Name Role Phone Neha Vivar MD Primary Care Provider Rere Narayanan MD Primary Care Provider Darcy Mccormick MD Primary Care Prov ider Encounter Details Date Type Department Care Team Description 05/29/2016 [facility] Medical Records [address] [place] [address] Gary Gutierrez MD Social History Tobacco Use [...] on filedocumented in this encounter Care Teams Motion Picture Equipment Supervisor Relationship Specialty Start Date End Date Neha Vivar MD PCP - General Internal Medicine 09/28/15 05/21/17 Rere Mallory MD PCP - General Internal Medicine 05/22/17 05/27/22 Darcy Fry MD [address] [place] [phone] PCP - General Internal Medicine 05/28/22 documented as of this encounter
--- OUTSIDE RECORDS SUMMARY | 2025-02-15 16:41 | XMS_ITS | Encounter Summary ---
Author Organization [facility] Address [address] [place] [address] Care Team Providers Care Leave Manager Name Role Phone Rere Mallory MD Primary Care Provider Darcy Mccormick MD Primary Care Prov ider Encounter Details Date Type Department Care Team Description 02/01/2019 Hand Etcher Helper Report Medical Records [address] [place] [address] Abstract, Provider Social History Tobacco Use Types [...] on filedocumented in this encounter Care Teams Leave Manager Relationship Specialty Start Date End Date Rere Mallory MD PCP - General Internal Medicine 05/22/17 05/27/22 Darcy Fry MD [address] [place] [phone] PCP - General Internal Medicine 05/28/22 documented as of this encounter
--- OUTSIDE RECORDS SUMMARY | 2025-02-15 16:41 | XMS_ITS | Clinical Summary ---
Author Organization [facility] Address [address] [place] [address] Care Team Providers Care Carport Erector Name Role Phone Darcy Fry MD Primary Care Prov ider Allergies Active Allergy Reactions Severity Noted Date Comments Seasonal Allergies 04/02/2010 Medications Medication Sig Dispensed Refills Start Date End Date Status fluticasone (FLONASE) 50 MCG/ACT nasal spray 1 [place] by Each Nare route daily. 1 spray each nostril qd prn 16 g 2 05/25/2014 Active Allergy Injection (ALLERGY MONTHLY INJECTION, HISTORIC) Inject as directed. Q 4 weeks 0 Active levonorgestrel (MIRENA) 20 MCG/24HR IUD 1 Each by Intrauterine route once. 0 Active montelukast (SINGULAIR) 10 MG tablet Take 10 mg by mouth at bedtime. 0 Active Albuterol Sulfate, sensor, 108 (90 Base) MCG/ACT AEROSOL POWDER,BREATH ACTIVATED Inhale into the lungs. 0 Active metoprolol (LOPRESSOR) 25 MG tablet Take 1 Tablet by mouth 2 times daily for 90 days. 60 Tablet 2 09/10/2023 Active Active Problems Problem Noted Date Mild intermittent asthma without complic ation 11/10/2022 Gastroesophageal reflux disease without esophagitis 08/01/2022 History of subacute thyroiditis 02/03/20 20 Hypertension 04/19/2018 Migraine with aura and without status mi grainosus, not intractable 04/19/2018 Overview: X20 years Sacroiliac joint dysfunction of right si de 03/04/2018 Situational anxiety 09/01/2017 Family hx of colon cancer 02/19/2011 Overview: Mom - 45 Mat. GM - 70s TMJ 01/06/2007 Overview: IMO update Obesity (BMI 30.0-34.9) 04/07/2006 Immunizations Name Administration Dates Next Due COVID-19 (Pfizer) Pt Reported 12/13/2021, 021,04/07/2021 DTP 10/15/1983, 0,03/09/1979, 978,1978 Hepatitis B > 19yrs 04/13/2008,11/04/2007,2006 Influenza (> 6 Months) 08/08/2013,10/01/2007, MMR (Fiodesk-Jcbxh-Llcwpkn) 08/25/2006 Measles 10/30/1980 Mumps 10/30/1980 PPD-Negative Response(External) 04/18/2008 Polio (OPV) 05/01/1980, 9,1978, 978 Rubella 10/30/1980 TD (STATE SUPPLIED FOR ADULT S AND CHILDREN) 08/25/2006 Tdap 01/26/2013 Family History Medical History Relation Name Comments brain tumor Father's side 1 paternal gr aunt and gr uncle at 60 brain tumor Father's side [address] cousin; ovarian and spinal CA Breast Maternal Grandmother ?age 50s or 60s Cancer of the Colon Maternal Grandmother ?age Thyroid disorder,DM Cancer of the Colon Mother 2nd prim [place] colon ca age 59,DM,HTN Cancer of the Colon Mother's side 1 mggf dx at age >50, mggm; CA Ovarian Mother's side 2 maternal gre at aunt Liver Cancer Mother's side 3 mggm thyroid cancer Mother's side 4 maternal f irst cousin CA Breast Paternal Grandmother ? age bilater al; colon ca at age 60 Thyroid Disorder Sister 1 Relation Name Status Comments Aunt Mat aunt - cere bral aneurysm Brother Alive Healthy Daughter Alive Healthy; 2001 Father Alive Healthy x chol, constipatiopn Father's side 1 Father's side 2 Maternal Grandfather (Age 84) vi florentin problems Maternal Grandmother ?age DM, col on polyps Mother Alive Colon cancer, d m, htn Mother's side 1 Mother's side 2 Mother's side 3 Mother's side 4 Paternal Grandfather Alive Healthy Paternal Grandmother ? age Intesti ne surgery; breast cancer Sister 1 Alive Healthy Sister 2 Alive Healthy Social History Tobacco Use Types Packs/Day Years Used Date Smoking Tobacco: Never Smokeless Tobacco: Never Tobacco Cessation:Counseling Given: Not Answered Alcohol Use Standard Drinks/Week Comments No 0 (1 standard drink = 0.6 oz pur e alcohol) Sex Assigned at Date Recorded Female 05/17/2021 8:11 AM E DT Job Start Date Occupation Industry Not on file Not on file Not on file Last Filed Vital Signs Vital Sign Reading Time Taken Comments Blood Pressure 112/66 11/10/2022 9:55 AM EST Pulse 70 11/10/2022 9:55 AM EST Temperature 36.1 ??C (96.9 ??F) 11/10/2022 9:55 AM ES T Respiratory Rate 16 11/10/2022 9:55 AM EST Oxygen Saturation 98% 08/01/2022 8:31 AM EDT Inhaled Oxygen Concentration - - Weight 90.9 kg (200 lb 6.4 oz) 11/10/2022 9:55 A M EST Height 160 cm (5' 3 ) 08/01/2022 8:31 AM EDT Body Mass Index 35.5 08/01/2022 8:31 AM EDT Plan of Treatment Health Maintenance Due Date Last Done Comments PNEUMOCOCCAL VACCINE FOR HIG H RISK PATIENTS (#1) 1997 BASELINE HEALTH EXAM 40-64 04/22/202004/22, 04/22/2018, 01/26/2013, Additional history exists DTAP/TDAP/TD (7 - Td or Tdap) 01/26/2023, 08/25/2006, 10/15/1983, Additional history exists CHOLESTEROL SCREENING 04/22/2023 04/22/2018 , 01/26/2013, 02/28/2011, Additional history exists MAMMOGRAM 02/29/2024 02/28/2023, 03/11/2021, 12/17/2020, Additional history exists Covid-19 Vaccine (2022-2 4 season) 2024 12/13/2021, 04/28/2021, 04/07/2021 INFLUENZA (#1) 2024 09/01/2017 (Refu sed), 08/08/2013, 10/01/2007, Additional history exists BMI CHECK/ADVISE 11/30/2024 11/10/2022, 12/2021, 05/28/2022, Additional history exists CERVICAL CANCER SCREENING 12/06/20252020, 03/04/2016, 12/07/2012, Additional history exists COLON CANCER SCREENING 09/01/2032 , 10/03/2016, 03/31/2011 Care Teams Carport Erector Relationship Specialty Start Date End Date Darcy Fry MD [address] [place] [id number] PCP - General Internal Medicine 05/28/22
--- OUTSIDE RECORDS SUMMARY | 2025-02-15 16:41 | XMS_ITS | Encounter Summary ---
Author Organization [facility] Address [address] [place] [address] Care Team Providers Care Motor Pool Driver Name Role Phone Neha Vivar MD Primary Care Provider Rere Narayanan MD Primary Care Provider Darcy Mccormick MD Primary Care Prov ider Encounter Details Date Type Department Care Team Description 08/12/2016 Pt. Non Urgent Medic al Question FLIGHT CREW SCHEDULER - [address] [address] Gary Gutierrez MD Social History Tobacco Use [...] Progress Notes * Nikki Alegre R.N. - 08/12/2016 8:26 AM EDTFrom: Sheree Raineskiran Lovettens To: Gary Gutierrez MD Sent: 08/12/2016 7:57 AM EDT Subject: Other alternative Veena GUTIERREZ, I understand that my insurance does not cover the Mirana. Since this is the alternative you given your highest recommendation to help treat my condition. How else can I obtain this product? Thank you for your time, Shoshana documented in this encounter Plan of Treatment Not on file documented as of this encounter Visit Diagnoses Not on filedocumented in this encounter Care Teams Motor Pool Driver Relationship Specialty Start Date End Date Neha Vivar MD PCP - General Internal Medicine 09/28/15 05/21/17 Rere Mallory MD PCP - General Internal Medicine 05/22/17 05/27/22 Darcy Fry MD [address] [place] [id number] PCP - General Internal Medicine 05/28/22 documented as of this encounter
--- OUTSIDE RECORDS SUMMARY | 2025-02-15 16:41 | XMS_ITS | Encounter Summary ---
Author Organization [facility] Address [address] [place] [address] Care Team Providers Care Trout Farmer Name Role Phone Neha Vivar MD Primary Care Provider Rere Narayanan MD Primary Care Provider Darcy Mccormick MD Primary Care Prov ider Encounter Details Date Type Department Care Team Description 04/01/2016 Orders Only LATHE SET UP OPERATOR - [address] [address] Gary Gutierrez MD Endometrial polyp (Primary Dx) [...] uteri documented in this encounter Care Teams Trout Farmer Relationship Specialty Start Date End Date Neha Vivar MD PCP - General Internal Medicine 09/28/15 05/21/17 Rere Mallory MD PCP - General Internal Medicine 05/22/17 05/27/22 Darcy Fry MD [address] [place] [id number] PCP - General Internal Medicine 05/28/22 documented as of this encounter
--- OUTSIDE RECORDS SUMMARY | 2025-02-15 16:41 | XMS_ITS | Encounter Summary ---
Author Organization [facility] Address [address] [place] [address] Care Team Providers Care Sample Dye Mixer Name Role Phone Cortez Greenberg MD Primary Care Provider Unavail able Neha Vivar MD Primary Care Provider UnavailRere Sparks MD Primary Care Provider Unava ilable Darcy Fry MD Primary Care Prov ider Encounter Details Date Type Department Care Team Description 09/15/2014 Hospital Medical Records [address] [place] [address] Glenn Huerta MD Social History Tobacco Use [...] on filedocumented in this encounter Care Teams Sample Dye Mixer Relationship Specialty Start Date End Date Cortez Greenberg MD PCP - General 08/12/04 09/27/15 Neha Vivar MD PCP - General Internal Medicine 09/28/15 05/21/17 Rere Mallory MD PCP - General Internal Medicine 05/22/17 05/27/22 Darcy Fry MD [address] [place] [phone] PCP - General Internal Medicine 05/28/22 documented as of this encounter
--- OUTSIDE RECORDS SUMMARY | 2025-02-15 16:41 | XMS_ITS | Encounter Summary ---
Author Organization [facility] Address [address] [place] [address] Care Team Providers Care Larry Operator Name Role Phone Neha Vivar MD Primary Care Provider Rere Narayanan MD Primary Care Provider Darcy Mccormick MD Primary Care Prov ider Encounter Details Date Type Department Care Team Description 10/08/2016 Pt. Non Urgent Medical Question DIRECTOR OF HOUSING - [address] [address] Christianne Garcia CNM Social History Tobacco Use [...] - 10/08/2016 10:11 AM ESTFrom: Sheree Shoshana Lovettens To: Christianne Mendez CNM Sent: 10/08/2016 6:56 [...] on filedocumented in this encounter Care Teams Larry Operator Relationship Specialty Start Date End Date Neha Vivar MD PCP - General Internal Medicine 09/28/15 05/21/17 Rere Mallory MD PCP - General Internal Medicine 05/22/17 05/27/22 Darcy Fry MD [address] [place] [id number] PCP - General Internal Medicine 05/28/22 documented as of this encounter
--- OUTSIDE RECORDS SUMMARY | 2025-02-15 16:41 | XMS_ITS | Encounter Summary ---
Author Organization [facility] Address [address] [place] [address] Care Team Providers Care Staff Registered Nurse Name Role Phone Neha Vivar MD Primary Care Provider Rere Narayanan MD Primary Care Provider Darcy Mccormick MD Primary Care Prov ider Encounter Details Date Type Department Care Team Description 08/12/2016 Pt. Non Urgent Medic al Question RESOURCE ROOM SPECIAL EDUCATION TEACHER - [address] [address] Gary Gutierrez MD Social History Tobacco Use [...] Notes * Nikki Alegre R.N. - 08/12/2016 9:02 AM EDTFrom: Sheree Machucae Kirti To: Gary Gutierrez MD Sent: 08/12/2016 9:01 AM EDT Subject: Mirana I'm not concerned about the cost. I would like the treatment. Please let me know what steps I must take next to obtain the product. Thank you, Shoshana documented in this encounter Plan of Treatment Not on file documented as of this encounter Visit Diagnoses Not on filedocumented in this encounter Care Teams Staff Registered Nurse Relationship Specialty Start Date End Date Neha Vivar MD PCP - General Internal Medicine 09/28/15 05/21/17 Rere Mallory MD PCP - General Internal Medicine 05/22/17 05/27/22 Luciano Trujillo, Darcy Bentley MD [address] [place] [id number] PCP - General Internal Medicine 05/28/22 documented as of this encounter
--- OUTSIDE RECORDS SUMMARY | 2025-02-15 16:41 | XMS_ITS | Encounter Summary ---
Author Organization [facility] Address [address] [place] [address] Care Team Providers Care Pier Master Assistant Name Role Phone Rere Mallory MD Primary Care Provider Darcy Mccormick MD Primary Care Prov ider Encounter Details Date Type Department Care Team Description 11/18/2018 Pt. Non Urgent Medic al Question Medicine/Pediatrics - [address] [phone] Patti Sanchez PA-C Social History Tobacco Use Types Packs/Day Years [...] as of this encounter Progress Notes * Tatum Verdin M.A. - 11/19/2018 8:57 AM ESTFrom: Sheree Anna Dustin To: Patti Sanchez PA-C Sent: 11/18/2018 7:38 PM EST Subject: Medical records Please fax a copy of my medical records from November 30, 2016 to [facility] at [phone]. They state that the information previously provided was not complete. Thank you documented in this encounter Plan of Treatment Not on file documented as of this encounter Visit Diagnoses Not on filedocumented in this encounter Care Teams Pier Master Assistant Relationship Specialty Start Date End Date Rere Mallory MD PCP - General Internal Medicine 05/22/17 05/27/22 Luciano Trujillo, Darcy Bentley MD [address] [place] [id number] PCP - General Internal Medicine 05/28/22 documented as of this encounter
--- OUTSIDE RECORDS SUMMARY | 2025-02-15 16:41 | XMS_ITS | Encounter Summary ---
Author Organization [facility] Address [address] [place] [address] Care Team Providers Care Filter Plant Operator Name Role Phone Rere Mallory MD Primary Care Provider Darcy Mccormick MD Primary Care Prov ider Encounter Details Date Type Department Care Team Description 07/09/2020 Telephone Adult Medicine - [address] [address] Khalida Giraldo PA-C [address] [place] [address] Social History Tobacco Use Types Packs/Day Years [...] on filedocumented in this encounter Care Teams Filter Plant Operator Relationship Specialty Start Date End Date Rere Mallory MD PCP - General Internal Medicine 05/22/17 05/27/22 Darcy Fry MD [address] [place] [id number] PCP - General Internal Medicine 05/28/22 documented as of this encounter
--- OUTSIDE RECORDS SUMMARY | 2025-02-15 16:41 | XMS_ITS | Encounter Summary ---
Author Organization [facility] Address [address] [place] [address] Care Team Providers Care Steel Pickler Name Role Phone Rere Mallory MD Primary Care Provider Darcy Mccormick MD Primary Care Prov ider Encounter Details Date Type Department Care Team Description 05/02/2019 Fisheries Technical Officer Report Medical Records [address] [place] [address] Services, [facility] [address] [address] Social History Tobacco Use Types Packs/Day Years [...] on filedocumented in this encounter Care Teams Steel Pickler Relationship Specialty Start Date End Date Rere Mallory MD PCP - General Internal Medicine 05/22/17 05/27/22 Darcy Fry MD [address] [place] [id number] PCP - General Internal Medicine 05/28/22 documented as of this encounter
--- OUTSIDE RECORDS SUMMARY | 2025-02-15 16:41 | XMS_ITS | Encounter Summary ---
Author Organization [facility] Address [address] [place] [address] Care Team Providers Care Professor Of Economics Name Role Phone Rere Mallory MD Primary Care Provider Darcy Mccormick MD Primary Care Prov ider Encounter Details Date Type Department Care Team Description 04/23/2018 Orders Only Medicine/Pediatrics - [address] [phone] Lucien Browne PA-C Leukocytosis, unspecified type (Primary Dx); Intractable migraine with status migrainosus, unspecified migraine type Social History Tobacco Use Types Packs/Day Years [...] documented as of this encounter Results * LYME POLYVALENT AB SCREEN (04/28/2018 9:14 AM EDT) LYME DISEASE ANTIBODIES NEGATIVE NEGATIVE 04/28/2018 3:03 PM EDT [facility] 04/28/2018 9:14 AM EDT 04/28/2018 9:15 AM EDT Lucien Browne PA-C LAB [address] * DIFFERENTIAL WBC COUNT (04/28/2018 9:14 AM EDT) NEUTROPHIL 64 41 - 85 % 04/28/2018 5:23 PM EDT [facility] LYMPHOCYTE 29 15 - 48 % 04/28/2018 5:23 PM EDT [facility] MONOCYTE 4 0 - 12 % 04/28/2018 5:23 PM EDT [facility] EOSINOPHIL 1 0 - 5 % 04/28/2018 5:23 PM EDT [facility] BASOPHIL 2 0 - 2 % 04/28/2018 5:23 PM EDT [facility] RBC MORPHOLOGY NORMAL 04/28/2018 5:23 PM EDT [facility] 04/28/2018 9:14 AM EDT 04/28/2018 9:15 AM EDT Lucien Browne PA-C LAB Performing Organization Address City/State/[facility] Co de Phone Number [facility] [address] [facility] * (ABNORMAL) AUTOMATED HEMOGRAM PLATELET COUNT (04/28/2018 9:14 AM EDT) WBC 8.2 4.8 - 10.8 x10-3 04/28/2018 12:54 PM EDT [facility] RBC 5.2(H) 3.8 - 4.8 x10-6 04/28/2018 12:54 PM EDT [facility] HGB 14.3 11.5 - 16.0 g/dl 04/28/2018 12:54 PM EDT [facility] HCT 43.2 35 - 47 % 04/28/2018 12:54 PM EDT [facility] MCV 82.9 79 - 98 fl 04/28/2018 12:54 PM EDT [facility] MCH 27.4 27 - 32 pg 04/28/2018 12:54 PM EDT [facility] MCHC 33.1 32 - 37 g/dl 04/28/2018 12:54 PM EDT [facility] RDW 14.4 11 - 15 % 04/28/2018 12:54 PM EDT [facility] PLT COUNT 295 130 - 400 x10-3 04/28/2018 12:54 PM EDT [facility] MEAN PLATELET VOLUME 12.6(H) 7 - 11 fl 04/28/2018 12:54 PM EDT [facility] 04/28/2018 9:14 AM EDT 04/28/2018 9:15 AM EDT Lucien Browne PA-C LAB Performing Organization Address City/State/[facility] Co de Phone Number [address] documented in this encounter Visit Diagnoses Diagnosis Leukocytosis, unspecified type- Primary Intractable migraine with status migrainosus, unspecified migraine type documented in this encounter Care Teams Professor Of Economics Relationship Specialty Start Date End Date Rere Mallory MD PCP - General Internal Medicine 05/22/17 05/27/22 Darcy Fry MD [address] [place] [id number] PCP - General Internal Medicine 05/28/22 documented as of this encounter
--- OUTSIDE RECORDS SUMMARY | 2025-02-15 16:41 | XMS_ITS | Encounter Summary ---
Author Organization [facility] Address [address] [place] [address] Care Team Providers Care Route Returner Name Role Phone Neha Vivar MD Primary Care Provider Rere Narayanan MD Primary Care Provider Darcy Mccormick MD Primary Care Prov ider Encounter Details Date Type Department Care Team Description 08/12/2016 Telephone PRECISION INSTRUMENT AND TOOL MAKER - [address] [address] Gary Gutierrez MD Social History Tobacco Use [...] on filedocumented in this encounter Care Teams Route Returner Relationship Specialty Start Date End Date Neha Vivar MD PCP - General Internal Medicine 09/28/15 05/21/17 Rere Mallory MD PCP - General Internal Medicine 05/22/17 05/27/22 Luciano Trujillo, Darcy Bentley MD [address] [place] [id number] PCP - General Internal Medicine 05/28/22 documented as of this encounter
== END 2025-02-15 15:11 | disposition home or self-care (01) ==
LOC: HO.PMC 14:22
PROVIDERS: PCP Internal Medicine; Visit Provider Anesthesiology
DX: G54.0 Brachial plexus disorders (principal); G62.0 Drug-induced polyneuropathy; T45.1X5A Adverse effect of antineoplastic and immunosuppressive drugs, initial encounter; C50.911 Malignant neoplasm of unspecified site of right female breast; Z17.0 Estrogen receptor positive status [ER+]
CPT/HCPCS: 99204

== ENCOUNTER 2025-03-07 08:11 | Day surgery (SDC) | payer OTHER, SELFPAY ==
--- OUTSIDE RECORDS SUMMARY | 2025-01-24 13:44 | XMS_ITS | Encounter Summary ---
Author Organization [facility] Address [address] [place] [address] Care Team Providers Care Misdraw Hand Name Role Phone Neha Vivar MD Primary Care Provider Rere Narayanan MD Primary Care Provider Darcy Mccormick MD Primary Care Prov ider Encounter Details Date Type Department Care Team Description 08/12/2016 Telephone NUT THREADER - [address] [address] Gary Gutierrez MD Social History Tobacco Use Types Packs/Day Years Used Date Smoking Tobacco: Never Smokeless Tobacco: Never Alcohol Use Standard Drinks/Week Comments No 0 (1 standard drink = 0.6 oz pur e alcohol) Sex Assigned at Date Recorded Female 05/17/2021 8:11 AM E DT Job Start Date Occupation Industry Not on file Not on file Not on file documented as of this encounter Miscellaneous Notes * Telephone Encounter - Nikki Alegre R.N. - 08/13/2016 2:24 PM EDT Approximately $1,429.00 for Mirena and $179.00 for insertion My chart message sent to pt * Telephone Encounter - Elyssa Calderon - 08/13/2016 12:44 PM EDT Approximately $1,429.00 for Mirena and $179.00 for insertion * Telephone Encounter - Nikki Alegre R.N. - 08/12/2016 8:27 AM EDT This pt would like to get a Mirena IUD, but her insurance does not pay for it. How much would the device and appointment cost her out of pocket? Nikki documented in this encounter Plan of Treatment Not on file documented as of this encounter Visit Diagnoses Not on filedocumented in this encounter Care Teams Misdraw Hand Relationship Specialty Start Date End Date Neha Vivar MD PCP - General Internal Medicine 09/28/15 05/21/17 Rere Mallory MD PCP - General Internal Medicine 05/22/17 05/27/22 Luciano Trujillo, Darcy Bentley MD [address] [place] [id number] PCP - General Internal Medicine 05/28/22 documented as of this encounter
--- OUTSIDE RECORDS SUMMARY | 2025-01-24 13:44 | XMS_ITS | Encounter Summary ---
Author Organization [facility] Address [address] [place] [address] Care Team Providers Care Manager Hospice Name Role Phone Rere Mallory MD Primary Care Provider Darcy Mccormick MD Primary Care Prov ider Encounter Details Date Type Department Care Team Description 04/01/2019 Crossbow Maker Report Medical Records [address] [place] [address] Mercedes Reese Np Social History Tobacco Use Types Packs/Day Years Used Date Smoking Tobacco: Never Smokeless Tobacco: Never Alcohol Use Standard Drinks/Week Comments No 0 (1 standard drink = 0.6 oz pur e alcohol) Sex Assigned at Date Recorded Female 05/17/2021 8:11 AM E DT Job Start Date Occupation Industry Not on file Not on file Not on file documented as of this encounter Plan of Treatment Not on file documented as of this encounter Visit Diagnoses Not on filedocumented in this encounter Care Teams Manager Hospice Relationship Specialty Start Date End Date Rere Mallory MD PCP - General Internal Medicine 05/22/17 05/27/22 Darcy Fry MD [address] [place] [id number] PCP - General Internal Medicine 05/28/22 documented as of this encounter
--- OUTSIDE RECORDS SUMMARY | 2025-01-24 13:44 | XMS_ITS | Encounter Summary ---
Author Organization [facility] Address [address] [place] [address] Care Team Providers Care Pizza Hut Team Member Name Role Phone Neha Vivar MD Primary Care Provider Rere Narayanan MD Primary Care Provider Darcy Mccormick MD Primary Care Prov ider Encounter Details Date Type Department Care Team Description 11/10/2016 [facility] Medical Records [address] [place] [id number] Abstract, Provider Social History Tobacco Use Types Packs/Day Years [...] on filedocumented in this encounter Care Teams Pizza Hut Team Member Relationship Specialty Start Date End Date Neha Vivar MD PCP - General Internal Medicine 09/28/15 05/21/17 Rere Mallory MD PCP - General Internal Medicine 05/22/17 05/27/22 Darcy Fry MD [address] [place] [id number] PCP - General Internal Medicine 05/28/22 documented as of this encounter
--- OUTSIDE RECORDS SUMMARY | 2025-01-24 13:44 | XMS_ITS | Encounter Summary ---
Author Organization [facility] Address [address] [place] [address] Care Team Providers Care Predatory Animal Trapper Name Role Phone Neha Vivar MD Primary Care Provider Rere Narayanan MD Primary Care Provider Darcy Mccormick MD Primary Care Prov ider Encounter Details Date Type Department Care Team Description 05/29/2016 [facility] Medical Records [address] [place] [id number] Gary Gutierrez MD Social History Tobacco Use [...] on filedocumented in this encounter Care Teams Predatory Animal Trapper Relationship Specialty Start Date End Date Neha Vivar MD PCP - General Internal Medicine 09/28/15 05/21/17 Rere Mallory MD PCP - General Internal Medicine 05/22/17 05/27/22 Darcy Fry MD [address] [place] [id number] PCP - General Internal Medicine 05/28/22 documented as of this encounter
--- OUTSIDE RECORDS SUMMARY | 2025-01-24 13:44 | XMS_ITS | Encounter Summary ---
Author Organization [facility] Address [address] [place] [address] Care Team Providers Care Personal Clothing Laundry Aide Name Role Phone Cortez Greenberg MD Primary Care Provider Unavail able Neha Vivar MD Primary Care Provider UnavailRere Sparks MD Primary Care Provider Unava ilable Darcy Fry MD Primary Care Prov ider Encounter Details Date Type Department Care Team Description 09/15/2014 [facility] Medical Records [address] [place] [phone] Glenn Huerta MD Social History Tobacco Use Types Packs/Day [...] on filedocumented in this encounter Care Teams Personal Clothing Laundry Aide Relationship Specialty Start Date End Date Cortez Greenberg MD PCP - General 08/12/04 09/27/15 Neha Vivar MD PCP - General Internal Medicine 09/28/15 05/21/17 Rere Mallory MD PCP - General Internal Medicine 05/22/17 05/27/22 Darcy Fry MD [address] [place] [phone] PCP - General Internal Medicine 05/28/22 documented as of this encounter
--- OUTSIDE RECORDS SUMMARY | 2025-01-24 13:44 | XMS_ITS | Encounter Summary ---
Author Organization [facility] Address [address] [place] [address] Care Team Providers Care Director Of Residential Services Name Role Phone Cortez Greenberg MD Primary Care Provider Unavail able Neha Vivar MD Primary Care Provider UnavailRere Sparks MD Primary Care Provider Unava ilable Darcy Fry MD Primary Care Prov ider Encounter Details Date Type Department Care Team Description 09/21/2014 Brush Polisher Report Medical Records [address] [place] [id number] Glenn De La Cruz MD Social History Tobacco Use Types Packs/Day [...] on filedocumented in this encounter Care Teams Director Of Residential Services Relationship Specialty Start Date End Date Cortez Greenberg MD PCP - General 08/12/04 09/27/15 Neha Vivar MD PCP - General Internal Medicine 09/28/15 05/21/17 Rere Mallory MD PCP - General Internal Medicine 05/22/17 05/27/22 Darcy Fry MD [address] [place] [phone] PCP - General Internal Medicine 05/28/22 documented as of this encounter
--- OUTSIDE RECORDS SUMMARY | 2025-01-24 13:44 | XMS_ITS | Encounter Summary ---
Author Organization [facility] Address [address] [place] [address] Care Team Providers Care Chair Inspector And Leveler Name Role Phone Neha Vivar MD Primary Care Provider Rere Narayanan MD Primary Care Provider Darcy Mccormick MD Primary Care Prov ider Encounter Details Date Type Department Care Team Description 04/01/2016 Orders Only FEDERAL AGENT - [address] [address] Gary Gutierrez MD Endometrial polyp (Primary Dx) Social History Tobacco Use Types Packs/Day Years [...] documented as of this encounter Visit Diagnoses Diagnosis Endometrial polyp- Primary Polyp of corpus uteri documented in this encounter Care Teams Chair Inspector And Leveler Relationship Specialty Start Date End Date Neha Vivar MD PCP - General Internal Medicine 09/28/15 05/21/17 Rere Mallory MD PCP - General Internal Medicine 05/22/17 05/27/22 Darcy Fry MD [address] [place] [id number] PCP - General Internal Medicine 05/28/22 documented as of this encounter
--- OUTSIDE RECORDS SUMMARY | 2025-01-24 13:44 | XMS_ITS | Encounter Summary ---
Author Organization [facility] Address [address] [place] [address] Care Team Providers Care Drum Drier Operator Name Role Phone Darcy Fry MD Primary Care Prov ider Encounter Details Date Type Department Care Team Description 07/12/2022 Pt. Non Urgent Medical Question Orthopedics-[address] [address] Jan Zendejas PA-C [address] [place] [address] Social History Tobacco Use Types Packs/Day Years Used Date Smoking Tobacco: Never Smokeless Tobacco: Never Alcohol Use Standard Drinks/Week Comments No 0 (1 standard drink = 0.6 oz pur e alcohol) Sex Assigned at Date Recorded Female 05/17/2021 8:11 AM E DT Job Start Date Occupation Industry Not on file Not on file Not on file COVID-19 Exposure Response Date Recorded In the last 10 days, have yo u been in contact with someone who was confirmed or suspected to have Coronavirus/COVID-19? No / Unsure 07/12/2022 2:36 PM EDT documented as of this encounter Plan of Treatment Not on file documented as of this encounter Visit Diagnoses Not on filedocumented in this encounter Care Teams Drum Drier Operator Relationship Specialty Start Date End Date Darcy Fry MD [address] [place] [id number] PCP - General Internal Medicine 05/28/22 documented as of this encounter
--- OUTSIDE RECORDS SUMMARY | 2025-01-24 13:44 | XMS_ITS | Encounter Summary ---
Author Organization [facility] Address [address] [place] [address] Care Team Providers Care Aoc Plans Intelligence Officer Name Role Phone Rere Mallory MD Primary Care Provider Darcy Mccormick MD Primary Care Prov ider Reason for Visit * Reason Onset Date Comments Medical Records 10/26/2018 Encounter Details Date Type Department Care Team Description 10/26/2018 Telephone Medicine/Pediatrics - [address] [phone] Patti Sanchez PA-C Medical Records Social History Tobacco Use Types Packs/Day Years [...] encounter Miscellaneous Notes * Telephone Encounter - Nereida MasP.N. - 10/29/2018 9:55 AM EST Pt states she is looking to get a nerve block her ins will not pay for this because it is out of network Please advise Pt does know Patti if off today will review on her return * Telephone Encounter - Maxine Del Valle - 10/29/2018 8:56 AM EST Pt calling requesting to know what has come of this. Please advise. * Telephone Encounter - Nereida MasP.N. - 10/26/2018 1:29 PM EST Sent for dr salazar [phone] * Telephone Encounter - Nereida MasP.N. - 10/26/2018 1:00 PM EST Message left on to call office at [phone] * Telephone Encounter - Patti Sanchez PA-C - 10/26/2018 12:55 PM EST Can we get the records from her back specialist at [facility]? We need these if she wants to be seen somewhere else for her back. Thank you documented in this encounter Plan of Treatment Not on file documented as of this encounter Visit Diagnoses Not on filedocumented in this encounter Care Teams Aoc Plans Intelligence Officer Relationship Specialty Start Date End Date Rere Mallory MD PCP - General Internal Medicine 05/22/17 05/27/22 Luciano Turjillo, Darcy Bentley MD [address] [place] [phone] PCP - General Internal Medicine 05/28/22 documented as of this encounter
--- OUTSIDE RECORDS SUMMARY | 2025-01-24 13:44 | XMS_ITS | Encounter Summary ---
Author Organization [facility] Address [address] [place] [address] Care Team Providers Care Drawer In Jacquard Loom Name Role Phone Neha Vivar MD Primary Care Provider Rere Narayanan MD Primary Care Provider Darcy Mccormick MD Primary Care Prov ider Encounter Details Date Type Department Care Team Description 10/08/2016 Pt. Non Urgent Medical Question GOLD LETTERER - [address] [address] Christianne Garcia CNM Social History Tobacco Use Types Packs/Day Years Used Date Smoking Tobacco: Never Smokeless Tobacco: Never Alcohol Use Standard Drinks/Week Comments No 0 (1 standard drink = 0.6 oz pur e alcohol) Sex Assigned at Date Recorded Female 05/17/2021 8:11 AM E DT Job Start Date Occupation Industry Not on file Not on file Not on file documented as of this encounter Progress Notes * Nikki Alegre R.N. - 10/08/2016 10:11 AM ESTFrom: Sheree Shoshana Cotto To: Christianne Mendez CNM Sent: 10/08/2016 6:56 AM EST Subject: Bleeding Veena Faust, My period started on 09-23 and I am still bleeding. Is this normal with the Mirena? Should I be concerned about this? Thank you for your time, Shoshana documented in this encounter Plan of Treatment Not on file documented as of this encounter Visit Diagnoses Not on filedocumented in this encounter Care Teams Drawer In Jacquard Loom Relationship Specialty Start Date End Date Neha Vivar MD PCP - General Internal Medicine 09/28/15 05/21/17 Rere Mallory MD PCP - General Internal Medicine 05/22/17 05/27/22 Darcy Fry MD [address] [place] [id number] PCP - General Internal Medicine 05/28/22 documented as of this encounter
--- OUTSIDE RECORDS SUMMARY | 2025-01-24 13:44 | XMS_ITS | Encounter Summary ---
Author Organization [facility] Address [address] [place] [address] Care Team Providers Care Power Tool Repair Technician Name Role Phone Rere Mallory MD Primary Care Provider Darcy Mccormick MD Primary Care Prov ider Encounter Details Date Type Department Care Team Description 02/29/2020 Orders Only Adult Medicine [address] [address] Gerardo Callejas MD Subacute thyroiditis (Primary Dx) Social History Tobacco Use Types [...] on file documented as of this encounter Results * FREE THYROXINE (FT4) (04/06/2020 3:07 PM EDT) FREE T4 (FREE THYROXINE) 1.00 0.70 - 1.80 ng/dL 04/06/2020 5:53 PM EDT [facility] 04/06/2020 3:07 PM EDT 04/06/2020 3:09 PM EDT Gerardo Callejas MD LAB [facility] [facility] * TSH (04/06/2020 3:07 PM EDT) TSH 3.29 0.40 - 4.00 uIU/ml 04/06/2020 5:53 PM EDT [facility]) 04/06/2020 3:07 PM EDT 04/06/2020 3:09 PM EDT Gerardo Callejas MD [facility] documented in this encounter Visit Diagnoses Diagnosis Subacute thyroiditis- Primary documented in this encounter Care Teams Power Tool Repair Technician Relationship Specialty Start Date End Date Rere Mallory MD PCP - General Internal Medicine 05/22/17 05/27/22 Darcy Fry MD [address] [place] [id number] PCP - General Internal Medicine 05/28/22 documented as of this encounter
--- OUTSIDE RECORDS SUMMARY | 2025-01-24 13:44 | XMS_ITS | Encounter Summary ---
Author Organization [facility] Address [address] [place] [address] Care Team Providers Care Manager Compliance Name Role Phone Rere Mallory MD Primary Care Provider Darcy Mccormick MD Primary Care Prov ider Encounter Details Date Type Department Care Team Description 07/09/2020 Telephone Adult Medicine - [address] [address] Khalida Giraldo PA-C [address] [place] [id number] Social History Tobacco Use Types Packs/Day Years [...] encounter Miscellaneous Notes * Telephone Encounter - Lashonda Mallory - 07/09/2020 10:14 AM EDT LMOM to call back the office * Telephone Encounter - Khalida Giraldo PA-C - 07/09/2020 9:46 AM EDT Patient scheduled this afternoon 07/09 at 215. Needs in office appt for ER follow-up. I am working remotely and would not have records to review from ER visit. Please reschedule for in office. Thank you documented in this encounter Plan of Treatment Not on file documented as of this encounter Visit Diagnoses Not on filedocumented in this encounter Care Teams Manager Compliance Relationship Specialty Start Date End Date Rere Mallory MD PCP - General Internal Medicine 05/22/17 05/27/22 Darcy Fry MD [address] [place] [address] PCP - General Internal Medicine 05/28/22 documented as of this encounter
--- OUTSIDE RECORDS SUMMARY | 2025-01-24 13:44 | XMS_ITS | Encounter Summary ---
Author Organization [facility] Address [address] [place] [address] Care Team Providers Care Pesticide Use Medical Coordinator Name Role Phone Cortez Greenberg MD Primary Care Provider Unavail able Neha Vivar MD Primary Care Provider UnavailRere Sparks MD Primary Care Provider Unava ilable Darcy Fry MD Primary Care Prov ider Encounter Details Date Type Department Care Team Description 03/03/2011 Business Doc Medical Records [address] [place] [address] Abstract, Provider Social History Tobacco Use Types Packs/Day Years Used Date Smoking Tobacco: Never Alcohol Use Standard Drinks/Week Comments [...] on filedocumented in this encounter Care Teams Pesticide Use Medical Coordinator Relationship Specialty Start Date End Date Cortez Greenberg MD PCP - General 08/12/04 09/27/15 Neha Vivar MD PCP - General Internal Medicine 09/28/15 05/21/17 Rere Mallory MD PCP - General Internal Medicine 05/22/17 05/27/22 Darcy Fry MD [address] [place] [id number] PCP - General Internal Medicine 05/28/22 documented as of this encounter
--- OUTSIDE RECORDS SUMMARY | 2025-01-24 13:44 | XMS_ITS | Encounter Summary ---
Author Organization [facility] Address [address] [place] [address] Care Team Providers Care Forest Ecologist Name Role Phone Rere Mallory MD Primary Care Provider Darcy Mccormick MD Primary Care Prov ider Reason for Visit * Reason Onset Date Comments Campus Recruiting Coordinator Feedback 07/14/2018 pain management Encounter Details Date Type Department Care Team Description 07/14/2018 Telephone Physiatry - [address] [address] Pete Ignacio PA-C Campus Recruiting Coordinator Feedback (pain management) Social History Tobacco Use Types Packs/Day Years [...] encounter Miscellaneous Notes * Telephone Encounter - Michelle Gao - 07/20/2018 4:15 PM EDT Please have your clinical staff contact the patient to discuss * Telephone Encounter - Pete Ignacio PA-C - 07/19/2018 5:11 PM EDT Please call the patient and ask if they're okay with this. The referral was by patient request. * Telephone Encounter - Michelle Gao - 07/14/2018 1:25 PM EDT Pete Lucero You recently place a order for this patient to be seen for coccydynia with pain management at [facility] but they are requesting a out of network before they can book this patient appointment. I submitted an out of network to [employer] and Autumn from there contacted me to let me know that this out of network was denied and we can redirected the patient to [facility] or [facility] were her insurance will be covered. I am pending you a new order can you please review thepended order and sign it. Thank you Liza Referral Control Specialist documented in this encounter Plan of Treatment Not on file documented as of this encounter Visit Diagnoses Not on filedocumented in this encounter Care Teams Forest Ecologist Relationship Specialty Start Date End Date Rere Mallory MD PCP - General Internal Medicine 05/22/17 05/27/22 Darcy Fry MD [address] [place] [id number] PCP - General Internal Medicine 05/28/22 documented as of this encounter
--- OUTSIDE RECORDS SUMMARY | 2025-01-24 13:44 | XMS_ITS | Encounter Summary ---
Author Organization [facility] Address [address] [place] [address] Care Team Providers Care Naturopathic Physician Name Role Phone Rere Mallory MD Primary Care Provider Darcy Mccormick MD Primary Care Prov ider Encounter Details Date Type Department Care Team Description 06/13/2018 Release of Information Medical Records [address] [place] [id number] Abstract, Provider Social History Tobacco Use Types [...] on filedocumented in this encounter Care Teams Naturopathic Physician Relationship Specialty Start Date End Date Rere Mallory MD PCP - General Internal Medicine 05/22/17 05/27/22 Darcy Fry MD [address] [place] [address] PCP - General Internal Medicine 05/28/22 documented as of this encounter
--- OUTSIDE RECORDS SUMMARY | 2025-01-24 13:45 | XMS_ITS | Encounter Summary ---
Author Organization [facility] Address [address] [place] [address] Care Team Providers Care Crime Scene Analyst Name Role Phone Rere Mallory MD Primary Care Provider Darcy Mccormick MD Primary Care Prov ider Encounter Details Date Type Department Care Team Description 04/19/2018 [facility] Medical Records [address] [place] [address] Abstract, Provider Social History Tobacco Use Types [...] on filedocumented in this encounter Care Teams Crime Scene Analyst Relationship Specialty Start Date End Date Rere Mallory MD PCP - General Internal Medicine 05/22/17 05/27/22 Darcy Fry MD [address] [place] [address] PCP - General Internal Medicine 05/28/22 documented as of this encounter
[2025-03-03 13:20] VITALS: BMI 37.0
--- NOTE | 2025-03-06 12:31 | P.CONAN_ITS ---
HPI - Anesthesia Eval Consult details Narrative: 44yo F for Upper Endoscopy and Colonoscopy ? Prednisone 50mg daily Right breast ca s/p lumpectomy 2023, chemo, radiation PMFSH Active Problems Active Problems: All Active Problems Right brachial plexitis (Acute) Chemotherapy-induced neuropathy (Acute) Brachial plexopathy (Acute) Rectal bleeding (Acute) Lumbar spondylosis (Acute) Breast cancer, right breast (Chronic) Breast cancer screening by mammogram (Acute) Constipation (Acute) Right low back pain (Acute) Gastroenteritis (Acute) Abdominal bloating (Acute) Acute cystitis (Acute) Anterior chest wall pain (Acute) Encounter for IUD insertion (Acute) Family hx of colorectal cancer (Acute) Breast cancer screening (Acute) Presence of 52 mg levonorgestrel-releasing intrauterine device (IUD) (Acute) Cervical cancer screening (Acute) Coccygeal fracture (Acute) Elevated blood pressure reading in office without diagnosis of hypertension (Acute) Impaired fasting glucose (Acute) Urinary frequency (Acute) Annual physical exam (Acute) Invasive ductal carcinoma of breast (Acute) Breast mass, right (Acute) Benign essential hypertension (Acute) Pure hypercholesterolemia (Acute) GERD (gastroesophageal reflux disease) (Acute) Viral upper respiratory tract infection with cough (Acute) Obesity (BMI 30-39.9) (Acute) Migraine (Acute) Asthma (Acute) Cough (Acute) Asthma (Acute) Laryngitis (Acute) Allergic rhinosinusitis (Acute) Past Medical History Medical History Lumbar spondylosis Back pain COVID-19 HTN (hypertension) Invasive ductal carcinoma of breast Breast mass, right Benign essential hypertension Pure hypercholesterolemia GERD (gastroesophageal reflux disease) Viral upper respiratory tract infection with cough Obesity (BMI 30-39.9) Migraine Asthma Cyst of breast, left, solitary Cough Asthma Laryngitis Allergic rhinosinusitis Family History Family History Mother Colon cancer, Onset Age: 42 Diabetes mellitus Father Heart disease Parkinson disease Maternal Grandmother Breast cancer Paternal Grandmother Breast cancer Maternal Grandfather Prostate CA Family/Other Thyroid cancer Other FH: mental illness Substance abuse Family history of problems with anesthesia: No Surgical History Surgical History History of lumpectomy of right breast (~08/16/24) Hx of colonoscopy History of breast lump/mass excision H/O section History of Problems with Anesthesia: No Social History Social History Household Members: Spouse Housing: House Are you a primary resident care technician to a significant other at home: No Do you presently have visiting nurse or other home services: No Alcohol intake: never Patient Tobacco Use Status: Never used Tobacco e-Cigarette/Vaping Use: Never Used Second Hand Smoke Exposure: No service: No Current occupational status: employed 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 [employer] Cognitive needs: No Hearing needs: No Vision needs: Yes Meds Allergies Allergy/AdvReac Type Severity Reaction Status Date / Time adhesive tape Allergy Redness of Verified 02/15/25 14:30 Skin cefuroxime AdvReac Hives Verified 02/15/25 14:30 flu vaccine AdvReac Severe Hives Uncoded 02/15/25 14:30 Home Medications ?Medication ?Instructions ?Recorded ?Confirmed ?Last Taken ?Type levonorgestrel 21 mcg/24 hr (up to 21 mcg intrauterine ONCE 07/14/23 02/15/25 Unknown History 8 years) 52 mg intrauterine device (Mirena) fluticasone propionate 50 1 spray intranasal BID PRN Allergy 08/09/24 02/15/25 Unknown History mcg/actuation nasal Symptoms spray,suspension (Aller-Abel) polyethylene glycol 3350 17 17 g PO BID 01/05/25 02/15/25 Unknown History gram/dose oral powder (Miralax) Exam Height,Weight and Vital Signs: Height 5 ft 3 in Weight 94.801 kg Pertinent Lab Results Pertinent Lab Results: Laboratory Tests 02/09/25 09:25 WBC 7.2 Hgb 13.0 Hct 37.9 Plt Count 322 Sodium 140 Potassium 3.6 Chloride 105 Carbon Dioxide 27 BUN 11 Creatinine 0.72 Narrative Narrative: EKG 12/2024 Vent. Rate : 101 BPM Atrial Rate : 101 BPM P-R Int : 148 ms QRS Dur : 80 ms QT Int : 328 ms P-R-T Axes : 30 0 -5 degrees QTcB Int : 425 ms Sinus tachycardia Possible Left atrial enlargement Left ventricular hypertrophy ( R in aVL , Romhilt-Aguayo ) Nonspecific T wave abnormality Abnormal ECG When compared with ECG of 26-Nov-2024 11:59, Nonspecific T wave abnormality now evident in Lateral leads ECHO 2023 Conclusions: - Essentially normal study Assessment and Plan Assessment Anesthesia Assessment: Chart Reviewed Final Anesthetic Review Family History of Problems with Anesthesia: No History of Problems with Anesthesia: No
--- NOTE | 2025-03-07 07:56 | MHC.SHP ---
Pre-Procedural Eval Section A - 24 Hr Update-Section A only Date of Service: 03/07/25 Section B - Complete if H&P > 30 days Chief Complaint: Epigastric pain, dysphagia, fam hx of CRC Details of Present Illness: Lumbar spondylosis Back pain COVID-19 HTN (hypertension) Invasive ductal carcinoma of breast Breast mass, right Benign essential hypertension Pure hypercholesterolemia GERD (gastroesophageal reflux disease) Viral upper respiratory tract infection with cough Obesity (BMI 30-39.9) Migraine Asthma Cyst of breast, left, solitary Cough Asthma Laryngitis Allergic rhinosinusitis Surgical History History of lumpectomy of right breast (~08/16/24) Hx of colonoscopy History of breast lump/mass excision H/O section Present Medications: see Short Stay Collaborative assessment Allergies: Allergies Allergy/AdvReac Type Severity Reaction Status Date / Time adhesive tape Allergy Redness of Verified 02/15/25 14:30 Skin cefuroxime AdvReac Hives Verified 02/15/25 14:30 flu vaccine AdvReac Severe Hives Uncoded 02/15/25 14:30 Review of Systems Review of Systems Comment: 10 point ROS negative Exam Exam Comment: Gen appear: No acute distress HEENT: no icterus Chest: No overt resp distress Abd: soft, nontender, nondistended Psych: Stable affect, answering questions appropriately Neuro: A/Ox3 noted to move all extremities spontaneously Ext: no peripheral edema Plan Diagnosis/Plan: Unchanged I have reviewed the history and physical and performed a pertinent physical examination on my patient. No changes have occurred unless specified. Time Spent With Patient Time: Total time managing care of this patient today ____ minutes.
[2025-03-07 08:19] VITALS: BMI 38.3
[2025-03-07 08:33] VITALS: BP 119/85; PULSE 105; RESP 15; TEMP 36.4; O2SAT 95
[2025-03-07] MEDS: Lactated Ringers 1,000 ML 100 ML IVCONT (08:49)
--- NOTE | 2025-03-07 09:29 | PC.NURSE ---
pt unable to void for hcg. hx of chemo tx. anesthesia spoke with pt and pt states there is absolutely no chance of . print finisher also aware and we are all under that same understanding. ok to proceed with procedures.
--- NOTE | 2025-03-07 09:31 | P.CONAN_ITS ---
ON LICENSE OF [facility] Active Problems Active Problems: All Active Problems Right brachial plexitis (Acute) Chemotherapy-induced neuropathy (Acute) Brachial plexopathy (Acute) Rectal bleeding (Acute) Lumbar spondylosis (Acute) Breast cancer, right breast (Chronic) Breast cancer screening by mammogram (Acute) Constipation (Acute) Right low back pain (Acute) Gastroenteritis (Acute) Abdominal bloating (Acute) Acute cystitis (Acute) Anterior chest wall pain (Acute) Encounter for IUD insertion (Acute) Family hx of colorectal cancer (Acute) Breast cancer screening (Acute) Presence of 52 mg levonorgestrel-releasing intrauterine device (IUD) (Acute) Cervical cancer screening (Acute) Coccygeal fracture (Acute) Elevated blood pressure reading in office without diagnosis of hypertension (Acute) Impaired fasting glucose (Acute) Urinary frequency (Acute) Annual physical exam (Acute) Invasive ductal carcinoma of breast (Acute) Breast mass, right (Acute) Benign essential hypertension (Acute) Pure hypercholesterolemia (Acute) GERD (gastroesophageal reflux disease) (Acute) Viral upper respiratory tract infection with cough (Acute) Obesity (BMI 30-39.9) (Acute) Migraine (Acute) Asthma (Acute) Cough (Acute) Asthma (Acute) Laryngitis (Acute) Allergic rhinosinusitis (Acute) Past Medical History Medical History Lumbar spondylosis Back pain COVID-19 HTN (hypertension) Invasive ductal carcinoma of breast Breast mass, right Benign essential hypertension Pure hypercholesterolemia GERD (gastroesophageal reflux disease) Viral upper respiratory tract infection with cough Obesity (BMI 30-39.9) Migraine Asthma Cyst of breast, left, solitary Cough Asthma Laryngitis Allergic rhinosinusitis Functional capacity: independent ambulation Patient : No (for 6 month during chemo therapy she had no intercourse) Family History Family History Mother Colon cancer, Onset Age: 42 Diabetes mellitus Father Heart disease Parkinson disease Maternal Grandmother Breast cancer Paternal Grandmother Breast cancer Maternal Grandfather Prostate CA Family/Other Thyroid cancer Other FH: mental illness Substance abuse Family history of problems with anesthesia: No Surgical History Surgical History History of lumpectomy of right breast (~08/16/24) Hx of colonoscopy History of breast lump/mass excision H/O section History of Problems with Anesthesia: No Social History Social History Household Members: Spouse Housing: House Are you a primary healthcare social worker to a significant other at home: No Do you presently have visiting nurse or other home services: No Alcohol intake: never Patient Tobacco Use Status: Never used Tobacco e-Cigarette/Vaping Use: Never Used Second Hand Smoke Exposure: No Use of substances other than those prescribed or required for medical reasons: No Are you DNR?: No Advance Directives: No Advance Directives Information Provided: Yes service: No Current occupational status: employed 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[employer] Cognitive needs: No Hearing needs: No Vision needs: Yes Meds Allergies Allergy/AdvReac Type Severity Reaction Status Date / Time adhesive tape Allergy Redness of Verified 03/07/25 08:26 Skin cefuroxime AdvReac Hives Verified 03/07/25 08:26 flu vaccine AdvReac Severe Hives Uncoded 03/07/25 08:33 Active Medications: Current Medications Lactated Ringer's (Lr) 1,000 mls @ 100 mls/hr IVCONT .Q10H ARMANDO Last Admin: 03/07/25 08:49 Dose: 100 mls/hr Home Medications ?Medication ?Instructions ?Recorded ?Confirmed ?Last Taken ?Type levonorgestrel 21 mcg/24 hr (up to 21 mcg intrauterine ONCE 07/14/23 03/07/25 Unknown History 8 years) 52 mg intrauterine device (Mirena) fluticasone propionate 50 1 spray intranasal BID PRN Allergy 08/09/24 03/07/25 Unknown History mcg/actuation nasal Symptoms spray,suspension (Aller-Abel) Exam Height,Weight and Vital Signs: Height 5 ft 3 in Weight 97.976 kg Last Vital Signs Temp 97.6 F 03/07/25 08:33 Pulse 105 H 03/07/25 08:33 Resp 15 03/07/25 08:33 BP 119/85 03/07/25 08:33 Pulse Ox 95 03/07/25 08:33 O2 Del Method Room Air 03/07/25 08:33 Airway Mallampati Class: III TM Dist: >3cm Neck ROM: Full Heart: RRR Lungs: CTA Assessment and Plan Assessment Anesthesia Assessment: Anesthesia Plan Discussed and Chart Reviewed Final Anesthetic Review Family History of Problems with Anesthesia: No History of Problems with Anesthesia: No NPO: Yes ASA Class: III Final Preanesthetic Review: Meds/Allgs Chart Reviewed, Consent Obtained/Reviewed and Anes Risks/Benef Reviewed Patient Risk: Intermediate Procedure Risk: Low Anesthetic Plan Anesthetic Plan: MAC: and Neuraxial Block: Disposition: Standard PACU
--- NOTE | 2025-03-07 10:19 | P.OPN-COLO_ITS ---
Colonoscopy Operative Note Operative Note Date of Service: 03/07/25 Narrative: Procedure: Upper endoscopy and colonoscopy Indication: Epigastric pain, dysphagia, fam hx of CRC Endoscopist: Suzanne Coronado MD Anesthesia Provider: Dr Ruby Forrester Anesthesia type: MAC Instrument: GIF-H190 and [id number]-[id number] EGD Procedure:?? The procedure, indications, preparation and potential complications were reviewed with the patient, who indicated understanding and gave written informed consent to proceed. The endoscope was introduced through the mouth, and advanced to the 2nd part of the duodenum. The mucosa was carefully examined on slow withdrawal of the endoscope. The patient tolerated the procedure well. There were no immediate complications.? EGD Findings:? * Esophagus:? Normal esophageal mucosa was noted. The Z-line was at 40 cm. Cold forceps biopsies were taken from middle and lower esophagus to rule out EoE. * Stomach:? Normal gastric mucosa. Retroflexion was performed in the cardia. Random cold forceps biopsies were taken from the stomach. * Duodenum:? Normal duodenal mucosa. Cold forceps biopsies were taken from the duodenal bulb and 2nd portion of the duodenum to rule out celiac sprue. Additional intervention: Soft tipped Savary wire was introduced through the biopsy channel of the gastroscope and advanced to the antrum. The gastroscope was then backed out. Savary Nathaniel bougie was advanced over the guidewire and the esophagus was dilated to 18 mm without any resistance felt. On relook, no heme or tear was noted. ? Colonoscopy Procedure:? The patient was then turned for the colonoscopy. A digital rectal exam was performed which was abnormal for external hemorrhoids.? A distal attachment cap was affixed to the tip of the scope and the colonoscope was then inserted through the anus and advanced through the colon and advanced to the cecum at 75 cm and terminal ileum.? Appendiceal orifice and ileocecal valve were identified. Mucosa was carefully examined under high definition white light as the instrument was slowly withdrawn in a retrograde panoramic fashion. Retroflexion was performed in rectum. The procedure was not difficult. The quality of the prep was BBPS: 2+2+3 = adequate Withdrawal time 13 minutes Limitations: No limitations Findings: Mucosa: Normal colon and terminal ileum mucosa. Protruding lesions: * 1 sessile polyp of size 2 mm in cecum.Cold snare polypectomy was performed. The polyp was completely removed and retrieved. * Medium internal hemorrhoids without stigmata of recent bleeding. Impression: 1. Normal esophagus (biopsy, dilation) 2. Normal stomach (biopsy) 3. Normal duodenum (biopsy) 4. Normal colon and terminal ileum mucosa 5. One polyp removed 6. Internal and external hemorrhoids Recommendations:?? * Follow-up path results * Repeat colonoscopy for asymptomatic colorectal ca screening in 5 years due to family history
[2025-03-07 10:27] VITALS: BP 113/70; PULSE 98; RESP 16; TEMP 36.1; O2SAT 96
[2025-03-07 10:40] VITALS: BP 127/89; PULSE 94; RESP 16; TEMP 36.2; O2SAT 96
--- NOTE | 2025-03-07 10:57 | HO.POSTANES ---
Post Anesthesia Evaluation Post Anesthesia Evaluation Date of Service: 03/07/25 Vital Signs: Vital Signs Temp Pulse Resp BP Pulse Ox O2 Del Method 03/07/25 10:40 97.1 F 94 16 127/89 96 Room Air 03/07/25 10:27 97 F 98 16 113/70 96 Room Air 03/07/25 08:33 97.6 F 105 H 15 119/85 95 Room Air Anesthesia: Monitored Mental Status: Awake Pain Control: Satisfactory Nausea/Vomiting: None Hydration: Adequate Anesthesia-Related Issues: No Anes. Related Issues
== END 2025-03-07 11:13 | disposition home or self-care (01) ==
PROVIDERS: PCP Internal Medicine; Visit Provider Internal Medicine
PROC: (CPT 45385; principal; 2025-03-07 09:20)
DX: Z12.11 Encounter for screening for malignant neoplasm of colon (principal); K51.40 Inflammatory polyps of colon without complications; K63.5 Polyp of colon; K64.8 Other hemorrhoids; K64.4 Residual hemorrhoidal skin tags; Z86.0101 Personal history of adenomatous and serrated colon polyps; Z80.0 Family history of malignant neoplasm of digestive organs; K29.80 Duodenitis without bleeding; K29.70 Gastritis, unspecified, without bleeding; R13.10 Dysphagia, unspecified; K21.9 Gastro-esophageal reflux disease without esophagitis; I10 Essential (primary) hypertension; E78.00 Pure hypercholesterolemia, unspecified; J45.909 Unspecified asthma, uncomplicated; C50.911 Malignant neoplasm of unspecified site of right female breast; Z92.21 Personal history of antineoplastic chemotherapy; E66.9 Obesity, unspecified; Z68.37 Body mass index [BMI] 37.0-37.9, adult; Z79.899 Other long term (current) drug therapy
CPT/HCPCS: 45385; 45380; 43248; 43239; 88305; 88342; C1769; J2003; J2704

== ENCOUNTER → 2025-03-07 08:11 | Outpatient (BNV) | payer OTHER, SELFPAY | PROVIDERS: PCP Internal Medicine; Visit Provider Internal Medicine | DX: Z12.11 Encounter for screening for malignant neoplasm of colon (principal); Z80.0 Family history of malignant neoplasm of digestive organs; K63.5 Polyp of colon; K64.8 Other hemorrhoids; R13.10 Dysphagia, unspecified; R10.13 Epigastric pain | CPT/HCPCS: 43239; 43248; 45385 ==

== ENCOUNTER 2025-03-08 14:55 | Outpatient (AMB) | payer OTHER, SELFPAY ==
--- NOTE | 2025-03-08 14:56 | A.OFFVIS_ITS ---
Vital Signs 03/08/25 15:03 Height 5 ft 3 in Weight 220 lb BMI 39.0 BP 121/72 Blood Pressure Location Lt brachial Position Sitting Pulse 95 Intake Visit Reasons: 6 m f/up visit, breast exam Intake Note: Patient here for 6m breast exam. Hx of Invasive ductal carcinoma. Patient c/o: no concerns. Denies pain, redness, nipple discharge. Hx of Rt br lumpectomy on 08-16-2024. Director Of Product Management Required: No Accompanied by: Self / Same As Patient Allergies adhesive tape Allergy (Verified 03/08/25 14:57) Redness of Skin cefuroxime Adverse Reaction (Verified 03/08/25 14:57) Hives flu vaccine Adverse Reaction (Severe, Uncoded 03/08/25 14:57) Hives HPI HPI 6 m f/up visit, breast exam: Details: . She is here for follow-up for her history of breast cancer. She had lumpectomy and sentinel node biopsy for a T2 N1 invasive ductal carcinoma of the right breast last July, She has completed chemotherapy with AC for her node positive disease. She says she is to start her radiation next week.. She is doing well overall. She continues to follow with Dr. Martin. She is currently on letrozole. She does state that she had EGD with dilation yesterday because of her problems chest pain secondary to her esophageal stricture. [facility] Medical History Lumbar spondylosis Back pain COVID-19 HTN (hypertension) Invasive ductal carcinoma of breast Breast mass, right Benign essential hypertension Pure hypercholesterolemia GERD (gastroesophageal reflux disease) Viral upper respiratory tract infection with cough Obesity (BMI 30-39.9) Migraine Asthma Cyst of breast, left, solitary Cough Asthma Laryngitis Allergic rhinosinusitis Surgical History History of lumpectomy of right breast (~08/16/24) Hx of colonoscopy History of breast lump/mass excision H/O section Family History Mother Colon cancer, Onset Age: 42 Diabetes mellitus Father Heart disease Parkinson disease Maternal Grandmother Breast cancer Paternal Grandmother Breast cancer Maternal Grandfather Prostate CA Family/Other Thyroid cancer Other FH: mental illness Substance abuse Social History Household Members: Spouse Housing: House Are you a primary medicare sales executive to a significant other at home: No Do you presently have visiting nurse or other home services: No Alcohol intake: never Patient Tobacco Use Status: Never used Tobacco e-Cigarette/Vaping Use: Never Used Second Hand Smoke Exposure: No service: No Current occupational status: employed 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 needs: No Hearing needs: No Vision needs: Yes Female Reproductive History Menstrual Age of Menarche: 7 Review of Systems Const Denies chills and Denies fever(s) Card Denies chest pain, Denies dyspnea and Denies dyspnea on exertion Resp Denies cough, Denies dyspnea and Denies dyspnea on exertion GI Denies hematochezia and Denies change in bowel habits Denies hematuria Musc Denies back pain and Denies limited range of motion Neuro Denies focal weakness and Denies convulsions Psych Denies depression and Denies mood swings Physical Exam Vital Signs: Last Vital Signs Pulse 95 03/08/25 15:03 BP 121/72 03/08/25 15:03 BMI result Body Mass Index 39.0 Const General: comfortable and no acute distress Orientation/consciousness: patient oriented x3 Neck Neck: Yes no lymphadenopathy Chest Other: No no palpable masses Resp Auscultation: clear to auscultation bilaterally Cardio Rhythm: regular rhythm GI Palpation (GI): Soft to palpation, nontender and no guarding Neuro General: patient oriented x3 Assessment & Plan Assessment & Plan (1) Invasive ductal carcinoma of breast: Code(s): C50.919 - Malignant neoplasm of unspecified site of unspecified female breast Category: Medical Plan: She had a T2 N1 disease and she has completed chemotherapy with AC. She is to undergo radiation treatment to the breast starting next week. I reminded her that she should have her follow up mammogram sometime this late summer or early fall. I will see her in the office in about 6 months. I reminded her to continue to follow up with Dr. Martin as well. She will also be on final treatment with letrozole. Coding Level of Care Code Est Pt Level 3 (06285) Diagnoses Invasive ductal carcinoma of breast C50.919
[2025-03-08 15:03] VITALS: BP 121/72; PULSE 95; BMI 39.0
== END 2025-03-08 15:31 | disposition home or self-care (01) ==
LOC: HO.HGS 14:55
PROVIDERS: PCP Internal Medicine; Visit Provider Surgery
DX: C50.919 Malignant neoplasm of unspecified site of unspecified female breast (principal)
CPT/HCPCS: 99213

== ENCOUNTER 2025-03-10 08:36 | Outpatient (REF) | payer OTHER, SELFPAY ==
[2025-03-10 08:51] LABS: MANUAL DIFF FLAG NO
[2025-03-10 09:27] LABS: Basophils Absolute Auto 0.1 X10*3/uL (0.0-0.2); Basophils Percent Auto 0.7 % (0-2); Eosinophils Absolute Auto 0.2 X10*3/uL (0.0-0.4); Eosinophils Percent Auto 3.3 % (0-4); Hematocrit 38.7 % (37.0-47.0); Hemoglobin 13.1 g/dl (12.0-16.0); Imm Gran Abs Auto 0.04 X10*3/uL (0.00-0.03); Imm Gran Pct Auto 0.6 % (0.0-0.4); Lymphocytes Absolute Auto 1.7 X10*3/uL (1.2-4.9); Mean Corpuscular HGB Conc 33.9 g/dl (31.0-35.0); Mean Corpuscular Hemoglobin 29.4 pg (27.0-33.0); Mean Corpuscular Volume 86.8 fL (80.0-98.0); Monocytes Absolute Auto 0.6 X10*3/uL (0.1-1.2); Monocytes Percent Auto 8.8 % (2-11); Neutrophils Absolute Auto 4.1 x10*3/uL (2.0-8.3); Neutrophils Percent Auto 61.6 % (45-73); Platelet Count 343 X10*3/uL (160-400); Red Blood Count 4.46 X10*6/uL (4.20-5.50); Red Cell Distribution Width 13.7 % (11.0-16.0); White Blood Count 6.7 X10*3/uL (4.8-10.8)
[2025-03-10 09:37] LABS: Estimated Average Glucose 163 mg/dL; Hemoglobin A1C 196.1959 umol/L; Hemoglobin A1c % 7.3 % (<6.0); Total Hemoglobin (HGBA1C) 3492.0428 umol/L
[2025-03-10 09:51] LABS: Appearance Urine Cloudy; Color Urine Yellow; Glucose Urine UA Negative (Negative); Leukocyte Esterase Urine Moderate (2+) (Negative); Nitrite Urine Negative (Negative); PH 7.5 (5.0-9.0); Specific Gravity - Urine <= 1.005 (1.005-1.025); UMIC TRIGGER UACC YES; Urine Blood Trace (Negative); Urine Ketones Negative (Negative); Urine Protein Negative (Neg-Trace)
[2025-03-10 10:11] LABS: Bacteria Urine 4+ (None Seen); Hyaline Casts Urine 0-2 /LPF (0-2); RBC Urine 0-2 /HPF (0-2); UACC Culture Trigger YES
[2025-03-10 10:26] LABS: Alanine Aminotransferase 76 U/L (0-31); Alkaline Phosphatase 128 U/L (39-117); Anion Gap 10 (12-20); Aspartate Amino Transferase 48 U/L (5-31); Bilirubin Total 0.4 mg/dL (0.0-1.0); Blood Urea Nitrogen 5 mg/dL (9-16); Calcium 9.1 mg/dL (8.4-10.2); Carbon Dioxide 26 mmol/L (22-29); Chloride 107 mmol/L (96-108); Cholesterol 250 mg/dL (<200); Estimated Glomerular Filt Rate > 60; Glucose Fasting 155 mg/dL (60-99); HDL Cholesterol 37 mg/dL (>40); LDL Cholesterol Calculated 162 mg/dL (<100); Potassium 3.4 mmol/L (3.3-5.1); Sodium 140 mmol/L (135-145); Total Protein 6.9 g/dL (6.5-8.0); Triglycerides 255 mg/dL (<150)
[2025-03-10 10:31] LABS: TSH reflex Free T4 1.75 uIU/mL (0.32-4.0); Vitamin D 25-OH Total 31.7 ng/mL (>30)
[2025-03-10 10:39] LABS: Folate 13.3 ng/mL (> or = 4.0); Vitamin B12 548 pg/mL (200-900)
== END 2025-03-10 08:37 | disposition home or self-care (01) ==
LOC: HO.LAB 08:36
PROVIDERS: PCP Internal Medicine; Visit Provider Internal Medicine
DX: Z00.00 Encounter for general adult medical examination without abnormal findings (principal); D64.9 Anemia, unspecified; E78.00 Pure hypercholesterolemia, unspecified; E55.9 Vitamin D deficiency, unspecified; R73.01 Impaired fasting glucose; E53.8 Deficiency of other specified B group vitamins; R30.0 Dysuria
CPT/HCPCS: 36415; 80053; 80061; 81001; 82306; 82607; 82746; 83036; 84443; 85025; 87086

== ENCOUNTER 2025-03-21 09:23 | Outpatient (AMB) | payer OTHER, SELFPAY ==
--- NOTE | 2025-03-21 09:34 | A.OFFVIS_ITS ---
Vital Signs 03/21/25 09:35 Height 5 ft 3 in Weight 193 lb BMI 34.2 BP 134/80 Blood Pressure Location Rt brachial Position Sitting Pulse 106 H Pulse Source Pulse Oximeter Pulse Oximetry (%) 95 Oxygen Delivery Method Room Air Intake Visit Reasons: s/p egd and colo Cliff Intake Note: ESTABLISHED PATIENT FOR s/p duo w/ BZ. Imaging scheduled. Chief Complaint; PT denies any sx or concerns at this time. Pt has been doing well and has stopped taking the famotidine as she does not find it necessary at this time. Oil Program Compliance Specialist Required: No Accompanied by: Self / Same As Patient Allergies adhesive tape Allergy (Verified 03/21/25 09:39) Redness of Skin cefuroxime Adverse Reaction (Verified 03/21/25 09:39) Hives flu vaccine Adverse Reaction (Severe, Uncoded 03/21/25 09:39) Hives HPI HPI s/p egd and colo Cliff: Details: LAST VISIT: Rectal bleeding Constipation Screen for colon cancer Abdominal bloating Family hx of colorectal cancer GERD (gastroesophageal reflux disease) Dysphagia Plan Patient denies any cardiac or respiratory symptoms.? As mentioned above in HPI patient has multiple GI symptoms most likely related to some of that to her chemo treatment as well as pain management. Patient is taking hydromorphone. Unable to move her bowels for day sometimes when she does go she might have loose stools. Loose stools are cause also by being backed up. Patient will start taking fiber supplements to help her bulk stools. She will stop senna and start Dulcolax. Will order also stool softeners. Patient complains of dyspepsia, dysphagia and sharp epigastric pain related to food. Patient reports no matter what she eats. Patient also reports abdominal bloating. Will start her on Nexium. Patient will avoid dietary triggers and late night snacking. Given list of food to avoid. Low FODMAP diet recommended. Patient may take famotidine at bedtime. Staying upright for minimum 3 hours after meals discussed with patient. Patient reports pain from her upper chest radiating to her back underneath her scapula. Will send a script for lidocaine. Patient will be sent for upper GI series with barium swallow to evaluate reflux, hiatal hernia, esophageal narrowing, dysmotility, Schatzki ring, achalasia. Patient will be sent for upper endoscopy as well. Patient is reporting more frequent blood in her stools. She will be sent for colonoscopy as well Denies any issues with anesthesia in the past.? Denies any history of sleep apnea.? No history infectious diseases in the past or present.? Not on any anticoagulation therapy.? Family history of CRC. Patient reports her mom was diagnosed with colorectal cancer at age 42 and 52.?? Discussed at length the pre-procedure,? prep, diet & medications as well as what to expect prior, during and after the procedure.?? Stressed the importance of good bowel prep.? Recommended the use of Vaseline or Calmoseptine OTC & baby wipes with bowel movements to promote comfort.? ?Patient verbalizes under standing and agrees to plan of care.? She was given the opportunity to ask questions and all questions answered.? We will see her after the procedure. However patient was told to call our office if her symptoms will continue or if she will experience any additional GI concerning symptoms. Will call patient with the results of upper GI series Orders Medications New docusate sodium 200 mg (2 x 100 mg) PO BEDTIME 180 caps 3RF K59.00 esomeprazole magnesium (Nexium) 20 mg PO DAILY 30 caps 4RF lidocaine 5% leave on most painful area for up to 12 hrs 1 patch topical DAILY 15 ea 0RF bisacodyl (Dulcolax (bisacodyl)) 10 mg (2 x 5 mg) PO BEDTIME 180 tabs 4RF constipation polyethylene glycol 3350 (Miralax) As directed by gastroenterology department at [facility] 238 grams PO ONCE 238 grams 0RF Z12.11 Discontinued sennosides (Senokot) Discontinued Reason: Doctor's Order 8.6 mg PO BID 60 tabs 4RF omeprazole Discontinued Reason: Doctor's Order 20 mg PO DAILY 90 days 90 caps 3RF UPPER ENDOSCOPY AND COLONOSCOPY EGD Findings:? * Esophagus:? Normal esophageal mucosa was noted. The Z-line was at 40 cm. Cold forceps biopsies were taken from middle and lower esophagus to rule out EoE. * Stomach:? Normal gastric mucosa. Retroflexion was performed in the cardia. Random cold forceps biopsies were taken from the stomach. * Duodenum:? Normal duodenal mucosa. Cold forceps biopsies were taken from the duodenal bulb and 2nd portion of the duodenum to rule out celiac sprue. Additional intervention: Soft tipped Savary wire was introduced through the biopsy channel of the gastroscope and advanced to the antrum. The gastroscope was then backed out. Savary Nathaniel bougie was advanced over the guidewire and the esophagus was dilated to 18 mm without any resistance felt. On relook, no heme or tear was noted. ? Colonoscopy Procedure:? The patient was then turned for the colonoscopy. A digital rectal exam was performed which was abnormal for external hemorrhoids.? A distal attachment cap was affixed to the tip of the scope and the colonoscope was then inserted through the anus and advanced through the colon and advanced to the cecum at 75 cm and terminal ileum.? Appendiceal orifice and ileocecal valve were identified. Mucosa was carefully examined under high definition white light as the instrument was slowly withdrawn in a retrograde panoramic fashion. Retroflexion was performed in rectum. The procedure was not difficult. The quality of the prep was BBPS: 2+2+3 = adequate Withdrawal time 13 minutes Limitations: No limitations Findings: Mucosa: Normal colon and terminal ileum mucosa. Protruding lesions: * 1 sessile polyp of size 2 mm in cecum.Cold snare polypectomy was performed. The polyp was completely removed and retrieved. * Medium internal hemorrhoids without stigmata of recent bleeding. Impression: 1. Normal esophagus (biopsy, dilation) 2. Normal stomach (biopsy) 3. Normal duodenum (biopsy) 4. Normal colon and terminal ileum mucosa 5. One polyp removed 6. Internal and external hemorrhoids Recommendations:?? * Follow-up path results * Repeat colonoscopy for asymptomatic colorectal ca screening in 5 years due to family history ADDENDUM Duodenum: Normal duodenal mucosa. One pedunculated polyp of size 2 cm noted in the second portion of the duodenum just proximal to the ampulla. Cold forceps biopsies were taken from the polyp for histology. Cold forceps biopsies were also taken from duodenal bulb and 2nd portion of the duodenum to rule out celiac sprue. PATHOLOGY RESULTS Diagnosis A. Duodenal polyp: Polypoid chronic-nonspecific/peptic duodenitis; negative for dysplasia. B. Stomach, random, biopsy: Gastric antral and body mucosa with minimal chronic inactive gastritis; negative for H.pylori, intestinal metaplasia and dysplasia. C. Esophagus, lower, biopsy: Squamous mucosa with no specific change; no columnar mucosa present. D. Esophagus, middle, biopsy: Squamous mucosa with no specific change; no columnar mucosa present. E. Colon, cecal polyp: Benign polypoid colonic mucosa with regenerative and inflammatory changes, and prominent irregular mucosal and submucosal vessels (suggesting arteriovenous malformation); no adenomatous dysplasia seen. TODAY'S VISIT Patient is here today for follow-up and to discuss upper endoscopy and colonoscopy results. Both procedures results discussed with patient as well as pathology results. Patient denies any ill effects from the prep, anesthesia or procedure itself. Patient has been feeling fairly well. Finish her IV chemotherapy and is going for radiation. Patient will be started on letrozole daily. Her symptoms of acid reflux has been suppressed with Nexium. Patient is no longer taking famotidine. Patient patient moving her bowels better now that she is taking Dulcolax and Colace. Denies melena, hematochezia, unintentional weight loss or ribbon like stools. Benign polypoid colonic mucosa found with submucosal vessels suggesting AVM. Patient has a family history of CRC and will need to repeat colonoscopy in 5 years. [facility] Medical History Lumbar spondylosis Back pain COVID-19 HTN (hypertension) Invasive ductal carcinoma of breast Breast mass, right Benign essential hypertension Pure hypercholesterolemia GERD (gastroesophageal reflux disease) Viral upper respiratory tract infection with cough Obesity (BMI 30-39.9) Migraine Asthma Cyst of breast, left, solitary Cough Asthma Laryngitis Allergic rhinosinusitis Surgical History History of lumpectomy of right breast (~08/16/24) Hx of colonoscopy History of breast lump/mass excision H/O section Family History Mother Colon cancer, Onset Age: 42 Diabetes mellitus Father Heart disease Parkinson disease Maternal Grandmother Breast cancer Paternal Grandmother Breast cancer Maternal Grandfather Prostate CA Family/Other Thyroid cancer Other FH: mental illness Substance abuse Social History Household Members: Spouse Housing: House Are you a primary animal care taker to a significant other at home: No Do you presently have visiting nurse or other home services: No Alcohol intake: never Patient Tobacco Use Status: Never used Tobacco e-Cigarette/Vaping Use: Never Used Second Hand Smoke Exposure: No service: No Current occupational status: employed 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 [employer] Cognitive needs: No Hearing needs: No Vision needs: Yes Female Reproductive History Menstrual Age of Menarche: 7 Review of Systems Const Denies weight gain and Denies weight loss ENT Reports no additional complaints, Denies dysphagia and Denies odynophagia Card Reports no additional complaints Resp Reports no additional complaints GI Denies abdominal pain, Denies belching, Denies melena, Denies bloating, Denies change in bowel habits, Reports constipation (Occasional), Denies dysphagia, Denies excessive flatus, Denies dyspepsia, Reports heartburn (Occasional), Hector es diarrhea, Denies loose stools, Reports nausea, Denies odynophagia and Denies vomiting Reports no additional complaints Musc Reports no additional complaints Neuro Reports no additional complaints Psych Reports no additional complaints Endo Reports no additional complaints Physical Exam Vital Signs: Last Vital Signs Pulse 106 H 03/21/25 09:35 BP 134/80 03/21/25 09:35 Pulse Ox 95 03/21/25 09:35 Oxygen Delivery Method Room Air 03/21/25 09:35 BMI result Body Mass Index 34.2 Const General: healthy appearing and no acute distress Nutritional Appearance: obese Orientation/consciousness: patient oriented x3 Resp Effort & Inspection: normal respiratory effort, able to speak in complete senten nimesh, no tracheal deviation and symmetric chest movement Auscultation: clear to auscultation bilaterally Cardio Rate: regular rate GI Inspection: Yes normal to inspection, No distended and Yes obesity Palpation (GI): Soft to palpation, not firm, nontender and No hepatosplenomegaly present Auscultation: normal bowel sounds General: Yes no CVA tenderness Back/Spine/Pelvis Back: no CVA tenderness Skin General skin exam: elasticity normal, turgor normal and dry skin Neuro General: patient oriented x3 Psych Appearance: grossly normal Mental Status: mental status grossly normal Assessment & Plan Assessment & Plan (1) Rectal bleeding: Code(s): K62.5 - Hemorrhage of anus and rectum Category: Medical (2) Constipation: Code(s): K59.00 - Constipation, unspecified Category: Medical Qualifiers: Constipation type: unspecified constipation type Qualified Code(s): K59.00 - Constipation, unspecified (3) Abdominal bloating: Code(s): R14.0 - Abdominal distension (gaseous) Category: Medical (4) Family hx of colorectal cancer: Comment: Patient's mother diagnosed at age 42 and age 52 with CRC. Last colonoscopy in January of 2022 showed tubular adenoma. Code(s): Z80.0 - Family history of malignant neoplasm of digestive organs Category: Medical (5) GERD (gastroesophageal reflux disease): Code(s): K21.9 - Gastro-esophageal reflux disease without esophagitis Category: Medical Qualifiers: Esophagitis presence: esophagitis presence not specified Qualified Code(s): K21.9 - Gastro-esophageal reflux disease without esophagitis (6) Dysphagia: Code(s): R13.10 - Dysphagia, unspecified Qualifiers: Dysphagia type: pharyngoesophageal phase Qualified Code(s): R13.14 - Dysphagia, pharyngoesophageal phase Plan Patient reports she is doing fairly well after the procedure. Reported sore throat immediately after endoscopy, however it resolved. Patient no longer is having trouble swallowing. Continue esomeprazole. Patient will make sure that it is okay with her to be on PPI while she will be taking letrozole. Avoid dietary triggers and late night snacking. Staying upright for minimum 3 hours after meals discussed with patient. Patient will follow-up in 3 months, sooner on as needed basis. She is agreeable to this plan and verbalizes understanding of instructions. She was given the opportunity to ask questions and all questions answered. Thank you for allowing me to participate in her care Coding Level of Care Code Est Pt Level 4 (95842) Complex EM visit Add On G2211 Diagnoses Rectal bleeding K62.5 Constipation, unspecified constipation type K59.00 Constipation type: unspecified constipation type Abdominal bloating R14.0 Family hx of colorectal cancer Z80.0 Gastroesophageal reflux disease, unspecified whether esophagitis present K21.9 Esophagitis presence: esophagitis presence not specified Pharyngoesophageal dysphagia R13.14 Dysphagia type: pharyngoesophageal phase Time Spent (min) 40 Comment 25 minutes spent with patient and additional 15 minutes spent reviewing her records
[2025-03-21 09:35] VITALS: BP 134/80; PULSE 106; O2SAT 95; BMI 34.2
--- OUTSIDE RECORDS SUMMARY | 2025-03-21 10:10 | XMS_ITS | Encounter Summary ---
Author Organization [facility] Address [address] [place] [address] Care Team Providers Care Expert Medical Writer Name Role Phone Neha Vivar MD Primary Care Provider Rere Narayanan MD Primary Care Provider Darcy Mccormick MD Primary Care Prov ider Encounter Details Date Type Department Care Team Description 03/27/2016 Pt. 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 - 03/28/2016 8:14 AM EDTFrom: Sheree Shoshana Cotto To: Gary Gutierrez MD Sent: 03/27/2016 7:13 PM EDT Subject: Results Veena Vega, I've called to discuss my test results and I have yet to get a call back. I would appreciate if someone would call back. I am very nervous about the findings. Thank you for your time, Shoshana documented in this encounter Plan of Treatment Not on file documented as of this encounter Visit Diagnoses Not on filedocumented in this encounter Care Teams Expert Medical Writer Relationship Specialty Start Date End Date Neha Vivar MD PCP - General Internal Medicine 09/28/15 05/21/17 Rere Mallory MD PCP - General Internal Medicine 05/22/17 05/27/22 Darcy Fry MD [address] [place] [id number] PCP - General Internal Medicine 05/28/22 documented as of this encounter
--- OUTSIDE RECORDS SUMMARY | 2025-03-21 10:10 | XMS_ITS | Encounter Summary ---
Author Organization [facility] Address [address] [place] [address] Care Team Providers Care Rocket Engine Component Mechanic Name Role Phone Neha Vivar MD Primary Care Provider Rere Narayanan MD Primary Care Provider Darcy Mccormick MD Primary Care Prov ider Encounter Details Date Type Department Care Team Description 08/12/2016 Telephone LEAD ARCHITECT - [address] [address] Gary Gutierrez MD Social History Tobacco Use [...] on filedocumented in this encounter Care Teams Rocket Engine Component Mechanic Relationship Specialty Start Date End Date Neha Vivar MD PCP - General Internal Medicine 09/28/15 05/21/17 Rere Mallory MD PCP - General Internal Medicine 05/22/17 05/27/22 Luciano Trujillo, Darcy Bentley MD [address] [place] [id number] PCP - General Internal Medicine 05/28/22 documented as of this encounter
--- OUTSIDE RECORDS SUMMARY | 2025-03-21 10:10 | XMS_ITS | Encounter Summary ---
Author Organization [facility] Address [address] [place] [address] Care Team Providers Care Pot Maker Name Role Phone Rere Mallory MD Primary Care Provider Darcy Mccormick MD Primary Care Prov ider Encounter Details Date Type Department Care Team Description 04/23/2018 Orders Only Medicine/Pediatrics - [address] [id number] Lucien Browne PA-C Leukocytosis, unspecified type (Primary [...] ANTIBODIES NEGATIVE NEGATIVE 04/28/2018 3:03 PM EDT [facility] 04/28/2018 9:14 AM EDT 04/28/2018 9:15 AM EDT Lucien Browne PA-C LAB [address] * DIFFERENTIAL WBC COUNT (04/28/2018 9:14 AM EDT) NEUTROPHIL 64 41 - 85 % 04/28/2018 5:23 PM EDT [facility] LYMPHOCYTE 29 15 - 48 % 04/28/2018 5:23 PM EDT [facility] MONOCYTE 4 0 - 12 % 04/28/2018 5:23 PM EDT [facility] EOSINOPHIL 1 0 - 5 % 04/28/2018 5:23 PM EDT [facility] BASOPHIL 2 0 - 2 % 04/28/2018 5:23 PM EDT [facility] RBC MORPHOLOGY NORMAL 04/28/2018 5:23 PM EDT [facility] 04/28/2018 9:14 AM EDT 04/28/2018 9:15 AM EDT Lucien Browne PA-C LAB Performing Organization Address City/State/[facility] Co de Phone Number [facility] [address] [facility] * (ABNORMAL) AUTOMATED HEMOGRAM PLATELET COUNT (04/28/2018 9:14 AM EDT) WBC 8.2 4.8 - 10.8 x10-3 04/28/2018 12:54 PM EDT [facility] RBC 5.2(H) 3.8 - 4.8 x10-6 04/28/2018 12:54 PM EDT [facility] HGB 14.3 11.5 - 16.0 g/dl 04/28/2018 12:54 PM EDT [facility] HCT 43.2 35 - 47 % 04/28/2018 12:54 PM EDT [facility] MCV 82.9 79 - 98 fl 04/28/2018 12:54 PM EDT [facility] MCH 27.4 27 - 32 pg 04/28/2018 12:54 PM EDT [facility] MCHC 33.1 32 - 37 g/dl 04/28/2018 12:54 PM EDT [facility] RDW 14.4 11 - 15 % 04/28/2018 12:54 PM EDT [facility] PLT COUNT 295 130 - 400 x10-3 04/28/2018 12:54 PM EDT [facility] MEAN PLATELET VOLUME 12.6(H) 7 - 11 fl 04/28/2018 12:54 PM EDT [facility] 04/28/2018 9:14 AM EDT 04/28/2018 9:15 AM EDT Lucien Browne PA-C LAB Performing Organization Address City/State/[facility] Co de Phone Number [address] documented in this encounter Visit Diagnoses Diagnosis Leukocytosis, unspecified type- Primary Intractable migraine with status migrainosus, unspecified migraine type documented in this encounter Care Teams Pot Maker Relationship Specialty Start Date End Date Rere Mallory MD PCP - General Internal Medicine 05/22/17 05/27/22 Darcy Fry MD [address] [place] [id number] PCP - General Internal Medicine 05/28/22 documented as of this encounter
--- OUTSIDE RECORDS SUMMARY | 2025-03-21 10:10 | XMS_ITS | Encounter Summary ---
Author Organization [facility] Address [address] [place] [address] Care Team Providers Care Surfacer Name Role Phone Rere Mallory MD Primary Care Provider Darcy Mccormick MD Primary Care Prov ider Encounter Details Date Type Department Care Team Description 02/01/2019 Document Scanner Report Medical Records [address] [place] [id number] Abstract, Provider Social History Tobacco Use Types [...] on filedocumented in this encounter Care Teams Surfacer Relationship Specialty Start Date End Date Rere Mallory MD PCP - General Internal Medicine 05/22/17 05/27/22 Darcy Fry MD [address] [place] [id number] PCP - General Internal Medicine 05/28/22 documented as of this encounter
--- OUTSIDE RECORDS SUMMARY | 2025-03-21 10:10 | XMS_ITS | Encounter Summary ---
Author Organization [facility] Address [address] [place] [address] Care Team Providers Care Formula Technician Name Role Phone Rere Mallory MD Primary Care Provider Darcy Mccormick MD Primary Care Prov ider Reason for Visit * Reason Onset Date Comments Form 04/02/2022 Encounter Details Date Type Department Care Team Description 04/02/2022 Telephone Medicine/Pediatrics - [address] [address] Rere Mallory MD Form Social History Tobacco [...] on filedocumented in this encounter Care Teams Formula Technician Relationship Specialty Start Date End Date Rere Mallory MD PCP - General Internal Medicine 05/22/17 05/27/22 Luciano Trujillo, Darcy Bentley MD [address] [place] [address] PCP - General Internal Medicine 05/28/22 documented as of this encounter
--- OUTSIDE RECORDS SUMMARY | 2025-03-21 10:10 | XMS_ITS | Encounter Summary ---
Author Organization [facility] Address [address] [place] [address] Care Team Providers Care Principal Developer Name Role Phone Rere Mallory MD Primary Care Provider Darcy Mccormick MD Primary Care Prov ider Encounter Details Date Type Department Care Team Description 04/01/2019 Packing House Supervisor Report Medical Records [address] [place] [address] Mercedes Reese Np Social History Tobacco Use [...] on filedocumented in this encounter Care Teams Principal Developer Relationship Specialty Start Date End Date Rere Mallory MD PCP - General Internal Medicine 05/22/17 05/27/22 Darcy Fry MD [address] [place] [id number] PCP - General Internal Medicine 05/28/22 documented as of this encounter
--- OUTSIDE RECORDS SUMMARY | 2025-03-21 10:10 | XMS_ITS | Encounter Summary ---
Author Organization [facility] Address [address] [place] [address] Care Team Providers Care Dairy Consultant Name Role Phone Cortez Greenberg MD Primary Care Provider Unavail able Neha Vivar MD Primary Care Provider UnavailRere Sparks MD Primary Care Provider Unava ilable Darcy Fry MD Primary Care Prov ider Encounter Details Date Type Department Care Team Description 09/21/2014 [place] Report Medical Records [address] [place] [address] Glenn De La Cruz MD Social History [...] on filedocumented in this encounter Care Teams Dairy Consultant Relationship Specialty Start Date End Date Cortez Greenberg MD PCP - General 08/12/04 09/27/15 Neha Vivar MD PCP - General Internal Medicine 09/28/15 05/21/17 Rere Mallory MD PCP - General Internal Medicine 05/22/17 05/27/22 Darcy Fry MD [address] [place] [phone] PCP - General Internal Medicine 05/28/22 documented as of this encounter
--- OUTSIDE RECORDS SUMMARY | 2025-03-21 10:10 | XMS_ITS | Encounter Summary ---
Author Organization [facility] Address [address] [place] [address] Care Team Providers Care Service Parts Coordinator Name Role Phone Cortez Greenberg MD Primary Care Provider Unavail able Neha Vivar MD Primary Care Provider UnavailRere Sparks MD Primary Care Provider Unava ilable Darcy Fry MD Primary Care Prov ider Encounter Details Date Type Department Care Team Description 03/03/2011 Business Doc Medical Records [address] [place] [id number] Abstract, Provider Social History Tobacco Use Types [...] on filedocumented in this encounter Care Teams Service Parts Coordinator Relationship Specialty Start Date End Date Cortez Greenberg MD PCP - General 08/12/04 09/27/15 Neha Vivar MD PCP - General Internal Medicine 09/28/15 05/21/17 Rere Mallory MD PCP - General Internal Medicine 05/22/17 05/27/22 Darcy Fry MD [address] [place] [id number] PCP - General Internal Medicine 05/28/22 documented as of this encounter
--- OUTSIDE RECORDS SUMMARY | 2025-03-21 10:10 | XMS_ITS | Encounter Summary ---
Author Organization [facility] Address [address] [place] [address] Care Team Providers Care Vessel Engineer Name Role Phone Neha Vivar MD Primary Care Provider Rere Narayanan MD Primary Care Provider Darcy Mccormick MD Primary Care Prov ider Encounter Details Date Type Department Care Team Description 08/07/2016 Pt. Non Urgent Medic al Question CATCHER PLUG - [address] [id number] Gary Gutierrez MD Social History Tobacco Use [...] Progress Notes * Nikki Alegre R.N. - 08/07/2016 8:17 AM EDTFrom: Sheree Cotto To: Gary Gutierrez MD Sent: 08/07/2016 8:09 AM EDT Subject: Update? Veena GUTIERREZ, I hope this message finds you well. I'm interested in knowing if there is an update on the Mirana? Thank you for your time, Shoshana Cotto documented in this encounter Plan of Treatment Not on file documented as of this encounter Visit Diagnoses Not on filedocumented in this encounter Care Teams Vessel Engineer Relationship Specialty Start Date End Date Neha Vivar MD PCP - General Internal Medicine 09/28/15 05/21/17 Rere Mallory MD PCP - General Internal Medicine 05/22/17 05/27/22 Darcy Fry MD [address] [place] [id number] PCP - General Internal Medicine 05/28/22 documented as of this encounter
--- OUTSIDE RECORDS SUMMARY | 2025-03-21 10:10 | XMS_ITS | Encounter Summary ---
Author Organization [facility] Address [address] [place] [address] Care Team Providers Care Automotive Sales Professional Name Role Phone Rere Mallory MD Primary Care Provider Darcy Mccormick MD Primary Care Prov ider Reason for Visit * Reason Onset Date Comments Jacquard Card Lacer Feedback 07/14/2018 pain management Encounter Details Date Type Department Care Team Description 07/14/2018 Telephone Physiatry - [address] [id number] Pete Ignacio PA-C Jacquard Card Lacer Feedback (pain management) Social History Tobacco Use [...] seen for coccydynia with pain management at [facility] but they are requesting a out of network before they can book this patient appointment. I submitted an out of network to [facility] and Autumn from there contacted me to let me know that this out of network was denied and we can redirected the patient to [facility] or [facility] were her insurance will be covered. I am pending you a new order can you please review thepended order and sign it. Thank you Liza Referral Greeting Card Maker documented in this encounter Plan of Treatment Not on file documented as of this encounter Visit Diagnoses Not on filedocumented in this encounter Care Teams Automotive Sales Professional Relationship Specialty Start Date End Date Rere Mallory MD PCP - General Internal Medicine 05/22/17 05/27/22 Darcy Fry MD [address] [place] [id number] PCP - General Internal Medicine 05/28/22 documented as of this encounter
--- OUTSIDE RECORDS SUMMARY | 2025-03-21 10:10 | XMS_ITS | Encounter Summary ---
Author Organization [facility] Address [address] [place] [address] Care Team Providers Care Soaker Name Role Phone Neha Vivar MD Primary Care Provider Rere Narayanan MD Primary Care Provider Darcy Mccormick MD Primary Care Prov ider Encounter Details Date Type Department Care Team Description 08/12/2016 Pt. Non Urgent Medic al Question HAND SLITTER - [address] [address] Gary Gutierrez MD Social History Tobacco Use [...] on filedocumented in this encounter Care Teams Soaker Relationship Specialty Start Date End Date Neha Vivar MD PCP - General Internal Medicine 09/28/15 05/21/17 Rere Mallory MD PCP - General Internal Medicine 05/22/17 05/27/22 Luciano Trujillo, Darcy Bentley MD [address] [place] [id number] PCP - General Internal Medicine 05/28/22 documented as of this encounter
--- OUTSIDE RECORDS SUMMARY | 2025-03-21 10:10 | XMS_ITS | Encounter Summary ---
Author Organization [facility] Address [address] [place] [address] Care Team Providers Care Concrete Pile Driver Operator Name Role Phone Rere Mallory MD Primary Care Provider Darcy Mccormick MD Primary Care Prov ider Encounter Details Date Type Department Care Team Description 02/29/2020 Orders Only Adult Medicine [address] [address] Gerardo Callejas MD Subacute thyroiditis (Primary Dx) [...] - 1.80 ng/dL 04/06/2020 5:53 PM EDT [facility] 04/06/2020 3:07 PM EDT 04/06/2020 3:09 PM EDT Gerardo Callejas MD LAB [facility] * TSH (04/06/2020 3:07 PM EDT) TSH 3.29 0.40 - 4.00 uIU/ml 04/06/2020 5:53 PM EDT [facility] 04/06/2020 3:07 PM EDT 04/06/2020 3:09 PM EDT Gerardo Callejas MD LAB [facility] documented in this encounter Visit Diagnoses Diagnosis Subacute thyroiditis- Primary documented in this encounter Care Teams Concrete Pile Driver Operator Relationship Specialty Start Date End Date Rere Mallory MD PCP - General Internal Medicine 05/22/17 05/27/22 Darcy Fry MD [address] [place] [id number] PCP - General Internal Medicine 05/28/22 documented as of this encounter
--- OUTSIDE RECORDS SUMMARY | 2025-03-21 10:10 | XMS_ITS | Clinical Summary ---
Author Organization [facility] Address [address] [place] [address] Care Team Providers Care Drain Technician Name Role Phone Darcy Fry MD Primary Care Prov ider Allergies Active Allergy Reactions Severity Noted Date Comments Seasonal Allergies 04/02/2010 Medications Medication Sig Dispensed Refills Start Date End Date Status fluticasone (FLONASE) 50 MCG/ACT nasal spray 1 [place] by Each Nare route daily. 1 spray [...] 04/13/2008,11/04/2007,2006 Influenza (> 6 Months) 08/08/2013,10/01/2007, MMR (Edvbosx-Cedal-Bsddtyh) 08/25/2006 Measles 10/30/1980 Mumps 10/30/1980 PPD-Negative Response(External) [...] (2022-2 4 season) 2024 12/13/2021, 04/28/2021, 04/07/2021 BMI CHECK/ADVISE 11/30/2024 11/10/2022, 12/2021, 05/28/2022, Additional history exists INFLUENZA (Season Ended) 2025 017 (Refused), 08/08/2013, 10/01/2007, Additional history exists CERVICAL CANCER SCREENING 12/06/20252020, 03/04/2016, 12/07/2012, Additional history exists COLON CANCER SCREENING 09/01/2032 , 10/03/2016, 03/31/2011 Care Teams Drain Technician Relationship Specialty Start Date End Date Darcy Fry MD [address] [place] [id number] PCP - General Internal Medicine 6/29/22
== END 2025-03-21 10:09 | disposition home or self-care (01) ==
LOC: HO.HGI 09:23
PROVIDERS: PCP Internal Medicine; Visit Provider Nurse Practitioner Family
DX: K62.5 Hemorrhage of anus and rectum (principal); K59.00 Constipation, unspecified; R14.0 Abdominal distension (gaseous); Z80.0 Family history of malignant neoplasm of digestive organs; K21.9 Gastro-esophageal reflux disease without esophagitis; R13.14 Dysphagia, pharyngoesophageal phase
CPT/HCPCS: 99214

== ENCOUNTER → 2025-03-21 09:23 | Outpatient (BNVA) | payer OTHER, SELFPAY | PROVIDERS: PCP Internal Medicine; Visit Provider Nurse Practitioner Family ==

== ENCOUNTER 2025-03-23 08:52 | Outpatient (AMB) | payer OTHER, SELFPAY ==
[2025-03-23 08:54] VITALS: BP 132/78; PULSE 94; O2SAT 99; BMI 39.4
--- NOTE | 2025-03-23 08:54 | A.OFFPC_ITS ---
Vital Signs 03/23/25 08:54 Height 5 ft 3 in Weight 222 lb 4 oz BMI 39.4 BP 132/78 Blood Pressure Location Lt brachial Position Sitting Pulse 94 Pulse Source Pulse Oximeter Pulse Oximetry (%) 99 Oxygen Delivery Method Room Air Intake Visit Reasons: Annual Exam Insulation Worker Required: No Accompanied by: Self / Same As Patient Allergies adhesive tape Allergy (Verified 03/23/25 09:12) Redness of Skin cefuroxime Adverse Reaction (Verified 03/23/25 09:12) Hives flu vaccine Adverse Reaction (Severe, Uncoded 03/23/25 09:12) Hives Medication List - Last Reconciled 03/23/25 by Lev Patrick MD [id number] 50-325-40 mg 1 cap PO Q6H PRN docusate sodium 200 mg (2 x 100 mg) PO BEDTIME esomeprazole magnesium 20 mg PO DAILY fluticasone propionate 50 mcg/actuation (Aller-Abel) 1 spray intranasal BID PRN gabapentin 100 mg PO BEDTIME 30 days letrozole 2.5 mg PO DAILY levonorgestrel (Mirena) 21 mcg intrauterine ONCE lidocaine 5% 1 patch topical DAILY lidocaine HCl 2% (Lidocaine Viscous) 1 appl mucous membrane QID ondansetron 8 mg PO Q8H propranolol ER 80 mg PO BID sumatriptan succinate 50 mg PO Q2-4H PRN Ventolin HFA 90 mcg/actuation (albuterol sulfate) 2 puffs inhalation Q6H PRN 30 days NS Tobacco use date assessed: 03/23/25 Dental Screening Dental Screen Date: 03/23/25 Did you have a dental visit in the last 12 months?: Yes Did you have a dental problem in the last 6 months where you did not have access to dental care?: No HPI Annual Exam HPI Details Patient comes in today for her annual physical examination States that she currently feels okay but still gets fatigued/tired easily She was diagnosed with right breast cancer last year and underwent lumpectomy on 08/16/2024, followed by chemotherapy with Taxol, which she started on 11/17/2024 and completed on 02/09/2025 (total of 12 weeks) She is now going for radiation Tx, which she just started yesterday and will have 27 more doses to go States that she has been experiencing increased headaches lately and neurology just increased her Propranolol 80 mg to BID dosing to see if they can get her headaches back under control - patient states that she just went up to the BID dosing yesterday She denies any dizziness lately Denies any chest pains, no increased SOB No nausea/vomiting, no abdominal pain No change in bowel habits noted She denies any acute urinary symptoms She had her follow up labs done last week - to discuss her results She underwent EGD and colonoscopy recently about weeks ago on 03/07/2025 - was recommended to have repeat colonoscopy in 5 years due to family history She is scheduled [facility] Medical History (Updated 03/23/25 @ 10:26 by Lev Patrick MD) Mixed hyperlipidemia Diabetes mellitus Lumbar spondylosis Back pain COVID-19 HTN (hypertension) Invasive ductal carcinoma of breast Breast mass, right Benign essential hypertension Pure hypercholesterolemia GERD (gastroesophageal reflux disease) Viral upper respiratory tract infection with cough Obesity (BMI 30-39.9) Migraine Asthma Cyst of breast, left, solitary Cough Asthma Laryngitis Allergic rhinosinusitis Surgical History (Updated 03/23/25 @ 09:21 by Lev Patrick MD) History of lumpectomy of right breast (~08/16/24) Hx of colonoscopy History of breast lump/mass excision H/O section Family History Mother Colon cancer, Onset Age: 42 Diabetes mellitus Father Heart disease Parkinson disease Maternal Grandmother Breast cancer Paternal Grandmother Breast cancer Maternal Grandfather Prostate CA Family/Other Thyroid cancer Other FH: mental illness Substance abuse Social History Household Members: Spouse Housing: House Are you a primary customer care team coach to a significant other at home: No Do you presently have visiting nurse or other home services: No Alcohol intake: never Patient Tobacco Use Status: Never used Tobacco e-Cigarette/Vaping Use: Never Used Second Hand Smoke Exposure: No service: No Current occupational status: employed 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 1. Little interest or pleasure in doing things: nearly every day 2. Feeling down, depressed, or hopeless: not at all 3. Trouble falling or staying asleep, or sleeping too much: nearly every day 4. Feeling tired or having little energy: nearly every day 5. Poor appetite or overeating: more than half the days 6. Feeling bad about yourself - or that you are a failure or have let yourself or your family down: not at all 7. Trouble concentrating on things, such as reading the newspaper or watching television: several days 8. Moving or speaking so slowly that other people could have noticed. Or the opposite - being so fidgety or restless that you have been moving around a lot more than usual: more than half the days 9. Thoughts that you would be better off or of hurting yourself in some way: not at all Total score: 14 Depression Screening Interpretation: Positive Depression Screening Follow-up: Existing condition and In treatment Depression Screening Done: Yes 55123 - PHQ-9 Billing: Yes Source: Developed by Drs. Elfego Morelos, Emani Kelley, Apollo Buchanan and colleagues, with an educational gilson from [employer]. Thrive Questionnaire Date Thrive assessed: 03/23/25 I am a: Patient What is your living situation today?: I have a steady place to live Within the past 12 months, did the food you bought not last and you didn't have the money to get more?: Often true Within the past 12 months, did you worry whether your food would run out before you got money to buy more?: Never true Do you have trouble paying for medicines?: No Do you have trouble getting transportation to medical appointments?: No Do you have trouble paying your heating and electricity bill?: No Do you have trouble taking care of your child, family member or friend?: No Do you have trouble with day-to-day activities such as bathing, preparing meals, shopping, managing finances, etc.?: No Are you currently unemployed and looking for a job?: No Are you interested in more education?: Yes Please select the resources that you would like help with: None Currently or been in a relationship where the following occur: I choose not to answer THRIVE Score: 1 AUDIT C Alcohol Use Questionnaire (AUDIT-C) 1. How often do you have a drink containing alcohol?: Never 3. How often do you have six or more drinks on one occasion?: Never Total Score: 0 Score Reviewed/Action Taken: Yes AYESHA-7 AMB Questionnaire AYESHA-7 Date AYESHA - 7 assessed: 03/23/25 Feeling nervous, anxious, or on edge: 1 = Several days Not being able to stop or control worryin = Several days Worrying too much about different things: 1 = Several days Trouble relaxin = Several days Being so restless that it is hard to sit still: 1 = Several days Becoming easily annoyed or irritable: 1 = Several days Feeling afraid as if something awful might happen: 1 = Several days Total AYESHA-7 score (0-4 normal; 5-9 mild; 10-14 moderate; 15-21 severe): 7 Source: Developed by Drs. Elfego Morelos, Emani Kelley, Apollo Buchanan and colleagues, with an educational gilson from [employer]. Review of Systems Const Denies chills, Reports fatigue, Denies fever(s), Reports headache(s) (increased lately) and Denies malaise Eyes Denies blurry vision, Denies change in vision, Denies irritation and Denies itchy eyes ENT Denies dysphagia, Denies dizziness, Denies otalgia, Reports headache(s) (increased lately), Denies nasal congestion, Denies neck pain, Denies malena nophagia, Denies sinus pain and Denies sore throat Card Denies chest pain, Denies rapid heart rate, Denies irregular heart rhythm, Denies palpitations and Reports dyspnea on exertion (mild) Resp Denies chest congestion, Denies cough, Reports dyspnea on exertion (mild) and Denies wheezing GI Denies abdominal pain, Denies bloating, Reports constipation (improving now), Denies dysphagia, Denies heartburn, Denies diarrhea, Denies nausea, Denies odynophagia and Denies vomiting Denies hematuria, Denies urinary frequency, Denies dysuria, Denies urinary incontinence and Denies urinary urgency Musc Denies back pain, Denies arthralgias, Denies joint swelling, Denies muscle weakness and Denies neck pain Skin/Breast Denies breast pain, Denies breast mass, Denies change in pigmentation, Denies lesions, Denies rash and Denies unusual bruising Neuro Denies dizziness, Reports headache(s) (increased lately) and Denies paresthesias Psych Reports anxiety and Reports depression Endo Reports fatigue and Denies palpitations Valentino/Lymph Denies easy bruising Aller/Immun Denies itchy eyes and Denies wheezing Physical exam (Primary Care) Vital Signs: Last Vital Signs Pulse 94 03/23/25 08:54 BP 132/78 03/23/25 08:54 Pulse Ox 99 03/23/25 08:54 Oxygen Delivery Method Room Air 03/23/25 08:54 BMI result Body Mass Index 39.4 Tobacco/Smoking Status: Tobacco use Status Tobacco use date assessed 03/23/25 03/23/25 09:03 Patient Tobacco Use Status Never used Tobacco 03/23/25 09:03 e-Cigarette/Vaping Use Never Used 03/23/25 09:03 PHQ-9: PHQ-9 Score PHQ-9: Total score 14 03/23/25 09:23 Depression Screening Interpretation: Positive Depression Screening Follow-up: Existing condition and In treatment Thrive Assessment: Date of Thrive Assessment Date Thrive assessed 03/23/25 03/23/25 09:03 Currently or been in a relationship where the following occur: I choose not to answer Const General: no acute distress, alert and awake Orientation/consciousness: patient oriented x3 HENMT Head: Yes normocephalic and Yes atraumatic Ears: external ears normal, TM's normal bilaterally and EAC's normal General nose exam: No nasal discharge present Face and sinus: Yes normal facial exam and Yes sinuses nontender Teeth and gingiva: dentition normal Throat: Yes posterior oropharynx normal and Yes tonsils normal (no TP congestion) Eyes Eyelids: Yes eyelids normal Conjunctivae: conjunctivae normal Pupils: Equal, round and reactive pupils present EOM: EOMs intact bilaterally Neck Neck: Yes no lymphadenopathy and Yes supple Thyroid: Thyroid normal Resp Auscultation: clear to auscultation bilaterally, no rales and no wheezes Cardio Rate: regular rate Rhythm: regular rhythm Heart sounds: no murmurs GI Palpation (GI): Soft to palpation, nontender and No hepatosplenomegaly present Auscultation: normal bowel sounds General: Yes no CVA tenderness Back/Spine/Pelvis Back: no CVA tenderness Thoracic/Lumbar Spine: thoracic and lumbar spine normal to inspection Skin Lesions: no lesions Rashes: no rashes Neuro General: patient oriented x3, moves all extremities, no focal motor deficits and CN's II-XI intact bilaterally Cranial nerves: Yes Equal, round and reactive pupils present Cognition (Neuro): normal cognition Gait exam (Neuro): Normal gait present Extrem General: Yes no clubbing, cyanosis or edema Results Reviewed Results Reviewed: Laboratory Tests 03/18/24 01/03/25 01/05/25 07:45 10:20 09:30 WBC 7.2 Hgb 12.7 Hct 36.8 L Plt Count 358 Sodium 137 Potassium 3.7 Creatinine 0.66 Estimated GFR > 60 Random Glucose 117 H Fasting Glucose Hemoglobin A1c % Calcium 9.3 Magnesium 2.1 AST 37 H ALT 90 H Triglycerides 124 Cholesterol 186 LDL Cholesterol, Calc 120 H HDL Cholesterol 42 Vitamin B12 25-OH Vitamin D Total TSH Ur Specific [place] Urine Protein Urine Glucose (UA) Urine Blood Urine Nitrite Ur Leukocyte Esterase 03/10/25 03/10/25 03/15/25 08:44 08:50 14:40 WBC 7.0 Hgb 12.4 Hct 36.5 L Plt Count 323 Sodium 140 Potassium 3.4 Creatinine 0.63 Estimated GFR > 60 Random Glucose 138 H Fasting Glucose 155 H Hemoglobin A1c % 7.3 H Calcium 9.1 Magnesium AST 35 H ALT 49 H Triglycerides 255 H Cholesterol 250 H LDL Cholesterol, Calc 162 H HDL Cholesterol 37 L Vitamin B12 548 25-OH Vitamin D Total 26.5 L TSH 1.75 Ur Specific [place] <= 1.005 Urine Protein Negative Urine Glucose (UA) Negative Urine Blood Trace H Urine Nitrite Negative Ur Leukocyte Esterase Moderate (2+) H Coding Level of Care Code Est Pt Prev Care 40-64y(19212) Diagnoses Annual physical exam Z00.00 Malignant neoplasm of right breast in female, estrogen receptor positive, unspecified site of breast C50.911; Z17.0 Breast location: unspecified site of breast Estrogen receptor status: positive Patient sex: female Benign essential hypertension I10 Type 2 diabetes mellitus without complication, without long-term current use of insulin E11.9 Diabetes mellitus complication status: without complication Diabetes mellitus termite control representative insulin use: without termite control representative use Diabetes mellitus type: type 2 Mixed hyperlipidemia E78.2 Constipation, unspecified constipation type K59.00 Constipation type: unspecified constipation type Gastroesophageal reflux disease, unspecified whether esophagitis present K21.9 Esophagitis presence: esophagitis presence not specified Mild intermittent asthma without complication J45.20 Asthma complication type: uncomplicated Asthma persistence: intermittent Asthma severity: mild Migraine without status migrainosus, not intractable, unspecified migraine type G43.909 Intractability: not intractable Migraine type: unspecified Status migrainosus presence: without status migrainosus Lumbar spondylosis M47.816 Obesity (BMI 30-39.9) E66.9 Additional Codes PHQ-9 - 20957 - PHQ-9 Billing: Yes ([id number]) Assessment & Plan Assessment & Plan (1) Annual physical exam: Code(s): Z00.00 - Encounter for general adult medical examination without abnormal findings Category: Medical Plan: Results of her labs done last week reviewed and discussed with patient She underwent EGD and colonoscopy recently about weeks ago on 03/07/2025 - was rec ommended to have repeat colonoscopy in 5 years due to family history She is scheduled [facility] She is currently going for radiation treatment to her right breast and has not yet been scheduled for any follow up mammography (2) Breast cancer, right breast: Code(s): C50.911 - Malignant neoplasm of unspecified site of right female breast Category: Medical Qualifiers: Breast location: unspecified site of breast Estrogen receptor status: positive Patient sex: female Qualified Code(s): C50.911 - Malignant neoplasm of unspecified site of right female breast; Z17.0 - Estrogen receptor positive status [ER+] Plan: She was diagnosed with right breast cancer last year and underwent lumpectomy on 08/16/2024 - pathology revealed (+) invasive ductal carcinoma,MSBR rate 3, 2.3 cm She then underwent chemotherapy with Taxol, which she started on 11/17/2024 and completed on 02/09/2025 (total of 12 weeks/cycles) She is now going for postlumpectomy radiation to her right breast, which she just started yesterday and will have 27 more doses to go This will then be followed by entiestrogen therapy as she is ER/MT positive Follow up with oncology as scheduled (3) Benign essential hypertension: Code(s): I10 - Essential (primary) hypertension Category: Medical Plan: Reinforced low sodium diet - goal is systolic BP of 130 mm or less Continue Propranolol ER 80 mg BID - dose was raised by neurology recently for her increased headaches and patient just started taking her BID dosing yesterday She is reminded to continue monitoring her BP regularly (4) Diabetes mellitus: Code(s): E11.9 - Type 2 diabetes mellitus without complications Category: Medical Qualifiers: Diabetes mellitus complication status: without complication Diabetes mellitus termite control representative insulin use: without retirement use Diabetes mellitus type: type 2 Qualified Code(s): E11.9 - Type 2 diabetes mellitus without complications Plan: Her HgbA1c was at 7.3% on her labs done a couple of weeks ago (HgbA1c was normal at 5.5% when last checked a year ago) Advised patient that with a HgbA1c of 7.3%, this now classifies her as a diabetic - goal is to get her HgbA1c down to at least <7.0% but ideally <6.5% Reinforced diabetic diet Will start her on Metformin ER 500 mg Q PM (5) Mixed hyperlipidemia: Code(s): E78.2 - Mixed hyperlipidemia Category: Medical Plan: Results of her labs done a couple of weeks ago reviewed and discussed with patient - have advised patient that her cholesterol levels have all increased significantly from previous Reinforced low cholesterol diet She was taking OTC CholestOFF in the past to help lower her cholesterol level as she wanted to avoid taking any statins but have advised patient that with the significant increase in her cholesterol levels recently, she should start taking some Rx to get her numbers down and controlled better She now agrees to take cholesterol-lowering Rx - will start her on Atorvastatin 10 mg Q HS Will recheck her labs and fasting lipids in 4 months for follow up (6) Constipation: Code(s): K59.00 - Constipation, unspecified Category: Medical Qualifiers: Constipation type: unspecified constipation type Qualified Code(s): K59.00 - Constipation, unspecified Plan: Reinforced again increased oral fluids and dietary fiber intake to help her manage her constipation better She is aware that her constipation was mostly related to her opioid Rx (Hydromorphone) - states that she is no longer taking Hydromorphone at present Continue Miralax 17 gm QD and Senokot 8.6 mg 2 tablets BID (7) GERD (gastroesophageal reflux disease): Code(s): K21.9 - Gastro-esophageal reflux disease without esophagitis Category: Medical Qualifiers: Esophagitis presence: esophagitis presence not specified Qualified Code(s): K21.9 - Gastro-esophageal reflux disease without esophagitis Plan: Reinforced dietary restrictions Upper GI series done in 2022 confirmed (+) GERD with no other abnormalities Continue Omeprazole 20 mg QD PRN (8) Asthma: Code(s): J45.909 - Unspecified asthma, uncomplicated Category: Medical Qualifiers: Asthma complication type: uncomplicated Asthma persistence: intermittent Asthma severity: mild Qualified Code(s): J45.20 - Mild intermittent asthma, uncomplicated Plan: Controlled Continue Albuterol HFA 1 to 2 inhalations every 6 hours PRN and Montelukast 10 mg QD Follow up with pulmonary (Dr. Gonzalez) as scheduled (9) Migraine: Code(s): G43.909 - Migraine, unspecified, not intractable, without status migrainosus Category: Medical Qualifiers: Intractability: not intractable Migraine type: unspecified Status migrainosus presence: without status migrainosus Qualified Code(s): G43.909 - Migraine, unspecified, not intractable, without status migrainosus Plan: Reinforced avoidance of any potential migraine triggers Patient states that her headaches have increased recently and that is why neurology raised her Propranolol ER 80 mg to BID dosing Continue Fioricet PRN and Sumatriptan 50 mg PRN Follow up with neurology as scheduled (10) Lumbar spondylosis: Code(s): M47.816 - Spondylosis without myelopathy or radiculopathy, lumbar region Category: Medical Plan: Lumbar spine x-rays done back in February 2024 revealed (+) mild multilevel lumbar spondylosis with loss of disc space height at L3-L4 and L4-L5 Reinforced activity and weight-lifting restrictions to avoid aggravating her low back pain Can consider referral to physical therapy if her back pain flares up or gets worse (11) Obesity (BMI 30-39.9): Code(s): E66.9 - Obesity, unspecified Category: Medical Plan: Reinforced diet/exercise as tolerated/lose weight Plan Follow up in 4 months Orders: Orders Comprehensive Newman. Panel Fast 4 Months E78.00 - Pure hypercholesterolemia, unspecified Lipid Panel 4 Months E78.00 - Pure hypercholesterolemia, unspecified Hemoglobin A1c 4 Months E11.9 - Type 2 diabetes mellitus without complications Microalbumin, Random (w Creat) 4 Months E11.9 - Type 2 diabetes mellitus without complications TSH reflex Free T4 4 Months E78.00 - Pure hypercholesterolemia, unspecified Vitamin D 25-OH Total 4 Months E55.9 - Vitamin D deficiency, unspecified Complete Blood Count Auto Diff 4 Months D64.9 - Anemia, unspecified UA CC w/rflx Micro + Cult 4 Months R30.0 - Dysuria Vitamin B12 and Folate 4 Months E53.8 - Deficiency of other specified B group vitamins Medications: New metformin ER Take in the evening with dinner 500 mg PO QPM 30 days 30 tabs 3RF diabetes E11.9 - Type 2 diabetes mellitus without complications atorvastatin 10 mg PO BEDTIME 30 days 30 tabs 3RF high cholesterol E78.2 - Mixed hyperlipidemia Changed From propranolol ER 80 mg PO DAILY 90 days 90 caps 1RF To propranolol ER 80 mg PO BID
== END 2025-03-23 09:41 | disposition home or self-care (01) ==
LOC: HO.HMCH 08:53
PROVIDERS: PCP Internal Medicine; Visit Provider Internal Medicine
DX: Z00.00 Encounter for general adult medical examination without abnormal findings (principal); C50.911 Malignant neoplasm of unspecified site of right female breast; E11.9 Type 2 diabetes mellitus without complications; Z17.0 Estrogen receptor positive status [ER+]; I10 Essential (primary) hypertension; E78.2 Mixed hyperlipidemia; K59.00 Constipation, unspecified; K21.9 Gastro-esophageal reflux disease without esophagitis; J45.20 Mild intermittent asthma, uncomplicated; G43.909 Migraine, unspecified, not intractable, without status migrainosus; M47.816 Spondylosis without myelopathy or radiculopathy, lumbar region; E66.9 Obesity, unspecified

== ENCOUNTER → 2025-03-23 08:52 | Outpatient (BNVA) | payer OTHER, SELFPAY | PROVIDERS: PCP Internal Medicine; Visit Provider Internal Medicine | DX: Z00.00 Encounter for general adult medical examination without abnormal findings (principal); C50.911 Malignant neoplasm of unspecified site of right female breast; Z17.0 Estrogen receptor positive status [ER+]; I10 Essential (primary) hypertension; E11.9 Type 2 diabetes mellitus without complications; E78.2 Mixed hyperlipidemia; K59.00 Constipation, unspecified; K21.9 Gastro-esophageal reflux disease without esophagitis; J45.20 Mild intermittent asthma, uncomplicated; G43.909 Migraine, unspecified, not intractable, without status migrainosus; M47.816 Spondylosis without myelopathy or radiculopathy, lumbar region; E66.9 Obesity, unspecified; Z68.39 Body mass index [BMI] 39.0-39.9, adult; Z79.899 Other long term (current) drug therapy | CPT/HCPCS: 96127 ==

== ENCOUNTER 2025-03-28 09:31 | Outpatient (AMB) | payer OTHER, SELFPAY ==
--- OUTSIDE RECORDS SUMMARY | 2025-03-28 10:30 | XMS_ITS | Encounter Summary ---
Author Organization [facility] Address [address] [place] [address] Care Team Providers Care Customer Service Coordinator Name Role Phone Cortez Greenberg MD Primary Care Provider Unavail able Neha Vivar MD Primary Care Provider UnavailRere Sparks MD Primary Care Provider Unava ilable Darcy Fry MD Primary Care Prov ider Encounter Details Date Type Department Care Team Description 09/21/2014 Heading Saw Operator Report Medical Records [address] [place] [id number] Glenn De La Cruz MD Social History [...] on filedocumented in this encounter Care Teams Customer Service Coordinator Relationship Specialty Start Date End Date Cortez Greenberg MD PCP - General 08/12/04 09/27/15 Neha Vivar MD PCP - General Internal Medicine 09/28/15 05/21/17 Rere Mallory MD PCP - General Internal Medicine 05/22/17 05/27/22 Darcy Fry MD [address] [place] [id number] PCP - General Internal Medicine 05/28/22 documented as of this encounter
--- OUTSIDE RECORDS SUMMARY | 2025-03-28 10:30 | XMS_ITS | Encounter Summary ---
Author Organization [facility] Address [address] [place] [address] Care Team Providers Care Theater Set Production Designer Name Role Phone Rere Mallory MD Primary Care Provider Darcy Mccormick MD Primary Care Prov ider Encounter Details Date Type Department Care Team Description 06/22/2018 Pt. Non Urgent Medic al Question Medicine/Pediatrics - [address] [id number] Patti Sanchez PA-C Social History Tobacco Use [...] as of this encounter Progress Notes * Nereida Edward L.P.N. - 06/22/2018 10:47 AM EDTFrom: Sheree Chan To: Patti Sanchez PA-C Sent: 06/22/2018 10:07 AM EDT Subject: Neurologist Veena Sanchez, I received the referral for neurology but it only states the migraines and not the lower back pain.I would like to be seen for both these issues. Is there a way you could provide me with a referral for both ailments. Thank you for your time, Shoshana documented in this encounter Plan of Treatment Not on file documented as of this encounter Visit Diagnoses Not on filedocumented in this encounter Care Teams Theater Set Production Designer Relationship Specialty Start Date End Date Rere Mallory MD PCP - General Internal Medicine 05/22/17 05/27/22 Darcy Fry MD [address] [place] [id number] PCP - General Internal Medicine 05/28/22 documented as of this encounter
--- OUTSIDE RECORDS SUMMARY | 2025-03-28 10:30 | XMS_ITS | Encounter Summary ---
Author Organization [facility] Address [address] [place] [address] Care Team Providers Care Dance Costume Designer Name Role Phone Rere Mallory MD Primary Care Provider Darcy Mccormick MD Primary Care Prov ider Reason for Visit * Reason Onset Date Comments Medical Records 10/26/2018 Encounter Details Date Type Department Care Team Description 10/26/2018 Telephone Medicine/Pediatrics - [address] [phone] Patti Sanchez PA-C Medical Records Social History [...] 1:29 PM EST Sent for dr salazar [phone] * Telephone Encounter - Nereida MasP.N. - 10/26/2018 1:00 PM EST Message left on to call office at [phone] * Telephone Encounter - Patti Sanchez PA-C [...] on filedocumented in this encounter Care Teams Dance Costume Designer Relationship Specialty Start Date End Date Rere Mallory MD PCP - General Internal Medicine 05/22/17 05/27/22 Luciano Trujillo, Darcy Bentley MD [address] [place] [address] PCP - General Internal Medicine 05/28/22 documented as of this encounter
--- OUTSIDE RECORDS SUMMARY | 2025-03-28 10:30 | XMS_ITS | Encounter Summary ---
Author Organization [facility] Address [address] [place] [address] Care Team Providers Care Counter Intelligence Name Role Phone Rere Mallory MD Primary Care Provider Darcy Mccormick MD Primary Care Prov ider Encounter Details Date Type Department Care Team Description 11/18/2018 Pt. Non Urgent Medic al Question Medicine/Pediatrics - [address] [phone] Patti Sanchez PA-C Social History Tobacco Use [...] medical records from November 30, 2016 to [facility] at [id number]. They state that the information previously provided was not complete. Thank you documented in this encounter Plan of Treatment Not on file documented as of this encounter Visit Diagnoses Not on filedocumented in this encounter Care Teams Counter Intelligence Relationship Specialty Start Date End Date Rere Mallory MD PCP - General Internal Medicine 05/22/17 05/27/22 Luciano Trujillo, Darcy Bentley MD [address] [place] [address] PCP - General Internal Medicine 05/28/22 documented as of this encounter
--- OUTSIDE RECORDS SUMMARY | 2025-03-28 10:30 | XMS_ITS | Encounter Summary ---
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
--- OUTSIDE RECORDS SUMMARY | 2025-03-28 10:30 | XMS_ITS | Encounter Summary ---
Author Organization [facility] Address [address] [place] [address] Care Team Providers Care Mortgage Servicing Specialist Name Role Phone Neha Vivar MD Primary Care Provider Rere Narayanan MD Primary Care Provider Darcy Mccormick MD Primary Care Prov ider Encounter Details Date Type Department Care Team Description 10/08/2016 Pt. 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
--- OUTSIDE RECORDS SUMMARY | 2025-03-28 10:30 | XMS_ITS | Encounter Summary ---
Author Organization [facility] Address [address] [place] [address] Care Team Providers Care Judicial Registrar Name Role Phone Cortez Greenberg MD Primary Care Provider Unavail able Neha Vivar MD Primary Care Provider UnavailRere Sparks MD Primary Care Provider Unava ilable Darcy Fry MD Primary Care Prov ider Encounter Details Date Type Department Care Team Description 03/03/2011 Business Doc Medical Records [address] [place] [id number] Abstract, Provider Social History Tobacco Use Types [...] on filedocumented in this encounter Care Teams Judicial Registrar Relationship Specialty Start Date End Date Cortez Greenberg MD PCP - General 08/12/04 09/27/15 Neha Vivar MD PCP - General Internal Medicine 09/28/15 05/21/17 Rere Mallory MD PCP - General Internal Medicine 05/22/17 05/27/22 Darcy Fry MD [address] [place] [address] PCP - General Internal Medicine 05/28/22 documented as of this encounter
--- OUTSIDE RECORDS SUMMARY | 2025-03-28 10:30 | XMS_ITS | Clinical Summary ---
Author Organization [facility] Address [address] [place] [address] Care Team Providers Care Boring Inspector Name Role Phone Darcy Fry MD Primary Care Prov ider Allergies Active Allergy Reactions Severity Noted Date Comments Seasonal Allergies 04/02/2010 Medications Medication Sig Dispensed Refills Start Date End Date Status fluticasone (FLONASE) 50 MCG/ACT nasal spray 1 [place] by Each Nare route daily. 1 spray [...] 04/13/2008,11/04/2007,2006 Influenza (> 6 Months) 08/08/2013,10/01/2007, MMR (Wsnegae-Mwejv-Miluvej) 08/25/2006 Measles 10/30/1980 Mumps 10/30/1980 PPD-Negative Response(External) [...] SCREENING 09/01/2032 , 10/03/2016, 03/31/2011 Care Teams Boring Inspector Relationship Specialty Start Date End Date Darcy Fry MD [address] [place] [id number] PCP - General Internal Medicine 6/29/22
--- OUTSIDE RECORDS SUMMARY | 2025-03-28 10:30 | XMS_ITS | Encounter Summary ---
Author Organization [facility] Address [address] [place] [address] Care Team Providers Care Receiving Room Clerk Name Role Phone Rere Mallory MD Primary Care Provider Darcy Mccormick MD Primary Care Prov ider Reason for Visit * Reason Onset Date Comments Intelligence Manager Feedback 07/14/2018 pain management Encounter Details Date Type Department Care Team Description 07/14/2018 Telephone Physiatry - [address] [address] Pete Ignacio PA-C Intelligence Manager Feedback (pain management) Social History Tobacco Use [...] Miscellaneous Notes * Telephone Encounter - Michelle aGo - 07/20/2018 4:15 PM EDT Please have your clinical staff contact the patient to discuss * Telephone Encounter - Pete Ignacio PA-C - 07/19/2018 5:11 PM EDT Please call the patient and ask if they're okay with this. The referral was by patient request. * Telephone Encounter - Michelle Gao - 07/14/2018 1:25 PM EDT Ptee Lucero You recently place a order for this patient to be seen for coccydynia with pain management at [facility] but they are requesting a out of network before they can book this patient appointment. I submitted an out of network to [employer] and Autumn from there contacted me to let me know that this out of network was denied and we can redirected the patient to [facility] or [facility] were her insurance will be covered. I am pending you a new order can you please review thepended order and sign it. Thank you Liza Referral Internet Marketing Manager documented in this encounter Plan of Treatment Not on file documented as of this encounter Visit Diagnoses Not on filedocumented in this encounter Care Teams Receiving Room Clerk Relationship Specialty Start Date End Date Rere Mallory MD PCP - General Internal Medicine 05/22/17 05/27/22 Darcy Fry MD [address] [place] [address] PCP - General Internal Medicine 05/28/22 documented as of this encounter
--- OUTSIDE RECORDS SUMMARY | 2025-03-28 10:30 | XMS_ITS | Encounter Summary ---
Author Organization [facility] Address [address] [place] [address] Care Team Providers Care Director Of Blood Name Role Phone Rere Mallory MD Primary Care Provider Darcy Mccormick MD Primary Care Prov ider Reason for Visit * Reason Onset Date Comments Form 04/02/2022 Encounter Details Date Type Department Care Team Description 04/02/2022 Telephone Medicine/Pediatrics - [address] [address] Rere Mallory MD Form Social History Tobacco [...] in this encounter Care Teams Director Of Blood Relationship Specialty Start Date End Date Rere Mallory MD PCP - General Internal Medicine 05/22/17 05/27/22 Luciano Trujillo, Darcy Bentley MD [address] [place] [address] PCP - General Internal Medicine 05/28/22 documented as of this encounter
--- OUTSIDE RECORDS SUMMARY | 2025-03-28 10:30 | XMS_ITS | Encounter Summary ---
Author Organization [facility] Address [address] [place] [address] Care Team Providers Care Academic Dean Name Role Phone Cortez Greenberg MD Primary Care Provider Unavail able Neha Vivar MD Primary Care Provider UnavailRere Sparks MD Primary Care Provider Unava ilable Darcy Fry MD Primary Care Prov ider Encounter Details Date Type Department Care Team Description 09/15/2014 Hospital Medical Records [address] [place] [id number] Glenn Huerta MD Social History Tobacco Use [...] on filedocumented in this encounter Care Teams Academic Dean Relationship Specialty Start Date End Date Cortez Greenberg MD PCP - General 08/12/04 09/27/15 Neha Vivar MD PCP - General Internal Medicine 09/28/15 05/21/17 Rere Mallory MD PCP - General Internal Medicine 05/22/17 05/27/22 Darcy Fry MD [address] [place] [phone] PCP - General Internal Medicine 05/28/22 documented as of this encounter
--- OUTSIDE RECORDS SUMMARY | 2025-03-28 10:30 | XMS_ITS | Encounter Summary ---
Author Organization [facility] Address [address] [place] [address] Care Team Providers Care Mail Manager Name Role Phone Rere Mallory MD Primary Care Provider Darcy Mccormick MD Primary Care Prov ider Encounter Details Date Type Department Care Team Description 04/23/2018 Orders Only Medicine/Pediatrics - [address] [phone] Lucien Browne PA-C Leukocytosis, unspecified type (Primary [...] ANTIBODIES NEGATIVE NEGATIVE 04/28/2018 3:03 PM EDT [facility] 04/28/2018 9:14 AM EDT 04/28/2018 9:15 AM EDT Lucien Browne PA-C LAB [address] * DIFFERENTIAL WBC COUNT (04/28/2018 9:14 AM EDT) NEUTROPHIL 64 41 - 85 % 04/28/2018 5:23 PM EDT [facility] LYMPHOCYTE 29 15 - 48 % 04/28/2018 5:23 PM EDT [facility] MONOCYTE 4 0 - 12 % 04/28/2018 5:23 PM EDT [facility] EOSINOPHIL 1 0 - 5 % 04/28/2018 5:23 PM EDT [facility] BASOPHIL 2 0 - 2 % 04/28/2018 5:23 PM EDT [facility] RBC MORPHOLOGY NORMAL 04/28/2018 5:23 PM EDT [facility] 04/28/2018 9:14 AM EDT 04/28/2018 9:15 AM EDT Lucien Browne PA-C LAB Performing Organization Address City/State/[facility] Co de Phone Number [facility] [address] [facility] * (ABNORMAL) AUTOMATED HEMOGRAM PLATELET COUNT (04/28/2018 9:14 AM EDT) WBC 8.2 4.8 - 10.8 x10-3 04/28/2018 12:54 PM EDT [facility] RBC 5.2(H) 3.8 - 4.8 x10-6 04/28/2018 12:54 PM EDT [facility] HGB 14.3 11.5 - 16.0 g/dl 04/28/2018 12:54 PM EDT [facility] HCT 43.2 35 - 47 % 04/28/2018 12:54 PM EDT [facility] MCV 82.9 79 - 98 fl 04/28/2018 12:54 PM EDT [facility] MCH 27.4 27 - 32 pg 04/28/2018 12:54 PM EDT [facility] MCHC 33.1 32 - 37 g/dl 04/28/2018 12:54 PM EDT [facility] RDW 14.4 11 - 15 % 04/28/2018 12:54 PM EDT [facility] PLT COUNT 295 130 - 400 x10-3 04/28/2018 12:54 PM EDT [facility] MEAN PLATELET VOLUME 12.6(H) 7 - 11 fl 04/28/2018 12:54 PM EDT [facility] 04/28/2018 9:14 AM EDT 04/28/2018 9:15 AM EDT Lucien Browne PA-C LAB Performing Organization Address City/State/[facility] Co de Phone Number [address] documented in this encounter Visit Diagnoses Diagnosis Leukocytosis, unspecified type- Primary Intractable migraine with status migrainosus, unspecified migraine type documented in this encounter Care Teams Mail Manager Relationship Specialty Start Date End Date Rere Mallory MD PCP - General Internal Medicine 05/22/17 05/27/22 Darcy Fry MD [address] [place] [address] PCP - General Internal Medicine 05/28/22 documented as of this encounter
--- OUTSIDE RECORDS SUMMARY | 2025-03-28 10:30 | XMS_ITS | Encounter Summary ---
Author Organization [facility] Address [address] [place] [address] Care Team Providers Care Bookkeeping Clerks Supervisor Name Role Phone Neha Vivar MD Primary Care Provider Rere Narayanan MD Primary Care Provider Darcy Mccormick MD Primary Care Prov ider Encounter Details Date Type Department Care Team Description 08/12/2016 Telephone HYDROGEN POWER PLANT ENGINEER - [address] [address] Gary Gutierrez MD Social History Tobacco Use [...] on filedocumented in this encounter Care Teams Bookkeeping Clerks Supervisor Relationship Specialty Start Date End Date Neha Vivar MD PCP - General Internal Medicine 09/28/15 05/21/17 Rere Mallory MD PCP - General Internal Medicine 05/22/17 05/27/22 Luciano Trujillo, Darcy Bentley MD [address] [place] [address] PCP - General Internal Medicine 05/28/22 documented as of this encounter
--- OUTSIDE RECORDS SUMMARY | 2025-03-28 10:30 | XMS_ITS | Encounter Summary ---
Author Organization [facility] Address [address] [place] [address] Care Team Providers Care Horseradish Grinder Name Role Phone Darcy Fry MD Primary Care Prov ider Encounter Details Date Type Department Care Team Description 07/12/2022 Pt. Non Urgent Medical Question Orthopedics-[address] [address] Jan Zendejas PA-C [address] [place] [address] Social History Tobacco Use Types Packs/Day Years [...] on filedocumented in this encounter Care Teams Horseradish Grinder Relationship Specialty Start Date End Date Darcy Fry MD [address] [place] [id number] PCP - General Internal Medicine 05/28/22 documented as of this encounter
--- OUTSIDE RECORDS SUMMARY | 2025-03-28 10:30 | XMS_ITS | Encounter Summary ---
Author Organization [facility] Address [address] [place] [address] Care Team Providers Care Ibm Websphere Commerce Consultant Name Role Phone Rere Mallory MD Primary Care Provider Darcy Mccormick MD Primary Care Prov ider Encounter Details Date Type Department Care Team Description 04/19/2018 [facility] Medical Records [address] [place] [address] Abstract, Provider Social History Tobacco Use Types [...] on filedocumented in this encounter Care Teams Ibm Websphere Commerce Consultant Relationship Specialty Start Date End Date Rere Mallory MD PCP - General Internal Medicine 05/22/17 05/27/22 Darcy Fry MD [address] [place] [address] PCP - General Internal Medicine 05/28/22 documented as of this encounter
--- OUTSIDE RECORDS SUMMARY | 2025-03-28 10:30 | XMS_ITS | Encounter Summary ---
Author Organization [facility] Address [address] [place] [address] Care Team Providers Care Optometry Teacher Name Role Phone Rere Mallory MD Primary Care Provider Darcy Mccormick MD Primary Care Prov ider Encounter Details Date Type Department Care Team Description 06/13/2018 Release of Information Medical Records [address] [place] [address] Abstract, Provider Social History Tobacco Use Types [...] on filedocumented in this encounter Care Teams Optometry Teacher Relationship Specialty Start Date End Date Rere Mallory MD PCP - General Internal Medicine 05/22/17 05/27/22 Darcy Fry MD [address] [place] [address] PCP - General Internal Medicine 05/28/22 documented as of this encounter
--- NOTE | 2025-03-28 11:04 | MHC.OFFWIV ---
Intake Vital Signs 03/28/25 11:10 Weight 224 lb 8 oz BP 130/90 H Blood Pressure Location Lt brachial Position Sitting Pulse 88 Pulse Source Pulse Oximeter Pulse Oximetry (%) 96 Oxygen Delivery Method Room Air Intake Visit Reasons: EP Back pain [phone] (car) Intake Note: Patient here for lower back pain that started last week. Patient Tobacco Use Status: Never used Tobacco Allergies adhesive tape Allergy (Verified 03/28/25 11:05) Redness of Skin cefuroxime Adverse Reaction (Verified 03/28/25 11:05) Hives flu vaccine Adverse Reaction (Severe, Uncoded 03/28/25 11:05) Hives Do you need a note to return to daycare/school/sports/work: Yes HPI HPI Comments History of Present Illness Details Patient is a 44-year-old female with a past medical history of DM 2, HTN, HLD, lumbar spondylosis, low back pain, ductal carcinoma status post chemotherapy currently receiving radiation treatments complaining of low back pain x1 week. She denies any injury. She has been taking ibuprofen and using ice and heating pads without relief. She denies any radiation down to her buttocks or into her legs. She recently returned back to work after being out for her breast cancer treatments. She did not have a PET scan as her insurance denied it. [facility] Medical History (Updated 03/28/25 @ 11:22 by Eli Serrano PA-C) Mixed hyperlipidemia Diabetes mellitus Lumbar spondylosis Back pain COVID-19 HTN (hypertension) Invasive ductal carcinoma of breast Breast mass, right Benign essential hypertension Pure hypercholesterolemia GERD (gastroesophageal reflux disease) Viral upper respiratory tract infection with cough Obesity (BMI 30-39.9) Migraine Asthma Cyst of breast, left, solitary Cough Asthma Laryngitis Allergic rhinosinusitis Surgical History (Updated 03/23/25 @ 09:21 by Lev Patrick MD) History of lumpectomy of right breast (~08/16/24) Hx of colonoscopy History of breast lump/mass excision H/O section Family History Mother Colon cancer, Onset Age: 42 Diabetes mellitus Father Heart disease Parkinson disease Maternal Grandmother Breast cancer Paternal Grandmother Breast cancer Maternal Grandfather Prostate CA Family/Other Thyroid cancer Other FH: mental illness Substance abuse Social History Household Members: Spouse Housing: House Are you a primary nurse behavioral health care to a significant other at home: No Do you presently have visiting nurse or other home services: No Alcohol intake: never Patient Tobacco Use Status: Never used Tobacco e-Cigarette/Vaping Use: Never Used Second Hand Smoke Exposure: No service: No Current occupational status: employed 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 Cognitive needs: No Hearing needs: No Vision needs: Yes Female Reproductive History Menstrual Age of Menarche: 7 Review of Systems Const All systems reviewed & are unremarkable except as noted in HPI and below Physical Exam Vital Signs: Last Vital Signs Pulse 88 03/28/25 11:10 BP 130/90 H 03/28/25 11:10 Pulse Ox 96 03/28/25 11:10 Oxygen Delivery Method Room Air 03/28/25 11:10 Const General: cooperative, healthy appearing and comfortable Orientation/consciousness: patient oriented x3 HEENT Head: Yes normal to inspection and Yes normocephalic General nose exam: Normal external nose present Face and sinus: Yes normal facial exam Eyes General: appearance normal, both eyes and all related structures Resp Effort & Inspection: normal respiratory effort and able to speak in complete sentences Back/Spine/Pelvis Cervical Spine: cervical ROM normal and No Cervical spine tenderness Thoracic/Lumbar Spine: thoracic and lumbar spine normal to inspection, paraspinal muscle tenderness bilaterally in the upper lumbar and in the mid lumbar, thoraco-lumbar ROM limited, No thoracic spinal tenderness and No lumbar spinal tenderness Neuro General: patient oriented x3 Assessment & Plan Assessment & Plan (1) Low back pain: Code(s): M54.50 - Low back pain, unspecified Qualifiers: Chronicity: acute Back pain laterality: bilateral Sciatica presence: without sciatica Qualified Code(s): M54.50 - Low back pain, unspecified Plan: As the patient has an active cancer, I will get a lumbar x-ray to be thorough, she is likely strained her low back as she recently went back to work. I will give her a muscle relaxer and diclofenac, recommended she rest for a few days and I wrote a work note to accommodate this. Orders: Orders XR lumbar spine 4V min Today M54.50 - Low back pain, unspecified Medications: New cyclobenzaprine 5 mg PO Q8H PRN 20 tabs 0RF Muscle Spasm diclofenac sodium 50 mg PO Q12H PRN 20 tabs 0RF pain Coding Level of Care Code Est Pt Level 4 (30609) Diagnoses Acute bilateral low back pain without sciatica M54.50 Chronicity: acute Back pain laterality: bilateral Sciatica presence: without sciatica
[2025-03-28 11:10] VITALS: BP 130/90; PULSE 88; O2SAT 96
== END 2025-03-28 11:21 | disposition home or self-care (01) ==
PROVIDERS: PCP Internal Medicine; Visit Provider Physician Assistant
DX: M54.50 Low back pain, unspecified (principal)

== ENCOUNTER 2025-03-28 09:31 | Outpatient (REF) | payer OTHER, SELFPAY ==
--- NOTE | ~2025-03-28 | XR_ITS ---
EXAMINATION: X-ray Lumbar spine 4 views. CLINICAL INFORMATION: No back pain, unspecified. TECHNIQUE: AP oblique and lateral views. COMPARISON: March 21, 2024. FINDINGS: Marginal osteophyte formation and endplate sclerosis L3-4. No acute cortical disruption or malalignment. No lytic or blastic lesions. T-shaped contraceptive device overlapping the lower sacrum. XR/XR lumbar spine 4V min IMPRESSION: Spondylosis L3-4. Electronically signed by: Dwayne Mcdaniels MD 03/28/2025 01:08 PM EDT
== END 2025-03-28 09:32 | disposition home or self-care (01) ==
LOC: HO.HMGCX 09:31
PROVIDERS: PCP Internal Medicine; Visit Provider Physician Assistant
DX: M54.50 Low back pain, unspecified (principal)
CPT/HCPCS: 72110

== ENCOUNTER → 2025-03-28 11:27 | Outpatient (BNV) | payer OTHER, SELFPAY | PROVIDERS: PCP Internal Medicine; Visit Provider Radiology Diagnostic Radiology | DX: M54.50 Low back pain, unspecified (principal); M47.896 Other spondylosis, lumbar region | CPT/HCPCS: 72110 ==

== ENCOUNTER 2025-04-07 08:53 | Outpatient (REF) | payer OTHER, SELFPAY ==
--- NOTE | ~2025-04-07 | FL_ITS ---
EXAMINATION: XR GI SERIES CLINICAL INFORMATION: Gastroesophageal reflux disease COMPARISON: Upper GI series 05/18/2023. TECHNIQUE: Routine upper GI air contrast study was performed in upright and lying position. FINDINGS: Following oral administration of thick barium and effervescent granules in upright view there is normal propagation of bolus from the oral cavity through the pharynx, esophagus into stomach without any evidence of obstruction, narrowing or stricture. On placing patient in supine and prone lying the course, caliber and peristalsis of the stomach is normal. On placing supine and prone lying the course, caliber and peristalsis of the stomach is normal. The duodenal bulb and this CT is normal. There is mild gastroesophageal reflux without hiatal hernia. FLUOROSCOPY TIME: 2 minute 18 seconds. DOSE AREA PRODUCT: 288 uGy-m2 (microgray-meter squared) FL/FL upper GI w Ba Swallow IMPRESSION: Mild gastroesophageal reflux without hiatal hernia. No major change compared to previous exam 05/18/2023. Electronically signed by: Vinicio Devine MD 04/07/2025 10:42 AM EDT
== END 2025-04-07 08:54 | disposition home or self-care (01) ==
LOC: HO.XRAY 08:53
PROVIDERS: PCP Internal Medicine; Visit Provider Nurse Practitioner Family
DX: K21.9 Gastro-esophageal reflux disease without esophagitis (principal)
CPT/HCPCS: 74240

== ENCOUNTER → 2025-04-07 08:55 | Outpatient (BNV) | payer OTHER, SELFPAY | PROVIDERS: PCP Internal Medicine; Visit Provider Radiology Diagnostic Radiology | DX: K21.9 Gastro-esophageal reflux disease without esophagitis (principal) | CPT/HCPCS: 74246 ==

== ENCOUNTER → 2025-05-05 09:32 | Outpatient (BNVA) | payer OTHER, SELFPAY | PROVIDERS: PCP Internal Medicine; Visit Provider Internal Medicine ==

== ENCOUNTER 2025-05-12 14:11 | Outpatient (AMB) | payer OTHER, SELFPAY ==
--- OUTSIDE RECORDS SUMMARY | 2025-05-12 14:14 | XMS_ITS | Encounter Summary ---
Author Organization [facility] Address [address] [place] [address] Care Team Providers Care Curtains And Draperies Salesperson Name Role Phone Rere Mallory MD Primary Care Provider Darcy Mccormick MD Primary Care Prov ider Encounter Details Date Type Department Care Team Description 09/28/2018 Release of Information Medical Records [address] [place] [address] Abstract, Provider Social History Tobacco Use Types [...] on filedocumented in this encounter Care Teams Curtains And Draperies Salesperson Relationship Specialty Start Date End Date Rere Mallory MD PCP - General Internal Medicine 05/22/17 05/27/22 Darcy Fry MD [address] [place] [phone] PCP - General Internal Medicine 05/28/22 documented as of this encounter
--- NOTE | 2025-05-12 14:17 | A.OFFPC_ITS ---
Vital Signs 05/12/25 14:18 05/12/25 15:02 Height 5 ft 3 in Weight 212 lb 8 oz BMI 37.6 BP 140/82 H 142/102 H Blood Pressure Location Lt brachial Lt brachial Position Sitting Sitting Pulse 102 H Pulse Source Pulse Oximeter Temp 97.3 F Temp Source Temporal Artery Scan Pulse Oximetry (%) 95 Oxygen Delivery Method Room Air Intake Visit Reasons: Elevated B/Ps Intake Note: Patient is here to follow up on Elevated BP. Credit Assistant Required: No Model And Dye Person: Not Required per policy Accompanied by: Self / Same As Patient Allergies adhesive tape Allergy (Verified 05/12/25 14:37) Redness of Skin cefuroxime Adverse Reaction (Verified 05/12/25 14:37) Hives flu vaccine Adverse Reaction (Severe, Uncoded 05/12/25 14:37) Hives Medication List - Last Reconciled 05/12/25 by Marycruz Salas PA-C atorvastatin 10 mg PO BEDTIME 30 days [id number] 50-325-40 mg 1 cap PO Q6H PRN cyclobenzaprine 5 mg PO Q8H PRN diclofenac sodium 50 mg PO Q12H PRN docusate sodium 200 mg (2 x 100 mg) PO BEDTIME esomeprazole magnesium 20 mg PO DAILY fluticasone propionate 50 mcg/actuation (Aller-Abel) 1 spray intranasal BID PRN gabapentin 100 mg PO BEDTIME 30 days letrozole 2.5 mg PO DAILY levonorgestrel (Mirena) 21 mcg intrauterine ONCE lidocaine 5% 1 patch topical DAILY lidocaine HCl 2% (Lidocaine Viscous) 1 appl mucous membrane QID metformin ER 500 mg PO QPM 30 days ondansetron 8 mg PO Q8H propranolol ER 120 mg PO BID sumatriptan succinate 50 mg PO Q2-4H PRN Ventolin HFA 90 mcg/actuation (albuterol sulfate) 2 puffs inhalation Q6H PRN 30 days NS Tobacco use date assessed: 05/12/25 Dental Screening Dental Screen Date: 03/23/25 HPI Elevated B/Ps HPI Details 44-year-old female with past medical his tory of diabetes mellitus, hypercholesterolemia, asthma, migraine, GERD, hypertension, invasive ductal carcinoma, impaired glucose tolerance, hyperlipidemia last seen by Dr. Patrick 02/2025 coming in for acute problem. Presenting with hypertension and migraine management. Reports consistently high blood pressure readings, with a recent measurement of 155/112 mmHg at home and 142/106 mmHg in the office. She has been monitoring the blood pressures at home and kept a log all of which were elevated in both systolic and diastolic measurements. She did have a recent increase in her propranolol from 80 mg to 120 mg by her neurologist for better management of her migraines. She has not noticed an improvement in her migraines or blood pressure since this increase. [facility] Medical History Mixed hyperlipidemia Diabetes mellitus Lumbar spondylosis Back pain COVID-19 HTN (hypertension) Invasive ductal carcinoma of breast Breast mass, right Benign essential hypertension Pure hypercholesterolemia GERD (gastroesophageal reflux disease) Viral upper respiratory tract infection with cough Obesity (BMI 30-39.9) Migraine Asthma Cyst of breast, left, solitary Cough Asthma Laryngitis Allergic rhinosinusitis Surgical History History of lumpectomy of right breast (~08/16/24) Hx of colonoscopy History of breast lump/mass excision H/O section Family History Mother Colon cancer, Onset Age: 42 Diabetes mellitus Father Heart disease Parkinson disease Maternal Grandmother Breast cancer Paternal Grandmother Breast cancer Maternal Grandfather Prostate CA Family/Other Thyroid cancer Other FH: mental illness Substance abuse Social History Household Members: Spouse Housing: House Are you a primary hearing care professional to a significant other at home: No Do you presently have visiting nurse or other home services: No Alcohol intake: never Patient Tobacco Use Status: Never used Tobacco e-Cigarette/Vaping Use: Never Used Second Hand Smoke Exposure: No service: No Current occupational status: employed 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 [employer] Cognitive needs: No Hearing needs: No Vision needs: Yes Female Reproductive History Menstrual Age of Menarche: 7 Questionnaire Thrive Questionnaire Date Thrive assessed: 03/23/25 I am a: Patient What is your living situation today?: I have a steady place to live Within the past 12 months, did the food you bought not last and you didn't have the money to get more?: Often true Within the past 12 months, did you worry whether your food would run out before you got money to buy more?: Never true Do you have trouble paying for medicines?: No Do you have trouble getting transportation to medical appointments?: No Do you have trouble paying your heating and electricity bill?: No Do you have trouble taking care of your child, family member or friend?: No Do you have trouble with day-to-day activities such as bathing, preparing meals, shopping, managing finances, etc.?: No Are you currently unemployed and looking for a job?: No Are you interested in more education?: Yes Please select the resources that you would like help with: None Currently or been in a relationship where the following occur: I choose not to answer THRIVE Score: 1 AYESHA-7 AMB Questionnaire AYESHA-7 Date AYESHA - 7 assessed: 03/23/25 Source: Developed by Drs. Elfego Morelos, Emani Kelley, Apollo Buchanan and colleagues, with an educational gilson from [employer]. Review of Systems Const Denies body aches, Denies chills, Denies fever(s), Denies headache(s) and Denies poor appetite Eyes Reports no additional complaints ENT Denies dysphagia, Denies dizziness, Denies headache(s) and Denies odynophagia Card Denies chest pain, Denies syncope, Denies edema, Denies irregular heart rhythm, Denies lightheadedness and Denies dyspnea Resp Denies cough and Denies dyspnea GI Denies abdominal pain, Denies constipation, Denies dysphagia, Denies diarrhea, Denies nausea, Denies odynophagia and Denies vomiting Reports no additional complaints Musc Reports no additional complaints and Denies abnormal gait Skin/Breast Reports system reviewed and no additional complaints, except as documented Neuro Denies abnormal gait, Denies dizziness, Denies syncope and Denies headache(s) Psych Reports no additional complaints Physical exam (Primary Care) Vital Signs: Last Vital Signs Temp 97.3 F 05/12/25 14:18 Pulse 102 H 05/12/25 14:18 BP 140/82 H 05/12/25 14:18 Pulse Ox 95 05/12/25 14:18 Oxygen Delivery Method Room Air 05/12/25 14:18 BMI result Body Mass Index 37.6 Tobacco/Smoking Status: Tobacco use Status Tobacco use date assessed 05/12/25 05/12/25 14:23 Patient Tobacco Use Status Never used Tobacco 05/12/25 14:23 e-Cigarette/Vaping Use Never Used 05/12/25 14:23 Thrive Assessment: Date of Thrive Assessment Date Thrive assessed 03/23/25 05/12/25 14:23 Currently or been in a relationship where the following occur: I choose not to answer Const General: cooperative, healthy appearing, comfortable and no acute distress Orientation/consciousness: patient oriented x3 HENMT Head: Yes normocephalic Ears: hearing grossly normal bilaterally General nose exam: Normal external nose present Eyes General: appearance normal, both eyes and all related structures Conjunctivae: conjunctivae normal Neck Neck: Yes full ROM and Yes no lymphadenopathy Resp Effort & Inspection: normal respiratory effort Auscultation: clear to auscultation bilaterally, no crackles, no rales, no rhonchi and no wheezes Cardio Rate: regular rate Rhythm: regular rhythm Skin General skin exam: no rashes or lesions noted Neuro General: patient oriented x3 Gait exam (Neuro): Normal gait present Extrem General: Yes normal to inspection, Yes full ROM and No edema Psych Affect: normal affect Attitude: cooperative Insight: Good insight present (Psych) Judgement: Good judgement present (Psych) Coding Level of Care Code Est Pt Level 4 (39835) Diagnoses Benign essential hypertension I10 Type 2 diabetes mellitus without complication, without long-term current use of insulin E11.9 Diabetes mellitus type: type 2 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 She is advised to continue monitoring her blood pressure at home and to bring her cuff to the nursing navigation appointment in two weeks to ensure proper calibration. The patient is also instructed to report any instances of low blood pressure, defined as readings below 110/60 mmHg. The patient will continue taking propranolol for migraine management, and a follow-up with the neurologist is recommended if migraines persist. The patient is advised to manage stress and pain, as these factors can contribute to elevated blood pressure. Weight management is also discussed as a potential factor in controlling blood pressure. I reviewed with patient red flag symptoms and when to present for re-evaluation. 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 Although fruits are generally healthy they should be eaten in moderation as they are still high in sugar. Hemoglobin A1c go al of _ less than 7% Plan This note was constructed using voice recognition software. While every effort has been made to ensure accuracy and cocoa bean cleaner, still areas may have been included sometimes these areas may affect the content or meeting of the given symptoms. Total time spent caring for the patient today was 20 minutes. This includes time spent before the visit reviewing the chart, time spent during the visit, and time spent after the visit and documentation. Patient was informed and verbally consented to the use of an ambient scribe for clinic note documentation during this visit. Medications: New losartan 25 mg PO DAILY 30 tabs 1RF Changed From propranolol ER 120 mg PO BID To propranolol ER 120 mg PO DAILY Refilled gabapentin 100 mg PO BEDTIME 30 days 30 caps 1RF
[2025-05-12 14:18] VITALS: BP 140/82; PULSE 102; TEMP 36.3; O2SAT 95; BMI 37.6
[2025-05-12 15:02] VITALS: BP 142/102
== END 2025-05-12 15:09 | disposition home or self-care (01) ==
LOC: HO.HMCH 14:11
PROVIDERS: PCP Internal Medicine
DX: I10 Essential (primary) hypertension (principal); E11.9 Type 2 diabetes mellitus without complications

== ENCOUNTER → 2025-05-12 14:11 | Outpatient (BNVA) | payer OTHER, SELFPAY | PROVIDERS: PCP Internal Medicine ==

== ENCOUNTER 2025-06-21 07:40 | Outpatient (AMB) | payer OTHER, SELFPAY ==
--- OUTSIDE RECORDS SUMMARY | 2025-06-21 07:42 | XMS_ITS | Encounter Summary ---
[facility] Address [address] [place] [address] Care Team Providers Care Package Drier Name Role Phone Rere Mallory MD Primary Care Provider Darcy Mccormick MD Primary Care Prov ider Encounter Details Date Type Department Care Team Description 09/28/2018 Release of Information Medical Records [address] [place] [address] Abstract, Provider Social History Tobacco Use Types [...] on filedocumented in this encounter Care Teams Package Drier Relationship Specialty Start Date End Date Rere Mallory MD PCP - General Internal Medicine 05/22/17 05/27/22 Darcy Fry MD [address] [place] [id number] PCP - General Internal Medicine 05/28/22 documented as of this encounter
--- OUTSIDE RECORDS SUMMARY | 2025-06-21 07:42 | XMS_ITS | Clinical Summary ---
Author Organization [facility] Address [address] [place] [address] Phone Care Team Providers Care Home Demonstrator Name Role Phone Lev Patrick MD Primary Care Provider [phone] Allergies No known active allergies Medications propranolol (INDERAL LA) 80 mg 24 hr capsule 120 mg. 8 Active albuterol sulfate (PROAIR DIGIHALER) 90 mcg/actuation aebs Inhale into the lungs. Active BISA-LAX, BISACODYL, ORAL 5 Active COLACE 100 mg capsule Active esomeprazole (NEXIUM) 20 MG capsule Take 1 capsule by mouth every morning. 5 Active letrozole (FEMARA) 2.5 mg tablet Take 1 tablet by mouth every morning. 5 Active levonorgestreL (MIRENA) 21 mcg/24hr (up to 8 yrs) 52 mg intrauterine device 1 each by Intrauterine route. Active SUMAtriptan (IMITREX) 50 MG tablet 5 Active SENNA 8.6 mg tablet Take 1 tablet by mouth 2 (two) times a day. 5 Active atorvastatin (LIPITOR) 10 MG tablet Take 10 mg by mouth daily. Active metFORMIN (GLUCOPHAGE) 500 MG tablet Take 500 mg by mouth 2 (two) times a day with meals. 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, estrogen receptor positive 03/23/2025 Encounters Date Type Department Care Team Description 05/24/2025 Telephone [facility] at [address] [address] Trinity Amador LICSW 05/01/2025 12:50 PM EDT Procedure visit [facility] At [facility] Rad Onc [address] [place] [phone] Hailey Storm MD Sheldon, John M, MD Malignant 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, estrogen receptor positive (Primary Dx) 05/01/2025 Telephone [facility] At [facility] Rad Onc [address] [place] [phone] Shoshana Victoria RN 04/28/2025 Documentation [facility] At [facility] Rad [address] [address] Kimi Leone MA Rad Onc discharge (Malignant 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, estrogen receptor positive) 04/27/2025 12:50 PM EDT Procedure visit [facility] At [facility] Rad Onc [address] [place] [phone] Hailey Storm MD Malignant 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, estrogen receptor positive (Primary Dx) 04/25/2025 Telephone [facility] at [address] [address] Khalida Riley, [facility] Forms & Paperwork 04/20/2025 3:50 PM EDT Procedure visit [facility] At [facility] Rad Onc [address] [place] [phone] Hailey Storm MD Malignant 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, estrogen receptor positive (Primary Dx) 04/20/2025 3:40 PM EDT Office Visit [facility] At [facility] Rad Onc [address] [place] [id number] Hailey Storm MD Malignant 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, estrogen receptor positive (Primary Dx) 04/17/2025 Orders Only [facility] At [facility] Rad Onc [address] [place] [phone] Jenise Palmer, BOSSMAN 04/13/2025 3:50 PM EDT Procedure visit [facility] At [facility] Rad [address] [address] Hailey Storm MD Malignant 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, estrogen receptor positive (Primary Dx) 04/11/2025 2:30 PM EDT Treatment [facility] at [address] [address] Khalida Florentino CNP Malignant neoplasm of right breast in female, estrogen receptor positive, unspecified site of breast (Primary Dx) 04/06/2025 3:50 PM EDT Procedure visit [facility] At [address] [address] Hailey Storm MD Sheldon, John M, MD Malignant 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, estrogen receptor positive (Primary Dx) 03/30/2025 3:50 PM EDT Procedure visit [facility] At [facility] Onc [address] [place] [phone] Hailey Storm MD Malignant 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, estrogen receptor positive (Primary Dx) 03/23/2025 3:50 PM EDT Procedure visit [facility] At [address] [address] Hailey Storm MD Malignant 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, estrogen receptor positive (Primary Dx) from Last 3 Months Family History Medical History Relation Comments Breast cancer Maternal Grandmother Arthritis Mother Breast cancer Paternal Grandmother Relation Status Comments Maternal Grandmother Mother Paternal Grandmother Social History Tobacco Use Types Packs/Day Years Used Date Smoking Tobacco: Never Smokeless Tobacco: Never Education Answer Date Recorded Are you interested in more education? Not on rene e 03/27/2023 Are you concerned about learning? Not on file 03/27/2023 No 03/27/2023 No 03/27/2023 Digital Access Answer Date Recorded No 04/25/2023 No 04/25/2023 Reliable internet access at home? Not on file 04/25/2023 Device with a working camera? Not on file Comments Unknown Sex and Gender Information Value Date Recorded Sex Assigned at Female 02/11/2025 11:08 AM EDT Legal Sex Female 10:44 AM EDT Gender Identity Female 02/11/2025 11:08 AM EDT Sexual Orientation Not on file Last Filed Vital Signs Vital Sign Reading Time Taken Comments Blood Pressure 148/114 05/01/2025 12:47 PM EDT Pulse 83 05/01/2025 12:47 PM EDT Temperature 36.6 C (97.9 F) 04/27/2025 12:25 PM EDT Respiratory Rate 16 04/27/2025 12:2 5 PM EDT Oxygen Saturation 96% 05/01/2025 12: 47 PM EDT Inhaled Oxygen Concentration - - Weight 97.4 kg (214 lb 11.2 oz) 025 12:25 PM EDT Height 160 cm (5' 3 ) 03/21/2025 2:00 PM EDT Body Mass Index 38.03 03/21/2025 2:00 PM EDT Plan of Treatment Upcoming Encounters Date Type Department Care Team (Late st Contact Info) Description 11/09/2025 3:00 PM EST Office Visit [facility] At [facility] Rad Onc [address] [place] [phone] Hailey Storm MD [address] [place] [address] [email or web address] Health Maintenance Due Date Last Done Comments CREATININE LEVEL 1978 LIPID PANEL 1978 DEPRESSION SCREENING 1990 HEPATITIS C SCREENING 1996 HIV ONE-TIME SCREENING (18-6 5 YEARS) 1996 PNEUMOCOCCAL VACCINES (0-49 years) (1 of 2 - PCV) 1997 PAP SMEAR 1999 SCREENING FOR DIABETES 2013 Adult Td,Tdap Booster 01/26/2023 01/26/2013 , 08/25/2006 COLOGUARD 2023 COLONOSCOPY 2023 COLORECTAL CANCER SCREENING 2023 FIT TEST 2023 FOBT 2023 SIGMOIDOSCOPY 2023 VIRTUAL COLONOSCOPY 2023 COVID-19 VACCINE (2023-2 5 season) 2024 12/13/2021, 04/28/2021, 04/07/2021 MAMMOGRAM 05/04/2026 05/04/2024, 02/28/2023 SMOKING STATUS SCREENING (On ce After 26 Yrs) Completed 04/11/2025 HEPATITIS A VACCINES Aged Out No long er eligible based on patient's age to complete this topic HIB VACCINES Aged Out No longer eligi ble based on patient's age to complete this topic MENINGOCOCCAL VACCINES (ACWY) Aged Out No longer eligible based on patient's age to complete this topic MENINGOCOCCAL VACCINES (B) Aged Out N o longer eligible based on patient's age to complete this topic Medical Devices Not on file Procedures Procedure Name Priority Date/Time Associated Diagnosis Comments BI MAMMOGRAM OUTSIDE (NO INTERPRETATION) Routine 05/04/2024 12:00 AM EDT from Last 3 Months or Most Recently Relevant to Health Maintenance Results * Mammogram Outside (No Interpretation) (05/04/2024 12:00 AM EDT) Narrative Record, 07/27/2024 11:38 AM EDT This study is for PACS storage only and not for interpretation. Procedure Note Record, 07/27/2024 This study is for PACS storage only and not for interpretation. us Unknown Unknown MD ALEJANDRINA OUTSIDE IMAGING W/OUT INT ERPRETATION Final Result from Last 3 Months or Most Recently Relevant to Health Maintenance Insurance [facility] [address] [place] [address] [place] [address] [place] [place] [address] [place] [address] Care Teams Home Demonstrator Relationship Specialty Start Date End Date Lev Patrick MD [address] [place] [address] [place] [address] PCP - General Internal Medicine 01/13/25 Additional Source Comments The information contained in this document represents components of the legal health record. It is not the complete legal health record.[facility]
--- NOTE | 2025-06-21 08:02 | A.OFFVIS_ITS ---
Vital Signs 06/21/25 08:08 Height 5 ft 3 in Weight 220 lb BMI 39.0 BP 138/78 Blood Pressure Location Rt brachial Position Sitting Pulse 94 Pulse Source Pulse Oximeter Pulse Oximetry (%) 96 Oxygen Delivery Method Room Air Intake Visit Reasons: 3m Intake Note: Est pt for mgmt of chronic bloating + GERD. Imaging done. CC; Pt denies any changes since last visit. Confirms still taking GI meds. Veterinary Physiologist Required: No Allergies adhesive tape Allergy (Verified 06/21/25 08:02) Redness of Skin cefuroxime Adverse Reaction (Verified 06/21/25 08:02) Hives flu vaccine Adverse Reaction (Severe, Uncoded 06/21/25 08:02) Hives HPI HPI 3m: Details: LAST VISIT: Rectal bleeding Constipation Abdominal bloating Family hx of colorectal cancer GERD (gastroesophageal reflux disease) Dysphagia Plan Patient reports she is doing fairly well after the procedure. Reported sore throat immediately after endoscopy, however it resolved. Patient no longer is having trouble swallowing. Continue esomeprazole. Patient will make sure that it is okay with her to be on PPI while she will be taking letrozole. Avoid dietary triggers and late night snacking. Staying upright for minimum 3 hours after meals discussed with patient. Patient will follow-up in 3 months, sooner on as needed basis. She is agreeable to this plan and verbalizes understanding of instructions. She was given the opportunity to ask questions and all questions answered. ? TODAY'S VISIT: Patient is here today for follow-up. Patient reports that she has been doing better now that she is taking esomeprazole. Patient states that no longer she will have acid reflux or epigastric pain unless she eats late at night food with red sauce. Patient is trying to avoid dietary triggers. Patient reports that she is back at work now. Reports to have good appetite. Denies melena, hematochezia, unintentional weight loss or ribbon like stools. Denies any dyspepsia, dysphagia or odynophagia. [facility] Medical History Mixed hyperlipidemia Diabetes mellitus Lumbar spondylosis Back pain COVID-19 HTN (hypertension) Invasive ductal carcinoma of breast Breast mass, right Benign essential hypertension Pure hypercholesterolemia GERD (gastroesophageal reflux disease) Viral upper respiratory tract infection with cough Obesity (BMI 30-39.9) Migraine Asthma Cyst of breast, left, solitary Cough Asthma Laryngitis Allergic rhinosinusitis Surgical History History of lumpectomy of right breast (~08/16/24) Hx of colonoscopy History of breast lump/mass excision H/O section Family History Mother Colon cancer, Onset Age: 42 Diabetes mellitus Father Heart disease Parkinson disease Maternal Grandmother Breast cancer Paternal Grandmother Breast cancer Maternal Grandfather Prostate CA Family/Other Thyroid cancer Other FH: mental illness Substance abuse Social History Household Members: Spouse Housing: House Are you a primary complex care nurse practitioner to a significant other at home: No Do you presently have visiting nurse or other home services: No Alcohol intake: never Patient Tobacco Use Status: Never used Tobacco e-Cigarette/Vaping Use: Never Used Second Hand Smoke Exposure: No service: No Current occupational status: employed 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 [employer] Cognitive needs: No Hearing needs: No Vision needs: Yes Female Reproductive History Menstrual Age of Menarche: 7 Review of Systems Const Denies weight gain and Denies weight loss ENT Reports no additional complaints, Denies dysphagia and Denies odynophagia Card Reports no additional complaints Resp Reports no additional complaints GI Denies abdominal pain, Denies belching, Denies melena, Denies bloating, Denies change in bowel habits, Reports constipation (Occasional), Denies dysphagia, Denies excessive flatus, Denies dyspepsia, Reports heartburn (Occasional), Denies diarrhea, Denies loose stools, Reports nausea, Denies odynophagia and Denies vomiting Reports no additional complaints Musc Reports no additional complaints Neuro Reports no additional complaints Psych Reports no additional complaints Endo Reports no additional complaints Physical Exam Vital Signs: Last Vital Signs Pulse 94 06/21/25 08:08 BP 138/78 06/21/25 08:08 Pulse Ox 96 06/21/25 08:08 Oxygen Delivery Method Room Air 06/21/25 08:08 BMI result Body Mass Index 39.0 Const General: healthy appearing and no acute distress Nutritional Appearance: obese Orientation/consciousness: patient oriented x3 Resp Effort & Inspection: normal respiratory effort, able to speak in complete sentences, no tracheal deviation and symmetric chest movement Auscultation: clear to auscultation bilaterally Cardio Rate: regular rate GI Inspection: Yes normal to inspection, No distended and Yes obesity Palpation (GI): Soft to palpation, not firm, nontender and No hepatosplenomegaly present Auscultation: normal bowel sounds General: Yes no CVA tenderness Back/Spine/Pelvis Back: no CVA tenderness Skin General skin exam: elasticity normal, turgor normal and dry skin Neuro General: patient oriented x3 Psych Appearance: grossly normal Mental Status: mental status grossly normal Assessment & Plan Assessment & Plan (1) GERD (gastroesophageal reflux disease): Code(s): K21.9 - Gastro-esophageal reflux disease without esophagitis Category: Medical Qualifiers: Esophagitis presence: esophagitis presence not specified Qualified Code(s): K21.9 - Gastro-esophageal reflux disease without esophagitis (2) Constipation: Code(s): K59.00 - Constipation, unspecified Category: Medical Qualifiers: Constipation type: unspecified constipation type Qualified Code(s): K59.00 - Constipation, unspecified (3) Abdominal bloating: Code(s): R14.0 - Abdominal distension (gaseous) Category: Medical Plan Patient will continue taking Nexium in the morning. Continue avoiding dietary triggers and late night snacking. Staying upright for minimum 3 hours after meals discussed with patient. Increase fluid intake and activity to promote better bowel motility. Patient will follow-up in 6 months, sooner on as needed basis. She is agreeable to this plan and verbalizes understanding of instructions. She was given the opportunity to ask questions and all questions answered. Thank you for allowing me to participate in her care Coding Level of Care Code Est Pt Level 3 (47945) Diagnoses Gastroesophageal reflux disease, unspecified whether esophagitis present K21.9 Esophagitis presence: esophagitis presence not specified Constipation, unspecified constipation type K59.00 Constipation type: unspecified constipation type Abdominal bloating R14.0 Time Spent (min) 25 Comment 15 minutes spent with patient and additional 10 minutes spent reviewing her records
[2025-06-21 08:08] VITALS: BP 138/78; PULSE 94; O2SAT 96; BMI 39.0
== END 2025-06-21 08:13 | disposition home or self-care (01) ==
LOC: HO.HGI 07:41
PROVIDERS: PCP Internal Medicine; Visit Provider Nurse Practitioner Family
DX: K21.9 Gastro-esophageal reflux disease without esophagitis (principal); K59.00 Constipation, unspecified; R14.0 Abdominal distension (gaseous)
CPT/HCPCS: 99213

== ENCOUNTER 2025-07-06 16:00 | Outpatient (AMB) | payer OTHER, SELFPAY ==
--- OUTSIDE RECORDS SUMMARY | 2025-07-06 16:03 | XMS_ITS | Clinical Summary ---
Author Organization [facility] Address [address] [place] [address] Phone Care Team Providers Care Radar Air Traffic Controller Name Role Phone Lev Patrick MD Primary Care Provider [phone] Allergies No known active allergies Medications propranolol [...] Type Department Care Team Description 05/24/2025 Telephone [facility] at [address] [address] Trinity Amador LICSW 05/01/2025 12:50 PM EDT Procedure visit [facility] Rad Onc [address] [place] [address] Hailey Storm MD Sheldon, John M, MD Malignant 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, estrogen receptor positive (Primary Dx) 05/01/2025 Telephone [facility] Rad Onc [address] [place] [phone] Shoshana Victoria RN 04/28/2025 Documentation [facility] Rad [address] [address] Kimi Leone [place] Rad Onc discharge (Malignant 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, estrogen receptor positive) 04/27/2025 12:50 PM EDT Procedure visit [facility] Rad Onc [address] [place] [phone] Hailey Storm MD Malignant 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, estrogen receptor positive (Primary Dx) 04/25/2025 Telephone [facility] at [address] [address] Khalida Riley, [facility] Forms & Paperwork 04/20/2025 3:50 PM EDT Procedure visit [facility] Rad Onc [address] [place] [address] Hailey Storm MD Malignant 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, estrogen receptor positive (Primary Dx) 04/20/2025 3:40 PM EDT Office Visit [facility] Rad Onc [address] [place] [phone] Hailey Storm MD Malignant 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, estrogen receptor positive (Primary Dx) 04/17/2025 Orders Only [facility] Rad Onc [address] [place] [address] Jenise Palmer RN 04/13/2025 3:50 PM EDT Procedure visit [facility] Rad [facility] [address] [place] [address] Hailey Storm MD Malignant 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, estrogen receptor positive (Primary Dx) 04/11/2025 2:30 PM EDT Treatment [facility] at [address] [address] Khalida Florentino CNP Malignant neoplasm of right breast in female, estrogen receptor positive, unspecified site of breast (Primary Dx) 04/06/2025 3:50 PM EDT Procedure visit [facility] At [address] [address] Hailey Storm MD Sheldon, John M, MD [...] Description 11/09/2025 3:00 PM EST Office Visit [facility] Rad Onc [address] [place] [address] [phone] Hailey Storm MD [address] [place], [place] [phone] [email or web address] Health Maintenance Due Date Last Done Comments [...] SIGMOIDOSCOPY 2023 VIRTUAL COLONOSCOPY 2023 COVID-19 VACCINE ( - 2023-2 5 season) 2024 12/13/2021, 04/28/2021, 04/07/2021 MAMMOGRAM [...] Relevant to Health Maintenance Insurance [facility] Care Teams Radar Air Traffic Controller Relationship Specialty Start Date End Date Lev Patrick MD [address] [place] [address] [place] [address] PCP - General Internal Medicine 01/13/25 Additional Source Comments The information contained in this document represents components of the legal health record. It is not the complete legal health record.[facility]
--- NOTE | 2025-07-06 16:19 | A.OFFVIS_ITS ---
Vital Signs 07/06/25 16:19 07/06/25 16:32 Height 5 ft 3 in BP 160/99 H Position Sitting Pulse 80 Intake Visit Reasons: 4 Week - Migrane Allergies adhesive tape Allergy (Verified 07/06/25 16:22) Redness of Skin cefuroxime Adverse Reaction (Verified 07/06/25 16:22) Hives flu vaccine Adverse Reaction (Severe, Uncoded 07/06/25 16:22) Hives Medication List - Last Reconciled 07/06/25 by Michell Rosario CNP amitriptyline 25 mg PO BEDTIME atorvastatin 10 mg PO BEDTIME [id number]-[id number] 50-325-40 mg 1 cap PO Q6H PRN celecoxib 100 mg PO DAILY cyclobenzaprine 5 mg PO Q8H PRN diclofenac sodium 50 mg PO Q12H PRN docusate sodium 200 mg (2 x 100 mg) PO BEDTIME esomeprazole magnesium 20 mg PO DAILY fluticasone propionate 50 mcg/actuation (Aller-Abel) 1 spray intranasal BID PRN gabapentin 100 mg PO BEDTIME 30 days letrozole 2.5 mg PO DAILY levonorgestrel (Mirena) 21 mcg intrauterine ONCE lidocaine 5% 1 patch topical DAILY lidocaine HCl 2% (Lidocaine Viscous) 1 appl mucous membrane QID losartan 25 mg PO DAILY metformin ER 500 mg PO QPM 30 days ondansetron 8 mg PO Q8H propranolol ER 160 mg PO DAILY sumatriptan succinate 50 mg PO Q2-4H PRN Ventolin HFA 90 mcg/actuation (albuterol sulfate) 2 puffs inhalation Q6H PRN 30 days NS HPI Comments Details: 45-year-old woman with HTN, GERD, breast cancer diagnosed in 05/2024 s/p lumpectomy in 07/2024, followed by chemotherapy resulting in paresthesia of hands and feet?and radiation, on Letrozol since 02/2025 which would continue for 5 years, and headaches. She was checking BP at home, usually in 140's/90's-low 100's, and was going for blood pressure check with nurse at PCP's office every 3 weeks. No change in headaches. Headaches were happening almost every day. Pain was primarily right sided, squeezing-type pain, with pain behind right eye. It is associated with photophobia and sonophobia. No nausea or vomiting. She has been taking ibuprofen or Tylenol every day for many months. She did not like to take sumatriptan as it made her tired. She was back to work full-time. Sleep was up and down, waking few times during the night. [facility] Medical History Mixed hyperlipidemia Diabetes mellitus Lumbar spondylosis Back pain COVID-19 HTN (hypertension) Invasive ductal carcinoma of breast Breast mass, right Benign essential hypertension Pure hypercholesterolemia GERD (gastroesophageal reflux disease) Viral upper respiratory tract infection with cough Obesity (BMI 30-39.9) Migraine Asthma Cyst of breast, left, solitary Cough Asthma Laryngitis Allergic rhinosinusitis Surgical History History of lumpectomy of right breast (~08/16/24) Hx of colonoscopy History of breast lump/mass excision H/O section Family History Mother Colon cancer, Onset Age: 42 Diabetes mellitus Father Heart disease Parkinson disease Maternal Grandmother Breast cancer Paternal Grandmother Breast cancer Maternal Grandfather Prostate CA Family/Other Thyroid cancer Other FH: mental illness Substance abuse Social History Household Members: Spouse Housing: House Are you a primary residential care facility manager to a significant other at home: No Do you presently have visiting nurse or other home services: No Alcohol intake: never Patient Tobacco Use Status: Never used Tobacco e-Cigarette/Vaping Use: Never Used Second Hand Smoke Exposure: No service: No Current occupational status: employed 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 [employer] Cognitive needs: No Hearing needs: No Vision needs: Yes Female Reproductive History Menstrual Age of Menarche: 7 Review of Systems Const Denies chills, Denies daytime sleepiness, Reports difficulty sleeping, Denies fatigue, Denies fever(s), Denies frequent falls, Reports headache(s), Denies increased appetite, Denies poor appetite, Denies snoring, Denies weakness, Denies weight gain and Denies weight loss Eyes Denies loss of vision ENT Denies vertigo, Denies dizziness and Reports headache(s) Card Denies chest pain at rest, Denies chest pain with activity, Denies syncope, Denies leg edema and Denies palpitations Resp Denies snoring GI Denies constipation, Denies heartburn, Denies diarrhea and Denies nausea Denies urinary frequency, Denies urinary incontinence and Denies urinary urgency Musc Denies abnormal gait, Denies numbness and Denies tingling Skin/Breast Denies dry skin and Denies rash Neuro Denies abnormal gait, Denies vertigo, Denies dizziness, Denies syncope, Denies frequent falls, Reports headache(s), Denies lack of coordination, Denies loss of vision, Denies memory loss, Denies numbness, Denies restless legs, Denies seizure-like activity, Denies tingling, Denies paresthesias, Denies tremor(s) and Denies weakness Psych Denies anxiety, Denies depression, Denies auditory hallucinations, Denies memory loss, Denies visual hallucinations and Denies suicidal ideation Endo Denies fatigue and Denies palpitations Physical Exam Const Other: General Appearance:? normal, in no acute distress. Skin:? no rashes, no significant birthmarks. Heart:? S1, S2 normal, no murmurs. Lungs:? clear anteriorly and posteriorly. Extremities:? no edema. Psych:? alert, oriented, cognitive function intact, cooperative with exam. Neuro Other: Mental Status:?Normal attention, orientation, memory and affect.? Cranial Nerves:?Pupils are equal, round and reactive to light. External occular muscles are intact. Visual simon are full. Face is symmetrical. Facial sensations are normal. Tongue is midline. Palate elevates symmetrically. Shoulder shrugging is normal. Hearing to bedside conversation is normal. Sensory Exam:?....? Coordination:?No ataxia,?no titubation.? Gait Exam: Within normal limits. Cerebellar Signs:?Zftsqn-pj-pqav is okay. Extrapyramidal System:?No tremor, rigidity with normal facial expressions.? Pronator Drift:?Not present.? Involuntary Movements:?No tremors seen.? Speech:?Normal.? Results Reviewed Results Reviewed: CT brain WO at [facility] in Aug 2023: WNL Assessment & Plan Assessment & Plan (1) Migraine without aura: Code(s): G43.009 - Migraine without aura, not intractable, without status migrainosus Category: Medical Qualifiers: Status migrainosus presence: without status migrainosus Intractability: not intractable Qualified Code(s): G43.009 - Migraine without aura, not intractable, without status migrainosus Plan: Stop amitriptyline. Start topiramate 25mg 1 tablet at bedtime x1 week, then 2 tablets at bedtime, use/side effects reviewed. Continue propranolol HCl ER Capsule Extended Release 24 hour 160mg 1 capsule daily. Continue sumatriptan 50mg 1 tablet as needed for migraine (2) Medication overuse headache: Code(s): G44.40 - Drug-induced headache, not elsewhere classified, not intractable Category: Medical Plan: She was educated on this concept and advised to stop using ibuprofen and Tylenol (or other OTC analgesics) completely. Plan Meds tried: amitriptyline (unable to tolerate >25mg), propranolol, sumatriptan Medications: New topiramate 25 mg orally 1 tab at bedtime x1 week then 2 tab at bedtime; 60 tabs 2RF 30 days Coding Level of Care Code Est Pt Level 4 (67354) Diagnoses Migraine without aura and without status migrainosus, not intractable G43.009 Status migrainosus presence: without status migrainosus Intractability: not intractable Medication overuse headache G44.40
[2025-07-06 16:32] VITALS: BP 160/99; PULSE 80
== END 2025-07-06 16:38 | disposition home or self-care (01) ==
LOC: HO.HSM 16:01
PROVIDERS: PCP Internal Medicine; Visit Provider Registered Nurse
DX: G43.009 Migraine without aura, not intractable, without status migrainosus (principal); G44.40 Drug-induced headache, not elsewhere classified, not intractable
CPT/HCPCS: 99214

== ENCOUNTER 2025-07-17 07:05 | Outpatient (REF) | payer OTHER, SELFPAY ==
--- OUTSIDE RECORDS SUMMARY | 2025-07-17 07:09 | XMS_ITS | Clinical Summary ---
Author Organization [facility] Address [address] [place] [address] Phone Care Team Providers Care Venue Attendant Name Role Phone Lev Patrick MD Primary Care Provider [phone] Allergies No known active allergies Medications propranolol [...] Type Department Care Team Description 05/24/2025 Telephone [facility] at [address] [address] Trinity Amador LICSW 05/01/2025 12:50 PM EDT Procedure visit [facility] Rad Onc [address] [place] [address] Hailey Storm MD Sheldon, John M, MD Malignant 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, estrogen receptor positive (Primary Dx) 05/01/2025 Telephone [facility] Rad Onc [address] [place] [phone] Shoshana Victoria RN 04/28/2025 Documentation [facility] Rad [address] [address] Kimi Leone [place] Rad Onc discharge (Malignant 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, estrogen receptor positive) 04/27/2025 12:50 PM EDT Procedure visit [facility] Rad Onc [address] [place] [address] Hailey Storm MD Malignant 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, estrogen receptor positive (Primary Dx) 04/25/2025 Telephone [facility] at [address] [address] Khalida Riley, [facility] Forms & Paperwork 04/20/2025 3:50 PM EDT Procedure visit [facility] Rad Onc [address] [place] [address] Hailey Storm MD Malignant 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, estrogen receptor positive (Primary Dx) 04/20/2025 3:40 PM EDT Office Visit [facility] Rad Onc [address] [place] [address] Hailey Storm MD Malignant 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, estrogen receptor positive (Primary Dx) 04/17/2025 Orders Only [facility] Rad Onc [address] [place] [address] Jenise Palmer RN from Last 3 Months Family History Medical [...] Description 11/09/2025 3:00 PM EST Office Visit [facility] Rad Onc [address] [place] [address] Hailey Storm MD [address] [place] [phone] [email or web address] Health Maintenance Due Date Last Done Comments [...] Most Recently Relevant to Health Maintenance Insurance [facility] [address] [place] [address] [place] [address] [place] [place] [address] [place] [address] [facility] Care Teams Venue Attendant Relationship Specialty Start Date End Date Lev Patrick MD [address] [place] [address] [place] [address] PCP - General Internal Medicine 01/13/25 Additional Source Comments The information contained in this document represents components of the legal health record. It is not the complete legal health record.[facility]
--- OUTSIDE RECORDS SUMMARY | 2025-07-17 07:09 | XMS_ITS | Encounter Summary ---
Author Organization [facility] Address [address] [place] [address] Care Team Providers Care Ios Programmer Name Role Phone Rere Mallory MD Primary Care Provider Darcy Mccormick MD Primary Care Prov ider Encounter Details Date Type Department Care Team Description 09/28/2018 Release of Information Medical Records [address] [place] [address] Abstract, Provider Social History Tobacco Use Types [...] on filedocumented in this encounter Care Teams Ios Programmer Relationship Specialty Start Date End Date Rere Mallory MD PCP - General Internal Medicine 05/22/17 05/27/22 Darcy Fry MD [address] [place] [id number] PCP - General Internal Medicine 05/28/22 documented as of this encounter
[2025-07-17 07:29] LABS: MANUAL DIFF FLAG NO
[2025-07-17 08:01] LABS: Hematocrit 36.7 % (37.0-47.0); Hemoglobin 12.5 g/dl (12.0-16.0); Imm Gran Abs Auto 0.04 X10*3/uL (0.00-0.03); Imm Gran Pct Auto 0.6 % (0.0-0.4); Lymphocytes Absolute Auto 1.3 X10*3/uL (1.2-4.9); Mean Corpuscular HGB Conc 34.1 g/dl (31.0-35.0); Mean Corpuscular Hemoglobin 26.4 pg (27.0-33.0); Mean Corpuscular Volume 77.4 fL (80.0-98.0); NRBC Abs Auto 0.000 X10*3/uL (0.0-0.012); NRBC Pct Auto 0.0 /100WBC (0.0-0.2); Platelet Count 300 X10*3/uL (160-400); Red Blood Count 4.74 X10*6/uL (4.20-5.50); White Blood Count 7.0 X10*3/uL (4.8-10.8)
[2025-07-17 08:10] LABS: Hemoglobin A1C 181.1760 umol/L; Total Hemoglobin (HGBA1C) 3194.1503 umol/L
[2025-07-17 09:01] LABS: Alanine Aminotransferase 48 U/L (0-31); Albumin Level 4.2 g/dL (3.5-5.0); Alkaline Phosphatase 123 U/L (39-117); Anion Gap 13 (12-20); Aspartate Amino Transferase 40 U/L (5-31); Blood Urea Nitrogen 13 mg/dL (9-16); Calcium 8.9 mg/dL (8.4-10.2); Carbon Dioxide 22 mmol/L (22-29); Chloride 109 mmol/L (96-108); Cholesterol 143 mg/dL (<200); Estimated Glomerular Filt Rate > 60; HDL Cholesterol 32 mg/dL (>40); Potassium 3.7 mmol/L (3.3-5.1); Sodium 140 mmol/L (135-145); Total Protein 7.0 g/dL (6.5-8.0); Triglycerides 111 mg/dL (<150)
[2025-07-17 09:26] LABS: Folate 14.4 ng/mL (> or = 4.0); Vitamin B12 367 pg/mL (200-900)
== END 2025-07-17 07:06 | disposition home or self-care (01) ==
LOC: HO.LAB 07:05
PROVIDERS: PCP Internal Medicine; Visit Provider Internal Medicine
DX: Z00.00 Encounter for general adult medical examination without abnormal findings (principal); E11.9 Type 2 diabetes mellitus without complications; E55.9 Vitamin D deficiency, unspecified; E53.8 Deficiency of other specified B group vitamins; D64.9 Anemia, unspecified; E78.00 Pure hypercholesterolemia, unspecified
CPT/HCPCS: 36415; 80053; 80061; 82306; 82607; 82746; 83036; 84443; 85025

== ENCOUNTER 2025-07-18 09:10 | Outpatient (REF) | payer OTHER, SELFPAY ==
[2025-07-18 09:16] LABS: Appearance Urine Cloudy; Glucose Urine UA Negative (Negative); PH 8.0 (5.0-9.0); Specific Gravity - Urine 1.015 (1.005-1.025); UMIC TRIGGER UACC YES
[2025-07-18 09:19] LABS: UACC Culture Trigger YES
[2025-07-18 10:01] LABS: Microalbum/Creatinine Ratio Ur 26.2 ug/mg cr (<30)
--- OUTSIDE RECORDS SUMMARY | 2025-07-18 10:07 | XMS_ITS | Clinical Summary ---
Author Organization [facility] Address [address] [place] [address] Phone Care Team Providers Care Game Manager Name Role Phone Lev Patrick MD Primary Care Provider [phone] Allergies No known active allergies Medications propranolol [...] Type Department Care Team Description 05/24/2025 Telephone [facility] at [address] [address] Trinity Amador LICSW 05/01/2025 12:50 PM EDT Procedure visit [facility] Rad Onc [address] [place] [address] Hailey Storm MD Sheldon, John M, MD Malignant 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, estrogen receptor positive (Primary Dx) 05/01/2025 Telephone [facility] Rad Onc [address] [place] [address] Shoshana Victoria RN 04/28/2025 Documentation [facility] Rad [address] [address] Kimi Leone MA Rad Onc discharge (Malignant 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, estrogen receptor positive) 04/27/2025 12:50 PM EDT Procedure visit [facility] Rad Onc [address] [place] [address] Hailey Storm MD Malignant 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, estrogen receptor positive (Primary Dx) 04/25/2025 Telephone [facility] at [address] [address] Khalida Riley, [facility] Forms & Paperwork 04/20/2025 3:50 PM EDT Procedure visit [facility] Rad Onc [address] [place] [address] Hailey Storm MD Malignant 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, estrogen receptor positive (Primary Dx) 04/20/2025 3:40 PM EDT Office Visit [facility] Rad Onc [address] [place] [address] Hailey Storm MD Malignant 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, estrogen receptor positive (Primary Dx) 04/17/2025 Orders Only [facility] Rad Onc [address] [place] [address] Jenise Palmer RN from Last 3 Months [...] Description 11/09/2025 3:00 PM EST Office Visit [facility] Rad Onc [address] [place] [address] Hailey Storm MD [address] [place] [address] Health Maintenance Due Date Last Done Comments [...] Relevant to Health Maintenance [facility] [address] [place] [place] [address] [place] [place] [address] [place] [address] [place] [address]O [facility] Care Teams Game Manager Relationship Specialty Start Date End Date Lev Patrick MD [address] [place] [address] [place] [address] PCP - General Internal Medicine 01/13/25 Additional Source Comments The information contained in this document represents components of the legal health record. It is not the complete legal health record.[facility]
== END 2025-07-18 09:11 | disposition home or self-care (01) ==
LOC: HO.LNP 09:10
PROVIDERS: Visit Provider Internal Medicine
DX: E11.9 Type 2 diabetes mellitus without complications (principal)
CPT/HCPCS: 81001; 82043; 82570; 87086

== ENCOUNTER 2025-07-24 15:44 | Outpatient (AMB) | payer OTHER, SELFPAY ==
[2025-07-24 16:16] VITALS: BP 120/80; PULSE 85; RESP 18; TEMP 36.3; O2SAT 97; BMI 38.3
--- NOTE | 2025-07-24 16:16 | MHC.PC.OV ---
Vital Signs 07/24/25 16:16 Height 5 ft 3 in Weight 216 lb 8 oz BMI 38.3 BP 120/80 Blood Pressure Location Lt brachial Position Sitting Respiration 18 Pulse 85 Pulse Source Pulse Oximeter Temp 97.3 F Temp Source Temporal Artery Scan Pulse Oximetry (%) 97 Oxygen Delivery Method Room Air Intake Visit Reasons: right breast cancer, HTN, DM, hyperlipidemia Is Technician Required: No Accompanied by: Self / Same As Patient Allergies adhesive tape Allergy (Verified 07/24/25 17:01) Redness of Skin cefuroxime Adverse Reaction (Verified 07/24/25 17:01) Hives flu vaccine Adverse Reaction (Severe, Uncoded 07/24/25 17:01) Hives Medication List - Last Reconciled 07/24/25 by Lev Patrick MD atorvastatin 10 mg PO BEDTIME ayaqiobewc-ephrjvzpffdwc-ljkf 50-325-40 mg 1 cap PO Q6H PRN celecoxib 100 mg PO DAILY diclofenac sodium 50 mg PO Q12H PRN docusate sodium 200 mg (2 x 100 mg) PO BEDTIME esomeprazole magnesium 20 mg PO DAILY fluticasone propionate 50 mcg/actuation (Aller-Abel) 1 spray intranasal BID PRN gabapentin 100 mg PO BEDTIME 30 days letrozole 2.5 mg PO DAILY levonorgestrel (Mirena) 21 mcg intrauterine ONCE lidocaine 5% 1 patch topical DAILY lidocaine HCl 2% (Lidocaine Viscous) 1 appl mucous membrane QID losartan 25 mg PO DAILY metformin ER 500 mg PO QPM 30 days ondansetron 8 mg PO Q8H propranolol ER 160 mg PO DAILY sumatriptan succinate 50 mg PO Q2-4H PRN topiramate 25 mg orally 1 tab at bedtime x1 week then 2 tab at bedtime; 30 days Ventolin HFA 90 mcg/actuation (albuterol sulfate) 2 puffs inhalation Q6H PRN 30 days NS Tobacco use date assessed: 07/24/25 Dental Screening Dental Screen Date: 07/24/25 Did you have a dental visit in the last 12 months?: Yes Did you have a dental problem in the last 6 months where you did not have access to dental care?: No Was dental information given to patient?: Patient has dentist HPI right breast cancer, HTN, DM, hyperlipidemia HPI Details Patient comes in today for her follow-up visit States that she feels okay She denies any dizziness but still has on and off headaches Denies any chest pains, no increased shortness of breath No nausea/vomiting, no abdominal pain No change in bowel habits noted She had her follow-up labs done last week - to discuss her results [facility] Medical History Mixed hyperlipidemia Diabetes mellitus Lumbar spondylosis Back pain COVID-19 HTN (hypertension) Invasive ductal carcinoma of breast Breast mass, right Benign essential hypertension Pure hypercholesterolemia GERD (gastroesophageal reflux disease) Viral upper respiratory tract infection with cough Obesity (BMI 30-39.9) Migraine Asthma Cyst of breast, left, solitary Cough Asthma Laryngitis Allergic rhinosinusitis Surgical History History of lumpectomy of right breast (~08/16/24) Hx of colonoscopy History of breast lump/mass excision H/O section Family History Mother Colon cancer, Onset Age: 42 Diabetes mellitus Father Heart disease Parkinson disease Maternal Grandmother Breast cancer Paternal Grandmother Breast cancer Maternal Grandfather Prostate CA Family/Other Thyroid cancer Other FH: mental illness Substance abuse Social History Household Members: Spouse Housing: House Are you a primary customer care manager to a significant other at home: No Do you presently have visiting nurse or other home services: No Alcohol intake: never Patient Tobacco Use Status: Never used Tobacco e-Cigarette/Vaping Use: Never Used Second Hand Smoke Exposure: No service: No Current occupational status: employed 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 1. Little interest or pleasure in doing things: nearly every day 2. Feeling down, depressed, or hopeless: not at all 3. Trouble falling or staying asleep, or sleeping too much: nearly every day 4. Feeling tired or having little energy: nearly every day 5. Poor appetite or overeating: more than half the days 6. Feeling bad about yourself - or that you are a failure or have let yourself or your family down: not at all 7. Trouble concentrating on things, such as reading the newspaper or watching television: several days 8. Moving or speaking so slowly that other people could have noticed. Or the opposite - being so fidgety or restless that you have been moving around a lot more than usual: more than half the days 9. Thoughts that you would be better off or of hurting yourself in some way: not at all Total score: 14 Depression Screening Interpretation: Positive Depression Screening Follow-up: Existing condition and In treatment Depression Screening Done: Yes [address]62 - PHQ-9 Billing: Yes Source: Developed by Drs. Elfego Morelos, Emani Kelley, Apollo Buchanan and colleagues, with an educational gilson from [employer]. Thrive Questionnaire Date Thrive assessed: 07/24/25 I am a: Patient What is your living situation today?: I have a steady place to live Within the past 12 months, did the food you bought not last and you didn't have the money to get more?: Often true Within the past 12 months, did you worry whether your food would run out before you got money to buy more?: Never true Do you have trouble paying for medicines?: No Do you have trouble getting transportation to medical appointments?: No Do you have trouble paying your heating and electricity bill?: No Do you have trouble taking care of your child, family member or friend?: No Do you have trouble with day-to-day activities such as bathing, preparing meals, shopping, managing finances, etc.?: No Are you currently unemployed and looking for a job?: No Are you interested in more education?: Yes Please select the resources that you would like help with: None Currently or been in a relationship where the following occur: I choose not to answer THRIVE Score: 1 AUDIT C Alcohol Use Questionnaire (AUDIT-C) 1. How often do you have a drink containing alcohol?: Never 3. How often do you have six or more drinks on one occasion?: Never Total Score: 0 Score Reviewed/Action Taken: Yes AYESHA-7 AMB Questionnaire AYESHA-7 Date AYESHA - 7 assessed: 07/24/25 Feeling nervous, anxious, or on edge: 1 = Several days Not being able to stop or control worryin = Several days Worrying too much about different things: 1 = Several days Trouble relaxin = Several days Being so restless that it is hard to sit still: 1 = Several days Becoming easily annoyed or irritable: 1 = Several days Feeling afraid as if something awful might happen: 1 = Several days Total AEYSHA-7 score (0-4 normal; 5-9 mild; 10-14 moderate; 15-21 severe): 7 Source: Developed by Drs. Elfego Morelos, Emani Kelley, Apollo Buchanan and colleagues, with an educational gilson from [employer]. Review of Systems Const Denies chills, Reports fatigue, Denies fever(s) and Reports headache(s) (on and off) ENT Denies dysphagia, Denies dizziness, Denies otalgia, Reports headache(s) (on and off), Denies neck pain, Denies odynophagia and Denies sore throat Card Denies chest pain, Denies rapid heart rate, Denies palpitations and Reports dyspnea on exertion (mild) Resp Denies chest congestion, Denies cough, Reports dyspnea on exertion (mild) and Denies wheezing GI Denies abdominal pain, Reports constipation (improving now), Denies dysphagia, Denies heartburn, Denies diarrhea, Denies nausea, Denies odynophagia and Denies vomiting Denies difficulty voiding, Denies nocturia, Denies dysuria and Denies urinary urgency Musc Denies back pain, Denies arthralgias and Denies neck pain Skin/Breast Denies rash Neuro Denies dizziness, Reports headache(s) (on and off) and Denies paresthesias Psych Reports anxiety and Reports depression Endo Reports fatigue and Denies palpitations Valentino/Lymph Denies easy bruising Aller/Immun Denies wheezing Physical exam (Primary Care) Vital Signs: Last Vital Signs Temp 97.3 F 07/24/25 16:16 Pulse 85 07/24/25 16:16 Resp 18 07/24/25 16:16 BP 120/80 07/24/25 16:16 Pulse Ox 97 07/24/25 16:16 Oxygen Delivery Method Room Air 07/24/25 16:16 BMI result Body Mass Index 38.3 Tobacco/Smoking Status: Tobacco use Status Tobacco use date assessed 07/24/25 07/24/25 16:26 Patient Tobacco Use Status Never used Tobacco 07/24/25 16:26 e-Cigarette/Vaping Use Never Used 07/24/25 16:26 PHQ-9: PHQ-9 Score PHQ-9: Total score 14 07/24/25 17:10 Depression Screening Interpretation: Positive Depression Screening Follow-up: Existing condition and In treatment Thrive Assessment: Date of Thrive Assessment Date Thrive assessed 07/24/25 07/24/25 16:26 Currently or been in a relationship where the following occur: I choose not to answer Const General: no acute distress and alert HENMT Ears: TM's normal bilaterally and EAC's normal Throat: Yes posterior oropharynx normal and Yes tonsils normal (no TP congestion) Neck Neck: Yes supple and No lymphadenopathy Thyroid: Thyroid normal Resp Auscultation: clear to auscultation bilaterally, no rales and no wheezes Cardio Rate: regular rate Rhythm: regular rhythm Heart sounds: no murmurs GI Palpation (GI): Soft to palpation and nontender Auscultation: normal bowel sounds General: Yes no CVA tenderness Back/Spine/Pelvis Back: no CVA tenderness Skin Rashes: no rashes Extrem General: Yes no clubbing, cyanosis or edema Results Reviewed Results Reviewed: Laboratory Tests 07/17/25 07/18/25 07:27 06:26 WBC 7.0 Hgb 12.5 Hct 36.7 L Plt Count 300 Sodium 140 Potassium 3.7 Creatinine 0.76 Estimated GFR > 60 Fasting Glucose 150 H Hemoglobin A1c % 7.3 H Calcium 8.9 AST 40 H ALT 48 H Triglycerides 111 Cholesterol 143 LDL Cholesterol, Calc 89 HDL Cholesterol 32 L Vitamin B12 367 25-OH Vitamin D Total 58.1 TSH 1.99 Ur Specific [place] 1.015 Urine Protein Negative Urine Glucose (UA) Negative Urine Blood Negative Urine Nitrite Negative Ur Leukocyte Esterase Moderate (2+) H Microalb/Creat Ratio 26.2 Coding Level of Care Code Est Pt Level 4 (58815) Diagnoses Malignant neoplasm of right breast in female, estrogen receptor positive, unspecified site of breast C50.911; Z17.0 Breast location: unspecified site of breast Estrogen receptor status: positive Patient sex: female Benign essential hypertension I10 Type 2 diabetes mellitus without complication, without long-term current use of insulin E11.9 Diabetes mellitus type: type 2 Diabetes mellitus middle or intermediate 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 principal insulin use: without middle or intermediate school principal use Diabetes mellitus complication status: without complication Mixed hyperlipidemia E78.2 Constipation, unspecified constipation type K59.00 Constipation type: unspecified constipation type Gastroesophageal reflux disease, unspecified whether esophagitis present K21.9 Esophagitis presence: esophagitis presence not specified Mild intermittent asthma without complication J45.20 Asthma severity: mild Asthma persistence: intermittent Asthma complication type: uncomplicated Migraine without status migrainosus, not intractable, unspecified migraine type G43.909 Migraine type: unspecified Status migrainosus presence: without status migrainosus Intractability: not intractable Lumbar spondylosis M47.816 Obesity (BMI 30-39.9) E66.9 Additional Codes PHQ-9 - 14763 - PHQ-9 Billing: Yes ([id number]) Assessment & Plan Assessment & Plan (1) Breast cancer, right breast: Code(s): C50.911 - Malignant neoplasm of unspecified site of right female breast Category: Medical Qualifiers: Breast location: unspecified site of breast Estrogen receptor status: positive Patient sex: female Qualified Code(s): C50.911 - Malignant neoplasm of unspecified site of right female breast; Z17.0 - Estrogen receptor positive status [ER+] Plan: She was diagnosed with right breast cancer last year and underwent lumpectomy on 08/16/2024 - pathology revealed (+) invasive ductal carcinoma,MSBR rate 3, 2.3 cm She then underwent chemotherapy with Taxol, which she started on 11/17/2024 and completed on 02/09/2025 (total of 12 weeks/cycles) She also underwent and completed postlumpectomy radiation to her right breast - received a total of 28 doses She was then started on entiestrogen therapy with Letrozole 2.5 mg QD, as she is ER/MI positive Follow up with oncology as scheduled (2) Benign essential hypertension: Code(s): I10 - Essential (primary) hypertension Category: Medical Plan: Reinforced low sodium diet - goal is systolic BP of 130 mm or less Continue Propranolol ER 1600 mg QD - dose was raised by neurology a few months ago for her increased headaches She is reminded to continue monitoring her BP regularly (3) Diabetes mellitus: Code(s): E11.9 - Type 2 diabetes mellitus without complications Category: Medical Qualifiers: Diabetes mellitus type: type 2 Diabetes mellitus middle or intermediate school principal insulin use: without fdc use Diabetes mellitus complication status: without complication Qualified Code(s): E11.9 - Type 2 diabetes mellitus without complications Plan: Her HgbA1c was again at 7.3% on her labs done last week (HgbA1c was normal at 5.5% a year ago) Advised patient that goal is to get her HgbA1c down to at least <7.0% but ideally <6.5% Reinforced diabetic diet Continue Metformin ER 500 mg Q PM (4) Mixed hyperlipidemia: Code(s): E78.2 - Mixed hyperlipidemia Category: Medical Plan: Results of her labs done last week reviewed and discussed with patient - her cholesterol levels have improved significantly from previous Reinforced low cholesterol diet Continue Atorvastatin 10 mg Q HS Will recheck her labs and fasting lipids in 4 months for follow up (5) Constipation: Code(s): K59.00 - Constipation, unspecified Category: Medical Qualifiers: Constipation type: unspecified constipation type Qualified Code(s): K59.00 - Constipation, unspecified Plan: Reinforced again increased oral fluids and dietary fiber intake to help her manage her constipation better She is aware that her constipation was mostly related to her opioid Rx (Hydromorphone) - states that she is no longer taking Hydromorphone and has not taken it in a while now Continue Miralax 17 gm QD and Senokot 8.6 mg 2 tablets BID (6) GERD (gastroesophageal reflux disease): Code(s): K21.9 - Gastro-esophageal reflux disease without esophagitis Category: Medical Qualifiers: Esophagitis presence: esophagitis presence not specified Qualified Code(s): K21.9 - Gastro-esophageal reflux disease without esophagitis Plan: Reinforced dietary restrictions Upper GI series done in 2022 confirmed (+) GERD with no other abnormalities Continue Omeprazole 20 mg QD PRN (7) Asthma: Code(s): J45.909 - Unspecified asthma, uncomplicated Category: Medical Qualifiers: Asthma severity: mild Asthma persistence: intermittent Asthma complication type: uncomplicated Qualified Code(s): J45.20 - Mild intermittent asthma, uncomplicated Plan: Controlled Continue Albuterol HFA 1 to 2 inhalations every 6 hours PRN and Montelukast 10 mg QD Follow up with pulmonary (Dr. Gonzalez) as scheduled (8) Migraine: Code(s): G43.909 - Migraine, unspecified, not intractable, without status migrainosus Category: Medical Qualifiers: Migraine type: unspecified Status migrainosus presence: without status migrainosus Intractability: not intractable Qualified Code(s): G43.909 - Migraine, unspecified, not intractable, without status migrainosus Plan: Reinforced avoidance of any potential migraine triggers Patient states that her headaches have increased recently and that is why neurology raised her Propranolol ER to 160 mg QD dose Continue Fioricet PRN and Sumatriptan 50 mg PRN Follow up with neurology as scheduled (9) Lumbar spondylosis: Code(s): M47.816 - Spondylosis without myelopathy or radiculopathy, lumbar region Category: Medical Plan: Lumbar spine x-rays done back in February 2024 revealed (+) mild multilevel lumbar spondylosis with loss of disc space height at L3-L4 and L4-L5 Reinforced activity and weight-lifting restrictions to avoid aggravating her low back pain Can consider referral to physical therapy if her back pain flares up or gets worse (10) Obesity (BMI 30-39.9): Code(s): E66.9 - Obesity, unspecified Category: Medical Plan: Reinforced diet/exercise as tolerated/lose weight Plan To return as scheduled in September 2025 for her annual physical examination Will have patient get her labs rechecked just before she returns for her annual PE in a few months Orders: Orders Complete Blood Count Auto Diff 09/30/25 D64.9 - Anemia, unspecified Microalbumin, Random (w Creat) 09/30/25 E11.9 - Type 2 diabetes mellitus without complications TSH reflex Free T4 09/30/25 E78.00 - Pure hypercholesterolemia, unspecified Vitamin D 25-OH Total 09/30/25 E55.9 - Vitamin D deficiency, unspecified Hemoglobin A1c 09/30/25 E11.9 - Type 2 diabetes mellitus without complications Comprehensive [place]. Panel Fast 09/30/25 E78.00 - Pure hypercholesterolemia, unspecified Lipid Panel 09/30/25 E78.00 - Pure hypercholesterolemia, unspecified MM tomosynthesis diagnostic BI 07/24/25 C50.919 - Malignant neoplasm of unspecified site of unspecified female breast UA CC w/rflx Micro + Cult 09/30/25 R30.0 - Dysuria
--- OUTSIDE RECORDS SUMMARY | 2025-07-24 17:44 | XMS_ITS | Clinical Summary ---
Author Organization [facility] Address [address] [place] [address] Phone Care Team Providers Care Cloth Finishing Range Back Tender Name Role Phone Lev Patrick MD Primary Care Provider [phone] Allergies No known active allergies Medications propranolol [...] Type Department Care Team Description 05/24/2025 Telephone [facility] at [address] [address] Trinity Amador LICSW 05/01/2025 12:50 PM EDT Procedure visit [facility] Rad Onc [address] [place] [address] Hailey Storm MD Sheldon, John M, MD Malignant 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, estrogen receptor positive (Primary Dx) 05/01/2025 Telephone [facility] Rad Onc [address] [place] [address] Shoshana Victoria RN 04/28/2025 Documentation [facility] Rad Onc [address] [place] [address] iKmi Leone MA Rad Onc discharge (Malignant 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, estrogen receptor positive) 04/27/2025 12:50 PM EDT Procedure visit [facility] Rad Onc [address] [place] [address] Hailey Storm MD Malignant 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, estrogen receptor positive (Primary Dx) 04/25/2025 Telephone [facility] at [address] [address] Khalida Riley, [employer] Forms & Paperwork from Last 3 Months Family History Medical [...] Description 11/09/2025 3:00 PM EST Office Visit [facility] Rad Onc [address] [place] [address] Hailey Storm MD [address] [place] [address] [email or web address] Health Maintenance Due Date Last Done Comments [...] SIGMOIDOSCOPY 2023 VIRTUAL COLONOSCOPY 2023 COVID-19 VACCINE (4 - 2023-2 5 season) 2024 12/13/2021, 04/28/2021, [...] Most Recently Relevant to Health Maintenance Insurance [facility] [address] [place], [place] [address] [address] [place] [address] Care Teams Cloth Finishing Range Back Tender Relationship Specialty Start Date End Date Lev Patrick MD [address] [place] [address] [place] [address] PCP - General Internal Medicine 01/13/25 Additional Source Comments The information contained in this document represents components of the legal health record. It is not the complete legal health record.[facility]
== END 2025-07-24 17:15 | disposition home or self-care (01) ==
LOC: HO.HMCH 15:44
PROVIDERS: PCP Internal Medicine; Visit Provider Internal Medicine
DX: E11.69 Type 2 diabetes mellitus with other specified complication (principal); C50.911 Malignant neoplasm of unspecified site of right female breast; E66.9 Obesity, unspecified; Z68.38 Body mass index [BMI] 38.0-38.9, adult; Z17.0 Estrogen receptor positive status [ER+]; I10 Essential (primary) hypertension; E78.2 Mixed hyperlipidemia; K59.00 Constipation, unspecified; K21.9 Gastro-esophageal reflux disease without esophagitis; J45.20 Mild intermittent asthma, uncomplicated; G43.909 Migraine, unspecified, not intractable, without status migrainosus; M47.816 Spondylosis without myelopathy or radiculopathy, lumbar region

== ENCOUNTER → 2025-07-24 15:44 | Outpatient (BNVA) | payer OTHER, SELFPAY | PROVIDERS: PCP Internal Medicine; Visit Provider Internal Medicine | DX: I10 Essential (primary) hypertension (principal); E11.9 Type 2 diabetes mellitus without complications; E78.5 Hyperlipidemia, unspecified; C50.911 Malignant neoplasm of unspecified site of right female breast; E78.2 Mixed hyperlipidemia; K59.00 Constipation, unspecified; K21.9 Gastro-esophageal reflux disease without esophagitis; J45.20 Mild intermittent asthma, uncomplicated; G43.909 Migraine, unspecified, not intractable, without status migrainosus; M47.816 Spondylosis without myelopathy or radiculopathy, lumbar region; E66.9 Obesity, unspecified; Z17.0 Estrogen receptor positive status [ER+]; Z68.38 Body mass index [BMI] 38.0-38.9, adult | CPT/HCPCS: 96127 ==

== ENCOUNTER 2025-08-03 14:06 | Outpatient (REF) | payer OTHER, SELFPAY ==
--- NOTE | ~2025-08-03 | MM_ITS ---
EXAMINATION: MM DIAGNOSTIC DIGITAL BREAST TOMOSYNTHESIS, BILATERAL CLINICAL INFORMATION: History of right breast cancer status post lumpectomy 2023. COMPARISON: Mammography: Comparison is made with relevant prior exams. TECHNIQUE: Digital breast mammography with tomosynthesis is performed in both the craniocaudal and mediolateral oblique views along with computer-aided detection (CAD). FINDINGS: There are scattered areas of fibroglandular density (ACR BI-RADS breast composition Category b). Post right lumpectomy changes. There are no significant masses, abnormal calcifications, or other abnormalities. Results are provided to the patient at time of visit by the technologist. MM/MM tomosynthesis diagnostic BI IMPRESSION: There are no significant changes from prior study. ASSESSMENT: BI-RADS BI-RADS 2 - Benign Findings RECOMMENDATION: 1 year F/U This patient's information was entered into a reminder system with a target due date for their next mammogram. Electronically signed by: Adelina Morley DO 08/03/2025 02:43 PM EDT
--- OUTSIDE RECORDS SUMMARY | 2025-08-03 15:24 | XMS_ITS | Clinical Summary ---
Author Organization [facility] Address [address] [place] [address] Phone Care Team Providers Care Capper Machine Operator Name Role Phone Lev Patrick MD Primary Care Provider [phone] [phone] Allergies No known active allergies Medications propranolol [...] Type Department Care Team Description 05/24/2025 Telephone [facility] at [address] [address] Trinity Amador LICSW from Last 3 Months Family History Medical [...] [facility] Rad Onc [address] [place] [address] Hailey Storm MD [address] [place] [address] .[employer] Health Maintenance Due Date Last Done Comments [...] FOBT 2023 SIGMOIDOSCOPY 2023 VIRTUAL COLONOSCOPY 2023 INFLUENZA VACCINE (#1) 2025 3, 10/01/2007, 11/26/2006 COVID-19 VACCINE ( - 2024-2 6 season) 2025 12/13/2021, 04/28/2021, 04/07/2021 MAMMOGRAM 05/04/2026 05/04/2024, 02/28/2023 [...] not for interpretation. us Unknown Unknown MD [facility] OUTSIDE IMAGING W/OUT INT ERPRETATION Final Result from Last 3 Months or Most Recently Relevant to Health Maintenance [facility] [address] [place] [address] [place], [place] [address]O [facility] Care Teams Capper Machine Operator Relationship Specialty Start Date End Date Lev Patrick MD [address] [place] [address] [address] [place] [address] PCP - General Internal Medicine 01/13/25 Additional Source Comments The information contained in this document represents components of the legal health record. It is not the complete legal health record.[facility]
== END 2025-08-03 14:07 | disposition home or self-care (01) ==
LOC: HO.MAMMO 14:06
PROVIDERS: PCP Internal Medicine; Visit Provider Internal Medicine
DX: Z85.3 Personal history of malignant neoplasm of breast (principal)
CPT/HCPCS: 77062; 77066

== ENCOUNTER → 2025-08-03 14:30 | Outpatient (BNV) | payer OTHER, SELFPAY | PROVIDERS: PCP Internal Medicine; Visit Provider Internal Medicine | DX: Z85.3 Personal history of malignant neoplasm of breast (principal) | CPT/HCPCS: 77062; 77066 ==

== ENCOUNTER → 2025-08-04 08:22 | Outpatient (BNVA) | payer OTHER, SELFPAY | PROVIDERS: PCP Internal Medicine | DX: I10 Essential (primary) hypertension (principal); Z01.31 Encounter for examination of blood pressure with abnormal findings; Z13.89 Encounter for screening for other disorder | CPT/HCPCS: 99499 ==

== ENCOUNTER 2025-09-13 14:59 | Outpatient (AMB) | payer OTHER, SELFPAY ==
--- NOTE | 2025-09-13 15:28 | MHC.OFFVIS ---
Vital Signs 09/13/25 15:33 Height 5 ft 3 in Weight 217 lb 2 oz BMI 38.5 Intake Visit Reasons: 6 m f/up visit, breast exam Intake Note: This patient presents for a six month breast exam. Pt c/o; reports no breast complaints at this time. MAGO: 06/29/2025 Dr. Martin MM Dia08/03/2025 Advertising Operations Coordinator Required: No Accompanied by: Self / Same As Patient Allergies adhesive tape Allergy (Verified 09/13/25 15:34) Redness of Skin cefuroxime Adverse Reaction (Verified 09/13/25 15:34) Hives flu vaccine Adverse Reaction (Severe, Uncoded 09/13/25 15:34) Hives Medication List - Last Reconciled 09/13/25 by Julien Martínez MD atorvastatin 10 mg PO BEDTIME [id number]-bdmemcsmnshen-iwou 50-325-40 mg 1 cap PO Q6H PRN celecoxib 100 mg PO DAILY diclofenac sodium 50 mg PO Q12H PRN docusate sodium 200 mg (2 x 100 mg) PO BEDTIME esomeprazole magnesium 20 mg PO DAILY fluticasone propionate 50 mcg/actuation (Aller-Abel) 1 spray intranasal BID PRN gabapentin 100 mg PO BEDTIME 30 days letrozole 2.5 mg PO DAILY levonorgestrel (Mirena) 21 mcg intrauterine ONCE lidocaine 5% 1 patch topical DAILY lidocaine HCl 2% (Lidocaine Viscous) 1 appl mucous membrane QID losartan 25 mg PO DAILY metformin ER 500 mg PO QPM 30 days ondansetron 8 mg PO Q8H propranolol ER 160 mg PO DAILY sumatriptan succinate 50 mg PO Q2-4H PRN topiramate 50 mg (2 x 25 mg) PO BEDTIME 90 days Ventolin HFA 90 mcg/actuation (albuterol sulfate) 2 puffs inhalation Q6H PRN 30 days NS HPI HPI 6 m f/up visit, breast exam: Details: She is here for follow-up for her history of breast cancer. She had lumpectomy and sentinel node biopsy for a T2 N1 invasive ductal carcinoma of the right breast last July, She has completed chemotherapy with AC for her node positive disease. She has also completed radiation treatment. She is doing well overall. She continues to follow with Dr. Martin. She is currently on letrozole. She had a mammogram last month which was unremarkable. [facility] Medical History (Updated 09/13/25 @ 15:40 by Julien Martínez MD) History of breast cancer Mixed hyperlipidemia Diabetes mellitus Lumbar spondylosis Back pain COVID-19 HTN (hypertension) Invasive ductal carcinoma of breast Breast mass, right Benign essential hypertension Pure hypercholesterolemia GERD (gastroesophageal reflux disease) Viral upper respiratory tract infection with cough Obesity (BMI 30-39.9) Migraine Asthma Cyst of breast, left, solitary Cough Asthma Laryngitis Allergic rhinosinusitis Surgical History History of lumpectomy of right breast (~08/16/24) Hx of colonoscopy History of breast lump/mass excision H/O section Family History Mother Colon cancer, Onset Age: 42 Diabetes mellitus Father Heart disease Parkinson disease Maternal Grandmother Breast cancer Paternal Grandmother Breast cancer Maternal Grandfather Prostate CA Family/Other Thyroid cancer Other FH: mental illness Substance abuse Social History Household Members: Spouse Housing: House Are you a primary plant care worker to a significant other at home: No Do you presently have visiting nurse or other home services: No Alcohol intake: never Patient Tobacco Use Status: Never used Tobacco e-Cigarette/Vaping Use: Never Used Second Hand Smoke Exposure: No service: No Current occupational status: employed 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 [employer] Cognitive needs: No Hearing needs: No Vision needs: Yes Female Reproductive History Menstrual Age of Menarche: 7 Physical Exam Vital Signs: BMI result Body Mass Index 38.5 Const General: comfortable and no acute distress Orientation/consciousness: patient oriented x3 Neck Neck: Yes no lymphadenopathy Chest Other: No palpable breast masses, no nipple or skin changes on left breast, no axillary lymphadenopathy, Radiation changes noted on the right breast Resp Auscultation: clear to auscultation bilaterally Cardio Rhythm: regular rhythm GI Palpation (GI): Soft to palpation, nontender and no guarding Neuro General: patient oriented x3 Assessment & Plan Assessment & Plan (1) History of breast cancer: Code(s): Z85.3 - Personal history of malignant neoplasm of breast Category: Medical Plan: I reviewed her last mammogram last month and this was unremarkable. A repeat mammogram is recommended in 1 year Current exam does not suggest any new mass her signs of recurrence. This she has no axillary lymphadenopathy I counseled her on the benefits of weight loss. She says that she plans to see the weight management clinic I will see her in the office in about 6 months. She is also to continue to follow up with Dr. Martin. Coding Level of Care Code Est Pt Level 3 (60576) Diagnoses History of breast cancer Z85.3
[2025-09-13 15:33] VITALS: BMI 38.5
--- OUTSIDE RECORDS SUMMARY | 2025-09-13 18:43 | XMS_ITS | Clinical Summary ---
Author Organization [facility] Address [address] [place] [address] Phone Care Team Providers Care Deputy Sheriff Court Services Name Role Phone Lev Patrick MD Primary Care Provider [phone] [phone] Allergies No known active allergies Medications propranolol [...] breast in female, estrogen receptor positive 03/23/2025 Family History Medical History Relation Comments Breast [...] Description 11/09/2025 3:00 PM EST Office Visit [facility] Rad Onc [address] [place] [address] Hailey Storm MD [address] [place] [address] Health Maintenance Due Date Last Done Comments [...] (#1) 2025 3, 10/01/2007, 11/26/2006 COVID-19 VACCINE (2024-2 6 season) 2025 12/13/2021, 04/28/2021, 04/07/2021 MAMMOGRAM [...] Interpretation) (05/04/2024 12:00 AM EDT) Narrative Record, - 07/27/2024 11:38 AM EDT This study is for PACS storage only and not for interpretation. Procedure Note Record, 07/27/2024 This study is for PACS storage only and not for interpretation. us Unknown Unknown MD [facility] OUTSIDE IMAGING W/OUT INT ERPRETATION Final Result from Last 3 Months or Most Recently Relevant to Health Maintenance Insurance [place] [address] [place] [address] [place] [address] [place] [address] [facility] Care Teams Deputy Sheriff Court Services Relationship Specialty Start Date End Date Lev Patrick MD [address] [place] [address] [place] [address] PCP - General Internal Medicine 01/13/25 Additional Source Comments The information contained in this document represents components of the legal health record. It is not the complete legal health record.[facility]
== END 2025-09-13 16:01 | disposition home or self-care (01) ==
LOC: HO.HGS 15:00
PROVIDERS: PCP Internal Medicine; Visit Provider Surgery
DX: Z85.3 Personal history of malignant neoplasm of breast (principal)
CPT/HCPCS: 99213

== ENCOUNTER 2025-09-22 08:47 | Outpatient (REF) | payer OTHER, SELFPAY ==
[2025-09-22 10:00] LABS: MANUAL DIFF FLAG NO
--- OUTSIDE RECORDS SUMMARY | 2025-09-22 10:37 | XMS_ITS | Clinical Summary ---
Author Organization [facility] Address [address] [place] [address] Phone Care Team Providers Care Automation Test Developer Name Role Phone Lev Patrick MD Primary Care Provider [phone] [phone] Allergies No known active allergies Medications propranolol [...] Care Team (Late st Contact Info) Description 11/13/2025 2:30 PM EST Office Visit [facility] Rad Onc [address] [place] [address] Hailey Storm MD [address] [place], [place] [id number] Health Maintenance Due Date Last Done Comments [...] to Health Maintenance Insurance [place] [address] [place] [address] [place] [address] [place] [address]O [facility] Care Teams Automation Test Developer Relationship Specialty Start Date End Date Lev Patrick MD [address] [place] [address] [place] [address] PCP - General Internal Medicine 01/13/25 Additional Source Comments The information contained in this document represents components of the legal health record. It is not the complete legal health record.[facility]
[2025-09-22 10:51] LABS: Hematocrit 40.1 % (37.0-47.0); Hemoglobin 13.0 g/dl (12.0-16.0); Imm Gran Abs Auto 0.03 X10*3/uL (0.00-0.03); Imm Gran Pct Auto 0.3 % (0.0-0.4); Lymphocytes Absolute Auto 1.6 X10*3/uL (1.2-4.9); Mean Corpuscular HGB Conc 32.4 g/dl (31.0-35.0); Mean Corpuscular Hemoglobin 26.1 pg (27.0-33.0); Mean Corpuscular Volume 80.4 fL (80.0-98.0); NRBC Abs Auto 0.000 X10*3/uL (0.0-0.012); NRBC Pct Auto 0.0 /100WBC (0.0-0.2); Platelet Count 368 X10*3/uL (160-400); Red Blood Count 4.99 X10*6/uL (4.20-5.50); White Blood Count 8.9 X10*3/uL (4.8-10.8)
[2025-09-22 11:35] LABS: Alanine Aminotransferase 47 U/L (0-31); Albumin Level 4.5 g/dL (3.5-5.0); Alkaline Phosphatase 133 U/L (39-117); Anion Gap 11 (12-20); Aspartate Amino Transferase 31 U/L (5-31); Blood Urea Nitrogen 10 mg/dL (9-16); Calcium 9.4 mg/dL (8.4-10.2); Carbon Dioxide 25 mmol/L (22-29); Chloride 110 mmol/L (96-108); Cholesterol 142 mg/dL (<200); Estimated Glomerular Filt Rate > 60; HDL Cholesterol 38 mg/dL (>40); Potassium 3.7 mmol/L (3.3-5.1); Sodium 142 mmol/L (135-145); Total Protein 7.6 g/dL (6.5-8.0); Triglycerides 105 mg/dL (<150)
[2025-09-22 11:56] LABS: Appearance Urine Clear; Glucose Urine UA Negative (Negative); PH 7.0 (5.0-9.0); Specific Gravity - Urine <= 1.005 (1.005-1.025); UMIC TRIGGER UACC YES
[2025-09-22 12:34] LABS: Microalbum/Creatinine Ratio Ur 57.8 ug/mg cr (<30)
[2025-09-22 13:07] LABS: UACC Culture Trigger YES
[2025-09-23 04:54] LABS: Bacterial Vaginosis PCR NEGATIVE (Negative); Candida Group PCR NOT DETECTED (Not Detect); Candida glab krusei PCR NOT DETECTED (Not Detect); Trichomonas vaginalis PCR NOT DETECTED (Not Detect)
[2025-09-23 05:24] LABS: CT PCR NOT DETECTED (Not Detect.); NG PCR NOT DETECTED (Not Detect.)
== END 2025-09-22 08:48 | disposition home or self-care (01) ==
LOC: HO.LAB 08:47
PROVIDERS: Absent Provider Internal Medicine; PCP Internal Medicine; Visit Provider Advanced Practice Midwife
DX: Z01.419 Encounter for gynecological examination (general) (routine) without abnormal findings (principal); Z20.2 Contact with and (suspected) exposure to infections with a predominantly sexual mode of transmission; C50.911 Malignant neoplasm of unspecified site of right female breast; E66.9 Obesity, unspecified; E11.9 Type 2 diabetes mellitus without complications; E55.9 Vitamin D deficiency, unspecified; D64.9 Anemia, unspecified; E78.00 Pure hypercholesterolemia, unspecified; Z68.37 Body mass index [BMI] 37.0-37.9, adult; Z79.899 Other long term (current) drug therapy; Z79.84 Long term (current) use of oral hypoglycemic drugs; Z80.0 Family history of malignant neoplasm of digestive organs; Z17.0 Estrogen receptor positive status [ER+]; Z97.5 Presence of (intrauterine) contraceptive device
CPT/HCPCS: 36415; 80053; 80061; 81001; 81515; 82043; 82306; 82570; 83036; 84443; 85025; 87086; 87491; 87591

== ENCOUNTER 2025-09-22 08:47 | Outpatient (AMB) | payer OTHER, SELFPAY ==
--- NOTE | 2025-09-22 08:49 | MHC.OFFVIS ---
Vital Signs 09/22/25 08:53 Height 5 ft 3 in Weight 210 lb BMI 37.2 BP 122/86 Intake Visit Reasons: WATER QUALITY SPECIALIST annual exam Armed Custom Protection Officer Required: No Information Interpreted: non-clinical & clinical Park Interpretive Specialist: Park Interpretive Specialist Present (Kayley ELIZABETH) Accompanied by: Self / Same As Patient Allergies adhesive tape Allergy (Verified 09/22/25 08:54) Redness of Skin cefuroxime Adverse Reaction (Verified 09/22/25 08:54) Hives flu vaccine Adverse Reaction (Severe, Uncoded 09/22/25 08:54) Hives Medication List - Last Reconciled 09/22/25 by Sasha Purcell CNM atorvastatin 10 mg PO BEDTIME ujoxocrndc-rwjwlsjwrpspz-mnpo 50-325-40 mg 1 cap PO Q6H PRN celecoxib 100 mg PO DAILY diclofenac sodium 50 mg PO Q12H PRN docusate sodium 200 mg (2 x 100 mg) PO BEDTIME esomeprazole magnesium 20 mg PO DAILY fluticasone propionate 50 mcg/actuation (Aller-Abel) 1 spray intranasal BID PRN gabapentin 100 mg PO BEDTIME 30 days letrozole 2.5 mg PO DAILY levonorgestrel (Mirena) 21 mcg intrauterine ONCE lidocaine 5% 1 patch topical DAILY losartan 25 mg PO DAILY metformin ER 500 mg PO QPM 30 days ondansetron 8 mg PO Q8H propranolol ER 160 mg PO DAILY sumatriptan succinate 50 mg PO Q2-4H PRN topiramate 50 mg (2 x 25 mg) PO BEDTIME 90 days Ventolin HFA 90 mcg/actuation (albuterol sulfate) 2 puffs inhalation Q6H PRN 30 days NS HPI HPI WATER QUALITY SPECIALIST annual exam: Details: Patient is 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 She does not get periods because she has a Mirena IUD she thinks it is in less than 5 years. She was getting some spotting but it has disappeared since she underwent chemotherapy for her breast cancer she had a lumpectomy and then chemo . She is on letrozole per Dr. Martin she does wonder about interactions with that and the Mirena she has been noticing her joints hurting her. She saw Dr. Martínez recently and her primary recently she is working on weight loss and she will be going to the weight management program she is not really interested in injections she wants to hear what they have to offer. Says she did gain a lot a weight going through the cancer. She is also going through divorce. She does have support. [facility] Medical History (Updated 09/22/25 @ 10:52 by Sasha Purcell CNM) History of breast cancer Mixed hyperlipidemia Diabetes mellitus Lumbar spondylosis Back pain COVID-19 HTN (hypertension) Invasive ductal carcinoma of breast Breast mass, right Benign essential hypertension Pure hypercholesterolemia GERD (gastroesophageal reflux disease) Viral upper respiratory tract infection with cough Obesity (BMI 30-39.9) Migraine Asthma Cyst of breast, left, solitary Cough Asthma Laryngitis Allergic rhinosinusitis Surgical History History of lumpectomy of right breast (~08/16/24) Hx of colonoscopy History of breast lump/mass excision H/O section Family History Mother Colon cancer, Onset Age: 42 Diabetes mellitus Father Heart disease Parkinson disease Maternal Grandmother Breast cancer Paternal Grandmother Breast cancer Maternal Grandfather Prostate CA Family/Other Thyroid cancer Other FH: mental illness Substance abuse Social History (Updated 09/22/25 @ 08:58 by Kayley Villafuerte CMA) Household Members: None Housing: House Are you a primary client care representative to a significant other at home: No Do you presently have visiting nurse or other home services: No Alcohol intake: never Patient Tobacco Use Status: Never used Tobacco e-Cigarette/Vaping Use: Never Used Second Hand Smoke Exposure: No service: No Current occupational status: employed 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 [employer] Sexual orientation: Straight/Heterosexual Gender identity: Female Cognitive needs: No Hearing needs: No Vision needs: Yes Female Reproductive History Menstrual Age of Menarche: 7 control method: progestin IUCD Full term: 2 Number of Living Children: 1 Ab spontaneous: 1 Date of last pap smear: 05/25/23 Date of Mammogram: 08/03/25 Physical Exam Vital Signs: Last Vital Signs BP 122/86 09/22/25 08:53 BMI result Body Mass Index 37.2 Const General: healthy appearing, comfortable, no acute distress, well developed and alert Nutritional Appearance: average body habitus and obese Orientation/consciousness: patient oriented x3 Limitations: no limitations HEENT Head: Yes normocephalic Neck Neck: Yes normal visual inspection Chest Other: Very well healed tiny scar at upper border of right nipple. No mass palpated. Chest palpation & inspection: normal inspection of the chest Breast/axilla inspection: normal inspection of the breasts and normal inspection of the axillae Breast/axilla palpation: normal palpation of the breasts and normal palpation of the axillae Resp Effort & Inspection: normal respiratory effort GI Inspection: Yes normal to inspection, No Abdominal wall edema and No distended Palpation (GI): Soft to palpation and nontender Other: External exam within normal limits vagina pink and moist cervix pink smooth Mirena string visible. Cervix long close thick mobile nontender uterus difficult to feel secondary to adipose but does not feel enlarged or tender no adnexal tenderness good muscle tone. General: Yes bladder normal to palpation External Female Exam: normal external appearance and normal appearance of the urethra Speculum Exam - Vagina: normal appearance of the vagina, normal palpation and normal vaginal discharge Speculum Exam - Cervix: normal appearance of the cervix, normal palpation and nontender Bimanual exam- vagina & uterus: normal bimanual exam, normal palpation, uterine size normal, bladder normal to palpation, consistency normal, normal palpation, uterine mobility normal, uterine shape normal, No Cervical tenderness present, non-tender and no cervical motion tenderness Bimanual Exam- Adnexa, other: normal adnexae, no masses, normal and No adnexal tenderness Neuro General: patient oriented x3 Assessment & Plan Assessment & Plan (1) Cervical cancer screening: Comment: Pap done 05/22/2023/= negative with negative HPV. Code(s): Z12.4 - Encounter for screening for malignant neoplasm of cervix Category: Medical (2) Presence of 52 mg levonorgestrel-releasing intrauterine device (IUD): Comment: Thinks it was inserted well before 2018, strings are visible, will plan replacement in near future. IUD removed and new 1 inserted 07/14/2023, to 9 cm sounded uterus. Code(s): Z97.5 - Presence of (intrauterine) contraceptive device Category: Social Hx (3) Invasive ductal carcinoma of breast: Code(s): C50.919 - Malignant neoplasm of unspecified site of unspecified female breast Category: Medical (4) Breast cancer, right breast: Code(s): C50.911 - Malignant neoplasm of unspecified site of right female breast Category: Medical Qualifiers: Breast location: unspecified site of breast Estrogen receptor status: positive Patient sex: female Qualified Code(s): C50.911 - Malignant neoplasm of unspecified site of right female breast; Z17.0 - Estrogen receptor positive status [ER+] (5) Obesity (BMI 30-39.9): Code(s): E66.9 - Obesity, unspecified Category: Medical (6) Family hx of colorectal cancer: Comment: Patient's mother diagnosed at age 42 and age 52 with CRC. Last colonoscopy in January of 2022 showed tubular adenoma. Code(s): Z80.0 - Family history of malignant neoplasm of digestive organs Category: Medical (7) Well woman exam with routine gynecological exam: Code(s): Z01.419 - Encounter for gynecological examination (general) (routine) without abnormal findings Category: Medical Plan Patient is following with all of her other providers. It has been a challenging time she does feel she has had support. She is going through a divorce as well and that is challenging too. She is getting all of her other screening and she is up-to-date on everything. She will be seeing weight management to discuss how to augment her weight loss efforts. Discussed the IUD she was wondering about whether not it was interacting with the letrozole and vice versa contributing to joint pain I suggested she might want to discuss her symptoms with Dr. Martin and her other providers. I was not familiar with joint pain being a particular Mirena side effect. Discussed why she had the IUD placed in the 1st place it was for combination of control and heavy bleeding. Even though she is no longer sexually active for the last year and has no plans to be and she was contemplating removing it she would not want to return to her heavy periods so therefore she may want to leave it in as long as it can be useful to her is not bothering her. RTC 1 year. Orders: Orders CT NG by PCR Vag/Cerv Today Z01.419 - Encounter for gynecological examination (general) (routine) without abnormal findings Bacterial Vaginosis Panel Today Z01.419 - Encounter for gynecological examination (general) (routine) without abnormal findings Coding Level of Care Code Est Pt Prev Care 40-64y(22036) Diagnoses Cervical cancer screening Z12.4 Presence of 52 mg levonorgestrel-releasing intrauterine device (IUD) Z97.5 Invasive ductal carcinoma of breast C50.919 Malignant neoplasm of right breast in female, estrogen receptor positive, unspecified site of breast C50.911; Z17.0 Breast location: unspecified site of breast Estrogen receptor status: positive Patient sex: female Obesity (BMI 30-39.9) E66.9 Family hx of colorectal cancer Z80.0 Well woman exam with routine gynecological exam Z01.419
[2025-09-22 08:53] VITALS: BP 122/86; BMI 37.2
== END 2025-09-22 09:41 | disposition home or self-care (01) ==
LOC: HO.HWS 08:47
PROVIDERS: PCP Internal Medicine; Visit Provider Advanced Practice Midwife
DX: Z01.419 Encounter for gynecological examination (general) (routine) without abnormal findings (principal); C50.911 Malignant neoplasm of unspecified site of right female breast; Z17.0 Estrogen receptor positive status [ER+]; E66.9 Obesity, unspecified; Z68.37 Body mass index [BMI] 37.0-37.9, adult; Z80.0 Family history of malignant neoplasm of digestive organs; Z97.5 Presence of (intrauterine) contraceptive device
CPT/HCPCS: 99396; 99459

== ENCOUNTER 2025-10-12 08:00 | Outpatient (AMB) | payer OTHER, SELFPAY ==
--- NOTE | 2025-10-12 08:18 | A.OFFVIS_ITS ---
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 BMI 37.6 Allergies adhesive tape Allergy (Verified 10/12/25 08:18) Redness of Skin cefuroxime Adverse Reaction (Verified 10/12/25 08:18) Hives flu vaccine Adverse Reaction (Severe, Uncoded 10/12/25 08:18) Hives Medication List - Last Reconciled 10/12/25 by Dillon Benavides MD atorvastatin 10 mg PO BEDTIME elyrzbnbjq-tlljeolqnitou-nuih 50-325-40 mg 1 cap PO Q6H PRN celecoxib 100 mg PO DAILY diclofenac sodium 50 mg PO Q12H PRN docusate sodium 200 mg (2 x 100 mg) PO BEDTIME esomeprazole magnesium 20 mg PO DAILY fluticasone propionate 50 mcg/actuation (Aller-Abel) 1 spray intranasal BID PRN gabapentin 100 mg PO BEDTIME 30 days letrozole 2.5 mg PO DAILY levonorgestrel (Mirena) 21 mcg intrauterine ONCE lidocaine 5% 1 patch topical DAILY losartan 25 mg PO DAILY metformin ER 500 mg PO QPM 30 days ondansetron 8 mg PO Q8H propranolol ER 160 mg PO DAILY sumatriptan succinate 50 mg PO Q2-4H PRN Ventolin HFA 90 mcg/actuation (albuterol sulfate) 2 puffs inhalation Q6H PRN 30 days NS HPI HPI 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 BMI 37.6: Details: Start time: 8.15am, End time: 9am ?I spent 40 minutes speaking with the patient on the phone plus an additional 5 minutes reviewing and updating records for a total of 45 minutes HPI Comments Details: Previous weight loss efforts: self diets and exercise Wakes up: 6am, Sleeps: 9pm Breakfast: skips Lunch: 12pm (frozen Malini Ricardo meal) Dinner: 8pm (rice and beans, salad, fast food) Snacks: 10am (fruits, granola bars), 5pm (chips, granola bar), sometimes Exercise: has a home walking pad no incline but tracks calories Beverages: Coffee: rarely, Tea: rarely, Soda: none, Juice: 2/wk (lemonade), ETOH: none PFSH Medical History (Updated 10/12/25 @ 08:26 by Dillon Benavides MD) Non-insulin dependent type 2 diabetes mellitus BMI 37.0-37.9, adult History of breast cancer Mixed hyperlipidemia Diabetes mellitus Lumbar spondylosis Back pain COVID-19 HTN (hypertension) Invasive ductal carcinoma of breast Breast mass, right Benign essential hypertension Pure hypercholesterolemia GERD (gastroesophageal reflux disease) Viral upper respiratory tract infection with cough Obesity (BMI 30-39.9) Migraine Asthma Cyst of breast, left, solitary Cough Asthma Laryngitis Allergic rhinosinusitis Surgical History History of lumpectomy of right breast (~08/16/24) Hx of colonoscopy History of breast lump/mass excision H/O section Family History Mother Colon cancer, Onset Age: 42 Diabetes mellitus Father Heart disease Parkinson disease Maternal Grandmother Breast cancer Paternal Grandmother Breast cancer Maternal Grandfather Prostate CA Family/Other Thyroid cancer Other FH: mental illness Substance abuse Social History Household Members: None Housing: House Are you a primary women's health care nurse practitioner to a significant other at home: No Do you presently have visiting nurse or other home services: No Alcohol intake: never Patient Tobacco Use Status: Never used Tobacco e-Cigarette/Vaping Use: Never Used Second Hand Smoke Exposure: No service: No Current occupational status: employed 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 Sexual orientation: Straight/Heterosexual Gender identity: Female Cognitive needs: No Hearing needs: No Vision needs: Yes Female Reproductive History Menstrual Age of Menarche: 7 Telehealth Telehealth Telehealth Platform: Telephone Location of provider rendering services: practice address Location of patient: address on file Patient Identification confirmed using: Name, : Yes Telehealth method: voice only Patient verbally consented to treatment: Yes Patient verbally consented to billing insurance company: Yes Patient informed of any privacy concerns related to visit: Yes Minutes spent on Phone/Video with Pt.: 45 Assessment & Plan Assessment & Plan (1) Obesity (BMI 30-39.9): Code(s): E66.9 - Obesity, unspecified Category: Medical Plan: 1.? Plan for lap sleeve gastrectomy. If diaphragmatic or ventral hernias are present at time of surgery, these will be repaired laparoscopically as well. I emphasized the importance of close follow-up, adherence to instructions and good communication. The surgery does not replace the need to change your lifestlyle which is the cause of the obesity problem. The surgery provides the motivation to try again to change your lifestyle, it reduces the appetite and make the transition to a better lifestyle easier and doubles the amount of weight you would lose compared to doing the lifestyle change without the surgery. You will need to be on a liquid diet with protein shakes for 2 weeks before surgery to maximize weight loss and boost your nutritional status to recover better from surgery and also for the first two weeks after surgery to let the stomach heal before we introduce other foods. After the first 2 weeks we will introduce protein bars and soft foods like scrambled eggs, cottage cheese and yogurt and after the 6th week will introduce meat, fish and cooked vegetables in small amounts. Over time you should be able to eat everything in small amounts. Side effects like nausea, vomiting, heartburn or abdominal pain are not common in the practice unless you are not following in the practice. This operation requires lifetime commitment to following in our practice and communication with me. You will much less weight and experience side effects if you don?t communicate or not following in the practice. Complications are rare and in our practice is about 1/10 of the national average. However, you can develop bleeding that may require transfusion (hasn?t happened for year in the practice), you may from complications (we did not have any deaths in the practice) and infections. Infections are usually a result of breakdown in communication or not understanding or following directions correctly. They are difficult to treat, they can happen during the first 6 weeks, they may require to be in the hospital for weeks or even months, not being able to eat by mouth and you may have drains and surgeries to try and correct the issue. Other risks and complications include possible conversion to an open procedure, leaks, small bowel obstruction, blood clots, cardiac, or pulmonary complications, as terminal superintendent complications such as ulcers, insufficient weight loss and vitamin deficiencies. 2. Nutritional counseling. Start with one CELEBRATE REBUILD protein (buy online with the link I gave you) shakes (ONE scoop in 8oz low fat unsweetened almond milk each) at 7am-9am, 1 protein bar (CELEBRATE protein bars, buy at [facility] [employer] shop, buy online with the link I gave you) ) at 10am-12pm, another CELEBRATE REBUILD protein shakes (ONE scoop in 8oz low fat unsweetened almond milk each) at 1pm-3pm, dinner at 5pm (8 forks of protein and 8 forks of salad/vegetables) AND another Celebrate protein bar at 7pm-9pm So you do 2 protein shakes, 2 protein bars and one meal per day. Meal to include lean meat (beef, fish, pork, turkey, chicken), or belarusian yogurt, or egg whites, or beans with a salad with olive oil and fruits (berries, pears, apples, kiwi). Avoid salt, breads, potatoes, rice, pasta, desserts. 3. Each shake would be drunk slowly, like coffee in a period of 2 hours. 4. Cut each bar in 4 pieces and eat each piece in 30min ?to make each bar last 2 hours. 5. I emphasized the importance of measuring accurately the food portion and measure it when serving the food in plate 6. The meal portions include 8 full-size forks of meat and 8 full-size forks of salad. You always eat the meat portion but you can replace up to 4 forks for salad/vegetables with rice, potatoes or pasta, or a fruit ?if you like. The less you do it the better weight loss will be. 7. One full-size fork is what it can be scooped on the fork without falling aside and not what can be bit with the fork. Use regular forks like those you find in a typical restaurant. 8.? Please buy the body composition scale we discussed and send me weight measurements as soon as possible and then once a week. Always include your diet and exercise plan. 9. Start treadmill with a speed of 3.5. Goal is to burn 2000 calories per week on exercise, which means either 300 calories daily. 10. The best choice would be to purchase a stationary bike at home that can track calories. Let me know if you do so I can give you an exercise plan. 11.?It is important of avoiding and for at least 18 months postoperatively and has been discussed at the infosession. 12. Goal is to lose at least 1.5-2lbs per week 13. Goal to lose 10% of your weight before surgery, which is about 12lbs. Ultimate weight goal: 190lbs before surgery 14. Please follow the diet plan exactly without any change. If you don't like something about the plan or you feel hungry you need to communicate with me so I can help you revise the plan. You should not change the plan yourself 15. To be scheduled for EGD to assess the stomach's anatomy. The possibility of biopsies was discussed. Patient needs to avoid use of NSAIDs and aspirin for 1 week prior to EGD. You must be on liquids only the day before your endoscopy. Risks of perforation and bleeding was discussed with the patient. This will be an outpatient procedure with IV sedation. 16. I ordered a medication to help you with the diabetes which is called Linette. My office will try to authorize it. Please let me know when you receive it so I can give you a meal and exercise plan. Common side effects include nausea, vomiting, constipation, diarrhea, abdominal pain. Please let me know if you develop any of these symptoms. Orders: Orders Insulin Today E11.9 - Type 2 diabetes mellitus without complications, E66.9 - Obesity, unspecified, E78.2 - Mixed hyperlipidemia, I10 - Essential (primary) hypertension, J45.909 - Unspecified asthma, uncomplicated, K21.9 - Gastro- esophageal reflux disease without esophagitis, Z68.37 - Body mass index [BMI] 37.0-37.9, adult Hemoglobin A1c Today E11.9 - Type 2 diabetes mellitus without complications, E66.9 - Obesity, unspecified, E78.2 - Mixed hyperlipidemia, I10 - Essential (primary) hypertension, J45.909 - Unspecified asthma, uncomplicated, K21.9 - Gastro-esophageal reflux disease without esophagitis, Z68.37 - Body mass index [BMI] 37.0-37.9, adult Complete Blood Count Auto Diff Today E11.9 - Type 2 diabetes mellitus without complications, E66.9 - Obesity, unspecified, E78.2 - Mixed hyperlipidemia, I10 - Essential (primary) hypertension, J45.909 - Unspecified asthma, uncomplicated, K21.9 - Gastro-esophageal reflux disease without esophagitis, Z68.37 - Body mass index [BMI] 37.0-37.9, adult Lipid Panel Today E11.9 - Type 2 diabetes mellitus without complications, E66.9 - Obesity, unspecified, E78.2 - Mixed hyperlipidemia, I10 - Essential (primary) hypertension, J45.909 - Unspecified asthma, uncomplicated, K21.9 - Gastro-es ophageal reflux disease without esophagitis, Z68.37 - Body mass index [BMI] 37.0-37.9, adult IRON PROFILE Today E11.9 - Type 2 diabetes mellitus without complications, E66.9 - Obesity, unspecified, E78.2 - Mixed hyperlipidemia, I10 - Essential (primary) hypertension, J45.909 - Unspecified asthma, uncomplicated, K21.9 - Gastro-esophageal reflux disease without esophagitis, Z68.37 - Body mass index [BMI] 37.0-37.9, adult Comprehensive Met. Panel Today E11.9 - Type 2 diabetes mellitus without complications, E66.9 - Obesity, unspecified, E78.2 - Mixed hyperlipidemia, I10 - Essential (primary) hypertension, J45.909 - Unspecified asthma, uncomplicated, K21.9 - Gastro-esophageal reflux disease without esophagitis, Z68.37 - Body mass index [BMI] 37.0-37.9, adult C Reactive Protein Today E11.9 - Type 2 diabetes mellitus without complications, E66.9 - Obesity, unspecified, E78.2 - Mixed hyperlipidemia, I10 - Essential (primary) hypertension, J45.909 - Unspecified asthma, uncomplicated, K21.9 - Gastro-esophageal reflux disease without esophagitis, Z68.37 - Body mass index [BMI] 37.0-37.9, adult Vitamin B1 Today E11.9 - Type 2 diabetes mellitus without complications, E66.9 - Obesity, unspecified, E78.2 - Mixed hyperlipidemia, I10 - Essential (primary) hypertension, J45.909 - Unspecified asthma, uncomplicated, K21.9 - Gastro- esophageal reflux disease without esophagitis, Z68.37 - Body mass index [BMI] 37.0-37.9, adult Vitamin A Today E11.9 - Type 2 diabetes mellitus without complications, E66.9 - Obesity, unspecified, E78.2 - Mixed hyperlipidemia, I10 - Essential (primary) hypertension, J45.909 - Unspecified asthma, uncomplicated, K21.9 - Gastro-esop hageal reflux disease without esophagitis, Z68.37 - Body mass index [BMI] 37.0- 37.9, adult Ferritin Today E11.9 - Type 2 diabetes mellitus without complications, E66.9 - Obesity, unspecified, E78.2 - Mixed hyperlipidemia, I10 - Essential (primary) hypertension, J45.909 - Unspecified asthma, uncomplicated, K21.9 - Gastro- esophageal reflux disease without esophagitis, Z68.37 - Body mass index [BMI] 37.0-37.9, adult US abdomen comp w elastography Today E11.9 - Type 2 diabetes mellitus without complications, E66.9 - Obesity, unspecified, E78.2 - Mixed hyperlipidemia, I10 - Essential (primary) hypertension, J45.909 - Unspecified asthma, uncomplicated, K21.9 - Gastro-esophageal reflux disease without esophagitis, Z68.37 - Body mass index [BMI] 37.0-37.9, adult XR chest 2V Today E11.9 - Type 2 diabetes mellitus without complications, E66.9 - Obesity, unspecified, E78.2 - Mixed hyperlipidemia, I10 - Essential (primary) hypertension, J45.909 - Unspecified asthma, uncomplicated, K21.9 - Gastro- esophageal reflux disease without esophagitis, Z68.37 - Body mass index [BMI] 37.0-37.9, adult ECG 12 lead EKG Today E11.9 - Type 2 diabetes mellitus without complications, E66.9 - Obesity, unspecified, E78.2 - Mixed hyperlipidemia, I10 - Essential (primary) hypertension, J45.909 - Unspecified asthma, uncomplicated, K21.9 - Gastro-esophageal reflux disease without esophagitis, Z68.37 - Body mass index [BMI] 37.0-37.9, adult H Pylori Breath Test Today E11.9 - Type 2 diabetes mellitus without complications, E66.9 - Obesity, unspecified, E78.2 - Mixed hyperlipidemia, I10 - Essential (primary) hypertension, J45.909 - Unspecified asthma, uncomplicated, K21.9 - Gastro-esophageal reflux disease without esophagitis, Z68.37 - Body mass index [BMI] 37.0-37.9, adult Vitamin B12 and Folate Today E11.9 - Type 2 diabetes mellitus without com plications, E66.9 - Obesity, unspecified, E78.2 - Mixed hyperlipidemia, I10 - Essential (primary) hypertension, J45.909 - Unspecified asthma, uncomplicated, K21.9 - Gastro-esophageal reflux disease without esophagitis, Z68.37 - Body mass index [BMI] 37.0-37.9, adult Zinc Today E11.9 - Type 2 diabetes mellitus without complications, E66.9 - Obesity, unspecified, E78.2 - Mixed hyperlipidemia, I10 - Essential (primary) hypertension, J45.909 - Unspecified asthma, uncomplicated, K21.9 - Gastro- esophageal reflux disease without esophagitis, Z68.37 - Body mass index [BMI] 3 7.0-37.9, adult TSH reflex Free T4 Today E11.9 - Type 2 diabetes mellitus without complications, E66.9 - Obesity, unspecified, E78.2 - Mixed hyperlipidemia, I10 - Essential (primary) hypertension, J45.909 - Unspecified asthma, uncomplicated, K21.9 - Gastro-esophageal reflux disease without esophagitis, Z68.37 - Body mass index [BMI] 37.0-37.9, adult Vitamin D 25-OH Total Today E11.9 - Type 2 diabetes mellitus without complications, E66.9 - Obesity, unspecified, E78.2 - Mixed hyperlipidemia, I10 - Essential (primary) hypertension, J45.909 - Unspecified asthma, uncomplicated, K21.9 - Gastro-esophageal reflux disease without esophagitis, Z68.37 - Body mass index [BMI] 37.0-37.9, adult FL upper GI w air Today E11.9 - Type 2 diabetes mellitus without complications, E66.9 - Obesity, unspecified, E78.2 - Mixed hyperlipidemia, I10 - Essential (primary) hypertension, J45.909 - Unspecified asthma, uncomplicated, K21.9 - Gastro-esophageal reflux disease without esophagitis, Z68.37 - Body mass index [BMI] 37.0-37.9, adult Referrals Behavioral Health Referral E11.9 - Type 2 diabetes mellitus without complications, E66.9 - Obesity, unspecified, E78.2 - Mixed hyperlipidemia, I10 - Essential (primary) hypertension, J45.909 - Unspecified asthma, uncomplicated, K21.9 - Gastro-esophageal reflux disease without esophagitis, Z68.37 - Body mass index [BMI] 37.0-37.9, adult Nutrition/Dietitian Referral E11.9 - Type 2 diabetes mellitus without complications, E66.9 - Obesity, unspecified, E78.2 - Mixed hyperlipidemia, I10 - Essential (primary) hypertension, J45.909 - Unspecified asthma, uncomplicated, K21.9 - Gastro-esophageal reflux disease without esophagitis, Z68.37 - Body mass index [BMI] 37.0-37.9, adult Medications: New tirzepatide (Mounjaro) for 4 weeks 2.5 mg (0.5 mL) subcut QWEEK 2 mL 0RF E11.9 - Type 2 diabetes mellitus without complications
[2025-10-12 08:32] VITALS: BMI 37.6
--- OUTSIDE RECORDS SUMMARY | 2025-10-12 08:42 | XMS_ITS | Clinical Summary ---
Author Organization [facility] Address [address] [place] [address] Phone Care Team Providers Care Director Traffic And Planning Name Role Phone Lev Patrick MD Primary Care Provider [phone] Allergies No known active allergies Medications propranolol [...] Description 11/13/2025 2:30 PM EST Office Visit [facility] Rad Onc [address] [place] [address] Hailey Storm MD [address] [place], [place] [phone] Health Maintenance Due Date Last Done Comments CREATININE LEVEL 1978 LIPID PANEL 1978 DEPRESSION SCREENING 1990 HEPATITIS C SCREENING 1996 HIV ONE-TIME SCREENING (18-65 YEARS) 1996 PNEUMOCOCCAL VACCINES (0-49 years) (1 of 2 - PCV) 1997 PAP SMEAR 1999 SCREENING FOR DIABETES 2013 Adult Td,Tdap Booster 01/26/2023 01/26/2013, 006 COLOGUARD 2023 COLONOSCOPY 2023 COLORECTAL CANCER SCREENING 2023 FIT TEST 2023 FOBT 2023 SIGMOIDOSCOPY 2023 VIRTUAL COLONOSCOPY 2023 INFLUENZA VACCINE (#1) 2025 3, 10/01/2007, 11/26/2006 COVID-19 VACCINE ( season) 2025 12/13/2021, 04/28/2021, 04/07/2021 MAMMOGRAM 05/04/2026 05/04/2024, 02/28/2023 IPV VACCINES Completed 05/01/1980, 02/28, 1978, Additional history exists SMOKING STATUS SCREENING (Once After 26 Yrs) Completed 04/11/2025 HEPATITIS A [...] Interpretation) (05/04/2024 12:00 AM EDT) Narrative Record, Kayla - 07/27/2024 11:38 AM EDT This study is for PACS storage only and not for interpretation. Procedure Note Record, 07/27/2024 This study is for PACS storage only and not for interpretation. us Unknown Unknown MD ALEJANDRINA OUTSIDE IMAGING W/OUT INT ERPRETATION Final Result from Last 3 Months or Most Recently Relevant to Health Maintenance Insurance [facility] Care Teams Director Traffic And Planning Relationship Specialty Start Date End Date Lev Patrick MD [address] [place] [address] [address] [place] [address] PCP - General Internal Medicine 01/13/25 Additional Source Comments The information contained in this document represents components of the legal health record. It is not the complete legal health record.[facility]
== END 2025-10-12 09:01 | disposition home or self-care (01) ==
LOC: HO.HBS 08:23
PROVIDERS: PCP Internal Medicine; Visit Provider Surgery
DX: E66.9 Obesity, unspecified (principal)
CPT/HCPCS: 99204

== ENCOUNTER 2025-10-14 08:53 | Outpatient (REF) | payer OTHER, SELFPAY ==
--- NOTE | ~2025-10-14 | XR_ITS ---
CLINICAL HISTORY: E66.9 - Obesity, unspecified 2 view chest x-ray Comparison: CR - XR CHEST 2 VIEWS - 11/26/24 08:43 EST Findings: The lungs are clear. Heart size is normal. A left-sided MediPort is present. No acute fracture. IMPRESSION: 1. No acute findings. This document has been electronically signed by: Ugo Luevano MD on 10/16/2025 12:51:40
[2025-10-14 09:17] LABS: MANUAL DIFF FLAG NO
[2025-10-14 09:52] LABS: Hematocrit 37.9 % (37.0-47.0); Hemoglobin 12.4 g/dl (12.0-16.0); Imm Gran Abs Auto 0.03 X10*3/uL (0.00-0.03); Imm Gran Pct Auto 0.4 % (0.0-0.4); Lymphocytes Absolute Auto 1.6 X10*3/uL (1.2-4.9); Mean Corpuscular HGB Conc 32.7 g/dl (31.0-35.0); Mean Corpuscular Hemoglobin 26.3 pg (27.0-33.0); Mean Corpuscular Volume 80.3 fL (80.0-98.0); NRBC Abs Auto 0.000 X10*3/uL (0.0-0.012); NRBC Pct Auto 0.0 /100WBC (0.0-0.2); Platelet Count 359 X10*3/uL (160-400); Red Blood Count 4.72 X10*6/uL (4.20-5.50); White Blood Count 8.4 X10*3/uL (4.8-10.8)
[2025-10-14 10:24] LABS: Alanine Aminotransferase 29 U/L (0-31); Albumin Level 4.3 g/dL (3.5-5.0); Alkaline Phosphatase 129 U/L (39-117); Anion Gap 15 (12-20); Aspartate Amino Transferase 28 U/L (5-31); Blood Urea Nitrogen 14 mg/dL (9-16); Calcium 9.6 mg/dL (8.4-10.2); Carbon Dioxide 22 mmol/L (22-29); Chloride 111 mmol/L (96-108); Cholesterol 132 mg/dL (<200); Estimated Glomerular Filt Rate > 60; HDL Cholesterol 34 mg/dL (>40); Iron 50 mcg/dL (30-160); Percent Iron Saturation 15 % (15-50); Potassium 3.5 mmol/L (3.3-5.1); Sodium 144 mmol/L (135-145); Total Iron Binding Capacity 331 mcg/dL (228-428); Total Protein 7.3 g/dL (6.5-8.0); Triglycerides 98 mg/dL (<150); Unsaturated Iron Binding 281 ug/dL
[2025-10-14 10:41] LABS: Ferritin 29 ng/mL (10-250)
[2025-10-14 11:05] LABS: Folate 13.9 ng/mL (> or = 4.0); Vitamin B12 358 pg/mL (200-900)
== END 2025-10-14 08:54 | disposition home or self-care (01) ==
LOC: HO.XRAY 08:53
PROVIDERS: PCP Surgery; Visit Provider Surgery
DX: E11.9 Type 2 diabetes mellitus without complications (principal); K21.9 Gastro-esophageal reflux disease without esophagitis; E66.9 Obesity, unspecified; E78.2 Mixed hyperlipidemia; I10 Essential (primary) hypertension; J45.909 Unspecified asthma, uncomplicated; Z68.37 Body mass index [BMI] 37.0-37.9, adult
CPT/HCPCS: 36415; 71046; 80053; 80061; 82306; 82607; 82728; 82746; 83036; 83525; 83540; 84425; 84443; 84590; 84630; 85025; 86140

== ENCOUNTER → 2025-10-14 09:13 | Outpatient (BNV) | payer OTHER, SELFPAY | PROVIDERS: PCP Surgery; Visit Provider Radiology Diagnostic Radiology | DX: E66.9 Obesity, unspecified (principal) | CPT/HCPCS: 71046 ==

== ENCOUNTER 2025-10-16 07:39 | Outpatient (REF) | payer OTHER, SELFPAY ==
--- NOTE | 2025-10-16 07:45 | ECG_ITS ---
Test Reason : OBESITY Blood Pressure : */* mmHG Vent. Rate : 74 BPM Atrial Rate : 74 BPM P-R Int : 176 ms QRS Dur : 86 ms QT Int : 402 ms P-R-T Axes : 31 13 3 degrees QTcB Int : 446 ms Normal sinus rhythm Minimal voltage criteria for LVH, may be normal variant ( R in aVL ) Borderline ECG When compared with ECG of 03-Jan-2025 09:37, Nonspecific T wave abnormality no longer evident in Anterolateral leads Referred By: Dillon Benavides Electronically Signed By: AILYN CARLOS
--- OUTSIDE RECORDS SUMMARY | 2025-10-16 07:57 | XMS_ITS | Encounter Summary ---
Author Organization [facility] Address [address] [place] [address] Care Team Providers Care Imager Name Role Phone Rere Mallory MD Primary Care Provider Darcy Mccormick MD Primary Care Prov ider Reason for Visit * Reason Onset Date Comments Medical Records 10/26/2018 Encounter Details Date Type Department Care Team Description 10/26/2018 Telephone Medicine/Pediatrics - [address] [phone] Patti Sanchez PA-C Medical Records Social History [...] 1:29 PM EST Sent for dr salazar [phone] * Telephone Encounter - Nereida MasP.N. - 10/26/2018 1:00 PM EST Message left on to call office at [phone] * Telephone Encounter - Patti Sanchez PA-C [...] on filedocumented in this encounter Care Teams Imager Relationship Specialty Start Date End Date Rere Mallory MD PCP - General Internal Medicine 05/22/17 05/27/22 Luciano Trujillo, Darcy Bentley MD [address] [place] [id number] PCP - General Internal Medicine 05/28/22 documented as of this encounter
--- OUTSIDE RECORDS SUMMARY | 2025-10-16 07:58 | XMS_ITS | Encounter Summary ---
Author Organization [facility] Address [address] [place] [address] Care Team Providers Care Rocket Propellant Plant Supervisor Name Role Phone Neha Vivar MD Primary Care Provider Rere Narayanan MD Primary Care Provider Darcy Mccormick MD Primary Care Prov ider Encounter Details Date Type Department Care Team Description 03/27/2016 Pt. Non Urgent Medic al Question DRAPERY MAKER - [address] [address] Gary Gutierrez MD Social History Tobacco Use [...] filedocumented in this encounter Care Teams [employer] Plant Supervisor Relationship Specialty Start Date End Date Neha Vivar MD PCP - General Internal Medicine 09/28/15 05/21/17 Rere Mallory MD PCP - General Internal Medicine 05/22/17 05/27/22 Darcy Fry MD [address] [place] [id number] PCP - General Internal Medicine 05/28/22 documented as of this encounter
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
--- OUTSIDE RECORDS SUMMARY | 2025-10-16 07:58 | XMS_ITS | Encounter Summary ---
Author Organization Formerly [facility] Address [address] [place] [address] Care Team Providers Care Optical Advisor Name Role Phone Rere Mallory MD Primary Care Provider Darcy Mccormick MD Primary Care Prov ider Encounter Details Date Type Department Care Team Description 11/18/2018 Pt. Non Urgent Medic al Question Medicine/Pediatrics - [address] [phone] Patti Sanchez PA-C Social History Tobacco Use [...] medical records from November 30, 2016 to [facility] at [id number]. They state that the information previously provided was not complete. Thank you documented in this encounter Plan of Treatment Not on file documented as of this encounter Visit Diagnoses Not on filedocumented in this encounter Care Teams Optical Advisor Relationship Specialty Start Date End Date Rere Mallory MD PCP - General Internal Medicine 05/22/17 05/27/22 Luciano Trujillo, Darcy Bentley MD [address] [place] [id number] PCP - General Internal Medicine 05/28/22 documented as of this encounter
--- OUTSIDE RECORDS SUMMARY | 2025-10-16 07:58 | XMS_ITS | Encounter Summary ---
Author Organization [facility] Address [address] [place] [address] Care Team Providers Care Oil Driller Name Role Phone Rere Mallory MD Primary Care Provider Darcy Mccormick MD Primary Care Prov ider Encounter Details Date Type Department Care Team Description 05/02/2019 Mixing Engineer Report Medical Records [address] [place] [address] Services, [facility] Pain Management [address] [address] Social History Tobacco Use Types Packs/Day Years [...] on filedocumented in this encounter Care Teams Oil Driller Relationship Specialty Start Date End Date Rere Mallory MD PCP - General Internal Medicine 05/22/17 05/27/22 Darcy Fry MD [address] [place] [address] PCP - General Internal Medicine 05/28/22 documented as of this encounter
--- OUTSIDE RECORDS SUMMARY | 2025-10-16 07:58 | XMS_ITS | Encounter Summary ---
Author Organization [facility] Address [address] [place] [address] Care Team Providers Care Skull Grinder Name Role Phone Rere Mallory MD Primary Care Provider Darcy Mccormick MD Primary Care Prov ider Encounter Details Date Type Department Care Team Description 06/13/2018 Release of Information Medical Records [address] [place] [id number] Abstract, Provider Social History Tobacco Use Types [...] on filedocumented in this encounter Care Teams Skull Grinder Relationship Specialty Start Date End Date Rere Mallory MD PCP - General Internal Medicine 05/22/17 05/27/22 Darcy Fry MD [address] [place] [address] PCP - General Internal Medicine 05/28/22 documented as of this encounter
--- OUTSIDE RECORDS SUMMARY | 2025-10-16 07:58 | XMS_ITS | Encounter Summary ---
Author Organization [facility] Address [address] [place] [address] Care Team Providers Care Bead Trimmer Name Role Phone Cortez Greenberg MD Primary Care Provider Unavail able Neha Vivar MD Primary Care Provider UnavailRere Sparks MD Primary Care Provider Unava ilable Darcy Fry MD Primary Care Prov ider Encounter Details Date Type Department Care Team Description 09/15/2014 Hospital Medical Records [address] [place] [address] Glenn Huerta MD Social History Tobacco Use [...] on filedocumented in this encounter Care Teams Bead Trimmer Relationship Specialty Start Date End Date Cortez Greenberg MD PCP - General 08/12/04 09/27/15 Neha Vivar MD PCP - General Internal Medicine 09/28/15 05/21/17 Rere Mallory MD PCP - General Internal Medicine 05/22/17 05/27/22 Darcy Fry MD [address] [place] [address] PCP - General Internal Medicine 05/28/22 documented as of this encounter
--- OUTSIDE RECORDS SUMMARY | 2025-10-16 07:58 | XMS_ITS | Encounter Summary ---
[facility] Address [address] [place] [address] Care Team Providers Care Division Leader Name Role Phone Cortez Greenberg MD Primary Care Provider Unavail able Neha Vivar MD Primary Care Provider UnavailRere Sparks MD Primary Care Provider Unava ilable Darcy Fry MD Primary Care Prov ider Encounter Details Date Type Department Care Team Description 03/03/2011 Business Doc Medical Records [address] [place] [address] Abstract, Provider Social History Tobacco Use Types [...] on filedocumented in this encounter Care Teams Division Leader Relationship Specialty Start Date End Date Cortez Greenberg MD PCP - General 08/12/04 09/27/15 Neha Vivar MD PCP - General Internal Medicine 09/28/15 05/21/17 Rere Mallory MD PCP - General Internal Medicine 05/22/17 05/27/22 Darcy Fry MD [address] [place] [address] PCP - General Internal Medicine 05/28/22 documented as of this encounter
--- OUTSIDE RECORDS SUMMARY | 2025-10-16 07:59 | XMS_ITS | Encounter Summary ---
Author Organization [facility] Address [address] [place] [address] Care Team Providers Care Restaurant Bartender Name Role Phone Neha Vivar MD Primary Care Provider Rere Narayanan MD Primary Care Provider Darcy Mccormick MD Primary Care Prov ider Encounter Details Date Type Department Care Team Description 05/29/2016 [facility] Medical Records [address] [place] [address] Gary Gutierrez MD Social History Tobacco Use [...] on filedocumented in this encounter Care Teams Restaurant Bartender Relationship Specialty Start Date End Date Neha Vivar MD PCP - General Internal Medicine 09/28/15 05/21/17 Rere Mallory MD PCP - General Internal Medicine 05/22/17 05/27/22 Darcy Fry MD [address] [place] [address] PCP - General Internal Medicine 05/28/22 documented as of this encounter
--- OUTSIDE RECORDS SUMMARY | 2025-10-16 07:59 | XMS_ITS | Encounter Summary ---
Author Organization [facility] Address [address] [place] [address] Care Team Providers Care Segmental Paving Supervisor Name Role Phone Neha Vivar MD Primary Care Provider Rere Narayanan MD Primary Care Provider Darcy Mccormick MD Primary Care Prov ider Encounter Details Date Type Department Care Team Description 07/04/2016 Pt. Non Urgent Medic al Question FARMER CASH GRAIN - [address] [address] Gary Gutierrez MD Social History Tobacco Use [...] on filedocumented in this encounter Care Teams Segmental Paving Supervisor Relationship Specialty Start Date End Date Neha Vivar MD PCP - General Internal Medicine 09/28/15 05/21/17 Rere Mallory MD PCP - General Internal Medicine 05/22/17 05/27/22 Luciano Trujillo, Darcy Bentley MD [address] [place] [address] PCP - General Internal Medicine 05/28/22 documented as of this encounter
--- OUTSIDE RECORDS SUMMARY | 2025-10-16 08:00 | XMS_ITS | Encounter Summary ---
Author Organization [facility] Address [address] [place] [address] Care Team Providers Care Corporate Counsel Name Role Phone Neha Vivar MD Primary Care Provider Rere Narayanan MD Primary Care Provider Darcy Mccormick MD Primary Care Prov ider Encounter Details Date Type Department Care Team Description 08/12/2016 Pt. Non Urgent Medic al Question WILDLIFE CONTROL AGENT - [address] [address] Gary Gutierrez MD Social History Tobacco Use [...] on filedocumented in this encounter Care Teams Corporate Counsel Relationship Specialty Start Date End Date Neha Vivar MD PCP - General Internal Medicine 09/28/15 05/21/17 Rere Mallory MD PCP - General Internal Medicine 05/22/17 05/27/22 Luciano Trujillo, Darcy Bentley MD [address] [place] [address] PCP - General Internal Medicine 05/28/22 documented as of this encounter
--- OUTSIDE RECORDS SUMMARY | 2025-10-16 08:00 | XMS_ITS | Clinical Summary ---
Author Organization [facility] Address [address] [place] [address] Phone Care Team Providers Care Precise Winder Name Role Phone Lev Patrick MD Primary Care Provider [phone] Allergies No known active allergies Medications propranolol [...] Description 11/13/2025 2:30 PM EST Office Visit [facility] Rad Onc [address] [place] [address] Hailey Storm MD [address] [place] [address] Health Maintenance Due Date Last Done Comments [...] Maintenance [facility] [address] [place], [place] [address]O [facility] Care Teams Precise Winder Relationship Specialty Start Date End Date Lev Patrick MD [address] [place] [address] [address] [place] [address] PCP - General Internal Medicine 01/13/25 Additional Source Comments The information contained in this document represents components of the legal health record. It is not the complete legal health record.[facility]
--- OUTSIDE RECORDS SUMMARY | 2025-10-16 08:00 | XMS_ITS | Encounter Summary ---
Author Organization [facility] Address [address] [place] [address] Care Team Providers Care Pupil Personnel Services Director Name Role Phone Neha Vivar MD Primary Care Provider Rere Narayanan MD Primary Care Provider Darcy Mccormick MD Primary Care Prov ider Encounter Details Date Type Department Care Team Description 10/02/2016 Pt. Non Urgent Medical Question Gastroenterology - [address] [address] Gregg Padilla MD Social History Tobacco Use Types Packs/Day [...] as of this encounter Progress Notes * Yony Tsai M.A. - 10/02/2016 7:04 AM EDTFrom: Sheree Anna Kirti To: Gregg Padilla MD Sent: 10/02/2016 7:02 AM EDT Subject: Ezekiel Curiel, I called on Thursday to ask if the prep information could be emailed via my chart and I was told it would be sent but I have not received them. Could these instructions be uploaded to my chart please? I know I need to start at 5pm tonight and another dose at 2am. Not sure what else I need to do to get ready for tomorrow's appointment. Thank you for your time, [place] documented in this encounter Plan of Treatment Not on file documented as of this encounter Visit Diagnoses Not on filedocumented in this encounter Care Teams Pupil Personnel Services Director Relationship Specialty Start Date End Date Neha Vivar MD PCP - General Internal Medicine 09/28/15 05/21/17 Rere Mallory MD PCP - General Internal Medicine 05/22/17 05/27/22 Darcy Fry MD [address] [place] [address] PCP - General Internal Medicine 05/28/22 documented as of this encounter
--- OUTSIDE RECORDS SUMMARY | 2025-10-16 08:00 | XMS_ITS | Encounter Summary ---
Author Organization [facility] Address [address] [place] [address] Care Team Providers Care Dice Dealer Name Role Phone Darcy Fry MD Primary Care Prov ider Encounter Details Date Type Department Care Team Description 07/12/2022 Pt. Non Urgent Medical Question Orthopedics-[address] [address] Jan Zendejas PA-C [address] [place] [address] Social History Tobacco Use Types Packs/Day Years [...] on filedocumented in this encounter Care Teams Dice Dealer Relationship Specialty Start Date End Date Darcy Fry MD [address] [place] [address] PCP - General Internal Medicine 05/28/22 documented as of this encounter
--- OUTSIDE RECORDS SUMMARY | 2025-10-16 08:00 | XMS_ITS | Encounter Summary ---
Author Organization [facility] Address [address] [place] [address] Care Team Providers Care Developer Advocate Name Role Phone Darcy Fry MD Primary Care Prov ider Reason for Visit * Reason Onset Date Comments Medication 08/18/2022 Encounter Details Date Type Department Care Team Description 08/18/2022 Refill Gastroenterology - [address] [place] [phone] Kurtis Spring MD [address] [place] [phone] Medication Social History Tobacco Use Types Packs/Day Years [...] suspected to have Coronavirus/COVID-19? No / Unsure 08/01/2022 8:25 AM EDT documented as of this encounter Plan of Treatment Not on file documented as of this encounter Visit Diagnoses Not on filedocumented in this encounter Care Teams Developer Advocate Relationship Specialty Start Date End Date Darcy Fry MD [address] [place] [phone] PCP - General Internal Medicine 05/28/22 documented as of this encounter
--- OUTSIDE RECORDS SUMMARY | 2025-10-16 08:00 | XMS_ITS | Encounter Summary ---
Author Organization [facility] Address [address] [place] [address] Care Team Providers Care Cloth Doffer Name Role Phone Neha Vivar MD Primary Care Provider Rere Narayanan MD Primary Care Provider Darcy Mccormick MD Primary Care Prov ider Encounter Details Date Type Department Care Team Description 08/12/2016 Pt. Non Urgent Medic al Question REIMBURSEMENT COUNSELOR - [address] [address] Gary Gutierrez MD Social History Tobacco Use [...] R.N. - 08/12/2016 8:26 AM EDTFrom: Sheree aRineskiran Cotto To: Gary Gutierrez MD Sent: 08/12/2016 7:57 [...] on filedocumented in this encounter Care Teams Cloth Doffer Relationship Specialty Start Date End Date Neha Vivar MD PCP - General Internal Medicine 09/28/15 05/21/17 Rere Mallory MD PCP - General Internal Medicine 05/22/17 05/27/22 Darcy Fry MD [address] [place] [address] PCP - General Internal Medicine 05/28/22 documented as of this encounter
--- OUTSIDE RECORDS SUMMARY | 2025-10-16 08:00 | XMS_ITS | Encounter Summary ---
Author Organization [facility] Address [address] [place] [address] Care Team Providers Care Assessment Nurse Name Role Phone Rere Mallory MD Primary Care Provider Darcy Mccormick MD Primary Care Prov ider Encounter Details Date Type Department Care Team Description 02/29/2020 Orders Only Adult Medicine [address] [address] Gerardo Callejas MD Subacute thyroiditis (Primary Dx) [...] - 1.80 ng/dL 04/06/2020 5:53 PM EDT [employer] [facility] 04/06/2020 3:07 PM EDT 04/06/2020 3:09 PM EDT Gerardo Callejas MD [facility] * TSH (04/06/2020 3:07 PM EDT) TSH 3.29 0.40 - 4.00 uIU/ml 04/06/2020 5:53 PM EDT [facility] 04/06/2020 3:07 PM EDT 04/06/2020 3:09 PM EDT Gerardo Callejas MD [facility] documented in this encounter Visit Diagnoses Diagnosis Subacute thyroiditis- Primary documented in this encounter Care Teams Assessment Nurse Relationship Specialty Start Date End Date Rere Mallory MD PCP - General Internal Medicine 05/22/17 05/27/22 Darcy Fry MD [address] [place] [address] PCP - General Internal Medicine 05/28/22 documented as of this encounter
--- OUTSIDE RECORDS SUMMARY | 2025-10-16 08:00 | XMS_ITS | Encounter Summary ---
Author Organization [facility] Address [address] [place] [address] Care Team Providers Care Billing Coordinator Name Role Phone Neha Vivar MD Primary Care Provider Rere Narayanan MD Primary Care Provider Darcy Mccormick MD Primary Care Prov ider Encounter Details Date Type Department Care Team Description 08/07/2016 Pt. Non Urgent Medic al Question PAD ASSEMBLER - [address] [address] Gary Gutierrez MD Social History Tobacco Use [...] on filedocumented in this encounter Care Teams Billing Coordinator Relationship Specialty Start Date End Date Neha Vivar MD PCP - General Internal Medicine 09/28/15 05/21/17 Rere Mallory MD PCP - General Internal Medicine 05/22/17 05/27/22 Darcy Fry MD [address] [place] [address] PCP - General Internal Medicine 05/28/22 documented as of this encounter
== END 2025-10-16 07:40 | disposition home or self-care (01) ==
LOC: HO.LAB 07:39
PROVIDERS: PCP Internal Medicine; Visit Provider Surgery
DX: I10 Essential (primary) hypertension (principal); E11.9 Type 2 diabetes mellitus without complications; E66.9 Obesity, unspecified; E78.2 Mixed hyperlipidemia; K21.9 Gastro-esophageal reflux disease without esophagitis; J45.909 Unspecified asthma, uncomplicated; Z68.37 Body mass index [BMI] 37.0-37.9, adult
CPT/HCPCS: 93005

== ENCOUNTER → 2025-10-16 07:45 | Outpatient (BNV) | payer OTHER, SELFPAY | PROVIDERS: PCP Internal Medicine; Visit Provider Internal Medicine | DX: E66.9 Obesity, unspecified (principal) | CPT/HCPCS: 93010 ==

== ENCOUNTER 2025-10-20 16:00 | Outpatient (AMB) | payer OTHER, SELFPAY ==
--- NOTE | 2025-10-20 16:07 | A.OFFPC_ITS ---
Vital Signs 10/20/25 16:09 Height 5 ft 3 in Weight 206 lb 4 oz BMI 36.5 BP 120/62 Blood Pressure Location Lt brachial Position Sitting Pulse 73 Pulse Source Pulse Oximeter Temp 96.4 F L Temp Source Temporal Artery Scan Pulse Oximetry (%) 96 Oxygen Delivery Method Room Air Intake Visit Reasons: [facility] 10/09 Intake Note: Patient is here for hospital discharge follow up. Patient was discharged from [facility] on 10/09/25. Linen Supervisor Required: No Heating And Ventilation Engineer: Not Required per policy Accompanied by: Self / Same As Patient Allergies adhesive tape Allergy (Verified 10/20/25 16:08) Redness of Skin cefuroxime Adverse Reaction (Verified 10/20/25 16:08) Hives flu vaccine Adverse Reaction (Severe, Uncoded 10/20/25 16:08) Hives Medication List - Last Reconciled 10/20/25 by Donna Conway NP atorvastatin 10 mg PO BEDTIME celecoxib 100 mg PO DAILY docusate sodium 200 mg (2 x 100 mg) PO BEDTIME esomeprazole magnesium 20 mg PO DAILY fluticasone propionate 50 mcg/actuation (Aller-Abel) 1 spray intranasal BID PRN gabapentin 100 mg PO BEDTIME 30 days letrozole 2.5 mg PO DAILY levonorgestrel (Mirena) 21 mcg intrauterine ONCE lidocaine 5% 1 patch topical DAILY losartan 25 mg PO DAILY ondansetron 8 mg PO Q8H propranolol ER 160 mg PO DAILY sumatriptan succinate 50 mg PO Q2-4H PRN tirzepatide (Mounjaro) 2.5 mg (0.5 mL) subcut QWEEK Ventolin HFA 90 mcg/actuation (albuterol sulfate) 2 puffs inhalation Q6H PRN 30 days NS Tobacco use date assessed: 10/20/25 Dental Screening Dental Screen Date: 07/24/25 HPI HPI Comments History of Present Illness Details 45 y/o female patient presents today for HDF follow-up after recent hospitalization at [facility] (10/05?10/09). She reports relative sudden onset left-sided back/flank pain during admission; workup revealed a 4 mm obstructing stone at the UVJ with mild?moderate hydronephrosis. States that repeat CT on day of discharge showed resolution of hydronephrosis with passage of the obstructing stone, though persistent non-obstructing stones remain. She reports a history of right-sided invasive ductal carcinoma (grade 3), s/p lumpectomy, radiation, and chemotherapy (completed January). She continues let rozole as prescribed by her oncologist, Dr. Martin. Today, patient denies fever, chills, dysuria, hematuria, nausea/vomiting, or worsening flank pain. Reports mild intermittent discomfort but manageable with PRN Tylenol. Reports ongoing constipation for which she is taking newly prescribed bowel regimen. New medications prescribed on discharge: -Docusate 100 mg twice daily -Senna 2 tabs twice daily -MiraLAX 17 g daily -As needed Tylenol, 650mg up to 4 times a day for pain -As needed Dulcolax suppositories if con stipation persist despite oral medications. Metformin was discontinued and Mounjaro was started for DM Treatment. Flomax 0.4 mg at bedtime (This was discontinued due to med interaction). [facility] Medical History (Updated 10/20/25 @ 16:19 by Donna Conway NP) Hydronephrosis of left kidney Calculus of left kidney Non-insulin dependent type 2 diabetes mellitus BMI 37.0-37.9, adult History of breast cancer Mixed hyperlipidemia Diabetes mellitus Lumbar spondylosis Back pain COVID-19 HTN (hypertension) Invasive ductal carcinoma of breast Breast mass, right Benign essential hypertension Pure hypercholesterolemia GERD (gastroesophageal reflux disease) Viral upper respiratory tract infection with cough Obesity (BMI 30-39.9) Migraine Asthma Cyst of breast, left, solitary Cough Asthma Laryngitis Allergic rhinosinusitis Surgical History History of lumpectomy of right breast (~08/16/24) Hx of colonoscopy History of breast lump/mass excision H/O section Family History Mother Colon cancer, Onset Age: 42 Diabetes mellitus Father Heart disease Parkinson disease Maternal Grandmother Breast cancer Paternal Grandmother Breast cancer Maternal Grandfather Prostate CA Family/Other Thyroid cancer Other FH: mental illness Substance abuse Social History Household Members: None Housing: House Are you a primary medicare specialist to a significant other at home: No Do you presently have visiting nurse or other home services: No Alcohol intake: never Patient Tobacco Use Status: Never used Tobacco e-Cigarette/Vaping Use: Never Used Second Hand Smoke Exposure: No service: No Current occupational status: employed 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 [employer] Sexual orientation: Straight/Heterosexual Gender identity: Female Cognitive needs: No Hearing needs: No Vision needs: Yes Female Reproductive History Menstrual Age of Menarche: 7 Questionnaire Thrive Questionnaire Date Thrive assessed: 03/23/25 I am a: Patient What is your living situation today?: I have a steady place to live Within the past 12 months, did the food you bought not last and you didn't have the money to get more?: Often true Within the past 12 months, did you worry whether your food would run out before you got money to buy more?: Never true Do you have trouble paying for medicines?: No Do you have trouble getting transportation to medical appointments?: No Do you have trouble paying your heating and electricity bill?: No Do you have trouble taking care of your child, family member or friend?: No Do you have trouble with day-to-day activities such as bathing, preparing meals, shopping, managing finances, etc.?: No Are you currently unemployed and looking for a job?: No Are you interested in more education?: Yes Please select the resources that you would like help with: None Currently or been in a relationship where the following occur: I choose not to answer THRIVE Score: 1 AYESHA-7 AMB Questionnaire AYESHA-7 Date AYESHA - 7 assessed: 07/24/25 Source: Developed by Drs. Elfego Morelos, Emani Kelley, Apollo Buchanan and colleagues, with an educational gilson from [employer]. Review of Systems Const All systems reviewed & are unremarkable except as noted in HPI and below Physical exam (Primary Care) Vital Signs: Last Vital Signs Temp 96.4 F L 10/20/25 16:09 Pulse 73 10/20/25 16:09 BP 120/62 10/20/25 16:09 Pulse Ox 96 10/20/25 16:09 Oxygen Delivery Method Room Air 10/20/25 16:09 BMI result Body Mass Index 36.5 Tobacco/Smoking Status: Tobacco use Status Tobacco use date assessed 10/20/25 10/20/25 16:16 Patient Tobacco Use Status Never used Tobacco 10/20/25 16:16 e-Cigarette/Vaping Use Never Used 10/20/25 16:16 Thrive Assessment: Date of Thrive Assessment Date Thrive assessed 03/23/25 10/20/25 16:16 Currently or been in a relationship where the following occur: I choose not to answer Const General: no acute distress Nutritional Appearance: obese Orientation/consciousness: patient oriented x3 Resp Effort & Inspection: normal respiratory effort Cardio Rate: regular rate GI Inspection: Yes Abdominal panniculus present Palpation (GI): Soft to palpation Auscultation: normal bowel sounds General: Yes no CVA tenderness Back/Spine/Pelvis Back: no CVA tenderness Neuro General: patient oriented x3, gait normal and moves all extremities Psych Speech and movement: Normal speech and movement present Coding Level of Care Code Est Pt Level 4 (51658) Diagnoses Calculus of left kidney N20.0 Hydronephrosis of left kidney N13.30 Time Spent (min) 20 Assessment & Plan Assessment & Plan (1) Calculus of left kidney: Code(s): N20.0 - Calculus of kidney Category: Medical Plan: Flomax was discontinued due medication interaction. Encourage increased oral fluids as tolerated to help pass residual stones. Continue Tylenol 650 mg PRN up to 4x/day. Monitor for red flags: fever, worsening flank pain, inability to urinate, severe abdominal pain, N/V. Follow up with Urology as arranged for stone management. Continue Letrozole and oncology follow-up with Dr. Martin. (2) Hydronephrosis of left kidney: Code(s): N13.30 - Unspecified hydronephrosis Category: Medical Plan: Resolved. F/U with Urology as scheduled. Plan Metformin was discontinued and Mounjaro was started for DM Treatment. Medications: Discontinued yfkjjywota-kvzcoboxrojyu-lvin 50-325-40 mg Discontinued Reason: Patient no longer taking 1 cap PO Q6H PRN 30 caps 2RF Headache diclofenac sodium Discontinued Reason: Patient Completed Course 50 mg PO Q12H PRN 20 tabs 0RF pain metformin ER Take in the evening with dinner Discontinued Reason: Patient no longer taking 500 mg PO QPM 30 days 30 tabs 3RF diabetes E11.9 - Type 2 diabetes mellitus without complications
[2025-10-20 16:09] VITALS: BP 120/62; PULSE 73; TEMP 35.8; O2SAT 96; BMI 36.5
--- OUTSIDE RECORDS SUMMARY | 2025-10-20 16:12 | XMS_ITS | Encounter Summary ---
Author Organization [facility] Address [address] [place] [address] Care Team Providers Care Mill Tender Name Role Phone Reer Mallory MD Primary Care Provider Darcy Mccormick MD Primary Care Prov ider Encounter Details Date Type Department Care Team Description 04/01/2019 Proofing Machine Operator Report Medical Records [address] [place] [address] Mercedes Reese Np Social History Tobacco Use [...] on filedocumented in this encounter Care Teams Mill Tender Relationship Specialty Start Date End Date Rere Mallory MD PCP - General Internal Medicine 05/22/17 05/27/22 Darcy Fry MD [address] [place] [address] PCP - General Internal Medicine 05/28/22 documented as of this encounter
--- OUTSIDE RECORDS SUMMARY | 2025-10-20 16:12 | XMS_ITS | Encounter Summary ---
Author Organization [facility] Address [address] [place] [address] Care Team Providers Care Home Health Physical Therapist Name Role Phone Cortez Greenberg MD Primary Care Provider Unavail able Neha Vivar MD Primary Care Provider UnavailRere Sparks MD Primary Care Provider Unava ilable Darcy Fry MD Primary Care Prov ider Encounter Details Date Type Department Care Team Description 09/21/2014 Grinding And Spraying Supervisor Report Medical Records [address] [place] [address] Glenn De La Cruz MD Social History [...] on filedocumented in this encounter Care Teams Home Health Physical Therapist Relationship Specialty Start Date End Date Cortez Greenberg MD PCP - General 08/12/04 09/27/15 Neha Vivar MD PCP - General Internal Medicine 09/28/15 05/21/17 Rere Mallory MD PCP - General Internal Medicine 05/22/17 05/27/22 Darcy Fry MD [address] [place] [address] PCP - General Internal Medicine 05/28/22 documented as of this encounter
--- OUTSIDE RECORDS SUMMARY | 2025-10-20 16:12 | XMS_ITS | Encounter Summary ---
Author Organization [facility] Address [address] [place] [address] Care Team Providers Care Wind Energy Technician Name Role Phone Rere Mallory MD Primary Care Provider Darcy Mccormick MD Primary Care Prov ider Encounter Details Date Type Department Care Team Description 06/22/2018 Pt. Non Urgent Medic al Question Medicine/Pediatrics - [address] [phone] Patti Sanchez PA-C Social History Tobacco Use [...] on filedocumented in this encounter Care Teams Wind Energy Technician Relationship Specialty Start Date End Date Rere Mallory MD PCP - General Internal Medicine 05/22/17 05/27/22 Darcy Fry MD [address] [place] [address] PCP - General Internal Medicine 05/28/22 documented as of this encounter
--- OUTSIDE RECORDS SUMMARY | 2025-10-20 16:12 | XMS_ITS | Encounter Summary ---
Author Organization [facility] Address [address] [place] [address] Care Team Providers Care Manager Outpatient Name Role Phone Cortez Greenberg MD Primary Care Provider Unavail able Neha Vivar MD Primary Care Provider UnavailRere Sparks MD Primary Care Provider Unava ilable Darcy Fry MD Primary Care Prov ider Encounter Details Date Type Department Care Team Description 09/15/2014 Hospital Medical Records [address] [place] [address] Glenn Huerta MD Social History Tobacco Use [...] filedocumented in this encounter Care Teams Manager Outpatient Relationship Specialty Start Date End Date Cortez Greenberg MD PCP - General 08/12/04 09/27/15 Neha Vivar MD PCP - General Internal Medicine 09/28/15 05/21/17 Rere Mallory MD PCP - General Internal Medicine 05/22/17 05/27/22 Darcy Fry MD [address] [place] [address] PCP - General Internal Medicine 05/28/22 documented as of this encounter
--- OUTSIDE RECORDS SUMMARY | 2025-10-20 16:12 | XMS_ITS | Encounter Summary ---
Author Organization [facility] Address [address] [place] [address] Care Team Providers Care Carpet Mechanic Name Role Phone Neha Vivar MD Primary Care Provider Rere Narayanan MD Primary Care Provider Darcy Mccormick MD Primary Care Prov ider Encounter Details Date Type Department Care Team Description 11/10/2016 [facility] Medical Records [address] [place] [address] Abstract, Provider Social History Tobacco Use Types [...] on filedocumented in this encounter Care Teams Carpet Mechanic Relationship Specialty Start Date End Date Neha Vivar MD PCP - General Internal Medicine 09/28/15 05/21/17 Rere Mallory MD PCP - General Internal Medicine 05/22/17 05/27/22 Darcy Fry MD [address] [place] [address] PCP - General Internal Medicine 05/28/22 documented as of this encounter
--- OUTSIDE RECORDS SUMMARY | 2025-10-20 16:12 | XMS_ITS | Encounter Summary ---
Author Organization [facility] Address [address] [place] [address] Care Team Providers Care Inventory Associate Name Role Phone Rere Mallory MD Primary Care Provider Darcy Mccormick MD Primary Care Prov ider Encounter Details Date Type Department Care Team Description 05/02/2019 Corporate Real Estate Specialist Report Medical Records [address] [place] [address] Services, [facility] Pain Management [address] [address] Social History Tobacco Use Types Packs/Day Years [...] on filedocumented in this encounter Care Teams Inventory Associate Relationship Specialty Start Date End Date Rere Mallory MD PCP - General Internal Medicine 05/22/17 05/27/22 Darcy Fry MD [address] [place] [address] PCP - General Internal Medicine 05/28/22 documented as of this encounter
--- OUTSIDE RECORDS SUMMARY | 2025-10-20 16:12 | XMS_ITS | Encounter Summary ---
Author Organization [facility] Address [address] [place] [address] Care Team Providers Care Dough Mixer Name Role Phone Neha Vivar MD Primary Care Provider Rere Narayanan MD Primary Care Provider Darcy Mccormick MD Primary Care Prov ider Encounter Details Date Type Department Care Team Description 07/04/2016 Pt. Non Urgent Medic al Question MARKETING COMMUNICATIONS LEADER - [address] [address] Gary Gutierrez MD Social History Tobacco Use [...] on filedocumented in this encounter Care Teams Dough Mixer Relationship Specialty Start Date End Date Neha Vivar MD PCP - General Internal Medicine 09/28/15 05/21/17 Rere Mallory MD PCP - General Internal Medicine 05/22/17 05/27/22 Luciano Trujillo, Darcy Bentley MD [address] [place] [address] PCP - General Internal Medicine 05/28/22 documented as of this encounter
--- OUTSIDE RECORDS SUMMARY | 2025-10-20 16:12 | XMS_ITS | Encounter Summary ---
Author Organization [facility] Address [address] [place] [address] Care Team Providers Care Nurse Anesthesia Program Director Name Role Phone Rere Mallory MD Primary Care Provider Darcy Mccormick MD Primary Care Prov ider Encounter Details Date Type Department Care Team Description 11/18/2018 Pt. Non Urgent Medic al Question Medicine/Pediatrics - [address] [phone] Patti Sanchez PA-C Social History Tobacco Use [...] - 11/19/2018 8:57 AM ESTFrom: Sheree Anna Chan To: Patti Sanchez PA-C Sent: 11/18/2018 7:38 PM EST Subject: Medical records Please fax a copy of my medical records from November 30, 2016 to [facility] at [phone]. They state that the information previously provided was not complete. Thank you documented in this encounter Plan of Treatment Not on file documented as of this encounter Visit Diagnoses Not on filedocumented in this encounter Care Teams Nurse Anesthesia Program Director Relationship Specialty Start Date End Date Rere Mallory MD PCP - General Internal Medicine 05/22/17 05/27/22 Luciano Trujillo, Darcy Bentley MD [address] [place] [address] PCP - General Internal Medicine 05/28/22 documented as of this encounter
--- OUTSIDE RECORDS SUMMARY | 2025-10-20 16:12 | XMS_ITS | Encounter Summary ---
Author Organization [facility] Address [address] [place] [address] Care Team Providers Care Product Trainer Name Role Phone Neha Vivar MD Primary Care Provider Rere Narayanan MD Primary Care Provider Darcy Mccormick MD Primary Care Prov ider Encounter Details Date Type Department Care Team Description 10/02/2016 Pt. Non Urgent Medical Question Gastroenterology - [address] [address] Gregg Padilla MD Social History Tobacco Use [...] tomorrow's appointment. Thank you for your time, [place] documented in this encounter Plan of Treatment Not on file documented as of this encounter Visit Diagnoses Not on filedocumented in this encounter Care Teams Product Trainer Relationship Specialty Start Date End Date Neha Vivar MD PCP - General Internal Medicine 09/28/15 05/21/17 Rere Mallory MD PCP - General Internal Medicine 05/22/17 05/27/22 Darcy Fry MD [address] [place] [address] PCP - General Internal Medicine 05/28/22 documented as of this encounter
--- OUTSIDE RECORDS SUMMARY | 2025-10-20 16:12 | XMS_ITS | Encounter Summary ---
Author Organization [facility] Address [address] [place] [address] Care Team Providers Care Detective And Intelligence Analyst Name Role Phone Rere Mallory MD Primary Care Provider Darcy Mccormick MD Primary Care Prov ider Reason for Visit * Reason Onset Date Comments Form 04/02/2022 Encounter Details Date Type Department Care Team Description 04/02/2022 Telephone Medicine/Pediatrics - [address] [address] Rere Mallory MD Form Social History Tobacco [...] original mailed to [facility],copy mailed to patient,copy sentto scan,copy filled into done bin documented in this encounter Plan of Treatment Not on file documented as of this encounter Visit Diagnoses Not on filedocumented in this encounter Care Teams Detective And Intelligence Analyst Relationship Specialty Start Date End Date Rere Mallory MD PCP - General Internal Medicine 05/22/17 05/27/22 Luciano Trujillo, Darcy Bentley MD [address] [place] [address] PCP - General Internal Medicine 05/28/22 documented as of this encounter
--- OUTSIDE RECORDS SUMMARY | 2025-10-20 16:12 | XMS_ITS | Encounter Summary ---
Author Organization [facility] Address [address] [place] [address] Care Team Providers Care Loan Processing Supervisor Name Role Phone Neha Vivar MD Primary Care Provider Rere Narayanan MD Primary Care Provider Darcy Mccormick MD Primary Care Prov ider Encounter Details Date Type Department Care Team Description 08/12/2016 Telephone PAEDIATRIC PHYSIOTHERAPIST - [address] [address] Gary Gutierrez MD Social History Tobacco Use [...] on filedocumented in this encounter Care Teams Loan Processing Supervisor Relationship Specialty Start Date End Date Neha Vivar MD PCP - General Internal Medicine 09/28/15 05/21/17 Rere Mallory MD PCP - General Internal Medicine 05/22/17 05/27/22 Luciano Trujillo, Darcy Bentley MD [address] [place] [address] PCP - General Internal Medicine 05/28/22 documented as of this encounter
--- OUTSIDE RECORDS SUMMARY | 2025-10-20 16:12 | XMS_ITS | Encounter Summary ---
Author Organization [facility] Address [address] [place] [address] Care Team Providers Care Pathology Technologist Name Role Phone Neha Vivar MD Primary Care Provider Rere Narayanan MD Primary Care Provider Darcy Mccormick MD Primary Care Prov ider Encounter Details Date Type Department Care Team Description 04/01/2016 Orders Only CLERICAL GRADER - [address] [address] Gary Gutierrez MD Endometrial polyp (Primary Dx) [...] uteri documented in this encounter Care Teams Pathology Technologist Relationship Specialty Start Date End Date Neha Vivar MD PCP - General Internal Medicine 09/28/15 05/21/17 Rere Mallory MD PCP - General Internal Medicine 05/22/17 05/27/22 Darcy Fry MD [address] [place] [address] PCP - General Internal Medicine 05/28/22 documented as of this encounter
--- OUTSIDE RECORDS SUMMARY | 2025-10-20 16:12 | XMS_ITS | Encounter Summary ---
Author Organization [facility] Address [address] [place] [address] Care Team Providers Care Ela Teacher Name Role Phone Rere Mallory MD Primary Care Provider Darcy Mccormick MD Primary Care Prov ider Reason for Visit * Reason Onset Date Comments Medical Records 10/26/2018 Encounter Details Date Type Department Care Team Description 10/26/2018 Telephone Medicine/Pediatrics - [address] [phone] Patti Sanchez PA-C Medical Records Social History [...] 1:29 PM EST Sent for dr salazar [phone] * Telephone Encounter - Nereida MasP.N. - 10/26/2018 1:00 PM EST Message left on to call office at [phone] * Telephone Encounter - Patti Sanchez PA-C [...] on filedocumented in this encounter Care Teams Ela Teacher Relationship Specialty Start Date End Date Rere Mallory MD PCP - General Internal Medicine 05/22/17 05/27/22 Luciano Trujillo, aDrcy Bentley MD [address] [place] [address] PCP - General Internal Medicine 05/28/22 documented as of this encounter
--- OUTSIDE RECORDS SUMMARY | 2025-10-20 16:12 | XMS_ITS | Encounter Summary ---
Author Organization [facility] Address [address] [place] [address] Care Team Providers Care Steel Pickler Name Role Phone Darcy Fry MD Primary Care Prov ider Reason for Visit * Reason Onset Date Comments Medication 08/18/2022 Encounter Details Date Type Department Care Team Description 08/18/2022 Refill Gastroenterology - [address] [place] [phone] Kurtis Spring MD [address] [place] [phone] Medication Social History Tobacco Use Types Packs/Day [...] Pickler Relationship Specialty Start Date End Date Darcy Fry MD [address] [place] [phone] PCP - General Internal Medicine 05/28/22 documented as of this encounter
--- OUTSIDE RECORDS SUMMARY | 2025-10-20 16:12 | XMS_ITS | Encounter Summary ---
Author Organization [facility] Address [address] [place] [address] Care Team Providers Care Gas Treater Name Role Phone Rere Mallory MD Primary Care Provider Darcy Mccormick MD Primary Care Prov ider Encounter Details Date Type Department Care Team Description 09/28/2018 Release of Information Medical Records [address] [place] [address] Abstract, Provider Social History Tobacco Use Types [...] on filedocumented in this encounter Care Teams Gas Treater Relationship Specialty Start Date End Date Rere Mallory MD PCP - General Internal Medicine 05/22/17 05/27/22 Darcy Fry MD [address] [place] [address] PCP - General Internal Medicine 05/28/22 documented as of this encounter
--- OUTSIDE RECORDS SUMMARY | 2025-10-20 16:12 | XMS_ITS | Encounter Summary ---
Author Organization [facility] Address [address] [place] [address] Care Team Providers Care Warehouse Analyst Name Role Phone Neha Vivar MD Primary Care Provider Rere Narayanan MD Primary Care Provider Darcy Mccormick MD Primary Care Prov ider Encounter Details Date Type Department Care Team Description 05/29/2016 [facility] Medical Records [address] [place] [address] Gary Gutierrez MD Social History Tobacco Use [...] filedocumented in this encounter Care Teams Warehouse Analyst Relationship Specialty Start Date End Date Neha Vivar MD PCP - General Internal Medicine 09/28/15 05/21/17 Rere Mallory MD PCP - General Internal Medicine 05/22/17 05/27/22 Darcy Fry MD [address] [place] [address] PCP - General Internal Medicine 05/28/22 documented as of this encounter
--- OUTSIDE RECORDS SUMMARY | 2025-10-20 16:12 | XMS_ITS | Encounter Summary ---
Author Organization [facility] Address [address] [place] [address] Care Team Providers Care Electronic Maintenance Supervisor Name Role Phone Cortez Greenberg MD Primary Care Provider Unavail able Neha Vivar MD Primary Care Provider UnavailRere Sparks MD Primary Care Provider Unava ilable Darcy Fry MD Primary Care Prov ider Encounter Details Date Type Department Care Team Description 09/15/2014 Hospital Medical Records [address] [place] [address] Glenn Huerta MD Social History Tobacco Use [...] on filedocumented in this encounter Care Teams Electronic Maintenance Supervisor Relationship Specialty Start Date End Date Cortez Greenberg MD PCP - General 08/12/04 09/27/15 Neha Vivar MD PCP - General Internal Medicine 09/28/15 05/21/17 Rere Mallory MD PCP - General Internal Medicine 05/22/17 05/27/22 Darcy Fry MD [address] [place] [phone] PCP - General Internal Medicine 05/28/22 documented as of this encounter
--- OUTSIDE RECORDS SUMMARY | 2025-10-20 16:13 | XMS_ITS | Encounter Summary ---
Author Organization [facility] Address [address] [place] [address] Care Team Providers Care Compliance Director Name Role Phone Rere Mallory MD Primary Care Provider Darcy Mccormick MD Primary Care Prov ider Encounter Details Date Type Department Care Team Description 02/29/2020 Orders Only Adult Medicine [address] [address] Gerardo Callejas MD Subacute thyroiditis (Primary Dx) [...] - 1.80 ng/dL 04/06/2020 5:53 PM EDT [employer] [employer] 04/06/2020 3:07 PM EDT 04/06/2020 3:09 PM EDT Gerardo Callejas MD LAB [facility] [employer] * TSH (04/06/2020 3:07 PM EDT) TSH 3.29 0.40 - 4.00 uIU/ml 04/06/2020 5:53 PM EDT [facility] [employer] [employer] 04/06/2020 3:07 PM EDT 04/06/2020 3:09 PM EDT Gerardo Callejas MD LAB [facility] [employer] documented in this encounter Visit Diagnoses Diagnosis Subacute thyroiditis- Primary documented in this encounter Care Teams Compliance Director Relationship Specialty Start Date End Date Rere Mallory MD PCP - General Internal Medicine 05/22/17 05/27/22 Darcy Fry MD [address] [place] [phone] PCP - General Internal Medicine 05/28/22 documented as of this encounter
--- OUTSIDE RECORDS SUMMARY | 2025-10-20 16:13 | XMS_ITS | Clinical Summary ---
Author Organization [facility] Address [address] [place] [address] Phone Care Team Providers Care Engineer First Assistant Name Role Phone Lev Patrick MD Primary Care Provider [phone] Allergies No known active allergies Medications propranolol [...] Description 11/13/2025 2:30 PM EST Office Visit [facility] Rad Onc [address] [place] [address] Hailey Storm MD [address] [place] [address] Health Maintenance Due Date Last Done Comments [...] Interpretation) (05/04/2024 12:00 AM EDT) Narrative Record, Kyala - 07/27/2024 11:38 AM EDT This study is for PACS storage only and not for interpretation. Procedure Note Record, 07/27/2024 This study is for PACS storage only and not for interpretation. us Unknown Unknown MD ALEJANDRINA OUTSIDE IMAGING W/OUT INT ERPRETATION Final Result from Last 3 Months or Most Recently Relevant to Health Maintenance Insurance [address] [place] [address] [facility] [address] [place] [address] Care Teams Engineer First Assistant Relationship Specialty Start Date End Date Lev Patrick MD [address] [place] [address] [place] [address] PCP - General Internal Medicine 01/13/25 Additional Source Comments The information contained in this document represents components of the legal health record. It is not the complete legal health record.[facility]
== END 2025-10-20 16:36 | disposition home or self-care (01) ==
LOC: HO.HMCH 16:01
PROVIDERS: PCP Internal Medicine; Visit Provider Nurse Practitioner Family
DX: N20.0 Calculus of kidney (principal); N13.30 Unspecified hydronephrosis

== ENCOUNTER 2025-10-25 15:45 | Outpatient (AMB) | payer OTHER, SELFPAY ==
--- NOTE | 2025-10-25 15:51 | A.OFFVIS_ITS ---
Intake Visit Reasons: follow up BOYCE Allergies adhesive tape Allergy (Verified 10/25/25 15:55) Redness of Skin cefuroxime Adverse Reaction (Verified 10/25/25 15:55) Hives flu vaccine Adverse Reaction (Severe, Uncoded 10/25/25 15:55) Hives Medication List - Last Reconciled 10/25/25 by Michell Rosario CNP atorvastatin 10 mg PO BEDTIME celecoxib 100 mg PO DAILY docusate sodium 200 mg (2 x 100 mg) PO BEDTIME esomeprazole magnesium 20 mg PO DAILY fluticasone propionate 50 mcg/actuation (Aller-Abel) 1 spray intranasal BID PRN gabapentin 100 mg PO BEDTIME 30 days letrozole 2.5 mg PO DAILY levonorgestrel (Mirena) 21 mcg intrauterine ONCE lidocaine 5% 1 patch topical DAILY losartan 25 mg PO DAILY ondansetron 8 mg PO Q8H propranolol ER 160 mg PO DAILY sumatriptan succinate 50 mg PO Q2-4H PRN tirzepatide (Mounjaro) 2.5 mg (0.5 mL) subcut QWEEK topiramate 50 mg PO BEDTIME Ventolin HFA 90 mcg/actuation (albuterol sulfate) 2 puffs inhalation Q6H PRN 30 days NS HPI Comments Details: 45-year-old woman with HTN, GERD, breast cancer diagnosed in 05/2024 s/p lumpectomy in 07/2024, followed by chemotherapy resulting in paresthesia of hands and feet?and radiation, on Letrozol since 02/2025 which would continue for 5 y ears, and headaches. She was admitted to [facility] earlier this month for kidney stones, which she was able to pass and was following urology. Headaches were off and on, about 1-2x/week with no major migraines. She stopped ibuprofen and Tylenol completely, which had previously been taking every day for many months. Sleep was so-so. She was under some stress. [facility] Medical History (Updated 10/20/25 @ 16:19 by Donna Conway NP) Hydronephrosis of left kidney Calculus of left kidney Non-insulin dependent type 2 diabetes mellitus BMI 37.0-37.9, adult History of breast cancer Mixed hyperlipidemia Diabetes mellitus Lumbar spondylosis Back pain COVID-19 HTN (hypertension) Invasive ductal carcinoma of breast Breast mass, right Benign essential hypertension Pure hypercholesterolemia GERD (gastroesophageal reflux disease) Viral upper respiratory tract infection with cough Obesity (BMI 30-39.9) Migraine Asthma Cyst of breast, left, solitary Cough Asthma Laryngitis Allergic rhinosinusitis Surgical History History of lumpectomy of right breast (~08/16/24) Hx of colonoscopy History of breast lump/mass excision H/O section Family History Mother Colon cancer, Onset Age: 42 Diabetes mellitus Father Heart disease Parkinson disease Maternal Grandmother Breast cancer Paternal Grandmother Breast cancer Maternal Grandfather Prostate CA Family/Other Thyroid cancer Other FH: mental illness Substance abuse Social History Household Members: None Housing: House Are you a primary primary care pediatrician to a significant other at home: No Do you presently have visiting nurse or other home services: No Alcohol intake: never Patient Tobacco Use Status: Never used Tobacco e-Cigarette/Vaping Use: Never Used Second Hand Smoke Exposure: No service: No Current occupational status: employed 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 [employer] Sexual orientation: Straight/Heterosexual Gender identity: Female Cognitive needs: No Hearing needs: No Vision needs: Yes Female Reproductive History Menstrual Age of Menarche: 7 Review of Systems Const Denies chills, Denies daytime sleepiness, Reports difficulty sleeping, Denies fatigue, Denies fever(s), Denies frequent falls, Reports headache(s), Denies increased appetite, Denies poor appetite, Denies snoring, Denies weakness, Denies weight gain and Denies weight loss Eyes Denies loss of vision ENT Denies vertigo, Denies dizziness and Reports headache(s) Card Denies chest pain at rest, Denies chest pain with activity, Denies syncope, Denies leg edema and Denies palpitations Resp Denies snoring GI Denies constipation, Denies heartburn, Denies diarrhea and Denies nausea Denies urinary frequency, Denies urinary incontinence and Denies urinary urgency Musc Denies abnormal gait, Denies numbness and Denies tingling Skin/Breast Denies dry skin and Denies rash Neuro Denies abnormal gait, Denies vertigo, Denies dizziness, Denies syncope, Denies frequent falls, Reports headache(s), Denies lack of coordination, Denies loss of vision, Denies memory loss, Denies numbness, Denies restless legs, Denies seizure-like activity, Denies tingling, Denies paresthesias, Denies tremor(s) and Denies weakness Psych Denies anxiety, Denies depression, Denies auditory hallucinations, Denies memory loss, Denies visual hallucinations and Denies suicidal ideation Endo Denies fatigue and Denies palpitations Physical Exam Const Other: General Appearance:? normal, in no acute distress. Skin:? no rashes, no significant birthmarks. Heart:? S1, S2 normal, no murmurs. Lungs:? clear anteriorly and posteriorly. Extremities:? no edema. Psych:? alert, oriented, cognitive function intact, cooperative with exam. Neuro Other: Mental Status:?Normal attention, orientation, memory and affect.? Cranial Nerves:?Pupils are equal, round and reactive to light. External occular muscles are intact. Visual simon are full. Face is symmetrical. Facial sensations are normal. Tongue is midline. Palate elevates symmetrically. Shoulder shrugging is normal. Hearing to bedside conversation is normal. Sensory Exam:?....? Coordination:?No ataxia,?no titubation.? Gait Exam: Within normal limits. Cerebellar Signs:?[id number] is okay. Extrapyramidal System:?No tremor, rigidity with normal facial expressions.? Pronator Drift:?Not present.? Involuntary Movements:?No tremors seen.? Speech:?Normal.? Results Reviewed Results Reviewed: CT brain WO at [facility] [place] in Aug 2023: WNL Assessment & Plan Assessment & Plan (1) Migraine without aura: Code(s): G43.009 - Migraine without aura, not intractable, without status migrainosus Category: Medical Qualifiers: Status migrainosus presence: without status migrainosus Intractability: not intractable Qualified Code(s): G43.009 - Migraine without aura, not intractable, without status migrainosus Plan: She was hospitalized earlier this month for kidney stones and was following with urology. She was taking topiramate 50mg at bedtime. She was educated possible side effect of topiramate is kidney stones and medication was discontinued. Continue propranolol HCl ER Capsule Extended Release 24 hour 160mg 1 capsule daily. Continue sumatriptan 50mg 1 tablet as needed for migraine. Follow up in 3 months or sooner as needed. (2) Medication overuse headache: Code(s): G44.40 - Drug-induced headache, not elsewhere classified, not intractable Category: Medical Plan: Limit use of Plan Meds tried: amitriptyline (unable to tolerate >25mg), propranolol, sumatriptan Medications: Changed From propranolol ER 160 mg PO DAILY To propranolol ER 160 mg PO DAILY 90 caps 1RF 90 days Coding Level of Care Code Est Pt Level 4 (39425) Diagnoses Migraine without aura and without status migrainosus, not intractable G43.009 Status migrainosus presence: without status migrainosus Intractability: not intractable Medication overuse headache G44.40
--- OUTSIDE RECORDS SUMMARY | 2025-10-25 17:51 | XMS_ITS | Clinical Summary ---
Author Organization [facility] Address [address] [place] [address] Phone Care Team Providers Care Enterprise Business Architect Name Role Phone Lev Patrick MD Primary Care Provider [phone] Allergies No known active allergies Medications propranolol [...] Description 11/13/2025 2:30 PM EST Office Visit [facility] Rad Onc [address] [place] [address] Hailey Storm MD [address] [place] [address] Health Maintenance Due Date Last Done Comments [...] to Health Maintenance Insurance [address] [place], [place] [address]O [facility] [address] [place] [address] [facility] Care Teams Enterprise Business Architect Relationship Specialty Start Date End Date Lev Patrick MD [address] [place] [address] [place] [address] PCP - General Internal Medicine 01/13/25 Additional Source Comments The information contained in this document represents components of the legal health record. It is not the complete legal health record.[facility]
== END 2025-10-25 16:08 | disposition home or self-care (01) ==
LOC: HO.HSM 15:46
PROVIDERS: PCP Internal Medicine; Visit Provider Registered Nurse
DX: G43.009 Migraine without aura, not intractable, without status migrainosus (principal); G44.40 Drug-induced headache, not elsewhere classified, not intractable
CPT/HCPCS: 99214

== ENCOUNTER 2025-11-29 08:28 | Outpatient (AMB) | payer OTHER, SELFPAY ==
--- OUTSIDE RECORDS SUMMARY | 2025-11-29 08:31 | XMS_ITS | Clinical Summary ---
Author Organization [facility] Address [address] [place] [address] Phone Care Team Providers Care Interior Design Professional Name Role Phone Lev Patrick MD Primary Care Provider [phone] Allergies No known active allergies Medications propranolol [...] Encounters Date Type Department Care Team Description 11/13/2025 2:30 PM EST Office Visit [facility] [address] [place] [address] Hailey Storm MD Malignant neoplasm of central [...] 12:25 PM EDT Respiratory Rate 16 04/27/2025 12:25 PM EDT Oxygen Saturation 96% 05/01/2025 12:47 PM EDT Inhaled Oxygen Concentration - - Weight 90.8 kg (200 lb 3.2 oz) 11/13/2025 2:05 P M EST Height 160 cm (5' 3 ) 03/21/2025 2:00 PM EDT Body Mass Index 35.46 03/21/2025 2:00 PM EDT Plan of Treatment Health Maintenance Due [...] not for interpretation. us Unknown Unknown MD IMG OUTSIDE IMAGING W/OUT INT ERPRETATION Final Result from Last 3 Months or Most Recently Relevant to Health Maintenance [facility] [address] [place] [address]O [facility] Care Teams Interior Design Professional Relationship Specialty Start Date End Date Lev Patrick MD [address] [place] [address] [place] [address] PCP - General Internal Medicine 01/13/25 Additional Source Comments The information contained in this document represents components of the legal health record. It is not the complete legal health record.[facility]
--- NOTE | 2025-11-29 09:00 | A.OFFWM_ITS ---
Intake Intake Visit Reasons: OV BH Intake Allergies adhesive tape Allergy (Verified 10/25/25 15:55) Redness of Skin cefuroxime Adverse Reaction (Verified 10/25/25 15:55) Hives flu vaccine Adverse Reaction (Severe, Uncoded 10/25/25 15:55) Hives [facility] Medical History (Updated 11/11/25 @ 17:13 by Dillon Benavides MD) BMI 35.0-35.9,adult Vitamin B1 deficiency Hydronephrosis of left kidney Calculus of left kidney Non-insulin dependent type 2 diabetes mellitus BMI 37.0-37.9, adult History of breast cancer Mixed hyperlipidemia Diabetes mellitus Lumbar spondylosis Back pain COVID-19 HTN (hypertension) Invasive ductal carcinoma of breast Breast mass, right Benign essential hypertension Pure hypercholesterolemia GERD (gastroesophageal reflux disease) Viral upper respiratory tract infection with cough Obesity (BMI 30-39.9) Migraine Asthma Cyst of breast, left, solitary Cough Asthma Laryngitis Allergic rhinosinusitis Surgical History History of lumpectomy of right breast (~08/16/24) Hx of colonoscopy History of breast lump/mass excision H/O section Family History Mother Colon cancer, Onset Age: 42 Diabetes mellitus Father Heart disease Parkinson disease Maternal Grandmother Breast cancer Paternal Grandmother Breast cancer Maternal Grandfather Prostate CA Family/Other Thyroid cancer Other FH: mental illness Substance abuse Social History Household Members: None Housing: House Are you a primary managed care coordinator to a significant other at home: No Do you presently have visiting nurse or other home services: No Alcohol intake: never Patient Tobacco Use Status: Never used Tobacco e-Cigarette/Vaping Use: Never Used Second Hand Smoke Exposure: No service: No Current occupational status: employed 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 Presenting Concerns Referral Source WMP-Provider Reason for referral Completion of behavioral health assessment as part of process for weight-loss surgery. Precipitating Event Obesity. Living Situation Current Living Situation Own At risk of losing current housing? No Comments PT lives with her dog. Food/Weight/Diet Expectations of change Pt initiated the program in September 2025 at 212 lbs. The initial goal is a 10% weight reduction prior to surgery (approximately 12 lbs), with an ultimate preoperative weight goal of 190 lbs. She reports a recent weight of 192 lbs as of Thursday. Pt goals include improving overall health and reducing reliance on multiple medications. PT is implementing the following: Current meal plan: Exercise plan: walking pad and stationary bike. Daily exercise at least 40 min. scale: yes communication w/ provider: weekly on Saturdays History/Relationship with food Pt reports periods of limited awareness around eating and identifies herself as an automatic eater, which has contributed to weight gain. She notes frequent snacking while working. She denies difficulty adhering to the plan. Example of meals before starting the program: Breakfast: skips Lunch: 12pm (frozen Malini Ricardo meal) Dinner: 8pm (rice and beans, salad, fast food) Snacks: 10am (fruits, granola bars), 5pm (chips, granola bar), sometimes Beverages: Coffee: rarely, Tea: rarely, Soda: none, Juice: 2/wk (lemonade), ETOH: none History/Relationship with weight PT denies being overweigh in childhood. Reported a major weight gain when went trough cancer tx. In the last 10 years, the patient's Lowest weight was 140Lbs and highest 230Lbs History/Relationship with dieting Self-diets Binge Eating Do you frequently eat large amounts of food in short periods of time, not feeling physically hungry? Yes Do you feel out of control when you eat a large amount of food in a short period of time? No Do you eat large amounts of food rapidly and typically alone? No Night Eating Do you wake up at least once during the night to eat? No If you wake up in the night, do you find that it is necessary to eat something in order to fall back asleep? No Do you have little or no appetite in the morning and feel very hungry in the evening, often overeating between dinner and when you go to bed? Yes Social History Family history and relationship PT has 1 daughter who is 23. going trough separation at this time. She has 3 siblings, a twin sister, a brother and another sister. Parents alive, they live in the [facility]. Parental/Familial claim service representative obligations None. Developmental history and status None reported. Social support Friends and family. Community support adventism community Jew/Spirituality Bahai. Cultural/Ethnic information -[place]. [place], grandparents are from [place]. Legal Involvement and History Current or historical involvement with the legal system? None yet. Education Highest grade completed Masters degree in public administration. Currently enrolled in educational program? Yes Interested in further educational program? 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 ) Financial Situation Describe current financial situation Comfortable Financial assistance? None Service Service? No Mental Health and Addiction Treatment Current/Past substance abuse? No Comments Alcohol: None Cigarettes/Tobacco: None Cannabis/Edibles: None Current/Past addictive behavior concerns? No Psychiatric history Pt has participated in counseling previously, most recently in 2019. She is not currently in individual counseling but attends support groups twice monthly and participates in art therapy on Saturdays at the [facility]. Pt denies any history of mental health crises or inpatient psychiatric treatment. There is no past or current concern for SI/SA, self-harm, or harm to others. Medical and Physical Health Summary Additional Medical History not covered in history None aditional Sexual History concerns None reported Physical exam in the last year? Yes Pain Screening Current pain? No Pain in the last few months? Yes Comments Lower back pain. Have dealt with pain issues due to cancer tx. Medications Is the patient compliant with medications? Yes Does the patient have Webster Guardian in place? Not applicable Does the patient use complimentary health approaches? Yes (Chiropractor 1 x week. Also alternative medicine. ) Trauma/Abuse History History of trauma? Yes (RAJAN: 5) Questionnaires PHQ-9 Over the last 2 weeks, how often have you been bothered by any of the following problems? 1. Little interest or pleasure in doing things: not at all 2. Feeling down, depressed, or hopeless: not at all 3. Trouble falling or staying asleep, or sleeping too much: several days 4. Feeling tired or having little energy: several days 5. Poor appetite or overeating: not at all 6. Feeling bad about yourself - or that you are a failure or have let yourself or your family down: not at all 7. Trouble concentrating on things, such as reading the newspaper or watching television: not at all 8. Moving or speaking so slowly that other people could have noticed. Or the opposite - being so fidgety or restless that you have been moving around a lot more than usual: not at all 9. Thoughts that you would be better off or of hurting yourself in some way: not at all Total score: 2 Depression Screening Interpretation: Negative (Initial score: 5) Depression Screening Done: Yes 48254 - PHQ-9 Billing: Yes Source: Developed by Drs. Elfego Morelos, Emani Kelley, Apollo Buchanan and colleagues, with an educational gilson from [employer]. Binge Eating Scale Group 1 A. I don't feel self-conscious about my wt. or body size when I'm with others. B. I feel concerned about how I look to others, but it normally does not make me fell disappointed with myself C. I do get self-conscious about my appearance and wt. which makes me feel disappointed in myself. D. I feel very self-conscious about my wt. and frequently I feel intense shame and disgust for myself. I try to avoid social contacts because of my self- consciousness. Response Group 1: B Group 2 A. I don't have any difficulty eating slowly in the proper manner. B. Although I seem to gobble down foods, I don't end up feeling stuffed because of eating to much. C. At times, I tend to eat quickly and then, I feel uncomfortably full afterwards. D. I have the habit of bolting down my food, without really chewing it. When this happens I usually feel uncomfortably stuffed because I've eaten to much. Response Group 2: C Group 3 A. I feel capable to control my eating urges when I want to. B. I feel like I have failed to control my eating more than the average person. C. I feel utterly helpless when it comes to feeling in control of my eating urges. D. Because I feel so helpless about controlling my eating I have become very desperate about trying to get control. Response Group 3: A Group 4 A. I don't have the habit of eating when I'm bored. B. I sometimes eat when I'm bored, but often I'm able to get busy and get my mind off food. C. I have a regular habit of eating when I'm bored, but occasionally, I can use some other activity to get my mind off eating. D. I have a strong habit of eating when I'm bored. Nothing seems to help me breath the habit. Response Group 4: B Group 5 A. I'm usually physically hungry when I eat something. B. Occasionally, I eat something on impulse even though I really am not hungry. C. I have the regular habit of eating foods, that I might not really enjoy, to satisfy a hungry feeling even though physically, I don't need the food. D. Although I'm not physically hungry, I get a hungry feeling in my mouth that only seems to be satisfied when I eat a food, like sandwich, that fills my mouth. Sometimes, when I eat the food to satisfy my mouth hunger, I then spit the food out so I won't gain weight. Response Group 5: B Group 6 A. I don't feel any guilt or self-hate after I overeat. B. After I overeat, occasionally I feel guilt or self-hate. C. Almost all the time I experience strong guilt or self-hate after I overeat. Response Group 6: A Group 7 A. I don't lose total control of my eating when dieting even after periods when I overeat. B. Sometimes when I eat a forbidden food on a diet, I feel like I blew it and eat even more. C. Frequently, I have the habit of saying to myself, I've blown it now, why not go all the way, when I overeat on a diet. When that happens I eat more. D. I have a regular habit of starting a strict diets for myself but I break the diets by going on an eating binge. My life seems to be either a feast or famine. Response Group 7: A Group 8 A. I rarely eat so much food that I feel uncomfortably stuffed afterwards. B. Usually about once a month, I each such a quantity of food, I end up feeling very stuffed. C. I have regular periods during the month when I eat large amounts of food, either at mealtime or at snacks. D. I eat so much food that I regularly feel quite uncomfortable after eating and sometimes a bit nauseous. Response Group 8: A Group 9 A. My level of calorie intake does not go up very high or go down very low on a regular basis. B. Sometimes after I overeat, I will try to reduce my caloric intake to almost nothing to compensate for the excess calories I've eaten. C. I have a regular habit of overeating during the night. It seems that my routine is not to be hungry in the morning but overeat in the evening. D. In my adult years, I have had week-long periods where I practically starve myself. This follows periods when I overeat. It seems I live a life of either feast or famine. Response Group 9: A Group 10 A. I usually am able to stop eating when I want to. I know when enough is enough. B. Every so often, I experience a compulsion to eat which I can't seem to control. C. Frequently, I experience strong urges to eat which I seem unable to control, but at other times I can control my eating urges. D. I feel incapable of controlling urges to eat. I have a fear of not being able to stop eating voluntarily. Response Group 10: B Group 11 A. I don't have any problem stopping eating when I feel full. B. I usually can stop eating when I feel full but occasionally overeat leaving me feeling uncomfortably stuffed. C. I have a problem stopping eating once I start and usually I feel uncomfortably stuffed after I eat a meal. D. Because I have a problem not being able to stop eating when I want, I sometimes have to induce vomiting to relieve my stuffed feeling. Response Group 11: A Group 12 A. I seem to eat just as much when I'm with others, Family social gatherings as when I'm by myself. B. Sometimes, when I'm with other persons, I don't eat as much as I want to eat because I'm self-conscious about my eating. C. Frequently, I eat only a small amount of food when others are present, because I'm very embarrassed about my eating. D. I feel so ashamed about overeating that I pick times to overeat when I know no one will see me. I feel like a closet eater. Response Group 12: A Group 13 A. I eat three meals a day with only an occasional between meal snack. B. I eat 3 meals a day, but I also normally snack between meals. C. When I am snacking heavily, I get in the habit of skipping regular meals. D. There are regular periods when I seem to be continually eating, with no planned meals. Response Group 13: B Group 14 A. I don't think much about trying to control unwanted eating urges. B. At least some of the time, I feel my thoughts are pre-occupied with trying to control my eating urges. C. I feel that frequently I spend much time thinking about how much I ate or about trying not to eat anymore. D. It seems to me that most of my waking hours are pre-occupied by thoughts about eating or not eating. I feel like I'm constantly struggling not to eat. Response Group 14: B Group 15 A. I don't think about food a great deal. B. I have strong craving for food but they last only for brief periods of time. C. I have days when I can't seem to think about anything else but food. D. Most of my days seem to be pre-occupied with thoughts about food. I feel like I live to eat. Response Group 15: A Group 16 A. I usually know whether or not I'm physically hungry. I take the right portion of food to satisfy me. B. Occasionally, I feel uncertain about knowing whether or not I'm physically hungry. A these times it's hard to know how much food I should take to satisfy me. C. Even though I might know how many calories I should eat, I don't have any idea what is a normal amount of food for me. Response Group 16: A Binge Eating Score: 8 Score less than 17 Minimal Risk Score between 18-26 Moderate Risk Score between 27-46 High Risk Assessment & Plan Assessment & Plan (1) Adjustment disorder: Code(s): F43.20 - Adjustment disorder, unspecified (2) Pre-bariatric surgery psychological evaluation: Code(s): Z71.89 - Other specified counseling Plan Following a comprehensive behavioral health assessment?including review of the Binge Eating Scale, PHQ-9, mental status evaluation, and patient self- report?there are currently no behavioral health contraindications to proceeding with bariatric surgery. The patient demonstrates appropriate insight, motivation, and psychological readiness for the procedure. No active psychiatric symptoms or maladaptive eating behaviors were identified that would impede surgical outcomes at this time. The patient is cleared from a behavioral health perspective to proceed with bariatric surgery and documentation can be submitted for insurance approval as indicated. PT will return for a follow-up behavioral health visit 1?4 weeks postoperatively to monitor psychological adjustment, reinforce coping strategies, and screen for any emerging concerns such as mood changes, adjustment difficulties, or disordered eating patterns. Additional behavioral health support will be provided as needed based on postoperative assessment. Next david: 1-4 weeks PO. [place] [address] Psy Diag Eval Patient Type New Diagnoses Adjustment disorder F43.20 Pre-bariatric surgery psychological evaluation Z71.89 Additional Codes PHQ-9 - 96953 - PHQ-9 Billing: Yes ([id number]) Time Spent (min) 70
== END 2025-11-29 13:15 | disposition home or self-care (01) ==
LOC: HO.HBST 08:28
PROVIDERS: PCP Internal Medicine; Visit Provider Counselor Mental Health
DX: F43.20 Adjustment disorder, unspecified (principal); Z71.89 Other specified counseling
CPT/HCPCS: 90791

== ENCOUNTER → 2025-11-29 08:28 | Outpatient (BNVA) | payer OTHER, SELFPAY | PROVIDERS: PCP Internal Medicine; Visit Provider Counselor Mental Health | DX: F43.20 Adjustment disorder, unspecified (principal); Z71.89 Other specified counseling | CPT/HCPCS: 96127 ==